=== PATIENT | female | born 1990 | race Caucasian/White ===

== ENCOUNTER 2022-08-02 20:22 | Emergency (ER) | payer OTHER, SELFPAY ==
[2022-08-02] VITALS (9 sets, daily range): BP systolic 134–144; BP diastolic 72–82; PULSE 79–86; RESP 16; TEMP 36.8; O2SAT 97–98; BMI 38.1
--- NOTE | 2022-08-02 21:09 | CRLHL7_ITS ---
For Patients: As a result of the Century Cures Act, medical imaging exams and procedure reports are released immediately into your electronic medical record. You may view this report before your referring provider. If you have questions, please contact your health care provider. INDICATION: Leg pain and swelling. TECHNIQUE: Ultrasound venous duplex lower right extremity. Compression venous exam was performed using foy-scale, color Doppler, and spectral Doppler analysis. COMPARISON: None. FINDINGS: Deep veins: Sonographic imaging demonstrates the right common femoral, deep femoral, superficial femoral, popliteal, posterior tibial and the contralateral right common femoral veins to be fully compressible with normal color Doppler blood flow. Superficial veins: Greater saphenous vein is fully compressible. No popliteal cyst. IMPRESSION: Normal right lower extremity venous ultrasound, no sign of deep venous thrombosis. Dictated by Edilberto Brown MD @ 08/02/2022 10:17:32 PM (Electronically Signed)
--- NOTE | 2022-08-02 21:10 | ED.GENADULT ---
HPI - General Adult General Chief complaint: Extremity Pain/Injury, Lower Stated complaint: Post Op Leg Pain Time Seen by Provider: 08/02/22 20:33 History of Present Illness HPI narrative: This 32-year-old female comes in reporting pain in her right calf that began in the last day or so. She had a surgery for an ectopic and had her left fallopian tube removed several days ago. She does not report any injury event to account for her right calf pain. She does not have any shortness of breath or chest pain. She arrives with normal vital signs. She is concerned that she may have a blood clot in her right leg. She does not report any history of this. Related Data Home Medications Medication Instructions Recorded Confirmed No Known Home Medications 08/02/22 08/02/22 Allergies Allergy/AdvReac Type Severity Reaction Status Date / Time prochlorperazine Allergy Mild Lock Jaw Verified 08/02/22 20:55 [From Compazine] Adhesives Allergy Mild Rash Uncoded 08/02/22 20:55 Review of Systems Status of ROS: Reports: 10 or more systems reviewed and unremarkable except as noted in History and below Narrative: Constitutional: No fevers, no weight gain or loss. Eyes: No discharge. No vision changes. HENT: No congestion, no sore throat, no ear pain. Cardiovascular: No chest pain, no palpitations. Respiratory: No shortness of breath, no wheezes, no cough. Gastrointestinal: No vomiting, no diarrhea. Abdominal pain status post surgery for ectopic . Genitourinary: No dysuria, no hematuria. Musculoskeletal: Normal range of motion. Skin: No rashes, no pruritis. Neurological: No dizziness, weakness, sensory change, speech change. Endo/Heme/Allergies: No bruising or bleeding. No polydipsia. Pysch: no suicidality, no anxiety, no insomnia. All other systems reviewed and are negative. PFSH PFS Social History Smoking Status: Never smoker Do you use any of these nicotine containing products: None Second hand tobacco smoke exposure: No How often do you have a drink containing alcohol: never AUDIT-C Alcohol total score: 0 Non-prescribed substance use: denies use Exam Narrative: Exam Narrative: Constitutional: Well-developed, well-nourished, no acute distress. HEENT: Normocephalic, atraumatic. Neck: Normal range of motion. Nontender. Supple. Heart: Regular. No murmurs. Normal rate. Intact distal pulses. Lungs: Clear to auscultation. No chest discomfort. No wheezes, rhonchi, or rales. Abdomen: Normal bowel sounds. Tenderness in the lower abdomen status post surgery. No rebound tenderness. Genitalia: Deferred. Back: No midline tenderness. Normal range of motion. Extremities: Normal range of motion. No injury. Diffuse pain in the right calf but no sign of swelling. Skin: Intact. No rash. Warm. No erythema or pallor. Neurologic: No altered sensation. No weakness. Alert and oriented. Psychiatric: No suicidality. No anxiety or depression. No insomnia. Nursing notes and vitals signs are reviewed. Const: Vital Signs, click to edit/add: Vital Signs - 24 hr 08/02/22 20:48 08/02/22 20:59 08/02/22 21:00 Temperature 98.3 F Pulse Rate 86 86 Pulse Rate [Right Pulse Oximeter] 79 Respiratory Rate 16 Blood Pressure Blood Pressure [Le ft Upper Arm] 141/82 H Pulse Oximetry 98 97 97 Oxygen Delivery Me thod Room Air 08/02/22 21:02 Temperature Pulse Rate 85 Pulse Rate [Right Pulse Oximeter] Respiratory Rate Blood Pressure 134/80 Blood Pressure [Le ft Upper Arm] Pulse Oximetry 97 Oxygen Delivery Me thod Course Vital Signs Vital signs: Initial Vital Signs Temperature 98.3 F 08/02/22 20:48 Temperature Source Temporal Artery Scan 08/02/22 20:48 Pulse Rate 79 08/02/22 20:48 Pulse Rhythm 08/02/22 20:48 Respiratory Rate 16 08/02/22 20:48 Blood Pressure 141/82 H 08/02/22 20:48 Blood Pressure Mean 101 08/02/22 20:48 Blood Pressure Position Supine 08/02/22 20:48 Pulse Oximetry 98 08/02/22 20:48 Oxygen Delivery Method 08/02/22 20:48 Vital Signs Temperature 98.3 F 08/02/22 20:48 Pulse Rate 79 08/02/22 20:48 Respiratory Rate 16 08/02/22 20:48 Blood Pressure 141/82 H 08/02/22 20:48 Pulse Oximetry 98 08/02/22 20:48 Oxygen Delivery Method 08/02/22 20:48 Temperature 98.3 F 08/02/22 20:48 Pulse Rate 85 08/02/22 21:02 Respiratory Rate 16 08/02/22 20:48 Blood Pressure 134/80 08/02/22 21:02 Pulse Oximetry 97 08/02/22 21:02 Oxygen Delivery Method 08/02/22 20:48 Medical Decision Making MDM Narrative Medical decision making narrative: This patient comes in with pain in her right calf and is concerned about possible blood clot as she just had a surgery to deal with an ectopic . Ultrasound imaging is ordered and returns with no evidence of deep venous thrombosis. This was reassuring to the patient who can be discharged home to continue current plans. Imaging Data US RLE: My impression: No sign of deep venous thrombosis. Discharge Plan Discharge Clinical Impression: Acute leg pain Patient Disposition: Home, Self-Care Condition: Stable Additional Instructions: Continue current plans. Follow up with MD or return if worsening. Prescriptions: No Action No Known Home Medications Stand Alone Forms: [employer] Info Instructions
== END 2022-08-02 22:04 | disposition home or self-care (01) ==
LOC: ED 21:54
PROVIDERS: Emergency Provider Emergency Medicine Emergency Medical Services
DX: M79.604 Pain in right leg (principal)
CPT/HCPCS: 93971; 99283; 99284

== ENCOUNTER 2022-09-01 18:34 | Outpatient (CLI) | payer OTHER, SELFPAY | END 2022-09-01 18:35 | disposition home or self-care (01) | PROVIDERS: Visit Provider Emergency Medicine Emergency Medical Services | DX: R55 Syncope and collapse (principal) | CPT/HCPCS: A0425; A0427 ==

== ENCOUNTER 2022-09-01 19:16 | Emergency (ER) | payer OTHER, SELFPAY ==
[2022-09-01 19:24] VITALS: BP 99/66; PULSE 90; RESP 18; TEMP 36.7; O2SAT 99; BMI 38.1
[2022-09-01 20:18] LABS: PCR FLU A Negative PCR FLU A (Negative); PCR FLU B Negative PCR FLU B (Negative); PCR RSV Negative PCR RSV (Negative)
--- NOTE | 2022-09-01 20:23 | ED_ITS ---
HPI - Nausea/Vomiting/Diarrhea General Chief complaint: Nausea/Vomiting Stated complaint: Vomiting, Diarrhea Time Seen by Provider: 09/01/22 19:53 History of Present Illness HPI Narrative: Pt is a 32 year old woman who comes in with the abrupt onset of nausea and vomiting today. She has had no fever or chills. She has had no blood in her vomit of stool. She has had a number of loose stools today. No abd pain. No dysuria. 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 Pt has no stiff neck. No rashes. She states when she gets sick like this she often requires IV hydration. Pt states that she is not at this time. 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 ENT: Tympanic membranes and oropharynx normal. THYROID: no thyroid nodules or thyromegaly. LYMPH: No supraclavicular or cervical lymphadenopathy. SKIN: Visible skin seen during exam normal or with benign process only. EXT: No dependent lower extremity pedal edema. HEART: Regular rate and rhythm with no murmurs, rubs, or gallops. LUNGS: Clear to auscultation bilaterally with no crackles or wheezes. ABD: Soft, non tender, non distended. PSYCH: Good eye contact, speech is not pressured. Const: Vital Signs, click to edit/add: Vital Signs - 24 hr 09/01/22 19:24 Temperature 98.0 F Pulse Rate [Right Pulse Oximeter] 90 Respiratory Rate 18 Blood Pressure [Ri ght Upper Arm] 99/66 Pulse Oximetry 99 Oxygen Delivery Me thod Room Air Course Course Hospital Course: Pt seen and examined. IV placed, NS and Zofran given. CBC, CMP, Amylase, test and Lactate collected. Reevaluation(s) Reevaluation #1: Labs reviewed and significant for elevated WBC at 16 and a negative test. Pt given 2nd liter of normal saline. Time: 21:57 Vital Signs Vital signs: Initial Vital Signs Temperature 98.0 F 09/01/22 19:24 Temperature Source Temporal Artery Scan 09/01/22 19:24 Pulse Rate 90 09/01/22 19:24 Respiratory Rate 18 09/01/22 19:24 Blood Pressure 99/66 09/01/22 19:24 Blood Pressure Mean 77 09/01/22 19:24 Blood Pressure Position Supine 09/01/22 19:24 Pulse Oximetry 99 09/01/22 19:24 Oxygen Delivery Method 09/01/22 19:24 Vital Signs Temperature 98.0 F 09/01/22 19:24 Pulse Rate 90 09/01/22 19:24 Respiratory Rate 18 09/01/22 19:24 Blood Pressure 99/66 09/01/22 19:24 Pulse Oximetry 99 09/01/22 19:24 Oxygen Delivery Method 09/01/22 19:24 Temperature 98.0 F 09/01/22 19:24 Pulse Rate 90 09/01/22 19:24 Respiratory Rate 18 09/01/22 19:24 Blood Pressure 99/66 09/01/22 19:24 Pulse Oximetry 99 09/01/22 19:24 Oxygen Delivery Method 09/01/22 19:24 MDM - Nausea/Vomiting/Diarrhea MDM Narrative Medical decision making narrative: Healthy 32 year old presents with nausea, vomiting and diarrhea. Labs reassuring. Pt given IV zofran and normal saline with improvement of symptoms. Pt works in [employer] so C. diff collected and sent. Pt treated symptomatically with Zofran for gastroenteritis. Differential Diagnosis Differential diagnosis: Likely traveler's diarrhea, food poisoning, gastroenteritis, clostridium difficile infection and dehydration Lab Data Labs: Lab Results 09/01/22 09/01/2209/01/22 Range/Units 19:33 20:21 20:34 WBC 16.20 H (4.50-11.00) K/uL RBC 4.85 (4.00-5.20) m/uL Hgb 14.6 (12.0-16.0) gm/dL Hct 43.4 (33.0-51.0) % MCV 90 (80-100) fL MCH 30 (26-34) pg MCHC 34 (32-36) gm/dL RDW Coeff of Emile 12.3 (11.5-15.5) % Plt Count 330 (140-440) K/uL Neut % (Auto) 89.6 H (42.0-72.0) % Lymph % (Auto) 4.9 L (20-44) % Yancey % (Auto) 4.9 (0.0-11.0) % Eos % (Auto) 0.3 (0.0-7.0) % Baso % (Auto) 0.1 (0.0-3.0) % Neut # (Auto) 14.50 H (1.7-7.0) K/uL Lymph # (Auto) 0.80 L (0.90-2.90) K/uL Yancey # (Auto) 0.80 (0.00-0.90) K/UL Eos # (Auto) 0.00 (0.00-0.50) K/uL Baso # (Auto) 0.00 (0.00-0.30) K/uL Sodium (135-149) mmol/L Potassium (3.6-5.1) mmol/L Chloride (96-114) mmol/L Carbon Dioxide (20-32) mmol/L BUN (5-24) mg/dL Creatinine (0.5-1.5) mg/dL Estimated Creat Clear Estimated GFR ml/min Glucose (60-115) mg/dL Lactate (0.5-1.9) mmol/L Calcium (8.4-10.6) mg/dL Total Bilirubin (0.1-1.5) mg/dL AST (12-35) U/L ALT (4-35) U/L Alkaline Phosphatase (40-150) U/L Total Protein (6.0-8.3) g/dL Albumin (3.3-5.0) g/dL Amylase (18-89) U/L HCG, Qual Negative (Negative) Stl C.difficile Tox PCR (Negative) St C. diff Tox Epid 027 (Negative) SARS-CoV-2 (PCR) Negative SARS-CoV-2 (Negative) Influenza Type A (PCR) Negative PCR FLU A (Negative) Influenza Type B (PCR) Negative PCR FLU B (Negative) RSV (PCR) Negative PCR RSV (Negative) 09/01/22 09/01/22 09/01/22 Range/Units 20:34 20:34 20:57 WBC (4.50-11.00) K/uL RBC (4.00-5.20) m/uL Hgb (12.0-16.0) gm/dL Hct (33.0-51.0) % MCV (80-100) fL MCH (26-34) pg MCHC (32-36) gm/dL RDW Coeff of Emile (11.5-15.5) % Plt Count (140-440) K/uL Neut % (Auto) (42.0-72.0) % Lymph % (Auto) (20-44) % Yancey % (Auto) (0.0-11.0) % Eos % (Auto) (0.0-7.0) % Baso % (Auto) (0.0-3.0) % Neut # (Auto) (1.7-7.0) K/uL Lymph # (Auto) (0.90-2.90) K/uL Yancey # (Auto) (0.00-0.90) K/UL Eos # (Auto) (0.00-0.50) K/uL Baso # (Auto) (0.00-0.30) K/uL Sodium 142 (135-149) mmol/L Potassium 4.3 (3.6-5.1) mmol/L Chloride 109 (96-114) mmol/L Carbon Dioxide 23 (20-32) mmol/L BUN 24 (5-24) mg/dL Creatinine 0.8 (0.5-1.5) mg/dL Estimated Creat Clear 82.74 Estimated GFR 100 ml/min Glucose 111 (60-115) mg/dL Lactate 1.9 (0.5-1.9) mmol/L Calcium 9.2 (8.4-10.6) mg/dL Total Bilirubin 1.0 (0.1-1.5) mg/dL AST 25 (12-35) U/L ALT 31 (4-35) U/L Alkaline Phosphatase 89 (40-150) U/L Total Protein 8.1 (6.0-8.3) g/dL Albumin 4.8 (3.3-5.0) g/dL Amylase 54 (18-89) U/L HCG, Qual (Negative) Stl C.difficile Tox PCR Negative (Negative) St C. diff Tox Epid 027 PRESUMPTIVE NEGATIVE (Negative) SARS-CoV-2 (PCR) (Negative) Influenza Type A (PCR) (Negative) Influenza Type B (PCR) (Negative) RSV (PCR) (Negative) Discharge Plan Discharge Clinical Impression: Gastroenteritis Condition: Stable Instructions: Gastroenteritis (ED) Activity Level: No Restrictions Discharge Diet: Regular Follow Up/Referrals: Marianne Garcia MD [Staff Physician] - Stand Alone Forms: [employer] Info Instructions
[2022-09-01 20:25] LABS: SARS PCR* Negative SARS-CoV-2 (Negative)
[2022-09-01] MEDS: ONDANSETRON 2 MG/ML inj 4 MG IVP (20:38)
[2022-09-01] MEDS: 0.9 % SODIUM CHLORIDE 1000 ml 1,000 ML IV ×2 (20:38→22:01)
[2022-09-01 21:08] LABS: Alanine Aminotransferase* 31 U/L (4-35); Albumin* 4.8 g/dL (3.3-5.0); Alkaline Phosphatase* 89 U/L (40-150); Amylase* 54 U/L (18-89); Aspartate Amino Transferase* 25 U/L (12-35); Basophils Percent Auto 0.1 % (0.0-3.0); Blood Urea Nitrogen* 24 mg/dL (5-24); Calcium* 9.2 mg/dL (8.4-10.6); Carbon Dioxide* 23 mmol/L (20-32); Chloride* 109 mmol/L (96-114); Creatinine* 0.8 mg/dL (0.5-1.5); Eosinophils Percent Auto 0.3 % (0.0-7.0); Est. Creatinine Clearance* 82.74; Estimated Glomerular Filt Rate 100 ml/min; Glucose* 111 mg/dL (60-115); Hematocrit 43.4 % (33.0-51.0); Hemoglobin* 14.6 gm/dL (12.0-16.0); Immature Granulocytes Pct Auto 0.2 %; Lymphocytes Percent Auto 4.9 % (20-44); Mean Corpuscular HGB Conc 34 gm/dL (32-36); Mean Corpuscular Hemoglobin 30 pg (26-34); Mean Corpuscular Volume 90 fL (80-100); Monocytes Percent Auto 4.9 % (0.0-11.0); Neutrophils Percent Auto 89.6 % (42.0-72.0); Platelet Count* 330 K/uL (140-440); Potassium* 4.3 mmol/L (3.6-5.1); RDW Coefficient of Variation % 12.3 % (11.5-15.5); Red Blood Count 4.85 m/uL (4.00-5.20); Sodium* 142 mmol/L (135-149); Total Protein* 8.1 g/dL (6.0-8.3)
[2022-09-01 21:09] LABS: Lactate* 1.9 mmol/L (0.5-1.9)
[2022-09-01 21:11] LABS: Slide Review Reflex No
[2022-09-01 21:22] LABS: HCG Qualitative Serum* Negative (Negative)
[2022-09-01 22:02] LABS: C.Difficile Negative (Negative); CDIFFEPI 027 PRESUMPTIVE NEGATIVE (Negative)
[2022-09-01 23:40] VITALS: BP 109/67; PULSE 71; RESP 16; TEMP 37
== END 2022-09-01 23:48 | disposition home or self-care (01) ==
PROVIDERS: Emergency Provider Internal Medicine
DX: K52.9 Noninfective gastroenteritis and colitis, unspecified (principal)
CPT/HCPCS: 36415; 80053; 82150; 83605; 84703; 85025; 87493; 87502; 87634; 87635; 96374; 99283; 99284; J2405; J7030

== ENCOUNTER 2022-09-12 07:57 | Emergency (ER) | payer OTHER, SELFPAY ==
[2022-09-12 08:01] VITALS: BP 129/97; PULSE 103; RESP 18; TEMP 36.8; O2SAT 96; BMI 37.2
[2022-09-12] MEDS: 0.9 % SODIUM CHLORIDE 1000 ml 1,000 ML IV ×2 (08:20→08:47)
[2022-09-12] MEDS: ONDANSETRON 2 MG/ML inj 4 MG IVP (08:31)
[2022-09-12 08:34] LABS: Eosinophils Percent Auto 1.2 % (0.0-7.0); Hematocrit 43.2 % (33.0-51.0); Hemoglobin* 14.4 gm/dL (12.0-16.0); Immature Granulocytes Pct Auto 0.3 %; Lymphocytes Percent Auto 26.2 % (20-44); Mean Corpuscular HGB Conc 33 gm/dL (32-36); Mean Corpuscular Hemoglobin 29 pg (26-34); Mean Corpuscular Volume 87 fL (80-100); Monocytes Percent Auto 6.8 % (0.0-11.0); Neutrophils Percent Auto 65.5 % (42.0-72.0); Platelet Count* 388 K/uL (140-440); RDW Coefficient of Variation % 12.3 % (11.5-15.5); Red Blood Count 4.96 m/uL (4.00-5.20); White Blood Count* 12.03 K/uL (4.50-11.00)
--- NOTE | 2022-09-12 08:39 | ED_ITS ---
HPI - Nausea/Vomiting/Diarrhea General Date Seen: 09/12/22 Chief complaint: Nausea/Vomiting Stated complaint: Stomach flu/dehydration Time Seen by Provider: 09/12/22 08:12 Source: patient Mode of arrival: ambulatory Limitations: no limitations History of Present Illness HPI Narrative: This 32-year-old female presents here for evaluation of nausea vomiting and diarrhea, she has had this now for approximately 2 weeks, received fluids here 2 weeks ago felt immensely better but then had return last 3-4 days of worsening nausea vomiting along with diarrhea she describes pain all over her abdomen associated with this, past history of C diff, has not been any recent antibiotics denies fevers and chills associated with this cough sore throat rash, 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 She was tested yesterday but is unsure with the results were. She is fully vaccinated. Two months ago she did have an ectopic , that was treated at [facility]. Denies any significant vaginal bleeding associated with this. Two weeks ago this C diff was negative. She has not been on any antibiotics for the last 2 months. Did try some Zofran at home, this morning to see if she could stop the vomiting. Brought in by her , for evaluation. Does have a history of abdominal issues with 5 previous abdominal surgeries. MD elicited complaint: nausea, vomiting, diarrhea and abdominal pain Pertinent past history: abdominal surgery Description of vomiting: watery Description of diarrhea: mucus and watery Associated nausea: Yes Associated abdominal pain: Yes Location of pain: diffuse Radiation: diffuse Pain consistency: constant Severity: moderate Quality: cramping, stabbing and aching Exacerbating factors: movement Relieving factors: rest Associated symptoms: denies other symptoms Treatment prior to arrival: Imodium Related Data Previous Rx's Medication Instructions Recorded ondansetron 4 mg disintegrating 4 mg PO BID-TID PRN nausea and 09/12/22 tablet vomiting #14 tabs Allergies Allergy/AdvReac Type Severity Reaction Status Date / Time prochlorperazine Allergy Mild Lock Jaw Verified 08/02/22 20:55 [From Compazine] Adhesives Allergy Mild Rash Uncoded 08/02/22 20:55 Review of Systems Status of ROS: Reports: 10 or more systems reviewed and unremarkable except as noted in History and below GI: Reports: nausea PFSH PFSH Social History Smoking Status: Never smoker Do you use any of these nicotine containing products: None Second hand tobacco smoke exposure: No How often do you have a drink containing alcohol: never AUDIT-C Alcohol total score: 0 Non-prescribed substance use: denies use Exam Narrative: Exam Narrative: Patient is peaking normally, no problem with slurring words, oriented x3. Seems a little bit dry, with parched and cracked lips. She is moaning whenever she moves. Head eyes ears nose and throat exam show equal pupils, no scleral icterus, extraocular muscles are normal, no facial droop, speech is normal, trachea normal and midline. Thyroid normal midline palpable not enlarged. Chest shows symmetrical rise bilaterally, normal auscultation with no wheezes, no increased work of breathing, no overt bruising or lesions seen, no tenderness is noted on auscultation. Heart sounds normal with no S3-S4 no murmurs clicks or gallops. Abdomen shows no obvious masses or hepatosplenomegaly, no organomegaly, bowel sounds are quiet l in all quadrants. No tenderness is noted also in all quadrants. There are streaky I noted in her abdomen, and well- healed laparoscopic surgical incisions. Upper and lower extremities show normal power, normal range of motion, pulses are normal, sensations normal, fine motor movements are normal, pelvis is stable to rocking. Cervical spine shows normal range of motion, and palpably not tender. Thoracic spine shows normal range of motion, and palpably not tender, lumbar spine shows no tenderness to palpation percussion and is otherwise normal range of motion. Skin shows no rashes, petechiae or eccymosis. Const: Vital Signs, click to edit/add: Vital Signs - 24 hr 09/12/22 08:01 09/12/22 09:00 09/12/22 09:38 Temperature 98.3 F Pulse Rate [Pulse Oximeter] 103 H 96 Pulse Rate [orthos tatic lying Pulse Oximeter] 71 Pulse Rate [orthos tatic sitting Puls e Oximeter] 96 Pulse Rate [orthos tatic standing Pul se Oximeter] 100 Respiratory Rate 18 18 Blood Pressure [Ri ght Upper Arm] 129/97 H Blood Pressure [or thostatic lying Le ft Arm] 122/75 Blood Pressure [or thostatic sitting Left Arm] 116/83 Blood Pressure [or thostatic standing Left Arm] 121/89 Pulse Oximetry 96 96 Oxygen Delivery Me thod Room Air Room Air Documenting provider has reviewed patient's vital signs: yes Course Reevaluation(s) Reevaluation #1: Discussed with her patient her laboratory test thus far reassuring, with a minimal elevation of her white count, her total CO2 was down, which is indicative of mild dehydration, she has received 2 L of fluid feels a little bit improved, and I will have her drink some oral Pedialyte, I am still waiting on the stool studies at this point, and we will get a abdominal x-ray just to rule out any significant obstruction, which I think is a low probability. Time: 10:21 Reevaluation #2: Went back and she says she feels immensely better with the fluids, we discussed that the nonspecific pattern of her x-ray, did not show any evidence of a significant obstruction, would be comfortable just watching this, and I would discussed how a antibiotics can worsen the situation especially with her history of C diff. recommend her use of Zofran regularly along with the Pepto-Bismol. Other dietary issues also. Will wait on the stool culture. She was comfortable this plan. Time: 11:34 Vital Signs Vital signs: Initial Vital Signs Temperature 98.3 F 09/12/22 08:01 Temperature Source Temporal Artery Scan 09/12/22 08:01 Pulse Rate 103 H 09/12/22 08:01 Respiratory Rate 18 09/12/22 08:01 Blood Pressure 129/97 H 09/12/22 08:01 Blood Pressure Mean 107 09/12/22 08:01 Blood Pressure Position Supine 09/12/22 08:01 Pulse Oximetry 96 09/12/22 08:01 Oxygen Delivery Method 09/12/22 08:01 Vital Signs Temperature 98.3 F 09/12/22 08:01 Pulse Rate 103 H 09/12/22 08:01 Respiratory Rate 18 09/12/22 08:01 Blood Pressure 129/97 H 09/12/22 08:01 Pulse Oximetry 96 09/12/22 08:01 Oxygen Delivery Method 09/12/22 08:01 Temperature 98.3 F 09/12/22 08:01 Pulse Rate 71 09/12/22 09:38 Respiratory Rate 18 09/12/22 09:00 Blood Pressure 122/75 01/03/23 09:38 Pulse Oximetry 96 09/12/22 09:00 Oxygen Delivery Method 09/12/22 09:00 MDM - Nausea/Vomiting/Diarrhea MDM Narrative Medical decision making narrative: Differential diagnosis includes but is not limited to viral gastroenteritis, drug food poisoning, pyloric stenosis, gastritis, pancreatitis, hepatitis, cholecystitis, appendicitis, bowel obstruction, hyperemesis, cyclic vomiting syndrome, bulimia nervosa, migraine headache, motion sickness and medication side effect. These include the life threatening complications of appendicitis, drug food poisoning and bowel obstruction. Medical Records Attestation: I reviewed the patient's medical records. Lab Data Attestation: I reviewed the patient's lab results. Labs: Lab Results 09/12/22 09/12/22 09/12/22 Range/Units 08:20 08:20 08:20 WBC 12.03 H (4.50-11.00) K/uL RBC 4.96 (4.00-5.20) m/uL Hgb 14.4 (12.0-16.0) gm/dL Hct 43.2 (33.0-51.0) % MCV 87 (80-100) fL MCH 29 (26-34) pg MCHC 33 (32-36) gm/dL RDW Coeff of Emile 12.3 (11.5-15.5) % Plt Count 388 (140-440) K/uL Neut % (Auto) 65.5 (42.0-72.0) % Lymph % (Auto) 26.2 (20-44) % Rooks % (Auto) 6.8 (0.0-11.0) % Eos % (Auto) 1.2 (0.0-7.0) % Baso % (Auto) 0.0 (0.0-3.0) % Neut # (Auto) 7.90 H (1.7-7.0) K/uL Lymph # (Auto) 3.20 H (0.90-2.90) K/uL Rooks # (Auto) 0.80 (0.00-0.90) K/UL Eos # (Auto) 0.10 (0.00-0.50) K/uL Baso # (Auto) 0.00 (0.00-0.30) K/uL Sodium 138 (135-149) mmol/L Potassium 4.5 (3.6-5.1) mmol/L Chloride 110 (96-114) mmol/L Carbon Dioxide 18 L (20-32) mmol/L BUN 19 (5-24) mg/dL Creatinine 0.6 (0.5-1.5) mg/dL Estimated Creat Clear 110.32 Estimated GFR 121 ml/min Glucose 111 (60-115) mg/dL Calcium 9.5 (8.4-10.6) mg/dL Total Bilirubin (0.1-1.5) mg/dL Direct Bilirubin (0.0-0.5) mg/dL AST (12-35) U/L ALT (4-35) U/L Alkaline Phosphatase (40-150) U/L C-Reactive Protein (0.5-1.0) mg/dL Total Protein (6.0-8.3) g/dL Albumin (3.3-5.0) g/dL Lipase (23-300) U/L Procalcitonin (<0.50) ng/mL HCG, Qual Negative (Negative) Urine Color (Yellow) Urine Appearance (Clear) Urine pH (5.0-8.5) Ur Specific [place] (1.000-1.030) Urine Protein (Negative) Urine Glucose (UA) (Negative) Urine Ketones (Negative) Urine Blood (Negative) Urine Nitrite (Negative) Urine Bilirubin (Negative) Urine Urobilinogen (0.2-1.0) Ur Leukocyte Esterase (Negative) Urine RBC (0-2) Urine WBC (0-5) Urine WBC Clumps (None) Ur Squamous Epith Cells (None-Few) Urine Bacteria (None) Stl C.difficile Tox PCR (Negative) St C. diff Tox Epid 027 (Negative) SARS-CoV-2 (PCR) (Negative) Influenza Type A (PCR) (Negative) Influenza Type B (PCR) (Negative) RSV (PCR) (Negative) 09/12/22 09/12/22 09/12/22 Range/Units 08:20 08:36 08:55 WBC (4.50-11.00) K/uL RBC (4.00-5.20) m/uL Hgb (12.0-16.0) gm/dL Hct (33.0-51.0) % MCV (80-100) fL MCH (26-34) pg MCHC (32-36) gm/dL RDW Coeff of Emile (11.5-15.5) % Plt Count (140-440) K/uL Neut % (Auto) (42.0-72.0) % Lymph % (Auto) (20-44) % Rooks % (Auto) (0.0-11.0) % Eos % (Auto) (0.0-7.0) % Baso % (Auto) (0.0-3.0) % Neut # (Auto) (1.7-7.0) K/uL Lymph # (Auto) (0.90-2.90) K/uL Rooks # (Auto) (0.00-0.90) K/UL Eos # (Auto) (0.00-0.50) K/uL Baso # (Auto) (0.00-0.30) K/uL Sodium (135-149) mmol/L Potassium (3.6-5.1) mmol/L Chloride (96-114) mmol/L Carbon Dioxide (20-32) mmol/L BUN (5-24) mg/dL Creatinine (0.5-1.5) mg/dL Estimated Creat Clear Estimated GFR ml/min Glucose (60-115) mg/dL Calcium (8.4-10.6) mg/dL Total Bilirubin 0.8 (0.1-1.5) mg/dL Direct Bilirubin 0.3 (0.0-0.5) mg/dL AST 32 (12-35) U/L ALT 35 (4-35) U/L Alkaline Phosphatase 90 (40-150) U/L C-Reactive Protein 0.5 (0.5-1.0) mg/dL Total Protein 8.3 (6.0-8.3) g/dL Albumin 4.8 (3.3-5.0) g/dL Lipase 61 (23-300) U/L Procalcitonin 0.06 (<0.50) ng/mL HCG, Qual (Negative) Urine Color Yellow (Yellow) Urine Appearance Clear (Clear) Urine pH 5.5 (5.0-8.5) Ur Specific [place] 1.025 (1.000-1.030) Urine Protein Negative (Negative) Urine Glucose (UA) Negative (Negative) Urine Ketones Negative (Negative) Urine Blood Trace-lysed A (Negative) Urine Nitrite Negative (Negative) Urine Bilirubin Negative (Negative) Urine Urobilinogen 0.2 (0.2-1.0) Ur Leukocyte Esterase Negative (Negative) Urine RBC 0-2 (0-2) Urine WBC 0-2 (0-5) Urine WBC Clumps None (None) Ur Squamous Epith Cells None (None-Few) Urine Bacteria None (None) Stl C.difficile Tox PCR Negative (Negative) St C. diff Tox Epid 027 PRESUMPTIVE NEGATIVE (Negative) SARS-CoV-2 (PCR) Negative SARS-CoV-2 (Negative) Influenza Type A (PCR) Negative PCR FLU A (Negative) Influenza Type B (PCR) Negative PCR FLU B (Negative) RSV (PCR) Negative PCR RSV (Negative) Imaging Data Abdominal x-ray: Attestation: I have reviewed the pertinent imaging results. My impression: Nonspecific gas pattern, will await the radiologic ovary, Radiologist's impression: [facility] Patient ID:?[id number] Site Patient ID:?[id number]. Site :?[id number] Study:?XRay Abdomen/Pelvis UPRIGHT & SUPINE ABD-09/12/2022 11:21:29 AM Ordering Physician:Korey Pearce Final Report: INDICATION: Abdominal pain, diarrhea, vomiting TECHNIQUE: Abdomen two views COMPARISON: None FINDINGS: Bowel: Bowel pattern is normal. Soft tissues: No sign of free air. No sign of soft tissue mass. No suspicious calcifications. Bones: Unremarkable for age. IMPRESSION: Unremarkable abdomen. Dictated by Alf Estes MD @ 09/12/2022 11:34:41 AM (Electronic Signature) Discharge Plan Discharge Clinical Impression: Dehydration, Vomiting, Diarrhea Patient Disposition: Home w/ Parent or Adult Condition: Improved Instructions: Dehydration (ED), Liquids and Hydration for Athletes (ED), Acute Diarrhea (ED), Acute Abdominal Pain (ED) Additional Instructions: Home, rest, use of Zofran t.i.d. as needed, nature to give you another prescription if you needed, I would also use Imodium, as needed, a better option however was Pepto-Bismol, t.i.d., as this is been shown to decrease the amount of bowel movements increased speed of improvement, and if there is a touch of colitis, this helps improve the situation also. Continue with rehydration solutions such as Pedialyte, follow-up with primary care, C diff was negative which is also reassuring but I would not put you on antibiotics rate now, his I would put she down the pathway of recurrence of that. For diet things like boiled starches bananas, are good things to start with avoidance of milk products Follow-up with primary care with in the next 7-10 days, or consider GI consult if ongoing issues. Prescriptions: New ondansetron 4 mg tablet,disintegrating 4 mg PO BID-TID PRN (Reason: nausea and vomiting) Qty: 14 0RF Follow Up/Referrals: Provider,Not a Local [Primary Care Provider] - Stand Alone Forms: [employer] Info Instructions
[2022-09-12 08:43] LABS: Slide Review Reflex No
[2022-09-12 08:46] LABS: Chloride* 110 mmol/L (96-114); Sodium* 138 mmol/L (135-149)
[2022-09-12 08:47] LABS: Potassium* 4.5 mmol/L (3.6-5.1)
[2022-09-12] MEDS: MORPHINE 4 MG/ML INJ IVP (08:47)
[2022-09-12 08:49] LABS: Creatinine* 0.6 mg/dL (0.5-1.5); Est. Creatinine Clearance* 110.32; Estimated Glomerular Filt Rate 121 ml/min
[2022-09-12 08:50] LABS: Blood Urea Nitrogen* 19 mg/dL (5-24); Calcium* 9.5 mg/dL (8.4-10.6); Carbon Dioxide* 18 mmol/L (20-32); Glucose* 111 mg/dL (60-115)
[2022-09-12 09:00] VITALS: PULSE 96; RESP 18; O2SAT 96
[2022-09-12 09:01] LABS: HCG Qualitative Serum* Negative (Negative)
[2022-09-12 09:11] LABS: Appearance Urine Clear (Clear); Bilirubin Urine Negative (Negative); Blood Urine Trace-lysed (Negative); Color Urine Yellow (Yellow); Glucose Urine Negative (Negative); Ketones Urine Negative (Negative); Leukocyte Esterase Urine Negative (Negative); Nitrite Urine Negative (Negative); Protein Urine Negative (Negative); Specific Gravity Urine 1.025 (1.000-1.030); Urobilinogen Urine 0.2 (0.2-1.0); pH Urine 5.5 (5.0-8.5)
[2022-09-12 09:19] LABS: Albumin* 4.8 g/dL (3.3-5.0)
[2022-09-12 09:22] LABS: Alanine Aminotransferase* 35 U/L (4-35); Alkaline Phosphatase* 90 U/L (40-150); Aspartate Amino Transferase* 32 U/L (12-35); Bilirubin Direct* 0.3 mg/dL (0.0-0.5); Bilirubin Total* 0.8 mg/dL (0.1-1.5); Lipase* 61 U/L (23-300); Total Protein* 8.3 g/dL (6.0-8.3)
[2022-09-12 09:25] LABS: C Reactive Protein* 0.5 mg/dL (0.5-1.0)
--- NOTE | 2022-09-12 09:30 | ED.NURSE ---
pt up to br, diarrhea continues. pt states n/v improved. pain improving. rates abd pain 4/10. pt states fluids helped a lot.
[2022-09-12 09:32] LABS: RBC Urine 0-2 (0-2)
[2022-09-12 09:33] LABS: WBC Urine 0-2 (0-5)
[2022-09-12 09:38] VITALS: BP 116/83; BP 121/89; BP 122/75; PULSE 100; PULSE 71; PULSE 96
[2022-09-12 09:39] LABS: Procalcitonin* 0.06 ng/mL (<0.50)
[2022-09-12 09:40] LABS: PCR FLU A Negative PCR FLU A (Negative); PCR FLU B Negative PCR FLU B (Negative); PCR RSV Negative PCR RSV (Negative)
[2022-09-12 09:54] LABS: C.Difficile Negative (Negative); CDIFFEPI 027 PRESUMPTIVE NEGATIVE (Negative)
--- NOTE | 2022-09-12 09:54 | CRLHL7_ITS ---
For Patients: As a result of the Century Cures Act, medical imaging exams and procedure reports are released immediately into your electronic medical record. You may view this report before your referring provider. If you have questions, please contact your health care provider. INDICATION: Abdominal pain, diarrhea, vomiting TECHNIQUE: Abdomen two views COMPARISON: None FINDINGS: Bowel: Bowel pattern is normal. Soft tissues: No sign of free air. No sign of soft tissue mass. No suspicious calcifications. Bones: Unremarkable for age. IMPRESSION: Unremarkable abdomen. Dictated by Alf Estes MD @ 09/12/2022 11:34:41 AM (Electronically Signed)
[2022-09-12 10:19] LABS: SARS PCR* Negative SARS-CoV-2 (Negative)
[2022-09-12] MEDS: ELECTROLYTES/DEXTROSE ORAL SOL 1,000 ML 1000 ML PO (10:20)
== END 2022-09-12 11:42 | disposition home or self-care (01) ==
PROVIDERS: Emergency Provider Family Medicine
DX: R11.2 Nausea with vomiting, unspecified (principal); R19.7 Diarrhea, unspecified; E86.0 Dehydration
CPT/HCPCS: 36415; 74019; 80048; 80076; 81001; 83690; 84145; 84703; 85025; 86140; 87045; 87046; 87077; 87427; 87493; 87502; 87634; 87635; 94761; 96374; 96375; 99284; A9270; J2270; J2405; J7030

== ENCOUNTER 2022-11-12 19:14 | Day surgery (SDC) | payer OTHER, SELFPAY ==
[2022-11-12 19:23] VITALS: BP 165/89; PULSE 90; RESP 18; TEMP 36.8; O2SAT 99; BMI 37.2
[2022-11-12 19:28] LABS: Appearance Urine Clear (Clear); Bilirubin Urine Negative (Negative); Blood Urine Trace-intact (Negative); Color Urine Yellow (Yellow); Glucose Urine Negative (Negative); Ketones Urine Negative (Negative); Leukocyte Esterase Urine Negative (Negative); Nitrite Urine Negative (Negative); Protein Urine Negative (Negative); Specific Gravity Urine >= 1.030 (1.000-1.030); Urobilinogen Urine 0.2 (0.2-1.0); pH Urine 5.5 (5.0-8.5)
--- NOTE | 2022-11-12 19:32 | US_ITS ---
Final Report Patient: GUILLERMO GUTIERREZ Facility:?[facility] Patient ID:?[id number] Site Patient ID:?[id number]. Site :?[id number] Study:?US Pelvis -11/12/2022 9:08:37 PM Ordering Physician:Dotty Gomez Final Report: INDICATION: Sudden onset pelvic pain 4 pm TECHNIQUE: Ultrasound pelvis transvaginal. Endovaginal imaging was performed to better visualize the endometrium and ovaries. Real-time foy scale sonographic images with spectral and color Doppler imaging of the ovaries were obtained. COMPARISON: None FINDINGS: Uterus: 9.7 x 5 x 4.4 cm. Normal echotexture of the myometrium noted with no masses are seen. Endometrium: 13 mm. No sign of endometrial mass or fluid present. Right ovary: The right ovary cannot be visualized and likely obscured by bowel gas. Left ovary: 4 x 3.2 x 2.6 cm with ellipsoidal volume estimate of 17.4 mL there is a 1.8 cm hypoechoic structure which may represent a small complex cyst. Arterial blood flow is seen in the left ovary. Cul-de-sac: No significant ascites noted. IMPRESSION: 1. Mild enlargement of the left ovaries noted. While the presence of blood flow within the left ovary is reassuring, it does not completely exclude the possibility of ovarian torsion if the patient has left-sided pelvic pain, as the ovary may have dual blood supply. Clinical correlation and follow-up is recommended. Dictated by Espinoza Wallis MD @ 11/12/2022 9:27:21 PM Dictated by: Espinoza Wallis MD @ 11/12/2022 21:27:38 (Electronic Signature)
[2022-11-12 19:34] LABS: HCG Qualitative* Negative (Negative)
--- NOTE | 2022-11-12 19:35 | ED.GENADULT ---
HPI - General Adult General Date Seen: 11/12/22 <Patricia Epps MD - Last Filed: 11/12/22 21:40> Chief complaint: Abdominal Pain <Patricia Epps MD - Last Filed: 11/12/22 21:40> Stated complaint: Severe Abdominal Pain - [place] <Patricia Epps MD - Last Filed: 11/12/22 21:40> Time Seen by Provider: 11/12/22 19:27 <Patricia Epps MD - Last Filed: 11/12/22 21:40> Source: patient <Patricia Epps MD - Last Filed: 11/12/22 21:40> Mode of arrival: ambulatory <Patricia Epps MD - Last Filed: 11/12/22 21:40> Limitations: no limitations <Patricia Epps MD - Last Filed: 11/12/22 21:40> History of Present Illness HPI narrative: Patient is a 32-year-old here for evaluation of pelvic pain. She states she had sudden onset of pelvic pain which she rates as severe at around 4:00 p.m. today. It has been present ever since and getting worse. Maybe a little bit of radiation into bilateral flanks. She says that it feels similar to when she had an ectopic , although she did do a test earlier and it was negative. She gets regular cycles, her last period started on October 21. She had an ectopic in July of 2022 and her left tube was removed as a result. She denies any new sexual contacts her concerns about exposure to STDs, no vaginal discharge and no vaginal bleeding. She is actively trying to get , they been going through infertility treatments. She has had laparoscopy for endometriosis and also an appendectomy. She says she has never had pain with her endometriosis before, only heavy bleeding. Pain is fairly diffuse across the pelvis, not really lateralizing. She has not had nausea vomiting, she had a normal bowel movement earlier, no constipation or diarrhea. Denies urinary symptoms. <Patricia Epps MD - Last Filed: 11/12/22 21:40> Related Data Home medications: Home Medications Medication Instructions Recorded Confirmed No Known Home Medications 11/12/22 11/12/22 <Patricia Epps MD - Last Filed: 11/12/22 21:40> Allergies/adverse reactions: Allergies Allergy/AdvReac Type Severity Reaction Status Date / Time prochlorperazine AdvReac Mild Nausea/Vomi Verified 11/12/22 19:25 [From Compazine] tinramon <Patricia Epps MD - Last Filed: 11/12/22 21:40> Review of Systems Status of ROS: Reports: 10 or more systems reviewed and unremarkable except as noted in History and below <Patricia Epps MD - Last Filed: 11/12/22 21:40> [facility] Medical History: Medical History Anxiety Bipolar II disorder Clostridium difficile infection Endometriosis 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 In general, an alert, nontoxic woman. Looks comfortable. Head: Normocephalic, atraumatic. Eyes: Pupils are equal reactive. Extraocular movements are full. Conjunctivae are normal. ENT: Mucous membranes are moist. Throat is normal. Neck: Supple without lymphadenopathy. Heart: Regular rate and rhythm. No murmur or rub. Lungs: Clear bilaterally. No increased work of breathing, crackles or wheezes. No CVA tenderness. Abdomen: Soft and nondistended. Some mild pelvic tenderness without rebound guarding or rigidity. Upper abdomen is nontender. Extremities: Well perfused. No edema. No calf tenderness. Pulses intact. Neurologic: Patient is alert and oriented to person and place. Speech is fluent. Face is symmetric. Moves all extremities equally. Affect: Normal. Skin: Warm and dry. Well perfused. <Patricia Epps MD - Last Filed: 11/12/22 21:40> Const: Vital Signs, click to edit/add: Vital Signs - 24 hr 11/12/22 19:23 Temperature 98.2 F Pulse Rate [Right Pulse Oximeter] 90 Respiratory Rate 18 Blood Pressure [Ri ght Upper Arm] 165/89 H Pulse Oximetry 99 Oxygen Delivery Me thod Room Air <Patricia Epps MD - Last Filed: 11/12/22 21:40> Vital Signs, click to edit/add: Vital Signs - 24 hr 11/12/22 19:23 Temperature 98.2 F Pulse Rate [Right Pulse Oximeter] 90 Respiratory Rate 18 Blood Pressure [Ri ght Upper Arm] 165/89 H Pulse Oximetry 99 Oxygen Delivery Me thod Room Air <Patricia Brian MD - Last Filed: 11/12/22 23:49> Documenting provider has reviewed patient's vital signs: yes <Patricia Epps MD - Last Filed: 11/12/22 21:40> Course Course Hospital Course: Will go ahead and establish an IV and give some Toradol to start. I think a pelvic ultrasound would be a reasonable next step, will double check a test here to make sure that that is in fact negative, but a pelvic ultrasound will allow us to rule out torsion, TOA, ruptured ovarian cyst or other pelvic pathology. Labs pending. Other considerations include UTI, pyelonephritis, kidney stone, diverticulitis, colitis, among others. Her labs are very reassuring, her white blood cell count is normal at 10, unremarkable diff. Hemoglobin is 12.8, platelets are normal. Metabolic panel is entirely normal. LFTs within normal limits. CRP is 0.9. test was negative and UA was entirely normal. She did have a pelvic ultrasound. She had a lot of discomfort in the right adnexa with ultrasound and ultimately the right ovary was not able to be visualized. Otherwise, the ultrasound was read as follows:IMPRESSION: 1. Mild enlargement of the left ovaries noted. While the presence of blood flow within the left ovary is reassuring, it does not completely exclude the possibility of ovarian torsion if the patient has left-sided pelvic pain, as the ovary may have dual blood supply. Clinical correlation and follow-up is recommended. In terms of the findings of the left ovary, she feels that the pain is more isolated to the right pelvis rather than the left, so I think that the left ovary is likely okay. Unfortunately, the right adnexa is not visualized. I did do a bimanual exam, she does not have significant left adnexal tenderness, she does not have cervical motion tenderness but does have tenderness in the right adnexa. I talked with Dr. Brewer, who is on-call for OB Gyne. She did not have significant concerns that we are missing something important by not seeing the right adnexa as she felt that if the right ovary were torsed that it should be enlarged and or have a large cyst, both of which would make it more prominent and visible on ultrasound. The fact that it is small and obscured by bowel gas suggest that it is normal. At this time, patient is feeling improved, she says that pain is much better than it was when she came in. She has had Toradol but that is all for pain. Declines any for anything else for now. I am going to order CT scan to make sure that we are not missing something else. If that is negative, I think it is reasonable to let her go home. In talking with her, she does get Clomid for her infertility treatments but missed this past month, so she has not had anything since September. If her CT is normal, would recommend close follow-up this week for re-evaluation, return to the ER for any persistent severe pain or new symptoms such as fever, vomiting, etcetera. <Patricia Epps MD - Last Filed: 11/12/22 21:40> Reevaluation(s) Reevaluation #1: Patient signed out to me by Dr. Epps. Patient noted to have had initial relief with Toradol but when I do talk to her she now has pain returning. She is informed that there is an and internal hernia noted on her CT. Her pain has been coming back over the last 5 minutes and thus will treat with morphine 4 mg, Zofran 4 mg. <Patricia Brian MD - Last Filed: 11/12/22 23:49> Consultations Consultation #1: I discussed this case and CT findings with Dr. Viveros. At this time planned on exploratory laparotomy and the OR crew is currently being called in. <Patricia Brian MD - Last Filed: 11/12/22 23:49> Vital Signs Vital signs: Initial Vital Signs Temperature 98.2 F 11/12/22 19:23 Temperature Source Temporal Artery Scan 11/12/22 19:23 Pulse Rate 90 11/12/22 19:23 Respiratory Rate 18 11/12/22 19:23 Blood Pressure 165/89 H 11/12/22 19:23 Blood Pressure Mean 114 11/12/22 19:23 Blood Pressure Position Sitting 11/12/22 19:23 Pulse Oximetry 99 11/12/22 19:23 Oxygen Delivery Method 11/12/22 19:23 Vital Signs Temperature 98.2 F 11/12/22 19:23 Pulse Rate 90 11/12/22 19:23 Respiratory Rate 18 11/12/22 19:23 Blood Pressure 165/89 H 11/12/22 19:23 Pulse Oximetry 99 11/12/22 19:23 Oxygen Delivery Method 11/12/22 19:23 Temperature 98.2 F 11/12/22 19:23 Pulse Rate 90 11/12/22 19:23 Respiratory Rate 18 11/12/22 19:23 Blood Pressure 165/89 H 11/12/22 19:23 Pulse Oximetry 99 11/12/22 19:23 Oxygen Delivery Method 11/12/22 19:23 <Patricia Epps MD - Last Filed: 11/12/22 21:40> Initial Vital Signs Temperature 98.2 F 11/12/22 19:23 Temperature Source Temporal Artery Scan 11/12/22 19:23 Pulse Rate 90 11/12/22 19:23 Respiratory Rate 18 11/12/22 19:23 Blood Pressure 165/89 H 11/12/22 19:23 Blood Pressure Mean 114 11/12/22 19:23 Blood Pressure Position Sitting 11/12/22 19:23 Pulse Oximetry 99 11/12/22 19:23 Oxygen Delivery Method 11/12/22 19:23 Vital Signs Temperature 98.2 F 11/12/22 19:23 Pulse Rate 90 11/12/22 19:23 Respiratory Rate 18 11/12/22 19:23 Blood Pressure 165/89 H 11/12/22 19:23 Pulse Oximetry 99 11/12/22 19:23 Oxygen Delivery Method 03/05/23 19:23 Temperature 98.2 F 11/12/22 19:23 Pulse Rate 90 11/12/22 19:23 Respiratory Rate 18 11/12/22 19:23 Blood Pressure 165/89 H 11/12/22 19:23 Pulse Oximetry 99 11/12/22 19:23 Oxygen Delivery Method 11/12/22 19:23 <Patricia Brian MD - Last Filed: 11/12/22 23:49> Medical Decision Making MDM Narrative Medical decision making narrative: 1. Abdominal pain-initially thought to be ovarian in nature but ultrasound moderately reassuring although right ovary could not be seen. Exam per Dr. Epps notes more right lower quadrant discomfort. Patient has had multiple surgeries in the past. Patient initially given Toradol and now morphine plus Zofran. IV fluids are in and we will start normal saline at 0125 mils per hour. 2. Internal hernia-ultrasound reassuring. However CT does show internal hernia. Dr. Viveros, business risk consultant has been notified and will be taking patient to the OR tonight. 3. Disposition-admit to same-day surgery. In discussion with patient, patient has all her dentition intact, 8 earlier in the evening so at least 4 hours have gone by. No history of problems with anesthesia except for mild nausea treated with scopolamine patch. No history of DVT. Patient is not currently on blood thinners. Patient requesting scopolamine patch as this helps her with nausea from anesthesia. Patches ordered. <Patricia Brian MD - Last Filed: 11/12/22 23:49> Medical Records Medical records reviewed: Yes I reviewed the patient's medical records <Patricia Brian MD - Last Filed: 11/12/22 23:49> Lab Data Lab results reviewed: Yes I reviewed the patient's lab results <Patricia Brian MD - Last Filed: 11/12/22 23:49> Labs: Lab Results 11/12/22 11/12/22 11/12/22 Range/Units 19:22 19:45 19:45 WBC 10.11 (4.50-11.00) K/uL RBC 4.43 (4.00-5.20) m/uL Hgb 12.8 (12.0-16.0) gm/dL Hct 38.7 (33.0-51.0) % MCV 87 (80-100) fL MCH 29 (26-34) pg MCHC 33 (32-36) gm/dL RDW Coeff of Emile 12.7 (11.5-15.5) % Plt Count 328 (140-440) K/uL Neut % (Auto) 57.5 (42.0-72.0) % Lymph % (Auto) 34.0 (20-44) % [place] % (Auto) 6.9 (0.0-11.0) % Eos % (Auto) 0.8 (0.0-7.0) % Baso % (Auto) 0.1 (0.0-3.0) % Neut # (Auto) 5.81 (1.7-7.0) K/uL Lymph # (Auto) 3.44 H (0.90-2.90) K/uL [place] # (Auto) 0.70 (0.00-0.90) K/UL Eos # (Auto) 0.08 (0.00-0.50) K/uL Baso # (Auto) 0.01 (0.00-0.30) K/uL Sodium 138 (135-149) mmol/L Potassium 3.9 (3.6-5.1) mmol/L Chloride 109 (96-114) mmol/L Carbon Dioxide 25 (20-32) mmol/L BUN 18 (5-24) mg/dL Creatinine 0.6 (0.5-1.5) mg/dL Estimated Creat Clear 110.32 Estimated GFR 121 ml/min Glucose 88 (60-115) mg/dL Calcium 9.2 (8.4-10.6) mg/dL Total Bilirubin 0.7 (0.1-1.5) mg/dL Direct Bilirubin 0.2 (0.0-0.5) mg/dL AST 25 (12-35) U/L ALT 26 (4-35) U/L Alkaline Phosphatase 76 (40-150) U/L C-Reactive Protein 0.9 (0.5-1.0) mg/dL Total Protein 7.5 (6.0-8.3) g/dL Albumin 4.2 (3.3-5.0) g/dL HCG, Qual Negative (Negative) Urine Color Yellow (Yellow) Urine Appearance Clear (Clear) Urine pH 5.5 (5.0-8.5) Ur Specific [place] >= 1.030 (1.000-1.030) Urine Protein Negative (Negative) Urine Glucose (UA) Negative (Negative) Urine Ketones Negative (Negative) Urine Blood Trace-intact A (Negative) Urine Nitrite Negative (Negative) Urine Bilirubin Negative (Negative) Urine Urobilinogen 0.2 (0.2-1.0) Ur Leukocyte Esterase Negative (Negative) Urine RBC 0-2 (0-2) Urine WBC 0-2 (0-5) Ur Squamous Epith Cells Moderate A (None-Few) Urine Bacteria None (None) SARS-CoV-2 (PCR) (Negative) 11/12/22 11/12/22 Range/Units 22:42 23:06 WBC (4.50-11.00) K/uL RBC (4.00-5.20) m/uL Hgb (12.0-16.0) gm/dL Hct (33.0-51.0) % MCV (80-100) fL MCH (26-34) pg MCHC (32-36) gm/dL RDW Coeff of Emile (11.5-15.5) % Plt Count (140-440) K/uL Neut % (Auto) (42.0-72.0) % Lymph % (Auto) (20-44) % [place] % (Auto) (0.0-11.0) % Eos % (Auto) (0.0-7.0) % Baso % (Auto) (0.0-3.0) % Neut # (Auto) (1.7-7.0) K/uL Lymph # (Auto) (0.90-2.90) K/uL [place] # (Auto) (0.00-0.90) K/UL Eos # (Auto) (0.00-0.50) K/uL Baso # (Auto) (0.00-0.30) K/uL Sodium (135-149) mmol/L Potassium (3.6-5.1) mmol/L Chloride (96-114) mmol/L Carbon Dioxide (20-32) mmol/L BUN (5-24) mg/dL Creatinine (0.5-1.5) mg/dL Estimated Creat Clear Estimated GFR ml/min Glucose (60-115) mg/dL Calcium (8.4-10.6) mg/dL Total Bilirubin (0.1-1.5) mg/dL Direct Bilirubin (0.0-0.5) mg/dL AST (12-35) U/L ALT (4-35) U/L Alkaline Phosphatase (40-150) U/L C-Reactive Protein (0.5-1.0) mg/dL Total Protein (6.0-8.3) g/dL Albumin (3.3-5.0) g/dL HCG, Qual (Negative) Urine Color (Yellow) Urine Appearance (Clear) Urine pH (5.0-8.5) Ur Specific [place] (1.000-1.030) Urine Protein (Negative) Urine Glucose (UA) (Negative) Urine Ketones (Negative) Urine Blood (Negative) Urine Nitrite (Negative) Urine Bilirubin (Negative) Urine Urobilinogen (0.2-1.0) Ur Leukocyte Esterase (Negative) Urine RBC (0-2) Urine WBC (0-5) Ur Squamous Epith Cells (None-Few) Urine Bacteria (None) SARS-CoV-2 (PCR) Negative SARS-CoV-2 Cancelled (Negative) <Patricia Epps MD - Last Filed: 11/12/22 21:40> Lab Results 11/12/22 11/12/22 11/12/22 Range/Units 19:22 19:45 19:45 WBC 10.11 (4.50-11.00) K/uL RBC 4.43 (4.00-5.20) m/uL Hgb 12.8 (12.0-16.0) gm/dL Hct 38.7 (33.0-51.0) % MCV 87 (80-100) fL MCH 29 (26-34) pg MCHC 33 (32-36) gm/dL RDW Coeff of Emile 12.7 (11.5-15.5) % Plt Count 328 (140-440) K/uL Neut % (Auto) 57.5 (42.0-72.0) % Lymph % (Auto) 34.0 (20-44) % [place] % (Auto) 6.9 (0.0-11.0) % Eos % (Auto) 0.8 (0.0-7.0) % Baso % (Auto) 0.1 (0.0-3.0) % Neut # (Auto) 5.81 (1.7-7.0) K/uL Lymph # (Auto) 3.44 H (0.90-2.90) K/uL [place] # (Auto) 0.70 (0.00-0.90) K/UL Eos # (Auto) 0.08 (0.00-0.50) K/uL Baso # (Auto) 0.01 (0.00-0.30) K/uL Sodium 138 (135-149) mmol/L Potassium 3.9 (3.6-5.1) mmol/L Chloride 109 (96-114) mmol/L Carbon Dioxide 25 (20-32) mmol/L BUN 18 (5-24) mg/dL Creatinine 0.6 (0.5-1.5) mg/dL Estimated Creat Clear 110.32 Estimated GFR 121 ml/min Glucose 88 (60-115) mg/dL Calcium 9.2 (8.4-10.6) mg/dL Total Bilirubin 0.7 (0.1-1.5) mg/dL Direct Bilirubin 0.2 (0.0-0.5) mg/dL AST 25 (12-35) U/L ALT 26 (4-35) U/L Alkaline Phosphatase 76 (40-150) U/L C-Reactive Protein 0.9 (0.5-1.0) mg/dL Total Protein 7.5 (6.0-8.3) g/dL Albumin 4.2 (3.3-5.0) g/dL HCG, Qual Negative (Negative) Urine Color Yellow (Yellow) Urine Appearance Clear (Clear) Urine pH 5.5 (5.0-8.5) Ur Specific [place] >= 1.030 (1.000-1.030) Urine Protein Negative (Negative) Urine Glucose (UA) Negative (Negative) Urine Ketones Negative (Negative) Urine Blood Trace-intact A (Negative) Urine Nitrite Negative (Negative) Urine Bilirubin Negative (Negative) Urine Urobilinogen 0.2 (0.2-1.0) Ur Leukocyte Esterase Negative (Negative) Urine RBC 0-2 (0-2) Urine WBC 0-2 (0-5) Ur Squamous Epith Cells Moderate A (None-Few) Urine Bacteria None (None) SARS-CoV-2 (PCR) (Negative) 03/05/23 03/05/23 Range/Units 22:42 23:06 WBC (4.50-11.00) K/uL RBC (4.00-5.20) m/uL Hgb (12.0-16.0) gm/dL Hct (33.0-51.0) % MCV (80-100) fL MCH (26-34) pg MCHC (32-36) gm/dL RDW Coeff of Emile (11.5-15.5) % Plt Count (140-440) K/uL Neut % (Auto) (42.0-72.0) % Lymph % (Auto) (20-44) % [place] % (Auto) (0.0-11.0) % Eos % (Auto) (0.0-7.0) % Baso % (Auto) (0.0-3.0) % Neut # (Auto) (1.7-7.0) K/uL Lymph # (Auto) (0.90-2.90) K/uL [place] # (Auto) (0.00-0.90) K/UL Eos # (Auto) (0.00-0.50) K/uL Baso # (Auto) (0.00-0.30) K/uL Sodium (135-149) mmol/L Potassium (3.6-5.1) mmol/L Chloride (96-114) mmol/L Carbon Dioxide (20-32) mmol/L BUN (5-24) mg/dL Creatinine (0.5-1.5) mg/dL Estimated Creat Clear Estimated GFR ml/min Glucose (60-115) mg/dL Calcium (8.4-10.6) mg/dL Total Bilirubin (0.1-1.5) mg/dL Direct Bilirubin (0.0-0.5) mg/dL AST (12-35) U/L ALT (4-35) U/L Alkaline Phosphatase (40-150) U/L C-Reactive Protein (0.5-1.0) mg/dL Total Protein (6.0-8.3) g/dL Albumin (3.3-5.0) g/dL HCG, Qual (Negative) Urine Color (Yellow) Urine Appearance (Clear) Urine pH (5.0-8.5) Ur Specific [place] (1.000-1.030) Urine Protein (Negative) Urine Glucose (UA) (Negative) Urine Ketones (Negative) Urine Blood (Negative) Urine Nitrite (Negative) Urine Bilirubin (Negative) Urine Urobilinogen (0.2-1.0) Ur Leukocyte Esterase (Negative) Urine RBC (0-2) Urine WBC (0-5) Ur Squamous Epith Cells (None-Few) Urine Bacteria (None) SARS-CoV-2 (PCR) Negative SARS-CoV-2 Cancelled (Negative) <Patricia Brian MD - Last Filed: 11/12/22 23:49> Imaging Data Pelvic ultrasound: My impression: Per Radiology tach, unable to visualize right ovary. Left ovary with cystic lesion. <Patricia Brian MD - Last Filed: 11/12/22 23:49> CT scan - abdomen: Attestation: I have reviewed the pertinent imaging results. <Patricia Brian MD - Last Filed: 11/12/22 23:49> Radiologist's impression: Lower chest: Unremarkable. Liver: Unremarkable. Spleen: Unremarkable. Pancreas: Unremarkable. Gallbladder: Unremarkable. Kidney: Unremarkable. No kidney or ureteral stones or obstruction seen. Adrenal: Unremarkable. Bowel: On coronal image 61, the cecum and terminal ileum appears to cross under the right broad ligament with a narrow pedicle and swirled mesenteric vessels seen on axial image 103. The appendix is not visualized and may be surgically absent. Vascular: Unremarkable. Lymph: Unremarkable. Peritoneum: Unremarkable. No pneumoperitoneum is seen. A small amount of pelvic ascites is noted. Pelvis: There is a cystic lesion in the left ovary measuring 1.5 x 2.6 cm. Soft tissue: Unremarkable. Bone: Bilateral chronic pars defects of L5 noted with mild anterolisthesis of L5-S1 noted. IMPRESSIONS: 1. On coronal image 61, the cecum and terminal ileum appears to cross under the right broad ligament with a narrow pedicle and swirled mesenteric vessels seen on axial image 103. Findings are suspicious for an internal hernia through the broad ligament. 2. There is a cystic lesion in the left ovary measuring 1.5 x 2.6 cm. This was better assessed by recent ultrasound and may represent a small hemorrhagic cyst. <Patricia Brian MD - Last Filed: 11/12/22 23:49> Discharge Plan Discharge Clinical Impression: Hernia, internal <Patricia Epps MD - Last Filed: 11/12/22 21:40> Patient Disposition: Admitted As Inpatient <Patricia Epps MD - Last Filed: 11/12/22 21:40> Condition: Improved <Patricia Epps MD - Last Filed: 11/12/22 21:40>
[2022-11-12 19:40] LABS: RBC Urine 0-2 (0-2); Squamous Epithelial Cell Urine Moderate (None-Few); WBC Urine 0-2 (0-5)
[2022-11-12] MEDS: 0.9 % SODIUM CHLORIDE 1000 ml 1,000 ML IV (19:47)
[2022-11-12] MEDS: KETOROLAC 15 MG/ML inj IVP (19:50)
[2022-11-12 19:53] LABS: Basophils Absolute Auto 0.01 K/uL (0.00-0.30); Basophils Percent Auto 0.1 % (0.0-3.0); Eosinophils Absolute Auto 0.08 K/uL (0.00-0.50); Eosinophils Percent Auto 0.8 % (0.0-7.0); Hematocrit 38.7 % (33.0-51.0); Hemoglobin* 12.8 gm/dL (12.0-16.0); Immature Granulocytes Abs Auto 0.07 K/uL (0.00-0.30); Immature Granulocytes Pct Auto 0.7 %; Lymphocytes Absolute Auto 3.44 K/uL (0.90-2.90); Mean Corpuscular HGB Conc 33 gm/dL (32-36); Mean Corpuscular Hemoglobin 29 pg (26-34); Mean Corpuscular Volume 87 fL (80-100); Monocytes Percent Auto 6.9 % (0.0-11.0); Neutrophils Absolute Auto 5.81 K/uL (1.7-7.0); Neutrophils Percent Auto 57.5 % (42.0-72.0); Platelet Count* 328 K/uL (140-440); RDW Coefficient of Variation % 12.7 % (11.5-15.5); Red Blood Count 4.43 m/uL (4.00-5.20); White Blood Count* 10.11 K/uL (4.50-11.00)
[2022-11-12 19:55] LABS: Slide Review Reflex No
[2022-11-12 20:06] LABS: Albumin* 4.2 g/dL (3.3-5.0); Chloride* 109 mmol/L (96-114)
[2022-11-12 20:07] LABS: Potassium* 3.9 mmol/L (3.6-5.1); Sodium* 138 mmol/L (135-149)
[2022-11-12 20:09] LABS: Alanine Aminotransferase* 26 U/L (4-35); Alkaline Phosphatase* 76 U/L (40-150); Aspartate Amino Transferase* 25 U/L (12-35); Bilirubin Direct* 0.2 mg/dL (0.0-0.5); Bilirubin Total* 0.7 mg/dL (0.1-1.5); Blood Urea Nitrogen* 18 mg/dL (5-24); Carbon Dioxide* 25 mmol/L (20-32); Creatinine* 0.6 mg/dL (0.5-1.5); Est. Creatinine Clearance* 110.32; Estimated Glomerular Filt Rate 121 ml/min; Glucose* 88 mg/dL (60-115); Total Protein* 7.5 g/dL (6.0-8.3)
[2022-11-12 20:10] LABS: Calcium* 9.2 mg/dL (8.4-10.6)
[2022-11-12 20:12] LABS: C Reactive Protein* 0.9 mg/dL (0.5-1.0)
--- NOTE | 2022-11-12 21:30 | CRLHL7_ITS ---
For Patients: As a result of the Century Cures Act, medical imaging exams and procedure reports are released immediately into your electronic medical record. You may view this report before your referring provider. If you have questions, please contact your health care provider. INDICATION: Pelvic pain TECHNIQUE: CT Abdomen and pelvis with i.v. contrast. Coronal and sagittal reformats were obtained. CONTRAST: 100 mL Isovue 370 COMPARISON: 01/03/2022, ultrasound 11/12/2022 FINDINGS: Lower chest: Unremarkable. Liver: Unremarkable. Spleen: Unremarkable. Pancreas: Unremarkable. Gallbladder: Unremarkable. Kidney: Unremarkable. No kidney or ureteral stones or obstruction seen. Adrenal: Unremarkable. Bowel: On coronal image 61, the cecum and terminal ileum appears to cross under the right broad ligament with a narrow pedicle and swirled mesenteric vessels seen on axial image 103. The appendix is not visualized and may be surgically absent. Vascular: Unremarkable. Lymph: Unremarkable. Peritoneum: Unremarkable. No pneumoperitoneum is seen. A small amount of pelvic ascites is noted. Pelvis: There is a cystic lesion in the left ovary measuring 1.5 x 2.6 cm. Soft tissue: Unremarkable. Bone: Bilateral chronic pars defects of L5 noted with mild anterolisthesis of L5-S1 noted. IMPRESSIONS: 1. On coronal image 61, the cecum and terminal ileum appears to cross under the right broad ligament with a narrow pedicle and swirled mesenteric vessels seen on axial image 103. Findings are suspicious for an internal hernia through the broad ligament. 2. There is a cystic lesion in the left ovary measuring 1.5 x 2.6 cm. This was better assessed by recent ultrasound and may represent a small hemorrhagic cyst. Dictated by Espinoza Wallis MD @ 11/12/2022 10:15:15 PM Please note that all CT scans at this facility use dose modulation, iterative reconstruction, and/or weight-based dosing when appropriate to reduce radiation dose to as low as reasonably achievable. Dictated by: Espinoza Wallis MD @ 11/12/2022 22:18:18 (Electronically Signed)
[2022-11-12] MEDS: ONDANSETRON 2 MG/ML inj 4 MG IVP (23:42)
[2022-11-12] MEDS: MORPHINE 4 MG/ML INJ IVP (23:42)
[2022-11-12] MEDS: 0.9 % SODIUM CHLORIDE 1000 ml 1,000 ML 125 ML IV (23:42)
[2022-11-12 23:45] LABS: SARS PCR* Negative SARS-CoV-2 (Negative)
[2022-11-12] MEDS: SCOPOLAMINE 1 MG/3 DAY PATCH 1 PATCH TRANSDERMA (23:56)
[2022-11-13] VITALS (27 sets, daily range): BP systolic 98–132; BP diastolic 49–87; PULSE 52–97; RESP 12–20; TEMP 36.3–37.7; O2SAT 91–99
--- NOTE | 2022-11-13 00:09 | P.GSHP_ITS ---
History of Present Illness History of Present Illness Date Seen: 11/13/22 Chief complaint: Severe Abdominal Pain - [place] Narrative: Juana Cooley is a 32 year old female presented to emergency room with sudden onset of abdominal pain. 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 At the end of her shift she all of a sudden experienced sudden sharp pain her in her pelvis and right side of her abdomen. She described it as ?doubled over? with pain. She became ?sweaty?. She thought that she needed to pass gas but that did not improve her symptoms. The pain was worse with movement. She then presented to emergency room. She denies any nausea vomiting. She is passing gas and her bowel movement was today. I reviewed the patient's chart personally. Her CBC and BMP are normal. An abdominal CT was obtained that shows a possible internal hernia through the right-sided broad ligament. Radiology describes the cecum and terminal ileum incarcerated in through the right broad ligament. Patient had 4 exploratory laparoscopies for endometriosis in the past. She also had a left salpingectomy for ectopic tubal in July of 2022. This was done at the outside hospital. Her other surgical history includes laparoscopic appendectomy and 2 C sections. Review of Systems Narrative: General: no fevers HENT: no problems swallowing CV: no shortness of breath Resp: no cough GI: See above Skin: no new rashes Musculoskeletal: no back pain Neuro: no muscle weakness Psyche: depression and anxiety 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 Second hand tobacco smoke exposure: No Meds Home Medications and Allergies Home Medications Medication Instructions Recorded Confirmed Type No Known Home Medications 11/12/22 11/12/22 History Allergies Allergy/AdvReac Type Severity Reaction Status Date / Time prochlorperazine AdvReac Mild Nausea/Vomi Verified 11/12/22 19:25 [From Compazine] ting Exam Narrative: Exam Narrative: General appearance: Alert, cooperative, and in no distress Pulmonary: Chest symmetric, lungs clear bilaterally Cardiovascular Heart: Regular rate and rhythm, S1, S2, no murmurs/rubs/gallops Gastrointestinal Abdominal: soft, not distended, tender to palpation in the right lower quadrant with no rebound tenderness. There are healing laparoscopic incisions on the left side of the abdomen. Skin: Normal skin color, texture, and turgor. No rashes or lesions. Psychiatric: Alert, cooperative, normal affect. Const: Vital Signs, click to edit/add: Vital Signs - 24 hr 11/12/22 19:23 Temperature 98.2 F Pulse Rate [Right Pulse Oximeter] 90 Respiratory Rate 18 Blood Pressure [Ri ght Upper Arm] 165/89 H Pulse Oximetry 99 Oxygen Delivery Me thod Room Air Assessment and Plan Assessment and plan (1) Hernia, internal: Status: Acute Plan 32-year-old female with multiple previous exploratory laparoscopies presents with sudden onset of right lower quadrant abdominal pain that is concerning for internal hernia. I discussed with the patient her clinical findings. Patient's laboratory findings are normal. An abdominal CT shows a possible internal hernia with cecum and terminal ileum incarcerated in through the right broad ligament. I recommended to proceed with exploratory laparoscopy and possible exploratory laparotomy. The procedure was discussed in detail. The risks associated the procedure including infection, bleeding, injury to intra-abdominal organs, and hernia recurrence were all discussed with the patient, and she agreed to proceed.
[2022-11-13] MEDS: CEFAZOLIN 2 GM INJ IVP (00:20)
[2022-11-13] MEDS: LACTATED RINGERS 1000 ML 1,000 ML 100 ML IV ×2 (01:35→03:50)
[2022-11-13] MEDS: MEPERIDINE 25 MG/ML INJ 12.5 MG IVP (01:57)
--- NOTE | 2022-11-13 02:02 | W.ANESCHARGE ---
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
[2022-11-13] MEDS: fentaNYL 100 MCG/2 ML inj 50 MCG IVP ×2 (02:20→02:35)
[2022-11-13] MEDS: HYDROmorphone 0.5 mg/0.5 ml inj IVP (02:53)
--- NOTE | 2022-11-13 03:20 | SUR.PHASEI ---
patient met discharge criteria per anesthesia
[2022-11-13] MEDS: MORPHINE 2 MG/ML inj IVP ×2 (03:45→05:09)
[2022-11-13] MEDS: ONDANSETRON 2 MG/ML inj IVP (05:23)
[2022-11-13] MEDS: HYDROCODONE-ACETAMIN 5-325 MG 1 TAB PO (06:47)
--- NOTE | 2022-11-13 07:17 | PC.NURSE ---
Pt is alert and oriented x3. Pt reports SOB with exertion, and 7/10 pain in muscles surrounding ribs, pain managed with PRN medications. Pt has had intermittent dry cough, managed with PRN cough suppressant. Pt 02 sats were 90-92 in the eaving of 11/12/22 on 2L of oxygen but overnight the O2 sats dropped into low 80s (82-84%), pt's oxygen was turned up to 3L and pt returned to 90-91%. Pt posterior lung sounds have fine crackles and are diminished. Pt reports feeling anxious and moans I want my mom, pt was given reassurance and tea per her request. Pt is up IND in room but puts senior controls analyst light for assistance with IV pole. Pt is tolerating a regular diet.
--- NOTE | 2022-11-13 07:23 | PM.GSPRC ---
Operative Note Date of procedure: 11/12/22 Pre-op diagnosis: 1. Possible internal hernia through the right broad ligament. 2. Multiple exploratory laparoscopies for endometriosis. Post-op diagnosis: 1. Internal hernia through the right broad ligament. Type of Procedure: 1. Exploratory laparoscopy with hernia reduction and and repair of broad ligament defect. Indications: 32-year-old female presented to emergency room with sudden onset of pelvic and right lower quadrant pain. Patient's pain was worse after eating. She denies any nausea or vomiting. In the emergency room she was found to have normal WBC and normal basic metabolic panel. An abdominal CT was obtained that showed cecum and terminal ileum incarcerated through an opening in the broad ligament concerning for an internal hernia. On clinical exam patient had tenderness to palpation in the right lower quadrant with no tenderness anywhere else. Given patient's clinical history and her CT findings, exploratory laparoscopy was recommended. The procedure was discussed in detail. The risks associated the procedure including infection, bleeding, hernia recurrence, and injury to intra-abdominal organs were all discussed with the patient, and she agreed to proceed. Procedure Description: After discussing the risks and benefits of the procedure, the patient signed informed consent.? The operative site was marked and the patient was brought to the operating room and placed on the operating table in supine position.? Care was taken to pad the patient's pressure points.?? The patient was then intubated by anesthesia.?? The operative site was then prepped and draped in the usual sterile fashion.? A time-out was then performed. Local anesthetic was injected in the left upper quadrant and a 5 mm skin incision was made with a scalpel. The abdomen was entered using Visiport technique by visualizing the layers of the abdominal wall. The abdomen was insufflated with carbon dioxide. No adhesions were noted. I then placed 12 mm port in the left mid abdomen and a 5 mm port and the left lower quadrant under direct visualization. The left upper quadrant entrance site was then examined with the camera and no intra-abdominal organ injury was noted. The patient was then placed in the Trendelenburg position and omentum and small bowel was retracted cephalad. I was immediately able to identify the right ovary and the uterus. The right ovarian ligament and fallopian tube were retracted towards the abdominal wall and cecum was noted to be protruding through the defect in the broad ligament. The cecum was reduced and was viable. A moderately-sized defect was noted in the broad ligament. This was most likely due to patient's multiple laparoscopies for endometriosis. 2-0 V lock suture was then used to close the defect. This was done by reapproximating peritoneum of the ovarian ligament to the remnants of the broad ligament on the lateral side of the uterus. The right ureter was visualized and care was taken not to injure it. Once the defect was closed, the V lock suture was cut and the needle was removed. The pelvis was then irrigated with normal saline and no bleeding was noted. The fascia of the 12 mm port was then closed with 0-0 Vicryl suture using Ariel-Josee needle. All ports were removed and abdomen was deflated. Skin incision was then closed with 4-0 Monocryl stitch. Sterile dressings were placed over the incisions. ? Sterile dressings were then applied. ? The patient was then woken and transported to the recovery area in stable condition. ? The patient tolerated the procedure well. Findings: Moderately-sized hernia defect through the right broad ligament. This was not congenital but most likely secondary since patient had multiple surgeries for exploratory laparoscopy and excision of endometriosis. Anesthesia: GETA Surgeon: Edwardo Garcia MD Estimated blood loss (mL): 5 Condition: stable Disposition: PACU
--- NOTE | 2022-11-13 07:42 | PC.NURSE ---
Pt alert and oriented x3. Pt denies SOB, chest pain, and vomiting. Pt reports pain 7/10 pain when first arriving on the unit at 0315, pain managed with PRN medications. Pt has 3 lap sites, dressing CDI. Pt report nausea, managed with PRN zofran. Pt rested overnight and remained in bed. Pt is tolerating regular diet. VSS. Pt has not urinated yet.
[2022-11-13] MEDS: IBUPROFEN 600 MG TABLET PO (09:21)
--- NOTE | 2022-11-13 10:57 | PM.DS1 ---
DS: Providers Provider Date Seen: 11/13/22 Primary care physician: Not a Local Provider Attending Physician on discharge: Edwardo Jackson MD DS: Diagnosis Discharge Diagnosis (1) Hernia, internal: Status: Acute DS: Summary Hospital Course Hospital Course: Patient was admitted to the hospital after she underwent exploratory laparoscopy, reduction of internal hernia, and closure of the hernia defect. Patient is doing well postoperatively. She does complain of abdominal pain that is worse with movement. She tolerated clears. Time Spent with Patient Time attestation: Total time spent providing and/or coordinating discharge services: Exam Const: Vital Signs, click to edit/add: Vital Signs - 24 hr 11/12/22 19:23 11/13/22 01:53 11/13/22 02:00 Temperature 98.2 F 97.3 F L 97.3 F L Pulse Rate 96 86 Pulse Rate [Left P ulse Oximeter] Pulse Rate [Right Pulse Oximeter] 90 Respiratory Rate 18 15 16 Blood Pressure 124/86 132/87 Blood Pressure [Ri ght Arm] Blood Pressure [Ri ght Upper Arm] 165/89 H Pulse Oximetry 99 97 96 Oxygen Delivery Me thod Room Air Oxygen Flow Rate 11/13/22 02:15 11/13/22 02:35 11/13/22 02:55 Temperature 97.3 F L 97.3 F L 97.3 F L Pulse Rate 78 79 65 Pulse Rate [Left P ulse Oximeter] Pulse Rate [Right Pulse Oximeter] Respiratory Rate 16 14 15 Blood Pressure 115/77 107/77 116/74 Blood Pressure [Ri ght Arm] Blood Pressure [Ri ght Upper Arm] Pulse Oximetry 93 96 94 Oxygen Delivery Me thod Nasal Cannula Nasal Cannula Room Air Oxygen Flow Rate 4 2 0 11/13/22 01:55 11/13/22 02:05 11/13/22 02:10 Temperature 97.3 F L 97.3 F L 97.3 F L Pulse Rate 96 87 77 Pulse Rate [Left P ulse Oximeter] Pulse Rate [Right Pulse Oximeter] Respiratory Rate 15 15 17 Blood Pressure 119/81 124/82 125/82 Blood Pressure [Ri ght Arm] Blood Pressure [Ri ght Upper Arm] Pulse Oximetry 97 96 96 Oxygen Delivery Me thod Oxygen Flow Rate 11/13/22 02:20 11/13/22 02:25 11/13/22 02:30 Temperature 97.3 F L 97.3 F L 97.3 F L Pulse Rate 70 67 73 Pulse Rate [Left P ulse Oximeter] Pulse Rate [Right Pulse Oximeter] Respiratory Rate 16 16 13 Blood Pressure 120/78 98/64 106/74 Blood Pressure [Ri ght Arm] Blood Pressure [Ri ght Upper Arm] Pulse Oximetry 91 94 94 Oxygen Delivery Me thod Nasal Cannula Nasal Cannula Nasal Cannula Oxygen Flow Rate 4 4 2 11/13/22 02:40 11/13/22 03:00 11/13/22 03:05 Temperature 97.3 F L 97.3 F L 97.3 F L Pulse Rate 78 64 75 Pulse Rate [Left P ulse Oximeter] Pulse Rate [Right Pulse Oximeter] Respiratory Rate 14 15 16 Blood Pressure 114/75 116/74 110/74 Blood Pressure [Ri ght Arm] Blood Pressure [Ri ght Upper Arm] Pulse Oximetry 93 94 94 Oxygen Delivery Me thod Room Air Room Air Room Air Oxygen Flow Rate 0 0 0 11/13/22 03:31 11/13/22 03:18 11/13/22 03:30 Temperature 99.9 F H 99.8 F H Pulse Rate 66 Pulse Rate [Left P ulse Oximeter] 79 65 Pulse Rate [Right Pulse Oximeter] Respiratory Rate 20 18 20 Blood Pressure Blood Pressure [Ri ght Arm] 117/80 113/77 110/70 Blood Pressure [Ri ght Upper Arm] Pulse Oximetry 97 96 Oxygen Delivery Me thod Room Air Room Air Room Air Oxygen Flow Rate 0 11/13/22 03:45 11/13/22 04:00 11/13/22 04:30 Temperature 97.6 F 98.5 F Pulse Rate Pulse Rate [Left P ulse Oximeter] 73 75 84 Pulse Rate [Right Pulse Oximeter] Respiratory Rate 18 18 16 Blood Pressure Blood Pressure [Ri ght Arm] 113/70 107/64 116/78 Blood Pressure [Ri ght Upper Arm] Pulse Oximetry 97 98 97 Oxygen Delivery Me thod Room Air Room Air Room Air Oxygen Flow Rate 0 0 0 11/13/22 05:00 11/13/22 06:00 11/13/22 07:00 Temperature 98.0 F 98.0 F Pulse Rate Pulse Rate [Left P ulse Oximeter] 52 L 95 76 Pulse Rate [Right Pulse Oximeter] Respiratory Rate 16 16 16 Blood Pressure Blood Pressure [Ri ght Arm] 120/70 105/62 124/76 Blood Pressure [Ri ght Upper Arm] Pulse Oximetry 97 96 99 Oxygen Delivery Me thod Room Air Room Air Room Air Oxygen Flow Rate 0 0 11/13/22 08:00 11/13/22 09:00 11/13/22 07:00 Temperature 97.7 F 98.1 F Pulse Rate Pulse Rate [Left P ulse Oximeter] 72 97 72 Pulse Rate [Right Pulse Oximeter] Respiratory Rate 16 14 Blood Pressure Blood Pressure [Ri ght Arm] 117/49 L 121/78 Blood Pressure [Ri ght Upper Arm] Pulse Oximetry 99 98 Oxygen Delivery Me thod Room Air Room Air Oxygen Flow Rate 0 DS: Data Data Completed and Pending Labs on day of discharge: Labs from last 24 hours 11/12/22 11/12/22 11/12/22 23:06 22:42 19:45 WBC RBC Hgb Hct MCV MCH MCHC RDW Coeff of Emile Plt Count Neut % (Auto) Lymph % (Auto) [place] % (Auto) Eos % (Auto) Baso % (Auto) Neut # (Auto) Lymph # (Auto) [place] # (Auto) Eos # (Auto) Baso # (Auto) Sodium 138 Potassium 3.9 Chloride 109 Carbon Dioxide 25 BUN 18 Creatinine 0.6 Estimated Creat Clear 110.32 Estimated GFR 121 Glucose 88 Calcium 9.2 Total Bilirubin 0.7 Direct Bilirubin 0.2 AST 25 ALT 26 Alkaline Phosphatase 76 C-Reactive Protein 0.9 Total Protein 7.5 Albumin 4.2 HCG, Qual Urine Color Urine Appearance Urine pH Ur Specific [place] Urine Protein Urine Glucose (UA) Urine Ketones Urine Blood Urine Nitrite Urine Bilirubin Urine Urobilinogen Ur Leukocyte Esterase Urine RBC Urine WBC Ur Squamous Epith Cells Urine Bacteria SARS-CoV-2 (PCR) Cancelled Negative SARS-CoV-2 11/12/22 11/12/22 19:45 19:22 WBC 10.11 RBC 4.43 Hgb 12.8 Hct 38.7 MCV 87 MCH 29 MCHC 33 RDW Coeff of Emile 12.7 Plt Count 328 Neut % (Auto) 57.5 Lymph % (Auto) 34.0 [place] % (Auto) 6.9 Eos % (Auto) 0.8 Baso % (Auto) 0.1 Neut # (Auto) 5.81 Lymph # (Auto) 3.44 H [place] # (Auto) 0.70 Eos # (Auto) 0.08 Baso # (Auto) 0.01 Sodium Potassium Chloride Carbon Dioxide BUN Creatinine Estimated Creat Clear Estimated GFR Glucose Calcium Total Bilirubin Direct Bilirubin AST ALT Alkaline Phosphatase C-Reactive Protein Total Protein Albumin HCG, Qual Negative Urine Color Yellow Urine Appearance Clear Urine pH 5.5 Ur Specific [place] >= 1.030 Urine Protein Negative Urine Glucose (UA) Negative Urine Ketones Negative Urine Blood Trace-intact A Urine Nitrite Negative Urine Bilirubin Negative Urine Urobilinogen 0.2 Ur Leukocyte Esterase Negative Urine RBC 0-2 Urine WBC 0-2 Ur Squamous Epith Cells Moderate A Urine Bacteria None SARS-CoV-2 (PCR) Discharge Plan Discharge Disposition: Home, Self-Care Discharging Surgeon: Edwardo Jackson Follow-Up Appointment: 2 weeks [facility] Prescriptions: New hydrocodone-acetaminophen 5-325 mg tablet 1 tab PO Q6H PRN (Reason: pain) Qty: 25 0RF No Action ondansetron 4 mg tablet,disintegrating 4 mg PO BID-TID PRN (Reason: nausea and vomiting) Qty: 14 0RF Activity Level: No strenuous activity Activity Detail: No strenuous activity or lifting more than 15-20 lbs for 4-6 weeks. Discharge Diet: Regular Patient Instructions: Hydrocodone/Acetaminophen (By mouth), Surgical Site Infections (DC), Pelvic Pain (ED) Additional Instructions: Ibuprofen 400 mg plus Tylenol 1000 mg 3 times daily with food. Forms: Work/School Release, [facility] Info Instructions Follow-up: Edwardo Jackosn MD [Staff Physician] - 11/29/22 9:15 am ([facility] DR. JACKSON.) Provider,Not a Local [Primary Care Provider] - Discharge Orders: Discharge Order (Routine); Ordered 11/13/22 Ordered By: Edwardo Jackson
--- NOTE | 2022-11-13 11:56 | PC.NURSE ---
Discharge: Patient pleasant and cooperative. Patient vitally stable, lungs clear, BS WNL, IV removed, catheter intact. Patient rates pain 4/10, Ibuprophen given once, and ice pack to abdomen. Abdominal lap sites x3 C/D/I. Patient independent in room. Patient tolerating some food, with some nausea. Nausea patch behind right ear removed. Patient urinating. Patient signed belongings sheet and discharge form. Patient left the floor by wheelchair at 1154, with belongings.
== END 2022-11-13 11:54 | disposition home or self-care (01) ==
LOC: ED 23:26 → SS 23:38 → MEDSURG 11-13 03:25
PROVIDERS: Emergency Provider Emergency Medicine; Visit Provider Surgery
PROC: (CPT 49000; principal; 2022-11-12 23:45)
DX: K45.0 Other specified abdominal hernia with obstruction, without gangrene (principal); R10.30 Lower abdominal pain, unspecified
CPT/HCPCS: 49592; 00840; 36415; 74177; 76830; 80048; 80076; 81001; 81003; 81015; 84703; 85025; 86140; 87635; 93976; 99140; 99285; A9270; J0330; J0690; J1170; J1885; J2175; J2250; J2270; J2405; J2704; J3010; J3490; J7030; J7120; Q9967

== ENCOUNTER 2023-05-10 22:10 | Emergency (ER) | payer OTHER, SELFPAY ==
[2023-05-10 22:17] VITALS: BP 144/109; PULSE 112; RESP 18; TEMP 36.7; O2SAT 96; BMI 34.5
[2023-05-10 23:14] VITALS: O2SAT 96
[2023-05-10] MEDS: 0.9 % SODIUM CHLORIDE 1000 ml 1,000 ML IV (23:15)
--- NOTE | 2023-05-10 23:15 | ED_ITS ---
HPI - General Adult General Time Seen by Provider: 23:15 Date Seen: 05/10/23 Chief complaint: Weakness Stated complaint: dehydration,vomitting,diarrhea Time Seen by Provider: 05/10/23 23:15 Source: patient and RN notes reviewed Mode of arrival: ambulatory Limitations: no limitations History of Present Illness HPI narrative: This 33-year-old female is coming in with abdominal pain nausea vomiting and diarrhea. She has active COVID, was diagnosed 7 days ago. 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 She has had for COVID vaccines. She basically has had more nasal congestion and some cough with the COVID. Early on she had some nausea and vomiting which went away. She is on Ozempic, did take the injection yesterday which was an increased dose. She has tried some Zofran at home throughout the day but has thrown it up. She has no fevers. She is wondering if the GI symptoms that started today are coming from the injection of the Ozempic with the increased dose that she took last night. She states she recently had CT imaging done for something unrelated to this and did include her abdomen and pelvis and there is no abnormality at that time. Related Data Previous Rx's Medication Instructions Recorded hydrocodone 5 mg-acetaminophen 325 1 tab PO Q6H PRN pain #25 tabs 11/13/22 mg tablet Allergies Allergy/AdvReac Type Severity Reaction Status Date / Time prochlorperazine Allergy Mild Lock Jaw Verified 05/10/23 22:19 [From Compazine] Adhesives Allergy Mild Rash Uncoded 11/29/22 09:14 Review of Systems Status of ROS: Reports: 6 or more systems reviewed and unremarkable except as noted in History and below [facility] Medical History Pharyngitis ?J02.9 - Acute pharyngitis, unspecified (ICD-10) Viral meningitis ?A87.9 - Viral meningitis, unspecified (ICD-10) Ovarian cyst ?N83.209 - Unspecified ovarian cyst, unspecified side (ICD-10) Endometriosis ?N80.9 - Endometriosis, unspecified (ICD-10) Clostridium difficile infection ?A49.8 - Other bacterial infections of unspecified site (ICD-10) Anxiety ?F41.9 - Anxiety disorder, unspecified (ICD-10) Major depressive disorder ?F32.9 - Major depressive disorder, single episode, unspecified (ICD-10) GERD (gastroesophageal reflux disease) ?K21.9 - Gastro-esophageal reflux disease without esophagitis (ICD-10) Bipolar II disorder ?F31.81 - Bipolar II disorder (ICD-10) Macrosomia ?P08.0 - Exceptionally large baby (ICD-10) Preeclampsia in period ?O14.95 - Unspecified pre-eclampsia, complicating the puerperium (ICD-10) Viral meningitis ?A87.9 - Viral meningitis, unspecified (ICD-10) Ovarian cyst ?N83.209 - Unspecified ovarian cyst, unspecified side (ICD-10) Endometriosis ?N80.9 - Endometriosis, unspecified (ICD-10) Clostridium difficile infection ?A49.8 - Other bacterial infections of unspecified site (ICD-10) Major depressive disorder ?F32.9 - Major depressive disorder, single episode, unspecified (ICD-10) Macrosomia ?P08.0 - Exceptionally large baby (ICD-10) 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 ?G40.409 - Other generalized epilepsy and epileptic syndromes, not intractable, without status epilepticus (ICD-10) Preeclampsia in period ?O14.95 - Unspecified pre-eclampsia, complicating the puerperium (ICD-10) Viral meningitis ?A87.9 - Viral meningitis, unspecified (ICD-10) Ovarian cyst ?N83.209 - Unspecified ovarian cyst, unspecified side (ICD-10) Endometriosis ?N80.9 - Endometriosis, unspecified (ICD-10) Clostridium difficile infection ?A49.8 - Other bacterial infections of unspecified site (ICD-10) Major depressive disorder ?F32.9 - Major depressive disorder, single episode, unspecified (ICD-10) Macrosomia ?P08.0 - Exceptionally large baby (ICD-10) Preeclampsia in period ?O14.95 - Unspecified pre-eclampsia, complicating the puerperium (ICD-10) Surgical History S/P laparoscopic procedure ?Z98.890 - Other specified postprocedural states (ICD-10) [place] teeth extracted ?K08.409 - Partial loss of teeth, unspecified cause, unspecified class (ICD- 10) S/P laparoscopic procedure ?Z98.890 - Other specified postprocedural states (ICD-10) History of appendectomy ?Z90.49 - Acquired absence of other specified parts of digestive tract (ICD- 10) History of ankle surgery ?Z98.890 - Other specified postprocedural states (ICD-10) [place] teeth extracted ?K08.409 - Partial loss of teeth, unspecified cause, unspecified class (ICD- 10) S/P laparoscopic procedure ?Z98.890 - Other specified postprocedural states (ICD-10) History of appendectomy ?Z90.49 - Acquired absence of other specified parts of digestive tract (ICD- 10) History of ankle surgery ?Z98.890 - Other specified postprocedural states (ICD-10) [place] teeth extracted ?K08.409 - Partial loss of teeth, unspecified cause, unspecified class (ICD- 10) S/P laparoscopic procedure ?Z98.890 - Other specified postprocedural states (ICD-10) History of appendectomy ?Z90.49 - Acquired absence of other specified parts of digestive tract (ICD- 10) History of ankle surgery ?Z98.890 - Other specified postprocedural states (ICD-10) Social History Narrative: 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 Smoking Status: Never smoker Do you use any of these nicotine containing products: None Second hand tobacco smoke exposure: No How often do you have a drink containing alcohol: never AUDIT-C Alcohol total score: 0 Non-prescribed substance use: denies use Exam Const: Vital Signs, click to edit/add: Vital Signs - 24 hr 05/10/23 22:17 05/10/23 23:14 Temperature 98.0 F Pulse Rate [Right Pulse Oximeter] 112 H Respiratory Rate 18 Blood Pressure [Ri ght Upper Arm] 144/109 H Pulse Oximetry 96 96 Oxygen Delivery Me thod Room Air 33-year-old female is lying in bed, look s like she does not feel well but is certainly pleasant. She was resting when I came in, easily aroused. Sclera. Clear, symmetrical facial function. She has audible nasal congestion. Lungs are clear, good air entry, no wheezing or crackles. CV regular rate and rhythm no murmur. Abdomen is soft, nondistended, no rebound or guarding, bowel sounds are present. Ambulatory into the ED of her own accord, moving all extremities. Skin visualize the rash. Documenting provider has reviewed patient's vital signs: yes Course Course Hospital Course: Nursing staff had already placed an IV and had started a L of normal saline. W ill give her a subsequent 2 L of fluids, 4 mg IV Zofran. We will try 15 mg IV Toradol for the abdominal discomfort. Have reviewed with her that I am certainly seen many patients with the side effects from Ozempic. I suspect the Ozempic is the primary culprit here, could be contributed to by underlying COVID. We discussed imaging, she does not feel it is necessary at this time and I tend to agree with her. Think with very plausible explanation with the Ozempic. Will await lab results. Reevaluation(s) Time of Reevaluation #1: 00:02 Reevaluation #1: Reviewed patient's labs with her. They really are reassuring, C-reactive protein is just at 1.2. She and I both believe her symptoms to be confounded by the Ozempic. We will complete her IV fluids, send her home with tramadol if it is available and more Zofran as she is out of it. Will check to see what is available in [employer]. (10 tabs of Zofran and 15 tabs of tramadol, which is lowest amount available of tramadol). Vital Signs Vital signs: Initial Vital Signs Temperature 98.0 F 05/10/23 22:17 Temperature Source Temporal Artery Scan 05/10/23 22:17 Pulse Rate 112 H 05/10/23 22:17 Pulse Rhythm Regular 05/10/23 22:17 Pulse Strength 3+ Normal 05/10/23 22:17 Respiratory Rate 18 05/10/23 22:17 Blood Pressure 144/109 H 05/10/23 22:17 Blood Pressure Mean 120 H 05/10/23 22:17 Blood Pressure Position Sitting 05/10/23 22:17 Pulse Oximetry 96 05/10/23 22:17 Oxygen Delivery Method Room Air 05/10/23 22:17 Vital Signs Temperature 98.0 F 05/10/23 22:17 Pulse Rate 112 H 05/10/23 22:17 Respiratory Rate 18 05/10/23 22:17 Blood Pressure 144/109 H 05/10/23 22:17 Pulse Oximetry 96 05/10/23 22:17 Oxygen Delivery Method Room Air 05/10/23 22:17 Temperature 98.0 F 05/10/23 22:17 Pulse Rate 112 H 05/10/23 22:17 Respiratory Rate 18 05/10/23 22:17 Blood Pressure 144/109 H 05/10/23 22:17 Pulse Oximetry 96 05/10/23 23:14 Oxygen Delivery Method Room Air 05/10/23 22:17 Medical Decision Making Lab Data Lab results reviewed: Yes I reviewed the patient's lab results Labs: Lab Results 05/10/23 Range/Units 22:57 WBC 10.03 (4.50-11.00) K/uL RBC 4.50 (4.00-5.20) m/uL Hgb 13.0 (12.0-16.0) gm/dL Hct 38.5 (33.0-51.0) % MCV 86 (80-100) fL MCH 29 (26-34) pg MCHC 34 (32-36) gm/dL RDW Coeff of Emile 11.8 (11.5-15.5) % Plt Count 311 (140-440) K/uL Neut % (Auto) 70.0 (42.0-72.0) % Lymph % (Auto) 21.8 (20-44) % Deuel % (Auto) 6.0 (0.0-11.0) % Eos % (Auto) 1.2 (0.0-7.0) % Baso % (Auto) 0.0 (0.0-3.0) % Neut # (Auto) 7.02 H (1.7-7.0) K/uL Lymph # (Auto) 2.19 (0.90-2.90) K/uL Deuel # (Auto) 0.60 (0.00-0.90) K/UL Eos # (Auto) 0.12 (0.00-0.50) K/uL Baso # (Auto) 0.00 (0.00-0.30) K/uL Abs Immat Gran (auto) 0.10 (0.00-0.30) K/uL Imm/Tot Granulo (auto) 1.0 % Sodium 139 (135-149) mmol/L Potassium 3.9 (3.6-5.1) mmol/L Chloride 106 (96-114) mmol/L Carbon Dioxide 22 (20-32) mmol/L Anion Gap 11 (7-15) mEq/L BUN 18 (5-24) mg/dL Creatinine 0.6 (0.5-1.5) mg/dL Estimated Creat Clear 109.29 Estimated GFR 121 ml/min Glucose 87 (60-115) mg/dL Lactate 0.9 (0.5-1.9) mmol/L Calcium 9.2 (8.4-10.6) mg/dL Total Bilirubin 1.1 (0.1-1.5) mg/dL AST 28 (12-35) U/L ALT 17 (4-35) U/L Alkaline Phosphatase 53 (40-150) U/L C-Reactive Protein 1.2 H (0.5-1.0) mg/dL Total Protein 7.8 (6.0-8.3) g/dL Albumin 4.3 (3.3-5.0) g/dL Critical Care Time Critical Care Time Critical Care Time: No Discharge Plan Discharge Clinical Impression: Nausea vomiting and diarrhea, COVID-19, Medication side effects Patient Disposition: Home, Self-Care Condition: Stable Instructions: Acute Nausea and Vomiting (ED), Acute Diarrhea (ED) Additional Instructions: Would recommend considering backing down the dosage of the Ozempic. I do think that the Ozempic is responsible for the acute gastrointestinal symptoms you are suffering from. It is always possible that having underlying COVID could be escalating these issues. Use the Zofran as prescribed to help with nausea and vomiting. Have written for some tramadol tablets to help with discomfort, can use this medicine alongside Tylenol and ibuprofen if need be. Follow bottle dosing instructions for Tylenol and ibuprofen. If you are not improving in the next few days, are worsening at any point and cannot take in liquids at all or your medications, do need to be re-evaluated. Activity Level: Activity as Tolerated Prescriptions: No Action hydrocodone-acetaminophen 5-325 mg tablet 1 tab PO Q6H PRN (Reason: pain) Qty: 25 0RF Follow Up/Referrals: Provider,Not a Local [Primary Care Provider] - Stand Alone Forms: [employer] Info Instructions
[2023-05-10 23:19] LABS: Lactate* 0.9 mmol/L (0.5-1.9)
[2023-05-10 23:23] LABS: Eosinophils Absolute Auto 0.12 K/uL (0.00-0.50); Eosinophils Percent Auto 1.2 % (0.0-7.0); Hematocrit 38.5 % (33.0-51.0); Lymphocytes Absolute Auto 2.19 K/uL (0.90-2.90); Lymphocytes Percent Auto 21.8 % (20-44); Mean Corpuscular HGB Conc 34 gm/dL (32-36); Mean Corpuscular Hemoglobin 29 pg (26-34); Mean Corpuscular Volume 86 fL (80-100); Neutrophils Absolute Auto 7.02 K/uL (1.7-7.0); Platelet Count* 311 K/uL (140-440); RDW Coefficient of Variation % 11.8 % (11.5-15.5); Slide Review Reflex No; White Blood Count* 10.03 K/uL (4.50-11.00)
[2023-05-10 23:36] LABS: Albumin* 4.3 g/dL (3.3-5.0); Chloride* 106 mmol/L (96-114)
[2023-05-10 23:37] LABS: Potassium* 3.9 mmol/L (3.6-5.1); Sodium* 139 mmol/L (135-149)
[2023-05-10 23:39] LABS: Creatinine* 0.6 mg/dL (0.5-1.5); Est. Creatinine Clearance* 109.29; Estimated Glomerular Filt Rate 121 ml/min
[2023-05-10 23:40] LABS: Alanine Aminotransferase* 17 U/L (4-35); Alkaline Phosphatase* 53 U/L (40-150); Aspartate Amino Transferase* 28 U/L (12-35); Bilirubin Total* 1.1 mg/dL (0.1-1.5); Blood Urea Nitrogen* 18 mg/dL (5-24); Calcium* 9.2 mg/dL (8.4-10.6); Carbon Dioxide* 22 mmol/L (20-32); Glucose* 87 mg/dL (60-115); Total Protein* 7.8 g/dL (6.0-8.3)
[2023-05-10 23:42] LABS: C Reactive Protein* 1.2 mg/dL (0.5-1.0)
[2023-05-10 23:44] LABS: Anion Gap 11 mEq/L (7-15)
[2023-05-10] MEDS: LACTATED RINGERS 1000 ML 1,000 ML IV (23:51)
[2023-05-10] MEDS: ONDANSETRON 2 MG/ML inj 4 MG IVP (23:52)
== END 2023-05-11 00:37 | disposition home or self-care (01) ==
PROVIDERS: Emergency Provider Family Medicine
DX: R11.2 Nausea with vomiting, unspecified (principal); U07.1 COVID-19
CPT/HCPCS: 36415; 80053; 83605; 85025; 86140; 94761; 96374; 99283; 99284; J2405; J7030; J7120

== ENCOUNTER 2023-05-21 13:08 | Emergency (ER) | payer OTHER, SELFPAY ==
[2023-05-21 13:37] VITALS: BP 135/93; PULSE 98; RESP 18; TEMP 36.7; O2SAT 98; BMI 34.4
--- NOTE | 2023-05-21 14:32 | ED.GENADULT ---
HPI - General Adult General Date Seen: 05/21/23 Chief complaint: Insect Bite Stated complaint: Pt says Cellulitis-red streak up L arm Time Seen by Provider: 05/21/23 14:31 Source: patient Mode of arrival: ambulatory Limitations: no limitations History of Present Illness HPI narrative: Patient is a 33-year-old female presented emergency department for right hand cellulitis. She states she was stung by a bee 2 days ago. She knows decided swelling and redness to the area yesterday. She was stung in the webspace between her thumb and index finger. She went to urgent care today and she started noticing the streaking was going upper arm so she is given a dose of 2 mg IV Rocephin and sent to the [facility] ED to see a hand specialist. She states the wait was too long there is she came to the emergency department here at [facility]. Does have pain to the posterior aspect of her hand into the base of her right thumb. She has had that x-ray was done at [facility] the showed no concerning abnormalities. She also had lab work done there that she also states that show anything concerning. 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 Home Medications Medication Instructions Recorded Confirmed hydroxyzine HCl 25 mg tablet 25 mg PO BID 05/21/23 05/21/23 semaglutide 1 mg/dose (4 mg/3 mL) 1.7 mg subcut .weekly 05/21/23 05/21/23 subcutaneous pen injector (Ozempic) Previous Rx's Medication Instructions Recorded cephalexin 500 mg capsule 500 mg PO QID #28 caps 05/21/23 sulfamethoxazole 800 1 tab PO Q12H #14 tabs 05/21/23 mg-trimethoprim 160 mg tablet (Bactrim DS) Allergies Allergy/AdvReac Type Severity Reaction Status Date / Time prochlorperazine Allergy Mild Lock Jaw Verified 05/21/23 13:47 [From Compazine] Adhesives Allergy Mild Rash Uncoded 11/29/22 09:14 Review of Systems Status of ROS: Reports: 6 or more systems reviewed and unremarkable except as noted in History and below [facility] Medical History Viral meningitis ?A87.9 - Viral meningitis, unspecified (ICD-10) Ovarian cyst ?N83.209 - Unspecified ovarian cyst, unspecified side (ICD-10) Endometriosis ?N80.9 - Endometriosis, unspecified (ICD-10) Clostridium difficile infection ?A49.8 - Other bacterial infections of unspecified site (ICD-10) Anxiety ?F41.9 - Anxiety disorder, unspecified (ICD-10) Major depressive disorder ?F32.9 - Major depressive disorder, single episode, unspecified (ICD-10) GERD (gastroesophageal reflux disease) ?K21.9 - Gastro-esophageal reflux disease without esophagitis (ICD-10) Bipolar II disorder ?F31.81 - Bipolar II disorder (ICD-10) Macrosomia ?P08.0 - Exceptionally large baby (ICD-10) 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 ?G40.409 - Other generalized epilepsy and epileptic syndromes, not intractable, without status epilepticus (ICD-10) Preeclampsia in period ?O14.95 - Unspecified pre-eclampsia, complicating the puerperium (ICD-10) Pharyngitis ?J02.9 - Acute pharyngitis, unspecified (ICD-10) Viral meningitis ?A87.9 - Viral meningitis, unspecified (ICD-10) Ovarian cyst ?N83.209 - Unspecified ovarian cyst, unspecified side (ICD-10) Endometriosis ?N80.9 - Endometriosis, unspecified (ICD-10) Clostridium difficile infection ?A49.8 - Other bacterial infections of unspecified site (ICD-10) Anxiety ?F41.9 - Anxiety disorder, unspecified (ICD-10) Major depressive disorder ?F32.9 - Major depressive disorder, single episode, unspecified (ICD-10) GERD (gastroesophageal reflux disease) ?K21.9 - Gastro-esophageal reflux disease without esophagitis (ICD-10) Bipolar II disorder ?F31.81 - Bipolar II disorder (ICD-10) Macrosomia ?P08.0 - Exceptionally large baby (ICD-10) Preeclampsia in period ?O14.95 - Unspecified pre-eclampsia, complicating the puerperium (ICD-10) Viral meningitis ?A87.9 - Viral meningitis, unspecified (ICD-10) Ovarian cyst ?N83.209 - Unspecified ovarian cyst, unspecified side (ICD-10) Endometriosis ?N80.9 - Endometriosis, unspecified (ICD-10) Clostridium difficile infection ?A49.8 - Other bacterial infections of unspecified site (ICD-10) Major depressive disorder ?F32.9 - Major depressive disorder, single episode, unspecified (ICD-10) Macrosomia ?P08.0 - Exceptionally large baby (ICD-10) 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 ?G40.409 - Other generalized epilepsy and epileptic syndromes, not intractable, without status epilepticus (ICD-10) Preeclampsia in period ?O14.95 - Unspecified pre-eclampsia, complicating the puerperium (ICD-10) Viral meningitis ?A87.9 - Viral meningitis, unspecified (ICD-10) Ovarian cyst ?N83.209 - Unspecified ovarian cyst, unspecified side (ICD-10) Endometriosis ?N80.9 - Endometriosis, unspecified (ICD-10) Clostridium difficile infection ?A49.8 - Other bacterial infections of unspecified site (ICD-10) Major depressive disorder ?F32.9 - Major depressive disorder, single episode, unspecified (ICD-10) Macrosomia ?P08.0 - Exceptionally large baby (ICD-10) Preeclampsia in period ?O14.95 - Unspecified pre-eclampsia, complicating the puerperium (ICD-10) Surgical History [place] teeth extracted ?K08.409 - Partial loss of teeth, unspecified cause, unspecified class (ICD-10) S/P laparoscopic procedure ?Z98.890 - Other specified postprocedural states (ICD-10) History of appendectomy ?Z90.49 - Acquired absence of other specified parts of digestive tract (ICD-10) History of ankle surgery ?Z98.890 - Other specified postprocedural states (ICD-10) S/P laparoscopic procedure ?Z98.890 - Other specified postprocedural states (ICD-10) [place] teeth extracted ?K08.409 - Partial loss of teeth, unspecified cause, unspecified class (ICD-10) S/P laparoscopic procedure ?Z98.890 - Other specified postprocedural states (ICD-10) History of appendectomy ?Z90.49 - Acquired absence of other specified parts of digestive tract (ICD-10) History of ankle surgery ?Z98.890 - Other specified postprocedural states (ICD-10) [place] teeth extracted ?K08.409 - Partial loss of teeth, unspecified cause, unspecified class (ICD-10) S/P laparoscopic procedure ?Z98.890 - Other specified postprocedural states (ICD-10) History of appendectomy ?Z90.49 - Acquired absence of other specified parts of digestive tract (ICD-10) History of ankle surgery ?Z98.890 - Other specified postprocedural states (ICD-10) [place] teeth extracted ?K08.409 - Partial loss of teeth, unspecified cause, unspecified class (ICD-10) S/P laparoscopic procedure ?Z98.890 - Other specified postprocedural states (ICD-10) History of appendectomy ?Z90.49 - Acquired absence of other specified parts of digestive tract (ICD-10) History of ankle surgery ?Z98.890 - Other specified postprocedural states (ICD-10) Social History Narrative: 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 Smoking Status: Never smoker Do you use any of these nicotine containing products: None Second hand tobacco smoke exposure: No How often do you have a drink containing alcohol: never AUDIT-C Alcohol total score: 0 Non-prescribed substance use: denies use Exam Narrative: Exam Narrative: Const: Well-nourished, Well-developed, in mild distress Eyes: PERRL, no conjunctival injection, and symmetrical lids ENMT: Atraumatic external nose and ears. Moist mucous membranes. Neck: Symmetric, trachea midline, No thyromegaly. CVS: RRR, No murmurs or gallops. Peripheral pulses 2+ and equal in all extremities RESP: Unlabored respiratory effort. Clear to auscultation bilaterally. GI: Nontender/Nondistended, No rebound or guarding. MSK:Extremities w/o deformity, decreased range of motion noted to the thumb secondary to pain Skin: Warm, Dry. Erythema noted to the right hand. Neuro: Normal Muscle tone, No focal neurological deficits. Psych: Awake, Alert, & Oriented x3. Appropriate mood and affect. Const: Vital Signs, click to edit/add: Vital Signs - 24 hr 05/21/23 13:37 Temperature 98.1 F Pulse Rate [Pulse Oximeter] 98 Respiratory Rate 18 Blood Pressure [Le ft Upper Arm] 135/93 H Pulse Oximetry 98 Oxygen Delivery Me thod Room Air Course Vital Signs Vital signs: Initial Vital Signs Temperature 98.1 F 05/21/23 13:37 Temperature Source Temporal Artery Scan 05/21/23 13:37 Pulse Rate 98 05/21/23 13:37 Respiratory Rate 18 05/21/23 13:37 Blood Pressure 135/93 H 05/21/23 13:37 Blood Pressure Mean 107 H 05/21/23 13:37 Blood Pressure Position Sitting 05/21/23 13:37 Pulse Oximetry 98 05/21/23 13:37 Oxygen Delivery Method Room Air 05/21/23 13:37 Vital Signs Temperature 98.1 F 05/21/23 13:37 Pulse Rate 98 05/21/23 13:37 Respiratory Rate 18 05/21/23 13:37 Blood Pressure 135/93 H 05/21/23 13:37 Pulse Oximetry 98 05/21/23 13:37 Oxygen Delivery Method Room Air 05/21/23 13:37 Temperature 98.1 F 05/21/23 13:37 Pulse Rate 98 05/21/23 13:37 Respiratory Rate 18 05/21/23 13:37 Blood Pressure 135/93 H 05/21/23 13:37 Pulse Oximetry 98 05/21/23 13:37 Oxygen Delivery Method Room Air 05/21/23 13:37 Medical Decision Making MDM Narrative Medical decision making narrative: Patient is a 33-year-old female presenting to the emergency department for cellulitis to the right hand. This occurred 2 days after she was stung by a bee. She also swelling and erythema has been worse with she went to urgent care. She started having lymphangitic streaking she states and left she received 2 mg of IV Rocephin she was sent to another emergency department. Weight was along so she came here. She states this redness has improved significantly since she received the IV Rocephin. She still has pain at the base of the right thumb. On exam there is swelling in the lower portion of the thumb but no swelling to the distal aspect. When she flexes the thumb she has pain in the dorsal aspect and not along the flexor aspect. Mild pain to palpation in the base of the thumb but not into the distal thumb. At this point I do not think she has flexor tenosynovitis. Considering she states she had great improvement with the IV Rocephin at this time of leaving and sent home with Bactrim and Keflex. I gave her very strict return precautions explained to her exactly which she should look for and if she has any concerns I told her to just return to the emergency department. She is understandable to this plan. I also gave some oxycodone for pain. Discharge Plan Discharge Clinical Impression: Cellulitis of hand Patient Disposition: Home, Self-Care Condition: Stable Instructions: Cellulitis (ED) Additional Instructions: Follow-up with your primary care provider. If symptoms are worsening please return to the emergency department immediately. Concerning signs is complete swelling of the finger in a sausage like appearance, severe pain to palpation of the flexor aspect of the finger throughout the finger, pain to the flexor aspect when finger is flexed. Take the antibiotics until the course is finished even his symptoms have resolved. Have a very low threshold to return to the emergency department. Take ibuprofen for pain. If that is not working you can use the Percocet. Prescriptions: New sulfamethoxazole-trimethoprim [Bactrim DS] 800-160 mg tablet 1 tab PO Q12H Qty: 14 0RF cephalexin 500 mg capsule 500 mg PO QID Qty: 28 0RF No Action hydroxyzine HCl 25 mg tablet 25 mg PO BID Ozempic 1 mg/dose (4 mg/3 mL) pen injector 1.7 mg subcut .weekly Follow Up/Referrals: Provider,Not a Local [Primary Care Provider] - Stand Alone Forms: [place] Info Instructions
== END 2023-05-21 14:49 | disposition home or self-care (01) ==
LOC: ED 14:44
PROVIDERS: Emergency Provider Student in an Organized Health Care Education/Training Program
DX: L03.113 Cellulitis of right upper limb (principal)
CPT/HCPCS: 99283

== ENCOUNTER 2023-08-13 08:22 | Emergency (ER) | payer OTHER, SELFPAY ==
[2023-08-13 08:45] VITALS: BP 160/112; PULSE 100; RESP 18; TEMP 36.3; O2SAT 99; BMI 32.6
--- NOTE | 2023-08-13 08:53 | ED_ITS ---
HPI - General Adult General Time Seen by Provider: 08:53 Date Seen: 08/13/23 Chief complaint: Flank Pain Stated complaint: possible kidney infection or stone Time Seen by Provider: 08/13/23 08:53 Source: patient and RN notes reviewed Mode of arrival: ambulatory Limitations: no limitations History of Present Illness HPI narrative: This 33-year-old female is coming in with concern of right flank pain in the setting of a recent diagnosis of a UTI. She had onset of urinary frequency, hematuria, pressure pain with urination and did do a virtual visit. She was placed on Macrobid for 5 days, is on day 3 of Macrobid. She has felt feverish but has not gotten a temperature on her thermometer, has had chills. No nausea or vomiting. The hematuria and urinary frequency have abated but she has developed some right flank pain now. She herself has never had a personal history of kidney stones but there is a strong family history of kidney stones. She wonders if she needs imaging. She had her last menstrual period 2 weeks ago, did have unprotected intercourse about 4 days ago. She understands that a test might not be positive at this point but understands she may need to proceed with imaging, she would want to proceed with imaging with a CT if it is needed. Patient did have an ectopic last year and 1 of her tubes has been removed. Related Data Home Medications Medication Instructions Recorded Confirmed hydroxyzine HCl 25 mg tablet 25 mg PO BID 05/21/23 08/13/23 semaglutide 1 mg/dose (4 mg/3 mL) 1.7 mg subcut .weekly 05/21/23 08/13/23 subcutaneous pen injector (Ozempic) nitrofurantoin 1 cap PO Q12H 08/13/23 08/13/23 monohydrate/macrocrystals 100 mg capsule Previous Rx's Medication Instructions Recorded cephalexin 500 mg capsule 500 mg PO QID #28 caps 05/21/23 sulfamethoxazole 800 1 tab PO Q12H #14 tabs 05/21/23 mg-trimethoprim 160 mg tablet (Bactrim DS) ketorolac 10 mg tablet 10 mg PO Q6H PRN pain 5 days #20 08/13/23 tabs oxycodone 5 mg tablet 5 mg PO QHS PRN pain #6 tabs 08/13/23 Allergies Allergy/AdvReac Type Severity Reaction Status Date / Time prochlorperazine Allergy Mild Lock Jaw Verified 08/13/23 10:51 [From Compazine] Adhesives Allergy Mild Rash Uncoded 08/13/23 10:51 Review of Systems Status of ROS: Reports: 6 or more systems reviewed and unremarkable except as noted in History and below [facility] Medical History Viral meningitis ?A87.9 - Viral meningitis, unspecified (ICD-10) Ovarian cyst ?N83.209 - Unspecified ovarian cyst, unspecified side (ICD-10) Endometriosis ?N80.9 - Endometriosis, unspecified (ICD-10) Clostridium difficile infection ?A49.8 - Other bacterial infections of unspecified site (ICD-10) Anxiety ?F41.9 - Anxiety disorder, unspecified (ICD-10) Major depressive disorder ?F32.9 - Major depressive disorder, single episode, unspecified (ICD-10) GERD (gastroesophageal reflux disease) ?K21.9 - Gastro-esophageal reflux disease without esophagitis (ICD-10) Bipolar II disorder ?F31.81 - Bipolar II disorder (ICD-10) Macrosomia ?P08.0 - Exceptionally large baby (ICD-10) 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 ?G40.409 - Other generalized epilepsy and epileptic syndromes, not intractable, without status epilepticus (ICD-10) Preeclampsia in period ?O14.95 - Unspecified pre-eclampsia, complicating the puerperium (ICD-10) Pharyngitis ?J02.9 - Acute pharyngitis, unspecified (ICD-10) Viral meningitis ?A87.9 - Viral meningitis, unspecified (ICD-10) Ovarian cyst ?N83.209 - Unspecified ovarian cyst, unspecified side (ICD-10) Endometriosis ?N80.9 - Endometriosis, unspecified (ICD-10) Clostridium difficile infection ?A49.8 - Other bacterial infections of unspecified site (ICD-10) Anxiety ?F41.9 - Anxiety disorder, unspecified (ICD-10) Major depressive disorder ?F32.9 - Major depressive disorder, single episode, unspecified (ICD-10) GERD (gastroesophageal reflux disease) ?K21.9 - Gastro-esophageal reflux disease without esophagitis (ICD-10) Bipolar II disorder ?F31.81 - Bipolar II disorder (ICD-10) Macrosomia ?P08.0 - Exceptionally large baby (ICD-10) Preeclampsia in period ?O14.95 - Unspecified pre-eclampsia, complicating the puerperium (ICD-10) Viral meningitis ?A87.9 - Viral meningitis, unspecified (ICD-10) Ovarian cyst ?N83.209 - Unspecified ovarian cyst, unspecified side (ICD-10) Endometriosis ?N80.9 - Endometriosis, unspecified (ICD-10) Clostridium difficile infection ?A49.8 - Other bacterial infections of unspecified site (ICD-10) Major depressive disorder ?F32.9 - Major depressive disorder, single episode, unspecified (ICD-10) Macrosomia ?P08.0 - Exceptionally large baby (ICD-10) 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 ?G40.409 - Other generalized epilepsy and epileptic syndromes, not intractable, without status epilepticus (ICD-10) Preeclampsia in period ?O14.95 - Unspecified pre-eclampsia, complicating the puerperium (ICD-10) Viral meningitis ?A87.9 - Viral meningitis, unspecified (ICD-10) Ovarian cyst ?N83.209 - Unspecified ovarian cyst, unspecified side (ICD-10) Endometriosis ?N80.9 - Endometriosis, unspecified (ICD-10) Clostridium difficile infection ?A49.8 - Other bacterial infections of unspecified site (ICD-10) Major depressive disorder ?F32.9 - Major depressive disorder, single episode, unspecified (ICD-10) Macrosomia ?P08.0 - Exceptionally large baby (ICD-10) Preeclampsia in period ?O14.95 - Unspecified pre-eclampsia, complicating the puerperium (ICD-10) Surgical History Rulo teeth extracted ?K08.409 - Partial loss of teeth, unspecified cause, unspecified class (ICD- 10) S/P laparoscopic procedure ?Z98.890 - Other specified postprocedural states (ICD-10) History of appendectomy ?Z90.49 - Acquired absence of other specified parts of digestive tract (ICD-10) History of ankle surgery ?Z98.890 - Other specified postprocedural states (ICD-10) S/P laparoscopic procedure ?Z98.890 - Other specified postprocedural states (ICD-10) Rulo teeth extracted ?K08.409 - Partial loss of teeth, unspecified cause, unspecified class (ICD- 10) S/P laparoscopic procedure ?Z98.890 - Other specified postprocedural states (ICD-10) History of appendectomy ?Z90.49 - Acquired absence of other specified parts of digestive tract (ICD- 10) History of ankle surgery ?Z98.890 - Other specified postprocedural states (ICD-10) Rulo teeth extracted ?K08.409 - Partial loss of teeth, unspecified cause, unspecified class (ICD- 10) S/P laparoscopic procedure ?Z98.890 - Other specified postprocedural states (ICD-10) History of appendectomy ?Z90.49 - Acquired absence of other specified parts of digestive tract (ICD- 10) History of ankle surgery ?Z98.890 - Other specified postprocedural states (ICD-10) Rulo teeth extracted ?K08.409 - Partial loss of teeth, unspecified cause, unspecified class (ICD- 10) S/P laparoscopic procedure ?Z98.890 - Other specified postprocedural states (ICD-10) History of appendectomy ?Z90.49 - Acquired absence of other specified parts of digestive tract (ICD- 10) History of ankle surgery ?Z98.890 - Other specified postprocedural states (ICD-10) Social History Narrative: 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 Smoking Status: Never smoker Do you use any of these nicotine containing products: None Second hand tobacco smoke exposure: No How often do you have a drink containing alcohol: never AUDIT-C Alcohol total score: 0 Non-prescribed substance use: denies use service: No Exam Const: Vital Signs, click to edit/add: Vital Signs - 24 hr 08/13/23 08:45 08/13/23 09:00 08/13/23 09:10 Temperature 97.3 F L Pulse Rate [Right Pulse Oximeter] 100 91 Respiratory Rate 18 18 Blood Pressure [Ri ght Upper Arm] 160/112 H 131/97 H Pulse Oximetry 99 99 98 Oxygen Delivery Me thod Room Air Room Air 08/13/23 09:30 08/13/23 10:00 Temperature Pulse Rate [Right Pulse Oximeter] 95 103 H Respiratory Rate 18 18 Blood Pressure [Ri ght Upper Arm] 131/98 H 126/95 H Pulse Oximetry 95 96 Oxygen Delivery Me thod Room Air Room Air This 33-year-old female is alert, interactive, no apparent distress. She looks well, is able to speak in complete sentences. Sclera clear, conjugate gaze, wearing glasses. Neck supple, no visual jugular venous distension. Lungs are clear, good air entry, no wheezing or crackles. She does have right CVA tenderness. CV regular rate and rhythm, no murmur, normal S1 and S2, no S3 or S4. Abdomen is soft, nondistended, no organomegaly, nontender. Patient was ambulatory into the ED of her own accord. Documenting provider has reviewed patient's vital signs: yes Course Course ED Course: Certainly is sending urinary infection with development of pyelonephritis is a consideration. We absolutely really should rule out kidney stone pathology for her. If there is infected kidney stone, this becomes a surgical emergency and she does understand that. She has already provided urinalysis, will do urine test off that but it could be quite early for her. She does understand that in accepts risk of CT imaging, we did discuss this. Will get appropriate lab work as well. Reevaluation(s) Time of Reevaluation #1: 11:14 Reevaluation #1: Have reviewed with patient that her CT is not showing any renal system/urinary abnormality. She does however have a 5.9 cm cyst on the right ovary. We reviewed that I recommend proceeding with a pelvic ultrasound to ensure no evidence of torsion. She states her pain is intermittent right now, is best if she rests. She does feel increased pain with movement. We will proceed with a pelvic ultrasound to further look at this right ovarian cyst. I will give her some Toradol. Time of Reevaluation #2: 13:47 Reevaluation #2: Have reviewed patient's ultrasound report with her, she does have a copy of it as I asked staff to provided to her. There is no evidence of torsion but she still is having some intermittent pain. I did review torsion an intermittent torsion with her. She is obviously quite concerned as she is missing her left fallopian tube, they are wanting another . I tried to reassure her, tried to talk to her about staying positive, resting until she is feeling better. I will write her a note to be off the rest of the week. We discussed pain management, she has just been trying Tylenol at home. I will send her a prescription for some Toradol and some oxycodone for bedtime if needed. She does have an contract associate manager to follow up with. Vital Signs Vital signs: Initial Vital Signs Temperature 97.3 F L 08/13/23 08:45 Temperature Source Temporal Artery Scan 08/13/23 08:45 Pulse Rate 100 08/13/23 08:45 Pulse Rhythm Regular 08/13/23 08:45 Respiratory Rate 18 08/13/23 08:45 Blood Pressure 160/112 H 08/13/23 08:45 Blood Pressure Mean 128 H 08/13/23 08:45 Blood Pressure Position Sitting 08/13/23 08:45 Pulse Oximetry 99 08/13/23 08:45 Oxygen Delivery Method Room Air 08/13/23 08:45 Vital Signs Temperature 97.3 F L 08/13/23 08:45 Pulse Rate 100 08/13/23 08:45 Respiratory Rate 18 08/13/23 08:45 Blood Pressure 160/112 H 08/13/23 08:45 Pulse Oximetry 99 08/13/23 08:45 Oxygen Delivery Method Room Air 08/13/23 08:45 Temperature 97.3 F L 08/13/23 08:45 Pulse Rate 103 H 08/13/23 10:00 Respiratory Rate 18 08/13/23 10:00 Blood Pressure 126/95 H 08/13/23 10:00 Pulse Oximetry 96 08/13/23 10:00 Oxygen Delivery Method Room Air 08/13/23 10:00 Medications Administered Medications: Discontinued Medications Generic Name Dose Route Start Last Admin Trade Name Freq PRN Reason Stop Dose Admin Ketorolac Tromethamine 15 mg 08/13/23 11:24 08/13/23 11:47 Ketorolac 15 Mg/Ml Inj IVP 08/13/23 11:25 15 mg ONCE ONE Administration Medical Decision Making Lab Data Lab results reviewed: Yes I reviewed the patient's lab results Labs: Lab Results 08/13/23 08/13/23 Range/Units 09:08 Unknown WBC 7.58 (4.50-11.00) K/uL RBC 4.90 (4.00-5.20) m/uL Hgb 14.3 (12.0-16.0) gm/dL Hct 42.2 (33.0-51.0) % MCV 86 (80-100) fL MCH 29 (26-34) pg MCHC 34 (32-36) gm/dL RDW Coeff of Emile 12.3 (11.5-15.5) % Plt Count 335 (140-440) K/uL Neut % (Auto) 64.5 (42.0-72.0) % Lymph % (Auto) 26.9 (20-44) % Cherry % (Auto) 6.5 (0.0-11.0) % Eos % (Auto) 1.7 (0.0-7.0) % Baso % (Auto) 0.3 (0.0-3.0) % Neut # (Auto) 4.89 (1.7-7.0) K/uL Lymph # (Auto) 2.04 (0.90-2.90) K/uL Cherry # (Auto) 0.50 (0.00-0.90) K/UL Eos # (Auto) 0.13 (0.00-0.50) K/uL Baso # (Auto) 0.02 (0.00-0.30) K/uL Abs Immat Gran (auto) 0.01 (0.00-0.30) K/uL Imm/Tot Granulo (auto) 0.1 % Sodium 137 (135-149) mmol/L Potassium 4.4 (3.6-5.1) mmol/L Chloride 105 (96-114) mmol/L Carbon Dioxide 23 (20-32) mmol/L Anion Gap 9 (7-15) mEq/L BUN 14 (5-24) mg/dL Creatinine 0.5 (0.5-1.5) mg/dL Estimated Creat Clear 131.15 Estimated GFR 126 ml/min Glucose 96 (60-115) mg/dL Lactate 1.1 (0.5-1.9) mmol/L Calcium 9.3 (8.4-10.6) mg/dL C-Reactive Protein 0.7 (0.5-1.0) mg/dL Urine Color Dark yellow (Yellow) Urine Appearance Clear (Clear) Urine pH 5.5 (5.0-8.5) Ur Specific [place] 1.020 (1.000-1.030) Urine Protein Negative (Negative) Urine Glucose (UA) Negative (Negative) Urine Ketones Negative (Negative) Urine Blood Trace-lysed A (Negative) Urine Nitrite Negative (Negative) Urine Bilirubin Negative (Negative) Urine Urobilinogen 0.2 (0.2-1.0) Ur Leukocyte Esterase Trace A (Negative) Urine RBC 0-2 (0-2) Urine WBC 0-2 (0-5) Ur Squamous Epith Cells Moderate A (None-Few) Urine Bacteria Many A (None) WBC Casts Few A (None) Urine HCG, Qual Negative (Negative) Imaging Data CT scan - abdomen: Attestation: I have reviewed the pertinent imaging results. Radiologist's impression: Patient: GUILLERMO GUTIERREZ Facility:?[facility] Patient ID:?[id number] Site Patient ID:?[id number]. Site :?1990 Study:?CT Abdomen/Pelvis 90CC ISOVUE 370-08/13/2023 10:43:57 AM Ordering Physician:Josh Brooke Final Report: INDICATION: Right flank pain and recent urinary tract infection TECHNIQUE: CT abdomen and pelvis acquired with 90 cc Isovue 370 IV contrast. COMPARISON: CT chest abdomen pelvis report on 11/12/[address] abdomen/pelvis on 01/03/2022 FINDINGS: Lower chest: Unremarkable. Liver: Unremarkable. Normal in size and attenuation. No suspicious masses. Gallbladder and bile ducts: Unremarkable. No stones or inflammation. No biliary dilatation. Pancreas: Unremarkable. No mass or inflammation. Spleen: Unremarkable. Normal in size. No masses. Adrenal glands: Unremarkable. No nodules. Kidneys: Unremarkable. The kidneys perfuse in a normal fashion. No suspicious masses, stones, or hydronephrosis. GI tract: Unremarkable. Normal in caliber. No sign of mass or inflammation. Normal appendix. Vasculature: Abdominal aorta is normal in caliber. Mesenteric arteries are patent. Lymph nodes: No lymphadenopathy. Peritoneum/Abdominal Wall: Fat containing umbilical hernia. No sign of mass or infiltration. No free air or significant free fluid. Trace free fluid in the pelvis likely physiologic. Pelvis: The uterus is within normal limits in appearance. Simple appearing right ovarian/adnexal cyst measuring 5.9 centimeters in greatest dimension. No suspicious left adnexal lesions. Bones: Unremarkable for age. IMPRESSION: 1. No stones within the collecting system. No hydroureteronephrosis. The kidneys perfuse any normal fashion. 2. Simple appearing right ovarian/adnexal cyst measuring 5.9 centimeters in greatest dimension. 3. No CT evidence of an acute process involving the abdomen or pelvis. Please note that all CT scans at this facility use dose modulation, iterative reconstruction, and/or weight-based dosing when appropriate to reduce radiation dose to as low as reasonably achievable. Dictated by Dino Hilliard MD @ 08/13/2023 10:53:15 AM (Electronic Signature) US pelvis: Attestation: I have reviewed the pertinent imaging results. Radiologist's impression: Patient: GUILLERMO GUTIERREZ Facility:?[facility] Patient ID:?[id number] Site Patient ID:?[id number]. Site :?1990 Study:?US Pelvis -08/13/2023 11:59:42 AM Ordering Physician:?Stacy Brooke Final Report: INDICATION: Right ovarian cyst. TECHNIQUE: Ultrasound pelvis transvaginal. Real-time sonographic images with spectral and color Doppler imaging of the ovaries were obtained. COMPARISON: CT abdomen/pelvis earlier same day, dated 08/13/2023. FINDINGS: Uterus: 8.8 x 4.7 x 5.3 cm. Endometrium: Within normal limits. The endometrial thickness measures 0.9 cm. Mass: No uterine fibroids identified. Free fluid: No significant pelvic free fluid. Right ovary: 5.9 x 4.6 x 4.7 cm. Mixed solid/cystic lesion in the right ovary measuring up to 5.5 cm, with reticular pattern of internal echogenicities, most likely reflective of a hemorrhagic cyst. Normal arterial and venous blood flow. Left ovary: 3.0 x 1.5 x 2.3 cm. No ovarian or adnexal masses. Spectral blood flow was difficult to obtain due to positioning. IMPRESSION: 1. Mixed solid/cystic lesion in the right ovary measuring up to 5.5 cm, with reticular pattern of internal echogenicities, most likely reflective of a hemorrhagic cyst. Due to large size, recommend follow-up pelvic ultrasound in 6- 12 weeks. 2. No evidence of right ovarian torsion at this time. Dictated by Aaron Vital MD @ 08/13/2023 1:00:11 PM (Electronic Signature) Critical Care Time Critical Care Time Critical Care Time: No Discharge Plan Discharge Clinical Impression: Complex cyst of right ovary Patient Disposition: Home, Self-Care Condition: Stable Instructions: Ovarian Cyst (ED) Additional Instructions: Use Tylenol 1000 mg 3 times a day baseline for pain. Have written a prescription for Toradol and oxycodone. Can use the oxycodone for severe pain or at bedtime. Do not operate machinery or drive while using the oxycodone. Oxycodone can be constipating, may need to use MiraLax and or senna to prevent narcotic associated constipation if using this. You need to follow-up with route contractor for further follow-up of this ovarian cyst. If you develop severe increase in pain, have vomiting or fevers associated with your abdominal symptoms, do need to be re-evaluated. Activity Level: Activity as Tolerated Prescriptions: New ketorolac 10 mg tablet 10 mg PO Q6H PRN (Reason: pain) 5 Days Qty: 20 0RF oxycodone 5 mg tablet 5 mg PO QHS PRN (Reason: pain) Qty: 6 0RF No Action hydroxyzine HCl 25 mg tablet 25 mg PO BID Ozempic 1 mg/dose (4 mg/3 mL) pen injector 1.7 mg subcut .weekly sulfamethoxazole-trimethoprim [Bactrim DS] 800-160 mg tablet 1 tab PO Q12H Qty: 14 0RF cephalexin 500 mg capsule 500 mg PO QID Qty: 28 0RF nitrofurantoin monohyd/m-cryst 100 mg capsule 1 cap PO Q12H Follow Up/Referrals: Provider,Not a Local [Primary Care Provider] - Stand Alone Forms: [employer] Info Instructions
[2023-08-13 09:00] VITALS: O2SAT 99
--- NOTE | 2023-08-13 09:00 | CRLHL7_ITS ---
For Patients: As a result of the Century Cures Act, medical imaging exams and procedure reports are released immediately into your electronic medical record. You may view this report before your referring provider. If you have questions, please contact your health care provider. INDICATION: Right flank pain and recent urinary tract infection TECHNIQUE: CT abdomen and pelvis acquired with 90 cc Isovue 370 IV contrast. COMPARISON: CT chest abdomen pelvis report on 11/12/[address] abdomen/pelvis on 01/03/2022 FINDINGS: Lower chest: Unremarkable. Liver: Unremarkable. Normal in size and attenuation. No suspicious masses. Gallbladder and bile ducts: Unremarkable. No stones or inflammation. No biliary dilatation. Pancreas: Unremarkable. No mass or inflammation. Spleen: Unremarkable. Normal in size. No masses. Adrenal glands: Unremarkable. No nodules. Kidneys: Unremarkable. The kidneys perfuse in a normal fashion. No suspicious masses, stones, or hydronephrosis. GI tract: Unremarkable. Normal in caliber. No sign of mass or inflammation. Normal appendix. Vasculature: Abdominal aorta is normal in caliber. Mesenteric arteries are patent. Lymph nodes: No lymphadenopathy. Peritoneum/Abdominal Wall: Fat containing umbilical hernia. No sign of mass or infiltration. No free air or significant free fluid. Trace free fluid in the pelvis likely physiologic. Pelvis: The uterus is within normal limits in appearance. Simple appearing right ovarian/adnexal cyst measuring 5.9 centimeters in greatest dimension. No suspicious left adnexal lesions. Bones: Unremarkable for age. IMPRESSION: 1. No stones within the collecting system. No hydroureteronephrosis. The kidneys perfuse any normal fashion. 2. Simple appearing right ovarian/adnexal cyst measuring 5.9 centimeters in greatest dimension. 3. No CT evidence of an acute process involving the abdomen or pelvis. Please note that all CT scans at this facility use dose modulation, iterative reconstruction, and/or weight-based dosing when appropriate to reduce radiation dose to as low as reasonably achievable. Dictated by Dino Hilliard MD @ 08/13/2023 10:53:15 AM (Electronically Signed)
[2023-08-13 09:01] LABS: Appearance Urine Clear (Clear); Bilirubin Urine Negative (Negative); Blood Urine Trace-lysed (Negative); Color Urine Dark yellow (Yellow); Glucose Urine Negative (Negative); Ketones Urine Negative (Negative); Leukocyte Esterase Urine Trace (Negative); Nitrite Urine Negative (Negative); Protein Urine Negative (Negative); Urobilinogen Urine 0.2 (0.2-1.0); pH Urine 5.5 (5.0-8.5)
[2023-08-13 09:04] LABS: Ur HCG Qualitative* Negative (Negative)
[2023-08-13 09:10] VITALS: BP 131/97; PULSE 91; RESP 18; O2SAT 98
[2023-08-13 09:19] LABS: Lactate* 1.1 mmol/L (0.5-1.9)
[2023-08-13 09:23] LABS: Basophils Absolute Auto 0.02 K/uL (0.00-0.30); Basophils Percent Auto 0.3 % (0.0-3.0); Eosinophils Absolute Auto 0.13 K/uL (0.00-0.50); Eosinophils Percent Auto 1.7 % (0.0-7.0); Hematocrit 42.2 % (33.0-51.0); Hemoglobin* 14.3 gm/dL (12.0-16.0); Immature Granulocytes Abs Auto 0.01 K/uL (0.00-0.30); Immature Granulocytes Pct Auto 0.1 %; Lymphocytes Absolute Auto 2.04 K/uL (0.90-2.90); Lymphocytes Percent Auto 26.9 % (20-44); Mean Corpuscular HGB Conc 34 gm/dL (32-36); Mean Corpuscular Hemoglobin 29 pg (26-34); Mean Corpuscular Volume 86 fL (80-100); Monocytes Percent Auto 6.5 % (0.0-11.0); Neutrophils Absolute Auto 4.89 K/uL (1.7-7.0); Neutrophils Percent Auto 64.5 % (42.0-72.0); Platelet Count* 335 K/uL (140-440); RDW Coefficient of Variation % 12.3 % (11.5-15.5); White Blood Count* 7.58 K/uL (4.50-11.00)
[2023-08-13 09:24] LABS: Slide Review Reflex No
[2023-08-13 09:24] LABS: RBC Urine 0-2 (0-2)
[2023-08-13 09:25] LABS: Bacteria Urine Many; Squamous Epithelial Cell Urine Moderate (None-Few); WBC Urine 0-2 (0-5)
[2023-08-13 09:26] LABS: White Blood Cell Casts Urine Few
[2023-08-13 09:30] VITALS: BP 131/98; PULSE 95; RESP 18; O2SAT 95
[2023-08-13 10:00] VITALS: BP 126/95; PULSE 103; RESP 18; O2SAT 96
[2023-08-13 10:00] LABS: Chloride* 105 mmol/L (96-114); Potassium* 4.4 mmol/L (3.6-5.1); Sodium* 137 mmol/L (135-149)
[2023-08-13 10:03] LABS: Anion Gap 9 mEq/L (7-15); Blood Urea Nitrogen* 14 mg/dL (5-24); Calcium* 9.3 mg/dL (8.4-10.6); Carbon Dioxide* 23 mmol/L (20-32); Creatinine* 0.5 mg/dL (0.5-1.5); Est. Creatinine Clearance* 131.15; Estimated Glomerular Filt Rate 126 ml/min; Glucose* 96 mg/dL (60-115)
[2023-08-13 10:22] LABS: C Reactive Protein* 0.7 mg/dL (0.5-1.0)
--- NOTE | 2023-08-13 11:15 | CRLHL7_ITS ---
For Patients: As a result of the Century Cures Act, medical imaging exams and procedure reports are released immediately into your electronic medical record. You may view this report before your referring provider. If you have questions, please contact your health care provider. INDICATION: Right ovarian cyst. TECHNIQUE: Ultrasound pelvis transvaginal. Real-time sonographic images with spectral and color Doppler imaging of the ovaries were obtained. COMPARISON: CT abdomen/pelvis earlier same day, dated 08/13/2023. FINDINGS: Uterus: 8.8 x 4.7 x 5.3 cm. Endometrium: Within normal limits. The endometrial thickness measures 0.9 cm. Mass: No uterine fibroids identified. Free fluid: No significant pelvic free fluid. Right ovary: 5.9 x 4.6 x 4.7 cm. Mixed solid/cystic lesion in the right ovary measuring up to 5.5 cm, with reticular pattern of internal echogenicities, most likely reflective of a hemorrhagic cyst. Normal arterial and venous blood flow. Left ovary: 3.0 x 1.5 x 2.3 cm. No ovarian or adnexal masses. Spectral blood flow was difficult to obtain due to positioning. IMPRESSION: 1. Mixed solid/cystic lesion in the right ovary measuring up to 5.5 cm, with reticular pattern of internal echogenicities, most likely reflective of a hemorrhagic cyst. Due to large size, recommend follow-up pelvic ultrasound in 6-12 weeks. 2. No evidence of right ovarian torsion at this time. Dictated by Aaron Vital MD @ 08/13/2023 1:00:11 PM (Electronically Signed)
[2023-08-13] MEDS: KETOROLAC 15 MG/ML inj IVP (11:47)
--- NOTE | 2023-08-13 11:51 | ED.NURSE ---
patient is returned from US and given Toradol 15mg IVP now for pain 7/10 scale located in the back. given warm blanket and dimmed the lights in room so patient able to rest.
--- NOTE | 2023-08-17 07:39 | ED.NURSE ---
Juana called to inquire on results of culture. Per Dr Amos Carlosbikate. Was encouraged to seek f/u if any bothersome symptoms.
== END 2023-08-13 14:00 | disposition home or self-care (01) ==
PROVIDERS: Emergency Provider Family Medicine
DX: N83.291 Other ovarian cyst, right side (principal)
CPT/HCPCS: 36415; 74177; 76830; 80048; 81001; 81025; 83605; 85025; 86140; 87086; 93976; 94761; 96374; 99284; 99285; J1885; Q9967

== ENCOUNTER 2023-08-27 03:27 | Emergency (ER) | payer OTHER, SELFPAY ==
[2023-08-27 03:34] VITALS: BP 173/116; PULSE 83; RESP 16; TEMP 36.4; O2SAT 99; BMI 32.6
--- NOTE | 2023-08-27 03:56 | CRLHL7_ITS ---
For Patients: As a result of the Century Cures Act, medical imaging exams and procedure reports are released immediately into your electronic medical record. You may view this report before your referring provider. If you have questions, please contact your health care provider. INDICATION: SBO TECHNIQUE: CT abdomen and pelvis with 90 cc Isovue 370 IV contrast. COMPARISON: CT abdomen pelvis and ultrasound August 13, 2023. FINDINGS: The liver is normal in size, shape and attenuation. Gallbladder and biliary tree are normal. The spleen, adrenal glands and pancreas are within normal limits. The kidneys are unremarkable. No hydronephrosis. Unremarkable appearing bladder. No evidence of bowel obstruction or inflammation. Moderate stool burden throughout the colon. Status post appendectomy. No significant free fluid and no free air. Abdominal aorta normal in caliber. Tiny fat containing umbilical hernia. The uterus is visualized. Previously described right ovarian/adnexal probable hemorrhagic cyst has decreased in size now measuring 1.6 cm, previously 5.9 cm. The lower chest is unremarkable. Chronic L5 pars defects with grade 1 anterolisthesis L5 on S1. IMPRESSION: 1. No evidence of acute intra-abdominal/pelvic process on the CT. Specifically, no evidence of small-bowel obstruction. 2. Previously described right ovarian/adnexal probable hemorrhagic cyst has decreased in size now measuring 1.6 cm, previously 5.9 cm. 3. Chronic L5 pars defects with grade 1 anterolisthesis L5 on S1. Please note that all CT scans at this facility use dose modulation, iterative reconstruction, and/or weight-based dosing when appropriate to reduce radiation dose to as low as reasonably achievable. Dictated by Walter Loza MD @ 08/27/2023 6:16:50 AM (Electronically Signed)
--- NOTE | 2023-08-27 03:57 | ED_ITS ---
HPI - General Adult General Chief complaint: Abdominal Pain Stated complaint: Abdominal Pain Time Seen by Provider: 08/27/23 03:42 Source: patient Mode of arrival: ambulatory Limitations: no limitations History of Present Illness HPI narrative: 33-year-old female presents to the ED with diffuse abdominal pain that woke her from sleep about 3-1/2 hours ago. She tried taking a 1000 mg of Tylenol and 600 of ibuprofen with no significant improvement in her symptoms. She has been having some intermittent mild abdominal discomfort for the last few weeks. She was diagnosed with a complex hemorrhagic ovarian cyst on the . These notes and CT are reviewed. She reports that she was given some narcotic pain medication to help with the pain has cause some constipation. She has been using senna and MiraLax to try to combat this and tried to home enemas in the last 24 hours with no relief. She does not think this is simple constipation. She is finishing her menses, denies any unusual vaginal discharge or new sexual partners. She recently completed treatment for urinary tract infection as well, no fever. There is no hematuria. She has vomited a couple of times which she attributes to the pain. The pain is 5/10 constant but then comes in waves of 9/10. When the pain is severe she vomits but does not feel nauseated in between those waves of pain. No flank or back pain. No fever, no trauma or injury. Last bowel movement was 6 days ago. She has had multiple abdominal surgeries including for laparoscopies for endometriosis, 2 C sections, an appendectomy and a surgery to remove an ectopic . No anticoagulants, no history of bleeding or blood clotting disorders. Past medical history notable for endometriosis. She reports only medication is was emphatic which she uses for weight management for the past 9 months. Allergies to Compazine and adhesives. Nonsmoker. ROS notable for the GI symptoms as described above only, otherwise denies times 12 systems. Related Data Home Medications Medication Instructions Recorded Confirmed hydroxyzine HCl 25 mg tablet 25 mg PO BID 05/21/23 08/27/23 semaglutide 1 mg/dose (4 mg/3 mL) 1.7 mg subcut .weekly 05/21/23 08/27/23 subcutaneous pen injector (Ozempic) Allergies Allergy/AdvReac Type Severity Reaction Status Date / Time prochlorperazine Allergy Mild Lock Jaw Verified 08/13/23 10:51 [From Compazine] Adhesives Allergy Mild Rash Uncoded 08/13/23 10:51 [facility] Medical History Viral meningitis ?A87.9 - Viral meningitis, unspecified (ICD-10) Ovarian cyst ?N83.209 - Unspecified ovarian cyst, unspecified side (ICD-10) Endometriosis ?N80.9 - Endometriosis, unspecified (ICD-10) Clostridium difficile infection ?A49.8 - Other bacterial infections of unspecified site (ICD-10) Anxiety ?F41.9 - Anxiety disorder, unspecified (ICD-10) Major depressive disorder ?F32.9 - Major depressive disorder, single episode, unspecified (ICD-10) GERD (gastroesophageal reflux disease) ?K21.9 - Gastro-esophageal reflux disease without esophagitis (ICD-10) Bipolar II disorder ?F31.81 - Bipolar II disorder (ICD-10) Macrosomia ?P08.0 - Exceptionally large baby (ICD-10) 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 ?G40.409 - Other generalized epilepsy and epileptic syndromes, not intractable, without status epilepticus (ICD-10) Preeclampsia in period ?O14.95 - Unspecified pre-eclampsia, complicating the puerperium (ICD-10) Pharyngitis ?J02.9 - Acute pharyngitis, unspecified (ICD-10) Viral meningitis ?A87.9 - Viral meningitis, unspecified (ICD-10) Ovarian cyst ?N83.209 - Unspecified ovarian cyst, unspecified side (ICD-10) Endometriosis ?N80.9 - Endometriosis, unspecified (ICD-10) Clostridium difficile infection ?A49.8 - Other bacterial infections of unspecified site (ICD-10) Anxiety ?F41.9 - Anxiety disorder, unspecified (ICD-10) Major depressive disorder ?F32.9 - Major depressive disorder, single episode, unspecified (ICD-10) GERD (gastroesophageal reflux disease) ?K21.9 - Gastro-esophageal reflux disease without esophagitis (ICD-10) Bipolar II disorder ?F31.81 - Bipolar II disorder (ICD-10) Macrosomia ?P08.0 - Exceptionally large baby (ICD-10) Preeclampsia in period ?O14.95 - Unspecified pre-eclampsia, complicating the puerperium (ICD-10) Viral meningitis ?A87.9 - Viral meningitis, unspecified (ICD-10) Ovarian cyst ?N83.209 - Unspecified ovarian cyst, unspecified side (ICD-10) Endometriosis ?N80.9 - Endometriosis, unspecified (ICD-10) Clostridium difficile infection ?A49.8 - Other bacterial infections of unspecified site (ICD-10) Major depressive disorder ?F32.9 - Major depressive disorder, single episode, unspecified (ICD-10) Macrosomia ?P08.0 - Exceptionally large baby (ICD-10) 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 ?G40.409 - Other generalized epilepsy and epileptic syndromes, not intractable, without status epilepticus (ICD-10) Preeclampsia in period ?O14.95 - Unspecified pre-eclampsia, complicating the puerperium (ICD-10) Viral meningitis ?A87.9 - Viral meningitis, unspecified (ICD-10) Ovarian cyst ?N83.209 - Unspecified ovarian cyst, unspecified side (ICD-10) Endometriosis ?N80.9 - Endometriosis, unspecified (ICD-10) Clostridium difficile infection ?A49.8 - Other bacterial infections of unspecified site (ICD-10) Major depressive disorder ?F32.9 - Major depressive disorder, single episode, unspecified (ICD-10) Macrosomia ?P08.0 - Exceptionally large baby (ICD-10) Preeclampsia in period ?O14.95 - Unspecified pre-eclampsia, complicating the puerperium (ICD-10) Surgical History [place] teeth extracted ?K08.409 - Partial loss of teeth, unspecified cause, unspecified class (ICD- 10) S/P laparoscopic procedure ?Z98.890 - Other specified postprocedural states (ICD-10) History of appendectomy ?Z90.49 - Acquired absence of other specified parts of digestive tract (ICD- 10) History of ankle surgery ?Z98.890 - Other specified postprocedural states (ICD-10) S/P laparoscopic procedure ?Z98.890 - Other specified postprocedural states (ICD-10) [place] teeth extracted ?K08.409 - Partial loss of teeth, unspecified cause, unspecified class (ICD- 10) S/P laparoscopic procedure ?Z98.890 - Other specified postprocedural states (ICD-10) History of appendectomy ?Z90.49 - Acquired absence of other specified parts of digestive tract (ICD- 10) History of ankle surgery ?Z98.890 - Other specified postprocedural states (ICD-10) [place] teeth extracted ?K08.409 - Partial loss of teeth, unspecified cause, unspecified class (ICD- 10) S/P laparoscopic procedure ?Z98.890 - Other specified postprocedural states (ICD-10) History of appendectomy ?Z90.49 - Acquired absence of other specified parts of digestive tract (ICD- 10) History of ankle surgery ?Z98.890 - Other specified postprocedural states (ICD-10) [place] teeth extracted ?K08.409 - Partial loss of teeth, unspecified cause, unspecified class (ICD- 10) S/P laparoscopic procedure ?Z98.890 - Other specified postprocedural states (ICD-10) History of appendectomy ?Z90.49 - Acquired absence of other specified parts of digestive tract (ICD- 10) History of ankle surgery ?Z98.890 - Other specified postprocedural states (ICD-10) Social History Narrative: 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 Smoking Status: Never smoker Do you use any of these nicotine containing products: None Second hand tobacco smoke exposure: No How often do you have a drink containing alcohol: never AUDIT-C Alcohol total score: 0 Non-prescribed substance use: denies use service: No Exam Const: Vital Signs, click to edit/add: Vital Signs - 24 hr 08/27/23 03:34 08/27/23 05:42 Temperature 97.6 F Pulse Rate [Pulse Oximeter] 83 72 Respiratory Rate 16 16 Blood Pressure [Ri ght Upper Arm] 173/116 H 158/119 H Pulse Oximetry 99 99 Oxygen Delivery Me thod Room Air Room Air Documenting provider has reviewed patient's vital signs: yes Common norm als: alert Other: Appears to be in mild distress from pain. Answers questions appropriately, good historian. HENMT: Common normals: normocephalic Head and scalp: normocephalic Face and sinus: normal facial exam Mouth: oral and palatal mucosa normal Eye: General eye: normal appearance of both eyes Resp: Common normals: normal respiratory effort, no use of accessory muscles and clear to auscultation bilaterally Effort & inspection: able to speak in complete sentences Auscultation: clear to auscultation bilaterally Cardio: Common normals: regular rate, regular rhythm, S1 normal heart sound, S2 normal heart sound and no murmurs Rate: regular rate Rhythm: regular rhythm Heart sounds: S1 normal and S2 normal GI: Other: Bowel sounds are hypoactive in the lower region and hyperactive in the right upper quadrant. Abdomen is mildly distended. Diffusely tender to palpation but nonfocal. Tympanitic to percussion. No rebound tenderness or guarding. No obvious mass. Liver is not enlarged. Neuro: Sensorium/orientation: alert Speech: speech normal Motor exam: no movement abnormalities noted Psych: Common normals: speech normal Attitude: engaged Speech: normal speech Insight: insight good Judgement: judgment good Skin: Common normals: no rashes or lesions noted General skin exam: no rashes or lesions noted Course Course ED Course: Diffuse abdominal pain possibly secondary to obstruction, constipation, pancreatitis, perforation from recent and may use, gynecological issue or bleeding from the recent ovarian cyst. Pain is less likely suspicious for ovarian torsion. I recommend not working towards that diagnosis quickly. I recommend a L of IV fluid, Toradol, Zofran and CT scan of the abdomen and pelvis. She is just finishing her menstrual cycle and therefore denies . test is ordered anyway. Await findings. Reevaluation(s) Time of Reevaluation #1: 06:26 Reevaluation #1: The CT scan findings, essentially normal reviewed with patient. I do appreciate some constipation. No evidence of bowel obstruction, mass. Ovarian cyst has improved markedly as well. Counseled patient that her G LP 1 inhibitor could be a factor here as well. I have recommended a more aggressive bowel regimen. MiraLax 17 g every 8 hours until her bowels move well, can be up to 10 doses. For most patients, it takes 3-4 doses in short succession like this. Avoid stimulant laxatives as they are likely to cause more pain. Drink lots of water. Alarm symptoms reviewed that would warrant ED presentation. She verbalizes understanding and agreement. Okay to use Tylenol and/or ibuprofen to help dull the achy pain. Vital Signs Vital signs: Initial Vital Signs Temperature 97.6 F 08/27/23 03:34 Temperature Source Temporal Artery Scan 08/27/23 03:34 Pulse Rate 83 08/27/23 03:34 Respiratory Rate 16 08/27/23 03:34 Blood Pressure 173/116 H 08/27/23 03:34 Blood Pressure Mean 135 H 08/27/23 03:34 Blood Pressure Position Sitting 08/27/23 03:34 Pulse Oximetry 99 08/27/23 03:34 Oxygen Delivery Method Room Air 08/27/23 03:34 Vital Signs Temperature 97.6 F 08/27/23 03:34 Pulse Rate 83 08/27/23 03:34 Respiratory Rate 16 08/27/23 03:34 Blood Pressure 173/116 H 08/27/23 03:34 Pulse Oximetry 99 08/27/23 03:34 Oxygen Delivery Method Room Air 08/27/23 03:34 Temperature 97.6 F 08/27/23 03:34 Pulse Rate 72 08/27/23 05:42 Respiratory Rate 16 08/27/23 05:42 Blood Pressure 158/119 H 08/27/23 05:42 Pulse Oximetry 99 08/27/23 05:42 Oxygen Delivery Method Room Air 08/27/23 05:42 Medications Administered Medications: Discontinued Medications Generic Name Dose Route Start Last Admin Trade Name Freq PRN Reason Stop Dose Admin Sodium Chloride 1,000 mls @ 1,000 mls/hr 08/27/23 03:55 08/27/23 05:51 0.9 % Sodium Chloride 1000 Ml IV 08/27/23 04:54 Infused .Q1H FAIZA Infusion Ketorolac Tromethamine 15 mg 08/27/23 03:54 08/27/23 04:25 Ketorolac 15 Mg/Ml Inj IVP 08/27/23 03:55 15 mg ONCE ONE Administration Ondansetron HCl 4 mg 08/27/23 03:54 08/27/23 04:25 Ondansetron 2 Mg/Ml Inj IVP 08/27/23 03:55 4 mg ONCE ONE Administration Medical Decision Making Lab Data Lab results reviewed: Yes I reviewed the patient's lab results Lab results narrative: Labs all reassuring. Labs: Lab Results 08/27/23 08/27/23 08/27/23 Range/Units 03:54 04:15 05:49 WBC 9.02 (4.50-11.00) K/uL RBC 4.60 (4.00-5.20) m/uL Hgb 13.4 (12.0-16.0) gm/dL Hct 39.0 (33.0-51.0) % MCV 85 (80-100) fL MCH 29 (26-34) pg MCHC 34 (32-36) gm/dL RDW Coeff of Emile 12.0 (11.5-15.5) % Plt Count 357 (140-440) K/uL Neut % (Auto) 65.6 (42.0-72.0) % Lymph % (Auto) 25.2 (20-44) % [place] % (Auto) 7.4 (0.0-11.0) % Eos % (Auto) 1.3 (0.0-7.0) % Baso % (Auto) 0.3 (0.0-3.0) % Neut # (Auto) 5.91 (1.7-7.0) K/uL Lymph # (Auto) 2.27 (0.90-2.90) K/uL [place] # (Auto) 0.70 (0.00-0.90) K/UL Eos # (Auto) 0.12 (0.00-0.50) K/uL Baso # (Auto) 0.03 (0.00-0.30) K/uL Abs Immat Gran (auto) 0.02 (0.00-0.30) K/uL Imm/Tot Granulo (auto) 0.2 % Sodium 138 (135-149) mmol/L Potassium 3.5 L (3.6-5.1) mmol/L Chloride 105 (96-114) mmol/L Carbon Dioxide 23 (20-32) mmol/L Anion Gap 10 (7-15) mEq/L BUN 20 (5-24) mg/dL Creatinine 0.6 (0.5-1.5) mg/dL Estimated Creat Clear 109.29 Estimated GFR 121 ml/min Glucose 93 (60-115) mg/dL Lactate 1.5 (0.5-1.9) mmol/L Calcium 9.5 (8.4-10.6) mg/dL Total Bilirubin 0.6 (0.1-1.5) mg/dL AST 24 (12-35) U/L ALT 17 (4-35) U/L Alkaline Phosphatase 72 (40-150) U/L C-Reactive Protein 0.7 (0.5-1.0) mg/dL Total Protein 7.6 (6.0-8.3) g/dL Albumin 4.5 (3.3-5.0) g/dL Lipase 92 (23-300) U/L Urine Color Yellow (Yellow) Urine Appearance Clear (Clear) Urine pH 7.5 (5.0-8.5) Ur Specific [place] 1.015 (1.000-1.030) Urine Protein Negative (Negative) Urine Glucose (UA) Negative (Negative) Urine Ketones Negative (Negative) Urine Blood 1+ A (Negative) Urine Nitrite Negative (Negative) Urine Bilirubin Negative (Negative) Urine Urobilinogen 0.2 (0.2-1.0) Ur Leukocyte Esterase Negative (Negative) Urine RBC 0-2 (0-2) Urine WBC 0-2 (0-5) Ur Squamous Epith Cells Few (None-Few) Amorphous Sediment Few A (None) Urine Bacteria None (None) Urine HCG, Qual Negative (Negative) Imaging Data CT scan - pelvis: Attestation: I have reviewed the pertinent imaging results. My impression: Mild constipation, otherwise no signs of obstruction, mass or acute intra- abdominal process Radiologist's impression: IMPRESSION: 1. No evidence of acute intra-abdominal/pelvic process on the CT. Specifically, no evidence of small-bowel obstruction. 2. Previously described right ovarian/adnexal probable hemorrhagic cyst has decreased in size now measuring 1.6 cm, previously 5.9 cm. 3. Chronic L5 pars defects with grade 1 anterolisthesis L5 on S1. Discharge Plan Discharge Clinical Impression: Constipation Patient Disposition: Home w/ Parent or Adult Condition: Stable Instructions: Constipation (DC) Additional Instructions: As we discussed, there are no signs of bowel obstruction, tumors or other dangerous pathology. All of your labs look great. The ovarian cyst is also she drinking, as expected. These are all grade findings. I do think that your pain is from a combination of use of Ozempic and constipation. Discontinue any stimulant laxatives like senna. I would recommend that you use MiraLax every 8 hours until your bowels move well. This can take 3 or 4 days total to keep working. Drink lots of fluids. If no effect after 4 days, try an enema again. If no further improvement, call your primary care provider for further direction. Remember that any high fevers, signs of illness or weakness would warrant further ED evaluation. Activity Level: Activity as Tolerated Discharge Diet: Regular Prescriptions: No Action hydroxyzine HCl 25 mg tablet 25 mg PO BID Ozempic 1 mg/dose (4 mg/3 mL) pen injector 1.7 mg subcut .weekly Follow Up/Referrals: Provider,Not a Local [Primary Care Provider] - Stand Alone Forms: [employer] Info Instructions
[2023-08-27] MEDS: KETOROLAC 15 MG/ML inj IVP (04:25)
[2023-08-27] MEDS: 0.9 % SODIUM CHLORIDE 1000 ml 1,000 ML IV (04:25)
[2023-08-27] MEDS: ONDANSETRON 2 MG/ML inj 4 MG IVP (04:25)
[2023-08-27 04:30] LABS: Lactate* 1.5 mmol/L (0.5-1.9)
[2023-08-27 04:31] LABS: Basophils Percent Auto 0.3 % (0.0-3.0); Eosinophils Percent Auto 1.3 % (0.0-7.0); Hemoglobin* 13.4 gm/dL (12.0-16.0); Lymphocytes Percent Auto 25.2 % (20-44); Mean Corpuscular HGB Conc 34 gm/dL (32-36); Mean Corpuscular Hemoglobin 29 pg (26-34); Mean Corpuscular Volume 85 fL (80-100); Monocytes Percent Auto 7.4 % (0.0-11.0); Neutrophils Percent Auto 65.6 % (42.0-72.0); Platelet Count* 357 K/uL (140-440); White Blood Count* 9.02 K/uL (4.50-11.00)
[2023-08-27 04:32] LABS: Basophils Absolute Auto 0.03 K/uL (0.00-0.30); Eosinophils Absolute Auto 0.12 K/uL (0.00-0.50); Immature Granulocytes Abs Auto 0.02 K/uL (0.00-0.30); Immature Granulocytes Pct Auto 0.2 %; Lymphocytes Absolute Auto 2.27 K/uL (0.90-2.90); Neutrophils Absolute Auto 5.91 K/uL (1.7-7.0)
[2023-08-27 04:54] LABS: Albumin* 4.5 g/dL (3.3-5.0); Chloride* 105 mmol/L (96-114)
[2023-08-27 04:55] LABS: Potassium* 3.5 mmol/L (3.6-5.1); Sodium* 138 mmol/L (135-149)
[2023-08-27 04:57] LABS: Alanine Aminotransferase* 17 U/L (4-35); Alkaline Phosphatase* 72 U/L (40-150); Anion Gap 10 mEq/L (7-15); Aspartate Amino Transferase* 24 U/L (12-35); Bilirubin Total* 0.6 mg/dL (0.1-1.5); Blood Urea Nitrogen* 20 mg/dL (5-24); Carbon Dioxide* 23 mmol/L (20-32); Creatinine* 0.6 mg/dL (0.5-1.5); Est. Creatinine Clearance* 109.29; Estimated Glomerular Filt Rate 121 ml/min; Glucose* 93 mg/dL (60-115); Lipase* 92 U/L (23-300); Total Protein* 7.6 g/dL (6.0-8.3)
[2023-08-27 04:58] LABS: Calcium* 9.5 mg/dL (8.4-10.6)
[2023-08-27 05:00] LABS: C Reactive Protein* 0.7 mg/dL (0.5-1.0)
[2023-08-27 05:18] LABS: Slide Review Reflex No
[2023-08-27 05:42] VITALS: BP 158/119; PULSE 72; RESP 16; O2SAT 99
[2023-08-27 06:04] LABS: Ur HCG Qualitative* Negative (Negative)
[2023-08-27 06:11] LABS: Appearance Urine Clear (Clear); Bilirubin Urine Negative (Negative); Blood Urine 1+ (Negative); Color Urine Yellow (Yellow); Glucose Urine Negative (Negative); Ketones Urine Negative (Negative); Leukocyte Esterase Urine Negative (Negative); Nitrite Urine Negative (Negative); Protein Urine Negative (Negative); Specific Gravity Urine 1.015 (1.000-1.030); Urobilinogen Urine 0.2 (0.2-1.0); pH Urine 7.5 (5.0-8.5)
[2023-08-27 06:15] LABS: Amorphous Sediment Urine Few; RBC Urine 0-2 (0-2); Squamous Epithelial Cell Urine Few (None-Few); WBC Urine 0-2 (0-5)
--- NOTE | 2023-08-27 06:36 | PC.NURSE ---
patient declined mirilax, states she has some at home and will start it there.
--- NOTE | 2023-08-27 06:38 | PC.NURSE ---
patient DC ambulatory, pain controlled, no questions about DC instructions.
== END 2023-08-27 06:37 | disposition home or self-care (01) ==
PROVIDERS: Emergency Provider Family Medicine
DX: K59.00 Constipation, unspecified (principal)
CPT/HCPCS: 36415; 74177; 80053; 81003; 81015; 81025; 83605; 83690; 85025; 86140; 95992; 96361; 96374; 96375; 99284; 99285; J1885; J2405; J7030; Q9967

== ENCOUNTER 2023-10-23 12:00 | Emergency (ER) | payer OTHER, SELFPAY ==
[2023-10-23] VITALS (24 sets, daily range): BP systolic 111–159; BP diastolic 82–104; PULSE 67–91; RESP 16; TEMP 36.6; O2SAT 95–100; BMI 31.9
--- NOTE | 2023-10-23 12:41 | ED.GENADULT ---
HPI - General Adult General Chief complaint: Abdominal Pain Stated complaint: Upper abdominal pain Time Seen by Provider: 10/23/23 12:30 History of Present Illness HPI narrative: Patient had upper abdominal pain that started last evening. Worsened today and now migrating to right and generalized. Is lactose intolerant but doesn't remember eating any dairy. Denies N/V. LBM was 2 hours?looser. Was on ozempic X1 year and stopped 4 weeks ago. hx of ectopic - took home test last night and negative 33-year-old woman presenting to the emergency department with concern of severe colicky stabbing epigastric now radiating to the left hypogastrium a little. No nausea. Began yesterday evening. There is a family history of gallbladder disease in her mother. She herself has not demonstrated any food intolerance as beyond lactose. Does not have a diagnosis of IBS. She has not actually been nauseated. Has had looser stools lately. Four weeks ago stopped Ozempic after abdominal pain seem to be related to this. This pain that she had with Ozempic is kind of like what she is experiencing now but not nearly as severe as current. Did do a home test last night which was negative. Underlying history of ectopic . Does not report any dysuria. She did try treating it with heat packs. Any movement seems to hurt. Underlying history of endometriosis with numerous laparoscopic evaluations. Denies history of heartburn. Related Data Home Medications Medication Instructions Recorded Confirmed hydroxyzine HCl 25 mg tablet 25 mg PO DAILY 05/21/23 10/23/23 semaglutide 1 mg/dose (4 mg/3 mL) 1.7 mg subcut .weekly 05/21/23 10/23/23 subcutaneous pen injector (Ozempic) Previous Rx's Medication Instructions Recorded hyoscyamine sulfate 0.125 mg tablet 0.25 mg (2 x 0.125 mg) PO TID PRN 10/23/23 adominal cramping #24 tabs lorazepam 1 mg tablet 0.5 - 1 mg (0.5 - 1 x 1 mg) PO BID 10/23/23 PRN #6 tabs Allergies Allergy/AdvReac Type Severity Reaction Status Date / Time prochlorperazine Allergy Mild Lock Jaw Verified 10/23/23 12:28 [From Compazine] Adhesives Allergy Mild Rash Uncoded 10/21/23 08:31 Review of Systems Status of ROS: Reports: 6 or more systems reviewed and unremarkable except as noted in History and below [facility] Medical History Viral meningitis ?A87.9 - Viral meningitis, unspecified (ICD-10) Ovarian cyst ?N83.209 - Unspecified ovarian cyst, unspecified side (ICD-10) Endometriosis ?N80.9 - Endometriosis, unspecified (ICD-10) Clostridium difficile infection ?A49.8 - Other bacterial infections of unspecified site (ICD-10) Anxiety ?F41.9 - Anxiety disorder, unspecified (ICD-10) Major depressive disorder ?F32.9 - Major depressive disorder, single episode, unspecified (ICD-10) GERD (gastroesophageal reflux disease) ?K21.9 - Gastro-esophageal reflux disease without esophagitis (ICD-10) Bipolar II disorder ?F31.81 - Bipolar II disorder (ICD-10) Macrosomia ?P08.0 - Exceptionally large baby (ICD-10) 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 ?G40.409 - Other generalized epilepsy and epileptic syndromes, not intractable, without status epilepticus (ICD-10) Preeclampsia in period ?O14.95 - Unspecified pre-eclampsia, complicating the puerperium (ICD-10) Pharyngitis ?J02.9 - Acute pharyngitis, unspecified (ICD-10) Viral meningitis ?A87.9 - Viral meningitis, unspecified (ICD-10) Ovarian cyst ?N83.209 - Unspecified ovarian cyst, unspecified side (ICD-10) Endometriosis ?N80.9 - Endometriosis, unspecified (ICD-10) Clostridium difficile infection ?A49.8 - Other bacterial infections of unspecified site (ICD-10) Anxiety ?F41.9 - Anxiety disorder, unspecified (ICD-10) Major depressive disorder ?F32.9 - Major depressive disorder, single episode, unspecified (ICD-10) GERD (gastroesophageal reflux disease) ?K21.9 - Gastro-esophageal reflux disease without esophagitis (ICD-10) Bipolar II disorder ?F31.81 - Bipolar II disorder (ICD-10) Macrosomia ?P08.0 - Exceptionally large baby (ICD-10) Preeclampsia in period ?O14.95 - Unspecified pre-eclampsia, complicating the puerperium (ICD-10) Viral meningitis ?A87.9 - Viral meningitis, unspecified (ICD-10) Ovarian cyst ?N83.209 - Unspecified ovarian cyst, unspecified side (ICD-10) Endometriosis ?N80.9 - Endometriosis, unspecified (ICD-10) Clostridium difficile infection ?A49.8 - Other bacterial infections of unspecified site (ICD-10) Major depressive disorder ?F32.9 - Major depressive disorder, single episode, unspecified (ICD-10) Macrosomia ?P08.0 - Exceptionally large baby (ICD-10) 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 ?G40.409 - Other generalized epilepsy and epileptic syndromes, not intractable, without status epilepticus (ICD-10) Preeclampsia in period ?O14.95 - Unspecified pre-eclampsia, complicating the puerperium (ICD-10) Viral meningitis ?A87.9 - Viral meningitis, unspecified (ICD-10) Ovarian cyst ?N83.209 - Unspecified ovarian cyst, unspecified side (ICD-10) Endometriosis ?N80.9 - Endometriosis, unspecified (ICD-10) Clostridium difficile infection ?A49.8 - Other bacterial infections of unspecified site (ICD-10) Major depressive disorder ?F32.9 - Major depressive disorder, single episode, unspecified (ICD-10) Macrosomia ?P08.0 - Exceptionally large baby (ICD-10) Preeclampsia in period ?O14.95 - Unspecified pre-eclampsia, complicating the puerperium (ICD-10) Surgical History [place] teeth extracted ?K08.409 - Partial loss of teeth, unspecified cause, unspecified class (ICD-10) S/P laparoscopic procedure ?Z98.890 - Other specified postprocedural states (ICD-10) History of appendectomy ?Z90.49 - Acquired absence of other specified parts of digestive tract (ICD-10) History of ankle surgery ?Z98.890 - Other specified postprocedural states (ICD-10) S/P laparoscopic procedure ?Z98.890 - Other specified postprocedural states (ICD-10) [place] teeth extracted ?K08.409 - Partial loss of teeth, unspecified cause, unspecified class (ICD-10) S/P laparoscopic procedure ?Z98.890 - Other specified postprocedural states (ICD-10) History of appendectomy ?Z90.49 - Acquired absence of other specified parts of digestive tract (ICD-10) History of ankle surgery ?Z98.890 - Other specified postprocedural states (ICD-10) [place] teeth extracted ?K08.409 - Partial loss of teeth, unspecified cause, unspecified class (ICD-10) S/P laparoscopic procedure ?Z98.890 - Other specified postprocedural states (ICD-10) History of appendectomy ?Z90.49 - Acquired absence of other specified parts of digestive tract (ICD-10) History of ankle surgery ?Z98.890 - Other specified postprocedural states (ICD-10) [place] teeth extracted ?K08.409 - Partial loss of teeth, unspecified cause, unspecified class (ICD-10) S/P laparoscopic procedure ?Z98.890 - Other specified postprocedural states (ICD-10) History of appendectomy ?Z90.49 - Acquired absence of other specified parts of digestive tract (ICD-10) History of ankle surgery ?Z98.890 - Other specified postprocedural states (ICD-10) Social History Narrative: 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 Smoking Status: Never smoker Do you use any of these nicotine containing products: None Second hand tobacco smoke exposure: No How often do you have a drink containing alcohol: never AUDIT-C Alcohol total score: 0 Non-prescribed substance use: denies use service: No Exam Narrative: Exam Narrative: Pleasant. Calm. Over course of interview though then pain suddenly ramps up. She becomes flushed tearful bending forward in attempt to alleviate evidently severe pain in the epigastric area. Otherwise breathing easily and lungs are clear. Heart in regular rate and rhythm. Abdomen is overweight soft; without peritoneal signs. She is however exquisitely tender in the epigastrium and then in the left hypogastrium; not so evident on the right. Is guarding a little in these areas tenderness. Extremities are well perfused. She is without edema. Const: Vital Signs, click to edit/add: Vital Signs - 24 hr 10/23/23 12:29 10/23/23 13:17 10/23/23 13:19 Temperature 97.9 F Pulse Rate 75 91 Pulse Rate [Pulse Oximeter] 82 Respiratory Rate 16 Blood Pressure 133/102 H Blood Pressure [Le ft Upper Arm] 159/104 H Pulse Oximetry 100 98 98 [facility] 10/23/23 13:30 10/23/23 13:32 10/23/23 13:33 Temperature Pulse Rate 72 72 76 Pulse Rate [Pulse Oximeter] Respiratory Rate Blood Pressure 136/99 H Blood Pressure [Le ft Upper Arm] Pulse Oximetry 96 97 96 [facility] 10/23/23 13:51 10/23/23 14:00 10/23/23 14:02 Temperature Pulse Rate 75 78 Pulse Rate [Pulse Oximeter] Respiratory Rate Blood Pressure 127/102 H Blood Pressure [Le ft Upper Arm] Pulse Oximetry 98 100 100 [facility] 10/23/23 14:30 10/23/23 15:00 10/23/23 15:02 Temperature Pulse Rate 68 77 67 Pulse Rate [Pulse Oximeter] Respiratory Rate Blood Pressure 120/91 H Blood Pressure [Le ft Upper Arm] Pulse Oximetry 99 98 97 [facility] 10/23/23 15:32 10/23/23 15:33 10/23/23 16:00 Temperature Pulse Rate 75 82 75 Pulse Rate [Pulse Oximeter] Respiratory Rate Blood Pressure 156/97 H Blood Pressure [Le ft Upper Arm] Pulse Oximetry 97 96 97 [facility] 10[facility]23/23 16:02 10/23/23 16:30 10/23/23 16:32 Temperature Pulse Rate 73 75 91 Pulse Rate [Pulse Oximeter] Respiratory Rate Blood Pressure 129/82 120/89 Blood Pressure [Le ft Upper Arm] Pulse Oximetry 96 97 97 [facility] 10/23/23 16:32 10/23/23 17:00 10/23/23 17:02 Temperature Pulse Rate 91 67 75 Pulse Rate [Pulse Oximeter] Respiratory Rate Blood Pressure 120/89 124/93 H Blood Pressure [Le ft Upper Arm] Pulse Oximetry 97 95 97 [facility] 10/23/23 17:30 10/23/23 17:31 10/23/23 18:00 Temperature Pulse Rate 70 71 73 Pulse Rate [Pulse Oximeter] Respiratory Rate Blood Pressure 118/82 Blood Pressure [Le ft Upper Arm] Pulse Oximetry 97 97 97 Oxygen Delivery Me thod 10/23/23 18:02 Temperature Pulse Rate 67 Pulse Rate [Pulse Oximeter] Respiratory Rate Blood Pressure 111/87 Blood Pressure [Le ft Upper Arm] Pulse Oximetry 96 Oxygen Delivery Me thod Documenting provider has reviewed patient's vital signs: yes Course Vital Signs Vital signs: Initial Vital Signs Temperature 97.9 F 10/23/23 12:29 Temperature Source Temporal Artery Scan 10/23/23 12:29 Pulse Rate 82 10/23/23 12:29 Pulse Rhythm Regular 10/23/23 12:29 Pulse Strength 3+ Normal 10/23/23 12:29 Respiratory Rate 16 10/23/23 12:29 Blood Pressure 159/104 H 10/23/23 12:29 Blood Pressure Mean 122 H 10/23/23 12:29 Blood Pressure Position Supine 10/23/23 12:29 Pulse Oximetry 100 10/23/23 12:29 Oxygen Delivery Method Room Air 10/23/23 12:29 Vital Signs Temperature 97.9 F 10/23/23 12:29 Pulse Rate 82 10/23/23 12:29 Respiratory Rate 16 10/23/23 12:29 Blood Pressure 159/104 H 10/23/23 12:29 Pulse Oximetry 100 10/23/23 12:29 Oxygen Delivery Method Room Air 10/23/23 12:29 Temperature 97.9 F 10/23/23 12:29 Pulse Rate 67 10/23/23 18:02 Respiratory Rate 16 10/23/23 12:29 Blood Pressure 111/87 10/23/23 18:02 Pulse Oximetry 96 10/23/23 18:02 Oxygen Delivery Method Room Air 10/23/23 12:29 Medications Administered Medications: Discontinued Medications Generic Name Dose Route Start Last Admin Trade Name Paramjitq PRN Reason Stop Dose Admin Fentanyl 50 mcg 10/23/23 12:59 10/23/23 13:14 Fentanyl 100 Mcg/2 Ml Inj IVP 10/23/23 13:00 50 mcg ONCE ONE Administration Hydromorphone HCl 1 mg 10/23/23 13:56 10/23/23 14:05 Hydromorphone 0.5 Mg/0.5 Ml Inj IVP 10/23/23 13:57 1 mg ONCE ONE Administration Hyoscyamine 0.25 mg 10/23/23 15:07 10/23/23 15:19 Hyoscyamine Sulfate 0.125 Mg Tab SUBLINGUAL 10/23/23 15:08 0.25 mg ONCE ONE Administration Sodium Chloride 1,000 mls @ 1,000 mls/hr 10/23/23 12:59 10/23/23 14:08 0.9 % Sodium Chloride 1000 Ml IV 10/23/23 13:58 Infused .Q1H ONE Infusion Ketorolac Tromethamine 30 mg 10/23/23 15:07 10/23/23 15:21 Ketorolac 30 Mg/Ml Inj IVP 10/23/23 15:08 30 mg ONCE ONE Administration Lorazepam 0.5 mg 10/23/23 15:07 10/23/23 15:20 Lorazepam 2 Mg/Ml Inj IVP 10/23/23 15:08 0.5 mg ONCE ONE Administration Medical Decision Making MDM Narrative Medical decision making narrative: This could be heartburn and esophageal spasm of some sort. IBS? No exposure though to lactose that she knows of. Suppose this could be biliary colic. Seems inconsistent with pancreatitis. Given history of endometriosis and laparoscopic procedures suppose there could be some intestinal colic/pseudo-obstruction. Internal hernia? Checking labs to better direct anticipated imaging. Will give pain medication and IV fluids. Fentanyl temporarily helpful. Return of pain dosing with Dilaudid. On reassessment this is also helpful. Appears to have itchy nose. Labs are wholly normal. At this point would have concern about physical issue like obstruction or and internal hernia or similar. Will be sending for CT imaging. I still think more likely though is intestinal colic of some sort related to possible IBS. Requesting more pain medication. Seems to have improved with combination of ketorolac, lorazepam and hyoscyamine --Juana thinks in particular the hyoscyamine may have been helpful. CT imaging of the abdomen pelvis reviewed by me looks to be unremarkable other than small umbilical hernia which she had already identified is likely present. Pending Radiology over-read though prelim notes that absence of acute abnormality. Overall improved as noted above. See patient discharge plan Medical Records Medical records reviewed: Yes I reviewed the patient's medical records Lab Data Lab results reviewed: Yes I reviewed the patient's lab results Labs: Lab Results 10/23/23 10/23/23 Range/Units 13:07 13:13 WBC 6.93 (4.50-11.00) K/uL RBC 4.75 (4.00-5.20) m/uL Hgb 13.9 (12.0-16.0) gm/dL Hct 40.7 (33.0-51.0) % MCV 86 (80-100) fL MCH 29 (26-34) pg MCHC 34 (32-36) gm/dL RDW Coeff of Emile 12.0 (11.5-15.5) % Plt Count 366 (140-440) K/uL Neut % (Auto) 53.5 (42.0-72.0) % Lymph % (Auto) 37.8 (20-44) % Chaffee % (Auto) 6.6 (0.0-11.0) % Eos % (Auto) 1.6 (0.0-7.0) % Baso % (Auto) 0.4 (0.0-3.0) % Neut # (Auto) 3.70 (1.7-7.0) K/uL Lymph # (Auto) 2.62 (0.90-2.90) K/uL [place]fee # (Auto) 0.50 (0.00-0.90) K/UL Eos # (Auto) 0.11 (0.00-0.50) K/uL Baso # (Auto) 0.03 (0.00-0.30) K/uL Abs Immat Gran (auto) 0.01 (0.00-0.30) K/uL Imm/Tot Granulo (auto) 0.1 % Sodium 139 (135-149) mmol/L Potassium 3.8 (3.6-5.1) mmol/L Chloride 104 (96-114) mmol/L Carbon Dioxide 26 (20-32) mmol/L Anion Gap 9 (7-15) mEq/L BUN 13 (5-24) mg/dL Creatinine 0.5 (0.5-1.5) mg/dL Estimated Creat Clear 131.15 Estimated GFR 126 ml/min Glucose 94 (60-115) mg/dL Calcium 9.3 (8.4-10.6) mg/dL Total Bilirubin 0.5 (0.1-1.5) mg/dL Direct Bilirubin 0.1 (0.0-0.5) mg/dL AST 25 (12-35) U/L ALT 20 (4-35) U/L Alkaline Phosphatase 109 (40-150) U/L C-Reactive Protein 0.5 (0.5-1.0) mg/dL Total Protein 8.0 (6.0-8.3) g/dL Albumin 4.7 (3.3-5.0) g/dL Lipase 63 (23-300) U/L Urine Color Light yellow (Yellow) Urine Appearance Clear (Clear) Urine pH 7.0 (5.0-8.5) Ur Specific Baxter 1.020 (1.000-1.030) Urine Protein Negative (Negative) Urine Glucose (UA) Negative (Negative) Urine Ketones Negative (Negative) Urine Blood Trace-intact A (Negative) Urine Nitrite Negative (Negative) Urine Bilirubin Negative (Negative) Urine Urobilinogen 0.2 (0.2-1.0) Ur Leukocyte Esterase Negative (Negative) Urine RBC 0-2 (0-2) Urine WBC 0-2 (0-5) Ur Squamous Epith Cells None (None-Few) Urine Bacteria None (None) Urine HCG, Qual Negative (Negative) Discharge Plan Discharge Clinical Impression: Colicky epigastric pain Patient Disposition: Home w/ Parent or Adult Condition: Improved Additional Instructions: Focus on hydration. Gentle diet over the next 36 hours. Return for intractable pain, repeated vomiting, associated fever. Sending in prescription of hyoscyamine and lorazepam for you if needed. Formal more extensive over-read of your abdominal imaging is still pending. Prescriptions: New lorazepam 1 mg tablet 0.5 - 1 mg PO BID PRNQty: 6 0RF hyoscyamine sulfate 0.125 mg tablet 0.25 mg PO TID PRN (Reason: adominal cramping) Qty: 24 0RF No Action hydroxyzine HCl 25 mg tablet 25 mg PO DAILY Ozempic 1 mg/dose (4 mg/3 mL) pen injector 1.7 mg subcut .weekly Hold Instructions: pt stopped 1 month ago Follow Up/Referrals: Provider,Not a Local [Primary Care Provider] - Stand Alone Forms: [facility] [facility] Info Instructions
--- OUTSIDE RECORDS SUMMARY | 2023-10-23 13:03 | XMS_ITS | Encounter Summary ---
Author Name Unknown Organization [place] Address [address] [facility] [address] Care Team Providers Care Paint Brush Maker Name Role Phone Veronica Gonzalez MD Unavailable [phone] [facility], [facility] Provide r Encounter Details Date Type Department Care Team (Latest Contact Info) Description 05/21/2023 Travel Social History Tobacco Use Types Packs/Day Years Used Date Smoking Tobacco: Never Smokeless Tobacco: Never Alcohol Use Standard Drinks/Week Comments No 0 (1 standard drink = 0.6 oz pur e alcohol) Overall Financial Resource Strain (CARDIA) Answe r Date Recorded How hard is it for you to pa y for the very basics like food, housing, medical care, and heating? Not hard at all 04/18/2021 Exercise Vital Sign Answer Date Recorde d On average, how many days pe r week do you engage in moderate to strenuous exercise (like a brisk walk)? Patient declined On average, how many minutes do you engage in exercise at this level? Patient declined 04/18/2021 Hunger Vital Sign Answer Date Recorded Within the past 12 months, y ou worried that your food would run out before you got the money to buy more. Never true 04/18/20 21 Within the past 12 months, t he food you bought just didn't last and you didn't have money to get more. Never true 04/18/2021 PRAPARE - Transportation Answer Date Re corded In the past 12 months, has l ack of transportation kept you from medical appointments or from getting medications? No 05/2021 In the past 12 months, has l ack of transportation kept you from meetings, work, or from getting things needed for daily living? No 04/18/2021 Sex and Gender Information Value Date Recorded Sex Assigned at Not on file Gender Identity Not on file Sexual Orientation Not on file COVID-19 Exposure Response Date Recorded In the last 10 days, have yo u been in contact with someone who was confirmed or suspected to have Coronavirus/COVID-19? No / Unsure 05/21/2023 11:40 AM CDT documented as of this encounter Plan of Treatment Not on file documented as of this encounter Visit Diagnoses Not on filedocumented in this encounter Care Teams Paint Brush Maker Relationship Specialty Start Date End Date [facility], [facility] [address] [place] [address] PCP - General 02/07/23 Veronica Gonzalez MD [address] [place] [id number] chemical librarian 04/18/21 documented as of this encounter
--- OUTSIDE RECORDS SUMMARY | 2023-10-23 13:03 | XMS_ITS | Clinical Summary ---
Author Name Unknown Organization [place] Address [facility] [facility] [place] [address] Care Team Providers Care City Marshal Name Role Phone Veronica Gonzalez MD Unavailable [phone] Clinic, [facility] Care Provide r Allergies Active Allergy Reactions Criticality Noted Date Comments Adhesive Tape Rash Low 02/15/2016 And Dermabond Compazine Other (See Comments) Medium 10/26/2012 Lock jaw Medications Medication Sig Dispensed Refills Start Date End Date Status levothyroxine (SYNTHROID/LEVOTHROID) 75 MCG tablet Take 75 mcg by mouth daily 0 Active Vit-Fe Fumarate-FA ( 19) 29-1 MG CHEW Take 2 chew tab by mouth daily 0 Active hydrOXYzine (VISTARIL) 25 MG capsule Take 25 mg by mouth At Bedtime 2 04/21/2019 Active omeprazole (PRILOSEC) [address] capsule Take 20 mg by mouth daily 0 Active senna-docusate (SENOKOT-S/PERICOLACE) 8.6-50 MG tabletIndications:Left tubal , unspecified whether intrauterine present Take 1-2 tablets by mouth 2 times daily 30 tablet 0 07/31/2022 Active Active Problems Problem Noted Date Diagnosed Date Decreased movement 08/02/2019 Indication for care in labor or delivery 019 Fetus with viral damage via mother with problem, single or unspecified fetus 05/01/2019 Hyperemesis gravidarum with dehydration 02/08/20 19 Pain in symphysis pubis during 016 Social History Tobacco Use Types Packs/Day Years [...] things needed for daily living? No 04/18/2021 Adolescent Education Answer Date Record ed Getting School Help Needed Not on file 06/24 Sex and Gender Information Value Date Recorded Sex Assigned at Not on file Gender Identity Not on file Sexual Orientation Not on file Last Filed Vital Signs Vital Sign Reading Time Taken Comments Blood Pressure 158/117 05/21/2023 11:51 AM CDT Pulse 86 05/21/2023 11:51 AM CDT Temperature 36.8 ??C (98.3 ??F) 05/21/2023 11:51 AM C DT Respiratory Rate 20 05/21/2023 11:51 AM CDT Oxygen Saturation 98% 05/21/2023 11:51 AM CDT Inhaled Oxygen Concentration - - Weight 88 kg (194 lb) 05/21/2023 11:51 AM CDT Height 160 cm (5' 3) 07/31/2022 9:17 AM LOADING DOCK HELPER Body Mass Index 34.37 07/31/2022 9:17 AM LOADING DOCK HELPER Plan of Treatment Health Maintenance Due Date Last Done Comments ADVANCE CARE PLANNING 1989 ANNUAL REVIEW OF HM ORDERS 1989 TSH W/FREE T4 REFLEX 1989 YEARLY PREVENTIVE VISIT 1989 HEPATITIS C SCREENING 2007 PAP 2010 HPV IMMUNIZATION (2 - 3-dose series) 05/09/2011 04/11/2011 COVID-19 Vaccine ( - season) 2023 12/06/2021, 12/07/2020, 11/09/2020 INFLUENZA VACCINE (#1) 2023 , 06/08/2021, 06/08/2021, Additional history exists PHQ-2 (once per calendar year) 2023 DTAP/TDAP/TD IMMUNIZATION (5 - Td or Tdap) 06/18/2029 06/18/2019, 12/11/2016, 10/11/2013, Additional history exists HEPATITIS B IMMUNIZATION Completed 001, 05/31/1998, 04/13/1998 HIV SCREENING Completed 12/30/2018 IPV IMMUNIZATION Aged Out No longer e ligible based on patient's age to complete this topic MENINGITIS IMMUNIZATION Aged Out No l onger eligible based on patient's age to complete this topic Pneumococcal Vaccine: Pediatrics (0 to 5 Years) and At-Risk Patients (6 to 64 Years) Aged Out No longer eligible based on patient's age to complete this topic RSV MONOCLONAL ANTIBODY Aged Out No l onger eligible based on patient's age to complete this topic Advance Directives For more information, please contact: [phone] Latest Code Status on File Code Status Date Activated Date Inactivated Comments Full Code 02/16/2016 7:05 PM 02/17/2016 3:54 PM Care Teams City Marshal Relationship Specialty Start Date End Date [facility], [facility] [address] [place] [address] PCP - General 02/07/23 Veronica Gonzalez MD [address] [place] [address] risk intern 04/18/21
--- OUTSIDE RECORDS SUMMARY | 2023-10-23 13:03 | XMS_ITS | Referral Summary ---
Author Name Unknown Organization [place] Address [facility] [place] [address] Care Team Providers Care Copy Worker Name Role Phone Veronica Gonzalez MD Unavailable [phone] Clinic, [facility] Primary Care Provide r [...] 160 cm (5' 3) 07/31/2022 9:17 AM PROMOTIONAL DEMONSTRATOR Body Mass Index 34.37 07/31/2022 9:17 AM PROMOTIONAL DEMONSTRATOR Plan of Treatment Not on file Advance Directives For more information, please contact: [phone] Latest Code Status on File Code Status Date Activated Date Inactivated Comments Full Code 02/16/2016 7:05 PM 02/17/2016 3:54 PM Care Teams Copy Worker Relationship Specialty Start Date End Date Clinic, [facility] [address] [place] [address] PCP - General 02/07/23 Veronica Gonzalez MD [address] [place] [address] pocket builder 04/18/21
--- OUTSIDE RECORDS SUMMARY | 2023-10-23 13:04 | XMS_ITS | Encounter Summary ---
Author Name Unknown Organization [facility] Address [address] [address] Care Team Providers Care Internet Marketing Executive Name Role Phone Stella Paulino MD Primary Care Provider [phone] Encounter Details Date Type Department Care Team Description 06/04/2023 9:00 AM CDT Lab Visit [facility] [place], [place] [id number] Screening for diabetes mellitus; Screening, lipid; Obesity (BMI 30-39.9) (HRC); Hypothyroidism, unspecified type (HRC) Social History Tobacco Use Types Packs/Day Years Used Date Smoking Tobacco: Never Smokeless Tobacco: Never Alcohol Use Standard Drinks/Week Comments Not Currently 0 (1 standard drink = 0.6 oz pur e alcohol) PHQ-2 Answer Date Recorded PHQ-2 Score 0 03/06/2023 Sex and Gender Information Value Date Recorded Sex Assigned at Not on file Gender Identity Not on file Sexual Orientation Not on file documented as of this encounter Plan of Treatment Not on file documented as of this encounter Procedures Procedure Name Priority Date/Time Associated Diagnosis Comments LIPID PANEL & DIRECT LDL (IF NEEDED) Routine 06/04/2023 8:43 AM CDT Screening, lipid CREATININE / GFR Routine 06/04/2023 8:43 AM CDT Obesity (BMI 30-39.9) (HRC) TSH, SENSITIVE Routine 06/04/2023 8:43 AM CDT Hypothyroidism, unspecified type (HRC) COMPLETE BLOOD COUNT-NO DIFF Routine 06/04/2023 8:43 AM CDT Obesity (BMI 30-39.9) (HRC) HGB A1C Routine 06/04/2023 8:43 AM CDT Screening for diabetes mellitus ALT (SGPT) Routine 06/04/2023 8:43 AM CDT Obesity (BMI 30-39.9) (HRC) GLUCOSE Routine 06/04/2023 8:43 AM CDT Screening for diabetes mellitus documented in this encounter Results * Complete Blood Count-No Diff (06/04/2023 8:43 AM CDT) WBC 8.8 3.5 - 10.5 x10(9)/L 06/04/2023 9:00 AM CDT [facility] ([facility]) RBC 4.49 3.90 - 5.03 x10(12)/L 06/04/2023 9:00 AM CDT [facility] ([facility]) Hemoglobin 13.2 12.0 - 15.5 g/dL 06/04/2023 9:00 AM CDT [facility] ([facility]) HCT 38.8 34.9 - 44.5 % 06/04/2023 9:00 AM CDT [facility] ([facility]) MCV 86.4 80.0 - 100.0 fL 06/04/2023 9:00 AM CDT [facility] ([facility]) MCH 29.4 27.6 - 33.3 pg 06/04/2023 9:00 AM CDT [facility] ([facility]) MCHC 34.0 31.5 - 35.2 g/dL 06/04/2023 9:00 AM CDT [facility] ([facility]) RDW 12.1 11.9 - 15.5 % 06/04/2023 9:00 AM CDT [facility] ([facility]) Platelets 317 150 - 450 x10(9)/L 06/04/2023 9:00 AM CDT [facility] ([facility]) Blood Venipuncture / Unknown 06/04/2023 8:43 AM CDT 06/04/2023 8:45 AM CDT Stella Paulino MD LAB_1 [facility] ([facility]) [address] [place] [address], [facility] [phone] * TSH (06/04/2023 8:43 AM CDT) TSH, Sensitive 2.33 0.30 - 4.50 uIU/mL 06/04/2023 4:20 PM CDT [facility] Blood Venipuncture / Unknown 06/04/2023 8:43 AM CDT 06/04/2023 8:45 AM CDT Stella Paulino MD LAB_1 Performing Organization Address City/[facility]/ZIP Co de Phone Number [facility] [address] [place], [place] [address] * ALT (SGPT) (06/04/2023 8:43 AM CDT) ALT (SGPT) 16 <=55 U/L 06/04/2023 11:28 AM CDT [facility] Blood Venipuncture / Unknown 06/04/2023 8:43 AM CDT 06/04/2023 8:45 AM CDT Stella Paulino MD LAB_1 Performing Organization Address City/[facility]/ZIP Co de Phone Number [facility] [address] [place] [address], [facility] [phone] * Glucose (06/04/2023 8:43 AM CDT) Glucose 86 70 - 100 mg/dL 06/04/2023 11:28 AM CDT [facility] Comment:The given reference range is for the fasting state. Non-fasting reference range for glucose is 70 - 180 mg/dL. Hours Fasting 12.0 8 - 12 Hours 06/04/2023 11:28 AM CDT [facility] ([facility]) Blood Venipuncture / Unknown 06/04/2023 8:43 AM CDT 06/04/2023 8:45 AM CDT Stella Paulino MD LAB_1 Performing Organization Address [facility]/ZIP Co de Phone Number [facility] [address] [place] [address], [place] [phone] [facility] () [address] [place] [address], [facility] [phone] * Creatinine / GFR (06/04/2023 8:43 AM CDT) Creatinine 0.60 0.55 - 1.02 mg/dL 06/04/2023 11:28 AM [facility] GFR, Estimated >60 >60 mL/min/1.7 3m2 06/04/2023 11:28 AM [facility] Blood Venipuncture / Unknown 06/04/2023 8:43 AM CDT 06/04/2023 8:45 AM CDT Stella Paulino MD LAB_1 Performing Organization Address City/[facility]/ZIP Co de Phone Number [facility] [address] [place] [address], [facility] [phone] * (ABNORMAL) Lipid Panel and Direct LDL(If Needed) (06/04/2023 8:43 AM CDT) Cholesterol 213(H) 0 - 199 mg/dL 06/04/2023 11:28 AM T [facility] Triglyceride 351(H) <=149 mg/dL 06/04/2023 11:28 AM [facility] HDL Cholesterol 42 >=40 mg/dL 11:28 AM [facility] LDL, Calculated 101 <130 mg/dL 11:28 AM [facility] Non HDL Chol, Calculated 171(H) <=159 mg/dL 06/04/2023 11:28 AM [facility] Cholesterol/HDL Ratio 5.1 06/04/2023 11:28 AM CDT [facility] Hours Fasting 12.0 8 - 12 Hours 06/04/2023 11:28 AM CDT [facility] ([facility]) Blood Venipuncture / Unknown 06/04/2023 8:43 AM CDT 06/04/2023 8:45 AM CDT Stella Paulino MD LAB_1 Performing Organization Address City/[facility]/ZIP Co de Phone Number [facility] [address] [place] [address], [facility] [phone] [facility] ([facility]) [address] [facility] [place] [address], [facility] [phone] * HGB A1C (06/04/2023 8:43 AM CDT) [facility] Signature Hemoglobin A1C 5.2 <=5.6 % 06/04/2023 9:16 PM CDT [facility] Estimated Average Glucose (Calc) 103 < 117 mg/dL 06/04/2023 9:16 PM CDT [facility] Comment:Estimated average gl ucose (eAG) converts A1c into glucose units (mg/dL) and estimates average glucose over the past approximately 3 months. The eAG reference interval (<117 mg/dL) corresponds to an A1c of <5.7%. Blood Venipuncture / Unknown 06/04/2023 8:43 AM CDT 06/04/2023 8:45 AM CDT Stella Paulino MD LAB_1 [facility] [address] [address], [facility] [phone] documented in this encounter Visit Diagnoses Diagnosis Screening for diabetes mellitus Screening, lipid Screening for lipoid disorders Obesity (BMI 30-39.9) (HRC) Obesity, unspecified Hypothyroidism, unspecified type (HRC) documented in this encounter Care Teams Internet Marketing Executive Relationship Specialty Start Date End Date Stella Paulino MD [address] [place] [address] [place] [address] PCP - General Family Practice 01/10/19 documented as of this encounter
--- OUTSIDE RECORDS SUMMARY | 2023-10-23 13:04 | XMS_ITS | Encounter Summary ---
Author Name Unknown Organization [facility] Address [address], [place] [address] Care Team Providers Care Eye Care Professional Name Role Phone Stella Paulino MD Primary Care Provider [phone] Reason for Visit * Reason Comments Test Results Encounter Details Date Type Department Care Team Description 07/04/2023 Telephone [facility] [address] [place] [address] [place] [place] [id number] Stella Paulino MD [address] [place] [address] [address] [place] [id number] Test Results Social History Tobacco Use Types Packs/Day Years [...] on file documented as of this encounter Nursing Notes * Anjel Caballero LPN - 07/04/2023 11:25 AM CDT Left pt a message letting them know labs are not yet processed, thus PCP has not had a chance to look at them. We will give pt a call once they are ready, or pt can view them on [employer]. These labs due take extra time to come back * Alva Figueroa - 07/04/2023 10:38 AM CDT Test Results What test are you calling about? PAP & HPV Primary Rehabilitation Technician: Stella Paulino MD Who ordered the test? Stella Paulino MD When and where was the test done? [id number] [facility] Additional comments (related to the above concern): If a prescription is needed, patient would like it filled at the pharmacy listed in Medication Management. Is it okay to leave a detailed message on your voicemail? Yes Is there anything else I can help you with today? documented in this encounter Plan of Treatment Not on file documented as of this encounter Visit Diagnoses Not on filedocumented in this encounter Care Teams Eye Care Professional Relationship Specialty Start Date End Date Stella Paulino MD [address] [place] [address] PCP - General Family Practice 01/10/19 documented as of this encounter
--- OUTSIDE RECORDS SUMMARY | 2023-10-23 13:04 | XMS_ITS | Clinical Summary ---
Author Name Unknown Organization [facility] Address [address] [place] [address] Care Team Providers Care Web Merchandiser Name Role Phone Unavailable Primary Care Provider Unavailabl e Source Comments PLEASE NOTE, if this patient is a minor, it may be UNLAWFUL to discuss sensitive information that is contained in these records (such as FAMILY PLANNING, MENTAL HEALTH or SUBSTANCE ABUSE) with the minor patient's parent or other person without the patient's specific authorization.[facility] Immunizations Name Administration Dates Next Due Moderna COVID-19 Vaccine, re d cap blue label, 12+ Primary Series 12/07/2020,11/09/2020 Social History Tobacco Use Types Packs/Day Years Used Date Smoking Tobacco: Never Assessed Social Connections Answer Date Recorded Social Connections and Isolation 0 11/09/2020 Financial Resource Strain Answer Date R ecorded Financial Resource Strain 0 2020 Stress Answer Date Recorded Stress 0 11/09/2020 Physical Activity Answer Date Recorded Physical Activity 0 11/09/2020 Food Insecurity Answer Date Recorded Food 0 11/09/2020 Transportation Needs Answer Date Record ed Transportation 0 11/09/2020 Housing Stability Answer Date Recorded Housing 0 11/09/2020 Safety and Environment Answer Date Juan rded Safety 0 11/09/2020 Utilities Answer Date Recorded Utilities 0 11/09/2020 Employment Answer Date Recorded Employment 0 11/09/2020 Sex and Gender Information Value Date Recorded Sex Assigned at Not on file Gender Identity Not on file Sexual Orientation Not on file Plan of Treatment Health Maintenance Due Date Last Done Comments HPV Screening 1989 Hepatitis C Screening 1989 Imm-Hepatitis B (1 of 3 - 3-dose series) 1989 Pap + HPV 1989 Tobacco Screening 1989 HIV Screening 01/02/2004 Relationship Safety Screening/Counseling 01/02/2004 Hypertension Screening (#1) 2007 Imm-DTaP/Tdap/Td (1 - Tdap) 01/02/2008 Cervical Cancer Screening 2010 Pap Smear 2010 [id number] ( season) 2023 021, 11/09/2020 Imm-Influenza (#1) 2023 Alcohol and Drug Screen 09/10/2023 Depression Annual Screen 09/10/2023 Cervical Ablation/Cold-Knife Conization Discontinued Cervical Cryotherapy Discontinued Colposcopy Discontinued Endometrial Biopsy Discontinued Excision/Leep Discontinued HPV Genotyping Discontinued Vaginal Pap Discontinued Vulvoscopy Discontinued Insurance Payer Benefit Plan / Group Subscriber ID Effective Dates Phone Address Type [employer]ALTH [employer] [id number] 2020-Eligio deleon [address] [place] [address] Indemnity
--- OUTSIDE RECORDS SUMMARY | 2023-10-23 13:04 | XMS_ITS | Encounter Summary ---
Author Name Unknown Organization [facility] Address [address], [place] [address] Care Team Providers Care Phone Specialist Name Role Phone Stella Paulino MD Primary Care Provider [phone] Reason for Visit * Reason Comments Follow-up Echo results Encounter Details Date Type Department Care Team Description 06/11/2023 [facility]phone [facility] [address] [place], [place] [phone] Meeta Milner MD [address] [place] [address] Follow-up (Echo results) Social History Tobacco Use Types Packs/Day Years [...] as of this encounter Nursing Notes * Mandie Myers RN - 06/11/2023 10:31 AM CDT Called and reviewed the echo findings from 06/06/23: CONCLUSIONS Left ventricular ejection fraction is visually estimated at 65%. No significant valvular abnormalities were identified. The following segments of the aorta are normal in size: sinuses of Valsalva, sinotubular ridge, ascending aorta (3.4cm). No previous study available for comparison. No concerns or vascular follow up needed. She was happy to hear this. documented in this encounter Plan of Treatment Not on file documented as of this encounter Visit Diagnoses Not on filedocumented in this encounter Care Teams Phone Specialist Relationship Specialty Start Date End Date Stella Paulino MD [address] [place] [address] PCP - General Family Practice 01/10/19 documented as of this encounter
--- OUTSIDE RECORDS SUMMARY | 2023-10-23 13:04 | XMS_ITS | Encounter Summary ---
Author Name Unknown Organization [facility] Address [address], [place] [address] Care Team Providers Care Electrocardiographic Technician Name Role Phone Stella Paulino MD Primary Care Provider [phone] Reason for Referral * Procedure/Equipment (Routine) - Incomplete Specialty Diagnoses / Procedures Referred By Naty mathur Referred To Contact Diagnoses Thyroid lump (HRC) Procedures US Thyroid Stella Paulino MD [address] [place] [address] Referral ID Status Reason Start Date Expiration Date V isits Requested Visits Authorized [id number] Incomplete 06/15/2023 09/13/2024 1 1 * Consult/Transfer Care (Routine) - Closed Specialty Diagnoses / Procedures Referred By Naty mathur Referred To Contact Diagnoses OMAR (obstructive sleep apnea) Stella Paulino MD [address] [place] [address] Referral ID Status Reason Start Date Expiration Date Visits Re quested Visits Authorized [id number] Closed 06/15/2023 09/13/2024 1 1 Scheduling Instructions Your clinician has recommended an appointment with [facility]. This is not a sleep study order and must first be reviewed by a sleep specialist to determine the next steps. The review process looks at multiple factors including your insurance requirements, personal health history, and [place] [employer] guidelines. This order will be reviewed within 1 business day and sent to scheduling for one of the following appointments: - Consultation/Office Visit with a Sleep Medicine Specialist - Consultation/Office Visit with an Insomnia Specialist - Portable/Home Sleep Test If you do not hear from our scheduling staff within the next 7 days, please contact us at [phone] and select option 1. Question Answer Appointment Urgency Non-Urgent Sleep Service Requested Sleep Test - recheck after weight loss Other Pertinent History None Previously Diagnosed OMAR Yes Signs/Symptoms of OMAR Habitual or Disruptive Snoring Comments Comments: Age/Sex: 33 y.o. / female Height: 06/15/23 : 5' 3 (1.6 m) Weight: 06/15/23 : 191 lb 8 oz (86.9 kg) BMI: Estimated body mass index is 33.92 kg/m?? as calculated from the following: Height as of this encounter: 5' 3 (1.6 m). Weight as of this encounter: 191 lb 8 oz (86.9 kg). * Consult/Transfer Care (Routine) - New Request Specialty Diagnoses / Procedures Referred By Naty mathur Referred To Contact Diagnoses Umbilical hernia without obstruction and without gangrene Stella Paulino MD [address] [place] [address] Referral ID Status Reason Start Date Expiration Date V isits Requested Visits Authorized [id number] New Request 06/15/2023 09/13/2024 1 1 Scheduling Instructions Your clinician has recommended an appointment with [facility]. You can quickly make your appointment online at [employer]/schedule. You can also call [phone] for help scheduling your appointment. We suggest you call your health insurance company about your coverage and benefits for this appointment. Question Answer Appointment Urgency? Non-Urgent Reason for visit? asymptomatic umbilical hernia in setting of erhler danlos with plan to get in future Reason for Visit * Reason Comments ROUTINE HEALTH MAINTENANCE Encounter Details Date Type Department Care Team Description 06/15/2023 10:30 AM CDT Office Visit [facility] [place] [phone] Stella Paulino MD [address] [place] [phone] Routine physical examination (Primary Dx); Screening for diabetes mellitus; Need for hepatitis C screening test; Screening for HIV (human immunodeficiency virus); Screening for malignant neoplasm of cervix; Special screening examination for human papillomavirus (HPV); Hypertriglyceridemia (HRC); Hypothyroidism, unspecified type (HRC); Ehler's-Danlos syndrome; Mild episode of recurrent major depressive disorder (HRC); CRISTAL (generalized anxiety disorder) (HRC); OMAR (obstructive sleep apnea); Obesity (BMI 30-39.9) (HRC); Umbilical hernia without obstruction and without gangrene; Thyroid lump (HRC) Social History Tobacco Use Types Packs/Day Years Used Date Smoking Tobacco: Never Smokeless Tobacco: Never Tobacco Cessation:Counseling Given: Not Answered Alcohol Use Standard Drinks/Week Comments Not Currently 0 (1 standard drink = 0.6 oz pur e alcohol) PHQ-2 Answer Date Recorded PHQ-2 Score 0 03/06/2023 Sex and Gender Information Value Date Recorded Sex Assigned at Not on file Gender Identity Not on file Sexual Orientation Not on file documented as of this encounter Last Filed Vital Signs Vital Sign Reading Time Taken Comments Blood Pressure 107/82 06/15/2023 10:23 AM CDT Pulse 98 06/15/2023 10:23 AM CDT Temperature - - Respiratory Rate - - Oxygen Saturation - - Inhaled Oxygen Concentration - - Weight 86.9 kg (191 lb 8 oz) 06/15/2023 10:23 AM CDT Height 160 cm (5' 3) 06/15/2023 10:23 AM CDT Body Mass Index 33.92 06/15/2023 10:23 AM CDT documented in this encounter Patient Instructions * Patient Instructions* Stella Paulino MD - 06/15/2023 10:30 AM CDT Images from the original note were not included. Healthy lifestyle: Nutrition (make small changes: example- increase vegetables by 1 every day for 2 weeks) Eat 5-10 DIFFERENT vegetables and fruits daily. 1 serving is typically 1 cup or 1 piece (like an apple or banana). Fresh or Frozen are good! Eat whole grains like oats, brown rice, whole wheat, quinoa, barley, etc. Avoid processed grains (white rice, white bread) Eat healthy proteins like fish, chicken, beans, legumes. Reduce/avoid red meats like beef, pork, processed meats (sausage, lunch meat, márquez) Eat healthy fats like nuts, extra virgin olive oil or avocado oil, avocado and salmon fish. Canola oil is good too Avoid processed foods that are premade, frozen, boxed or canned Consider a mediterranean style nutrition Activity (make small changes: example- start a new routine and exercise for 5 min 5 days per week) Exercise a minimum of 150 minutes of moderate exercise per week (30 minutes 5 days per week). To maintain weight loss, increase to 300 minutes (60 min 5 days per week). Walking at 3 miles per hour isconsider a form of moderate exercise. If you participate in intense exercise, you can exercise 15-30 minutes 5 days per week (HIT training, running are examples) Try to be as active as you can throughout each day. Get up and walk around every 1-2 hours for 3-5 minutes. This often improves focus and energy when working especially if you have a sitting job. LESS sitting, MORE moving Include 2 days of muscle strengthening and stretching (body weight, weights, bands, machines, yoga,pilates, etc). Consider a push and pull exercise with the upper body (i.e. push ups, pull ups) as well as the lower lower body (i.e. squats, bridges) and planks Stress management and socialization (make small changes: example-get together with a friend every week) Chronic stress can cause MAJOR problems in your body. Try relaxation techniques like breathing, following a deep relaxation routine, meditation (try an loretta such as headspace or calm--there are many more) Exercise regularly. This has been proven to reduce the effects of stress Talk to and spend time with loved ones and friends Seek medical attention if this is not helping Sleep Most ADULTS need 7-9 hours of sleep per day. Children and teens need MORE sleep than adults Sleep routines with the same sleep time and wake time are important for maintaining healthy sleep habits Seek medical attention if you are struggling with sleep Protect your skin Wear long clothing, cover head and ears when in the sun Wear SPF sunblock or sunscreen (50+ SPF) on exposed surfaces Bone health Take vitamin D 7569-1645 units daily. Children should take 400-600 units daily Make sure you are getting adequate calcium in your diet. [facility] has a great handout on Getting the Calcium You Need if you need more information Exercise regularly including strength training Alcohol DO NOT drink alcohol if you are younger than 21. Alcohol negatively impact brain development MODERATE DRINKING for adults 21 and older is MOSTLY OK Limit alcohol to MODERATE DRINKING. Moderate drinking is less than or equal to about 7 drinks per week and no more than 3 drinks in 1 day 1 alcohol equivalent is 5 ounces of 12% wine, 1.5 ounces of 40% liquor or 12 ounces of 5% beer. Avoid tobacco (smoking, chewing, vaping, juuling) Always wear your seat belt Visit the dentist 1-2 times per year Well Visit, Ages 18 to 65: Care Instructions Well visits can help you stay healthy. Your doctor has checked your overall health and may have suggested ways to take good care of yourself. Your doctor also may have recommended tests. You can helpprevent illness with healthy eating, good sleep, vaccinations, regular exercise, and other steps. Get the tests that you and your doctor decide on. Depending on your age and risks, examples might include screening for diabetes; hepatitis C; HIV; and cervical, breast, lung, and colon cancer. Screening helps find diseases before any symptoms appear. Eat healthy foods. Choose fruits, vegetables, whole grains, lean protein, and low-fat dairy foods. Limit saturated fat and reduce salt. Limit alcohol. Men should have no more than 2 drinks a day. Women should have no more than 1. For some people, no alcohol is the best choice. Exercise. Get at least 30 minutes of exercise on most days of the week. Walking can be a good choice. Reach and stay at your healthy weight. This will lower your risk for many health problems. Take care of your mental health. Try to stay connected with friends, family, and community, and find ways to manage stress. If you're feeling depressed or hopeless, talk to someone. A counselor can help. If you don't have acounselor, talk to your doctor. Talk to your doctor if you think you may have a problem with alcohol or drug use. This includes prescription medicines and illegal drugs. Avoid tobacco and nicotine: Don't smoke, vape, or chew. If you need help quitting, talk to your doctor. Practice safer sex. Getting tested, using condoms or dental dams, and limiting sex partners can help prevent STIs. Use control if it's important to you to prevent . Talk with your doctor about your choices and what might be best for you. Prevent problems where you can. Protect your skin from too much sun, wash your hands, brush your teeth twice a day, and wear a seat belt in the car. Where can you learn more? 1. Go to https://www.FlightCaster/healthlibrary. 2. Enter P072 in the search box. Current as of: July 23, 2022 Content Version: 13.8 ?? [email or web address]. Care instructions adapted under license by your healthcare professional. If you have questions about a medical condition or this instruction, always ask your healthcare professional. [email or web address] disclaims any warranty or liability for your use of this information. documented in this encounter Progress Notes * Stella Paulino MD - 06/15/2023 10:30 AM CDT Preventive Exam Chief Complaint Patient presents with ROUTINE HEALTH MAINTENANCE HISTORY OF PRESENT ILLNESS: Juana Cooley is a 33 y.o. female who presents for a routine preventive physical exam. The patient voices the following concerns: 1. Routine physical examination 2. Screening for diabetes mellitus 3. Need for hepatitis C screening test 4. Screening for HIV (human immunodeficiency virus) 5. Screening for malignant neoplasm of cervix 6. Special screening examination for human papillomavirus (HPV) 7. Hypertriglyceridemia (HRC) 8. Hypothyroidism, unspecified type (HRC) 9. Ehler's-Danlos syndrome 10. Mild episode of recurrent major depressive disorder (HRC) 11. CRISTAL (generalized anxiety disorder) (HRC) 12. OMAR (obstructive sleep apnea) 13. Obesity (BMI 30-39.9) (HRC) 14. Umbilical hernia without obstruction and without gangrene 15. Thyroid lump (HRC) Mental health: doing well off medication. Mild anxiety but no depression symptoms. PHQ9 is 2. Ehler's danlos syndrome: was dx'd with ED but all vascular studies neg. Had broad ligament hernia and MSK system affective. Hernia umbilical: no symptoms. Found on CT 03/2023. OMAR: not using cpap. Has it at home. She feels anxious having mask/nose mask on face. She mostly mouth breaths so she is trying to relearn how to breath. Still snoring. Not feeling as tired. Obesity: working with specialist outside [facility]. On Ozempic for weight loss. She feels really good about weight loss. Doing light weight training. Walking. Current contraception: abstinence, condoms ROS: complete review of systems other than what is mentioned above is negative Past Medical/Surgical History/Family History: Today, Juana Cooley's problem list, PMH, PSH, FH, SH, medications, and allergies are reviewed with the patient and updated in EPIC. 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 (Menstrual status: ). Menstrual cycles: monthly, heavy, lasting 6-7 days total (heavy 3 days), not painful. Immunizations/Vaccines/HMA According to Health Maintenance in your medical record, you are due for: Health Maintenance Due Topic Date Due Hep C Screening (Preventive Services) Never done HIV Screening (Preventive Services) Never done HPV Vaccine (2 - 3-dose series) 05/09/2011 Cervical Cancer Screening 01/29/2022 COVID-19 Vaccine (4 - Moderna series) 01/31/2022 Influenza (1) 05/11/2023 The information above has been given to the patient. Immunization History Administered Date(s) Administered 4vHPV (Gardasil) 04/11/2011 Flu Vac (3+ yrs) 08/14/2008, 06/03/2009 Flu Vac Preserv Free (3+yrs) 06/24/2013 Fluzone Qiv Multidose Vial 0.25 (6-35 Mos) 06/08/2021 HepA Adult (19+ yrs) 12/10/2014 HepA, Unspecified Formulation 04/29/2012 HepB, Unspecified Formulation 04/13/1998, 05/31/1998, 12/19/2000 Influenza ([place] Only) (Flulaval Quad 0.5, 3+ yrs) 05/19/2019 Influenza IIV4 (Quadrivalent) 0.5mL ([id number]) 06/29/2014, 07/02/2015, 06/10/2016, 07/17/2017, 09/25/2018, 05/19/2019, 06/07/2020, 07/04/2022 MMR 04/02/1990, 12/19/2000 Moderna Monovalent 12+ 11/09/2020, 12/07/2020, 12/06/2021 Td 12/26/2003, 10/11/2013 Td, Preservative Free 12/01/1993, 12/26/2003 Tdap 06/24/2013, 12/11/2016, 06/18/2019 Typhoid (Typhim Vi, IM) 04/29/2012, 12/10/2014 Physical exam: Filed Vitals: 06/15/23 1023 BP: 107/82 Pulse: 98 Weight: 191 lb 8 oz (86.9 kg) Height: 5' 3 (1.6 m) General Appearance: Alert, cooperative, no distress, appears stated age Head: Normocephalic, without obvious abnormality, atraumatic Eyes: PERRL, conjunctiva/corneas clear, EOM's intact both eyes Ears: Normal TM's and external ear canals, both ears Nose: Nares normal, mucosa normal Throat: Lips, mucosa, and tongue normal Neck: Supple, symmetrical, no adenopathy; thyroid: 1-1.5 cm left upper thyroid lump o/w normal Back: Symmetric Lungs: Clear to auscultation bilaterally, respirations unlabored Heart: Regular rate and rhythm, S1 and S2 normal, no murmur, rub or gallop Breast Exam: No tenderness, masses, or nipple abnormality Abdomen: Soft, non-tender, bowel sounds active all four quadrants, no masses, no organomegaly Genitalia: Normal female without lesion, discharge or tenderness. Labia major, labia minora, urethral meatus, vaginal opening normal. Mucosa pink and moist. No abnormal discharge. Bimanual exam reveals normal uterus, ovaries without tenderness or adnexal masses. Extremities: Extremities normal,no edema Pulses: 2+ and symmetric all extremities Skin: Skin color, texture, turgor normal, no rashes Lymph nodes: Cervical, supraclavicular nodes normal Neurologic: CNII-XII intact, grossly normal strength. Component Latest Ref Rng 06/04/2023 WBC 3.5 - 10.5 x10(9)/L 8.8 RBC 3.90 - 5.03 x10(12)/L 4.49 Hemoglobin 12.0 - 15.5 g/dL 13.2 HCT 34.9 - 44.5 % 38.8 MCV 80.0 - 100.0 fL 86.4 MCH 27.6 - 33.3 pg 29.4 MCHC 31.5 - 35.2 g/dL 34.0 RDW 11.9 - 15.5 % 12.1 Platelets 150 - 450 x10(9)/L 317 Cholesterol 0 - 199 mg/dL 213 (H) Triglyceride <=149 mg/dL 351 (H) HDL >=40 mg/dL 42 LDL, Calc. <130 mg/dL 101 Non HDL Chol, Calc <=159 mg/dL 171 (H) Chol/HDL Ratio 5.1 Hours Fasting 8 - 12 Hours 12.0 Hours Fasting 8 - 12 Hours 12.0 HGB A1C <=5.6 % 5.2 Estimated Average Glucose (Calc) < 117 mg/dL 103 Creatinine 0.55 - 1.02 mg/dL 0.60 GFR, Estimated >60 mL/min/1.73m2 >60 Glucose 70 - 100 mg/dL 86 ALT (SGPT) <=55 U/L 16 TSH, Sensitive 0.30 - 4.50 uIU/mL 2.33 Legend: (H) High Assessment/Plan: Juana was seen today for routine health maintenance. Diagnoses and all orders for this visit: Routine physical examination Screening for diabetes mellitus - HGB A1C; Future - Glucose; Future Need for hepatitis C screening test - Hepatitis C Antibody, with Reflex; Future Screening for HIV (human immunodeficiency virus) - HIV 1/2 Ag/Ab 4th Generation; Future Screening for malignant neoplasm of cervix - Scr Pap Smer; Obtain Prep&Convy-Lab - PAP Test Special screening examination for human papillomavirus (HPV) - HPV with 16 18 Genotyping Hypertriglyceridemia (HRC)-T2 work on healthful diet and activity to promote lowering of triglycerides, increased HDL and general health and well-being - Lipid Panel and Direct LDL(If Needed); Future Hypothyroidism, unspecified type (HRC)-has been off levothyroxine for 4 years. Continue to monitor TSH at least yearly - TSH; Future Ehler's-Danlos syndrome -evaluated by vascular surgery and no evidence of ED affecting vascular system. Definitely is affecting connective tissue and musculoskeletal system. Currently working with physical therapy. Mild episode of recurrent major depressive disorder (HRC) and CRISTAL (generalized anxiety disorder) (HR) Stable and doing well. Not taking medication at this time. OMAR (obstructive sleep apnea)-has lost quite a bit of weight. Recommend repeating home sleep test to see if she still has sleep apnea and needs CPAP. - Sleep Services Obesity (BMI 30-39.9) ([facility]) Working with OBGYN doctor with GLP 1 agonist to lose weight. Has had very successful slow weight loss over the past year. Working towards healthful diet and activity as well. Umbilical hernia without obstruction and without gangrene--it is asymptomatic and was found on CT of the chest abdomen pelvis. It was an incidental finding. Discussed that she certainly is at risk ofprogressing, especially because she has Clay Danlos syndrome. Recommend she discuss with her OBGYN. My inclination would be not to repaired before having her next child. However I do recommend discussing this further with the surgeon and her OBGYN doctor. - Surgery Consult-Adults Thyroid lump (HRC)-recommend checking ultrasound - US Thyroid; Future Follow up: Quick Schedule Follow Up Visits Return With: Me (Clinician) Return On or After: 06/15/24 Reason: Preventive Return With: Lab Return On or After: 06/13/24 Reason: Fasting * Kristin Hart RN - 06/15/2023 10:30 AM CDT Dear Juana, I am writing to let you know that your PAP and HPV result is negative. This means that your test result was normal. No cancer or pre-cancerous cells were seen. Based on current cervical cancer screening recommendations, your next PAP and HPV should be in 5 years. Continue to schedule your annual preventive exams for your overall health. If you have questions about cervical cancer screening or your test results, call [phone]. Sincerely, Nayeli Cortes Cervical Cancer Screening & Management Team documented in this encounter Plan of Treatment Scheduled Orders Name Type Priority Associated Diagnoses Orde r Schedule Hepatitis C Antibody, with Reflex Microbiology Routine Need for hepatitis C screening test Expected: 06/15/2023, Expires: 12/14/2024 HIV 1/2 Ag/Ab 4th Generation Microbiology Routine Screening for HIV (human immunodeficiency virus) Expected: 06/15/2023, Expires: 12/14/2024 Lipid Panel and Direct LDL(If Needed) Lab Routine Hypertriglyceridemia (HRC) Expected: 05/16/2024 (Approximate), Expires: 08/13/2024 HGB A1C Lab Routine Screening for diabetes mellitus Expected: 05/16/2024 (Approximate), Expires: 08/13/2024 Glucose Lab Routine Screening for diabetes mellitus Expected: 05/16/2024 (Approximate), Expires: 08/13/2024 TSH Lab Routine Hypothyroidism, unspecified type (HRC) Expected: 05/16/2024 (Approximate), Expires: 08/13/2024 US Thyroid Imaging New Routine Thyroid lump (HRC) Expected: 06/15/2023 (Approximate), Expires: 06/14/2024 Scheduled Referrals Name Type Priority Associated Diagnoses Orde r Schedule Surgery Consult-Adults Referral Routine Umbilical hernia without obstruction and without gangrene Ordered: 06/15/2023 Sleep Services Referral Routine OMAR (obstructive sleep apnea) Ordered: 06/15/2023 documented as of this encounter Procedures Procedure Name Priority Date/Time Associated Diagnosis Comments PAP TEST Routine 06/15/2023 11:32 AM CDT Screening for malignant neoplasm of cervix HPV WITH 16 18 GENOTYPING, CERVICAL/ENDOCERVI JESUS Routine 06/15/2023 11:32 AM CDT Special screening examination for human papillomavirus (HPV) documented in this encounter Results * HPV with 16 18 Genotyping (06/15/2023 11:32 AM CDT) HPV High Risk Type 16 PCR Not Detected Not detected 07/05/2023 3:20 PM CDT [facility] HPV High Risk Type 18 PCR Not Detected Not Detected 07/05/2023 3:20 PM CDT [facility] HPV High Risk Other Than 16/18 Not Detected Not detected 07/05/2023 3:20 PM CDT [facility] Cervical Broom ENTIRE ENDOCERVIX / Unknown 06/15/2023 11:32 AM CDT 06/15/2023 12:58 PM CDT [facility] - 07/05/2023 3:20 PM CDT The [place] HPV test is a qualitative in vitro test for the detection of Human Papillomavirus in SurePath patient specimens. The test utilizes amplification of target DNA by Polymerase Chain Reaction (PCR) and nucleic acid hybridization for the detection of 14 high-risk (HR) HPV types. The assay tests for high risk types (16, 18, 31, 33, 35, 39, 45, 51, 52, 56, 58, 59, 66, and 68). Stella Paulino MD LAB_1 Performing Organization Address City/State/[facility] [place] [address], [facility] [phone] * PAP Test (06/15/2023 11:32 AM CDT) Case Report Pap ? Case: [id number] ? Authorizing Provider: ??Stella Paulino MD ? Collected: ? 06/15/2023 1132 ? Ordering Location: ? [facility] ?Received: ?06/15/2023 1258 ? First Screen: ?[place] [facility] (ASCP) ? Specimen: ?Pap Test, Routine, Cervix/Endocervix ? 07/05/2023 3:20 PM CDT [facility] Pap Specimen Adequacy Satisfactory for evaluation, endocervical/rodriguez sformation zone component present. 07/05/2023 3:20 PM CDT [facility] Pap Interpretation (NILM) Negative for intraepithelial lesion or malignancy. 07/05/2023 3:20 PM CDT [facility] Pap Disclaimer The Pap test is a screening test to aid in the detection of cervical and vaginal cancers and their precursor lesions. It is not a diagnostic procedure and should not be used as the sole means of detecting malignancy. Both false-positive and false-negative results may occur. 07/05/2023 3:20 PM CDT [facility] Gross Description The specimen is received in SurePath fixative and properly labeled. 1 Pap-stained SurePath slide is prepared. 07/05/2023 3:20 PM CDT [facility] Embedded Images 3:20 PM CDT [facility] Other Specimen Type ENTIRE ENDOCERVIX / Unknown 06/15/2023 11:32 AM CDT 06/15/2023 12:58 PM CDT Comment:LMP: No LMP recorded . (Menstrual status: ). Stella Paulino MD LAB PATHOLOGY [facility] [address] [place], [place] [id number] documented in this encounter Visit Diagnoses Diagnosis Routine physical examination- Primary Routine general medical examination at a health care facility Screening for diabetes mellitus Need for hepatitis C screening test Special screening examination for other specified viral diseases Screening for HIV (human immunodeficiency virus) Special screening examination for other specified viral diseases Screening for malignant neoplasm of cervix Screening for malignant neoplasm of the cervix Special screening examination for human papillomavirus (HPV) Hypertriglyceridemia (HRC) Pure hyperglyceridemia Hypothyroidism, unspecified type (HRC) Ehler's-Danlos syndrome Clay-Danlos syndrome Mild episode of recurrent major depressive disorder (HRC) CRISTAL (generalized anxiety disorder) (HRC) Generalized anxiety disorder OMAR (obstructive sleep apnea) Obstructive sleep apnea (adult) (pediatric) Obesity (BMI 30-39.9) (HRC) Obesity, unspecified Umbilical hernia without obstruction and without gangrene Thyroid lump (HRC) Unspecified disorder of thyroid documented in this encounter Care Teams Electrocardiographic Technician Relationship Specialty Start Date End Date Stella Paulino MD [address] [place] [address] PCP - General Family Practice 01/10/19 documented as of this encounter
--- OUTSIDE RECORDS SUMMARY | 2023-10-23 13:04 | XMS_ITS | Encounter Summary ---
Author Name Unknown Organization [facility] Address [address] [address] Care Team Providers Care Soaking Room Operator Name Role Phone Stella Paulino MD Primary Care Provider [phone] Reason for Visit * Reason Comments Multiple Joint Pain * Therapies (Routine) - New Request Specialty Diagnoses / Procedures Referred By Naty t Referred To Contact Diagnoses EDS (Clay-Danlos syndrome) Bette Gilbert MD [address] [address] Referral ID Status Reason Start Date Expiration Date V isits Requested Visits Authorized [id number] New Request 04/03/2023 04/02/[phone] Encounter Details Date Type Department Care Team Description 05/02/2023 4:15 PM CDT Therapy [facility], Physical Therapy [address] [place] [id number] Mandy Ferrer, PT [address] [place] [id number] Hypermobility, syndrome (Primary Dx); Bilateral hip pain; Chronic bilateral low back pain without sciatica; Cervical pain (neck) Social History Tobacco Use Types Packs/Day Years [...] on file documented as of this encounter Progress Notes * Nabil Mandy Melendrez, PT - 05/02/2023 4:15 PM CDT Physical Therapy Evaluation/Plan of Care Visit Number: 1 [facility] Initial Certification Period: 05/02/2023 to 08/01/23 Referring Provider: Bette Gilbert Referring Diagnosis: Hypermobiltiy/Hip Pain Orders: Evaluate & treat Precautions/Contraindications: Multisystem involvement in health Date of Onset: 6 years - onset of s/s post Standardized Functional Score at initial evaluation: PT - Musculoskeletal - Hip Hip Outcomes Score - ADL (0-100%, 100% being best): 81 Psychosocial Screening: High Self Efficacy per Interview Depression Screenin/6 on PHQ-2 SUBJECTIVE: History: [place] Cooley is a 33 y.o. female who presents to [facility] Physical Therapy with chief complaint of B lateral hip pain. 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 She reports onset of more persistent hip pain following of first child which worsened following second and reports the onset of > s/s over past 6M leading to care. Most recently confirmation to hypermobility syndrome per patient report has been R broad ligament hernia - repaired and new info re: umbilical hernia. 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 Meeta Milner in Vascular Surgery who appeared to rule out and EDS vascular subset. She notes that her shoulders and hips constantly sublux, but she has never had a darin dislocation of any joint. However, her son is also hypermobile and he has had multiple dislocations of the shoulder and elbow just from rolling over in bed when he was an . [place] also has had chronic back pain and has a history of bilateral spondylosis with spondylolisthesis at L5. She did undergo CT angio head, neck, and chest in April for further evaluation of any underlying vascular abnormalities - all concerns by vascular surgeons were ruled out per patient report. 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 She lives with her and children. FAMILY HISTORY: Multiple family members are hypermobile. No known Clay-Danlos diagnosis in the family. Bothersome s/s report: B Lateral Hip pain - increased over past 6 months - onset 6 years ago L sided cervicogenic WEISS's - lead to L eye Heavy cycles - hx of pain with intercourse and previous painful cycles - each improved since excision with Anamaria Axial LBP - Hx of spondylo - work to be persistent with abdominal work- have it every day but is livable - sitting on hard surface or on floor difficult Activity/Participation restrictions: Standing Downstairs Sleep - taking hydroxizine for sleep/anxiety Pt Beliefs re: Condition and Recovery: 165 to 220+ weight swings over past 6+ years and considers this a possible factor Supplementary Considerations: Exercise: Walking/Stretching Nutrition: Focus on Protein - Oxempic x 3M General stress levels: Moderate - Daughter with medical needs Sleep: Did not discuss at initial Patient's Therapy Goals: Gain and maintain strength - Help with hip pain Recently Experienced (Red Flags): None Recently Experienced (Yellow Flags): None History obtained and reviewed with patient. Patient is appropriate candidate and has prognosis to improve with skilled PT to address impairments and improve function. Verbal consent obtained by therapist to proceed with physical therapy evaluation. Past Medical History: See EMR for details regarding past medical history, medication and drug allergies. . Review of Systems: Red flags reviewed in history and interview Past Medical History: Diagnosis Date Bipolar II disorder (HRC) 03/12/2017 STRUGGLED with anx and dep since age 16. SSRI's were not helpful. She was seen at [facility] and had testing with psychiastrist. Never did any inpatient treatment. Did well on lamotrigine and weaned off before attempting . She did well off lamotrigine. Concussion with loss of consciousness 09/12/2010 Ectopic 07/2022 s/p surgery--see path report in [facility] ([facility]) Endometriosis Febrile seizures (HRC) GERD (gastroesophageal reflux disease) 03/31/2010 Major depressive disorder, recurrent episode (HRC) 03/24/2010 Meningitis Preeclampsia in period 03/28/2017 S/P section 03/20/2017 Past Surgical History: Procedure Laterality Date ankle surgery Bilateral lateral ligament reconstruction APPENDECTOMY SECTION, LOW TRANSVERSE 03/20/2017 SECTION, LOW TRANSVERSE 09/01/2019 ECTOPIC SURGERY Left 07/2022 see path report in [facility] ([facility]) FERTILITY SURGERY 09/2022 hystersalpingogram showed flow to right fallopian tube but NOT left (after left ectopic s/p surgery) PELVIC LAPAROSCOPY 09/2018 4 times: ablation of endometriosis foci TONSILLECTOMY Bilateral 12/15/2020 Dr Carlin Oviedo TURBINATE RESECTION Bilateral 12/15/2020 Dr Carlin Oviedo Falls in the Past Year: No. Past Medical History: Diagnosis Date Bipolar II disorder (HRC) 03/12/2017 STRUGGLED with anx and dep since age 16. SSRI's were not helpful. She was seen at [facility] and had testing with psychiastrist. Never did any inpatient treatment. Did well on lamotrigine and weaned off before attempting . She did well off lamotrigine. Concussion with loss of consciousness 09/12/2010 Ectopic 07/2022 s/p surgery--see path report in [facility] () Endometriosis Febrile seizures (HRC) GERD (gastroesophageal reflux disease) 03/31/2010 Major depressive disorder, recurrent episode (HRC) 03/24/2010 Meningitis Preeclampsia in period 03/28/2017 S/P section 03/20/2017 Past Surgical History: Procedure Laterality Date ankle surgery Bilateral lateral ligament reconstruction APPENDECTOMY SECTION, LOW TRANSVERSE 03/20/2017 SECTION, LOW TRANSVERSE 09/01/2019 ECTOPIC SURGERY Left 07/2022 see path report in [facility] ([facility]) FERTILITY SURGERY 09/2022 hystersalpingogram showed flow to right fallopian tube but NOT left (after left ectopic s/p surgery) PELVIC LAPAROSCOPY 09/2018 4 times: ablation of endometriosis foci TONSILLECTOMY Bilateral 12/15/2020 Dr Carlin Oviedo TURBINATE RESECTION Bilateral 12/15/2020 Dr Carlin Oviedo OBJECTIVE: General: Mood, orientation, behavior were appropriate. Patient was alert and oriented. Observation/Posture/Alignment: normal and +9/9 Beighton Index Hip ROM screen: Excessive passive IR/ER B Thoracic ROM: Hypomobile Neurological Screen: Heel walking: WNL Toe walking: WNL Deep Tendon Reflexes: normal Strength: Good strength in midrange of hip ER and Abd - pain and weakness at endrange with MMT attempts Palpation: Increase tenderness to B GT/Glut attachements TREATMENT TODAY: Physical Therapy Evaluation (CPT 01582): An evaluation was performed. The patient was determined tohave high complexity based on history, examination, clinical presentation of the patient and the PT's clinical decision making. The patient was educated on the condition, planned therapy interventionand expectations from treatment. Goals were a collaborative effort of the therapist and patient. Therapeutic Exercise (CPT 51740) x 15 Min: Utilized for the purpose of improving strength, ROM, endurance, and/or flexibility. Time included education re: principles of load and capacity, the role ofinflammation in pain/exercise, the role of endogenous chemicals in aerobic exercises along with specifics regarding the how and why to below exercises. Access Code: [email or web address] URL: [email or web address] Date: 05/02/2023 Prepared by: Mandy Ferrer Program Notes Juana - Nice to meet you today. Here are a few of the mobility exercises for you to explore to assist with offering more mobility to your spine allowing for more ease in your days.Look forward to partnering with you - Mandy Exercises - Supine Lower Trunk Rotation - 1 x daily - 7 x weekly - 5-10 reps - Figure 4 Roll Over - T spine Mobility - 1 x daily - 7 x weekly - 2-3 reps - 3- 4 slow low deep breathes hold Neuromuscular Reeducation (62401) x 15 Min: The clinician and or patient perform activities to one or more body areas that facilitate reeducation of movement, balance, coordination, posture, proprioception and may include education directed towards cognitive shifts in pain understanding for healthier understanding of pain to promote improved recovery through decreasing sensitivity to the nervous system. Self Cares/Home Management Training (CPT 00605) 10 Min: Patient was educated on relevant anatomy, pathomechanics, activity modifications and future POC. Patient participated in establishing goals and POC. Patient confirmed that they understand the instructions to HEP/activity modifications, including the risk of reinjury. Discussed - Allowed time for patient to share story - validation, acknowledgement and shared decision making on rehab plan present -Symptom management strategies -Prognosis of condition/healing time frames/progression of exercise protocol --Resources shared: Distangled Hypermobility syndrome book and Glucose Godess book Plan for next treatment session: F/u on resources shared, intro spine mobility, further load progress to hips/pelvis Education/Handouts: Diagnosis education Self management of symptoms Response to treatment: Good understanding of HEP and reframed physical therapy with psychologicallyinformed approach to care Timed Code Treatment Minutes: 40 Total Treatment Minutes: 75 Medicare Unit Tracking: ASSESSMENT: Therapist Impression: Pt is a pleasant 33 y.o. female who presents with B hip pain and cervicogenicHA's along with persistent LBP. Upon subjective and objective findings, the patient demonstrates s/s consistent with hypermobility. Pt's > presenting complaint is consistent with B glut tendonopathy likely increased with post extrapelvic factors + hypermobility of B hips. The patient presents with decreased activity and participation tolerance to sleeping on sides, standing in static positioning and cares for kids along with the following structural impairments/deficits including spinal stiffness > at T spine. Additional health conditions and or factors impacting prognosis include: complex medical history and will be addressed with psychological informed care plan as well as appropriate referral prn. Skilled physical therapy is medically necessary to address the above listed deficits to return the patient to prior level of function. Barriers to Learning: none Rehab Prognosis: Good for goals stated unless otherwise noted in assessment PLAN: Planned Intervention/Education: Re-Evaluation, Education, Therapeutic Exercise, Manual Therapy, Neuromuscular Re-education, Self Care/Home Management, Gait Training, and Therapeutic Activities PT Frequency/Duration: 2x/months for a total of 8 visits Discharge Plan: Goal achievement with home exercise program or if progress plateaus. Informed Consent: Risks, benefits and alternatives to treatment have been explained. Patient and/orfamily in agreement with care plan. EXPECTED FUNCTIONAL OUTCOMES/GOALS: HEP/Independent Management: Demonstrate independence with HEP and self- management following each treatment session ADL's: Resume previous sleep pattern without awakening due to symptoms in 12 weeks. Perform home management tasks with ease in 8 weeks. Stand for at least 45 minutes without increased symptoms in 8 weeks. Work: Perform work related standing demands with > ease and comfort as self reported in 8 weeks Pt able to consistently utilize and report success with 3-4 techniques for nervous system calming on daily basis to address overall level of nervous system sensitivity to assist in reduction in pain response allowing for improved function in 8 weeks. Evaluation and Plan of Care completed by: Mandy Ferrer, PT 10:33 AM 05/03/2023 The bar machine operator multiple spindle is completed by the therapist and the referring clinician's electronic signature certifies medical necessity for the plan above. documented in this encounter Plan of Treatment Scheduled Referrals Name Type Priority Associated Diagnoses Orde r Schedule Physical Therapy Referral Routine EDS (Clay-Danlos syndrome) Ordered: 04/03/2023 documented as of this encounter Visit Diagnoses Diagnosis Hypermobility, syndrome- Primary Bilateral hip pain Pain in joint, pelvic region and thigh Chronic bilateral low back pain without sciatica Cervical pain (neck) Cervicalgia documented in this encounter Care Teams Soaking Room Operator Relationship Specialty Start Date End Date Stella Paulino MD [address] [place] [address] PCP - General Family Practice 01/10/19 documented as of this encounter
--- OUTSIDE RECORDS SUMMARY | 2023-10-23 13:04 | XMS_ITS | Encounter Summary ---
Author Name Unknown Organization [place] Address [facility] [place] [address] Care Team Providers Care Pit Recorder Name Role Phone Veronica Gonzalez MD Unavailable Clinic, [facility] Primary Care Provide r Reason for Visit * Reason Comments Wound Check Encounter Details Date Type Department Care Team (Late st Contact Info) Description 05/21/2023 12:37 PM CDT - 05/21/2023 12:38 PM T Emergency [facility] Emergency Dept [address] [place] [address] Discharge Disposition: Left Without Being Seen Social History Tobacco Use Types Packs/Day Years [...] AM CDT documented as of this encounter Last Filed [...] (194 lb) 05/21/2023 11:51 AM CDT Height - - Body Mass Index 34.37 07/31/2022 9:17 AM MATERIAL MANAGER documented in this encounter Medications at Time of Discharge Medication Sig Dispensed Refills Start Date End Date hydrOXYzine (VISTARIL) 25 MG capsule Take 25 mg by mouth At Bedtime 2 04/21/2019 levothyroxine (SYNTHROID/LEVOTHROID) 75 MCG tablet Take 75 mcg by mouth daily 0 omeprazole (PRILOSEC) [address] capsule Take 20 mg by mouth daily 0 Vit-Fe Fumarate-FA ( 19) 29-1 MG CHEW Take 2 chew tab by mouth daily 0 senna-docusate (SENOKOT-S/PERICOLACE) 8.6-50 MG tabletIndications:Left tubal , unspecified whether intrauterine present Take 1-2 tablets by mouth 2 times daily 30 tablet 0 07/31/2022 documented as of this encounter Plan of Treatment Not on file documented as of this encounter Visit Diagnoses Not on filedocumented in this encounter Care Teams Pit Recorder Relationship Specialty Start Date End Date Clinic, [facility] [address] [place] [address] PCP - General 02/07/23 Veronica Gonzalez MD [address] [place] [address] air intelligence officer 04/18/21 documented as of this encounter
--- OUTSIDE RECORDS SUMMARY | 2023-10-23 13:04 | XMS_ITS | Encounter Summary ---
Author Name Unknown Organization [facility] Address [address], [place] [address] Care Team Providers Care Corner Cutter Machine Operator Name Role Phone Stella Paulino MD Primary Care Provider [phone] Reason for Visit * Reason Comments Multiple Joint Pain Encounter Details Date Type Department Care Team Description 05/24/2023 1:15 PM CDT Therapy [facility], Physical Therapy [address] [place] [address] Mandy Ferrer, PT [address] [place], [place] [address] Hypermobility, syndrome (Primary Dx); Bilateral hip pain; [...] as of this encounter Progress Notes * Mandy Ferrer, PT - 05/24/2023 1:15 PM CDT [facility] Physical Therapy Daily Note Visit Number: 2 [facility] Initial Certification Period: 05/02/2023 to [...] a 33 y.o. female who presents to [facility] Physical Therapy with chief complaint of B lateral hip pain. Significant surgical history and health journey along with rn training has led patient to self diagnosis a [...] over in bed when he was an infant. 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 She lives with her and [...] cycles - each improved since excision with Heegard Axial LBP - Hx of spondylo - [...] maintain strength - Help with hip pain SUBJECTIVE: Functional Status/Patient Report: Cellulitis from Bee sting. Leading to ER visits. Since last PT visits less lateral hip pain at night leading to improved sleep. Walking more and incorporating T spine mobility which patient contributes as factor for less hip sensitivity at night. Continues with WEISS frequency. No WEISS upon arrival but reports present most of day yesterday. OBJECTIVE: General: Mood, orientation, behavior were appropriate. [...] tenderness to B GT/Glut attachements TREATMENT TODAY: Therapeutic Exercise (CPT 30600) x 15 Min: Utilized for the purpose of improving strength, ROM, endurance, and/or flexibility. Time included education re: principles of load and capacity, the role ofinflammation in pain/exercise, the role of endogenous chemicals in aerobic exercises along with specifics regarding the how and why to below exercises. Access Code: [email or web address] Exercises - using first thing in AM and walking in the PM's - helpful habit - Supine Lower Trunk Rotation - 1 x daily - 7 x weekly - 5-10 reps - Figure 4 Roll Over - T spine Mobility - 1 x daily - 7 x weekly - 2-3 reps - 3- 4 slow low deep breathes hold Half Deadlift with Kettlebell - 1 x daily - 7 x weekly - 5-10 reps - Mini Squat to Shoulder Press with Barbell - 1 x daily - 7 x weekly - 5-10 reps - Standing Bent-Over Shoulder Row with Barbell - 1 x daily - 7 x weekly - 5-10 reps Manual Therapy (88358) x 10 Min: Utilized for the purpose of improving mobility and blood flow along with pain reduction principles. Pre and Post assessment time included along with time for the explanations and role of manual therapy = facilitation to recovery vs fix. Supine - HVLA to Mid T R SL for L C/T Mobs - Grade 1-3 Self Cares/Home Management Training (CPT 02600) 10 Min: Patient was educated on relevant anatomy, pathomechanics, activity modifications and future POC. Patient participated in establishing goals and POC. Patient confirmed that they understand the instructions to HEP/activity modifications, including the risk of reinjury. Discussed - Movement plan ideas throughout day - movement snacks - rower/walks/mini curcuit with wts -Symptom management strategies -Prognosis of condition/healing time frames/progression of exercise protocol --Resources shared: Distangled Hypermobility syndrome book and Glucose Godess book Timed Code Treatment Minutes: 35 Total Treatment Minutes: 35 Medicare Unit Tracking: ASSESSMENT: Pt with good habit formation with additions from last session including evening walks and AM T spine mobility. Reports noted improvement in hip sensitivity at night. HAs continue - L sideposterior neck to ocular/occipital area. Pt motivated for guidance on general musculoskeletal wellness to allow for more ease in days. Systemic hypermobility contributing factor present and skill of PT to guide in appropriate exercise program present. Therapist Impression: Pt is a pleasant 33 [...] the patient to prior level of function. PLAN: F/u on movement snack ideas - strength progression - further hip/PF stability concepts and T spine mobility - monitor WEISS's EXPECTED FUNCTIONAL OUTCOMES/GOALS: HEP/Independent Management: Demonstrate independence [...] allowing for improved function in 8 weeks. Therapist: Mandy Ferrer, PT 1:23 PM 05/24/2023 documented in this encounter Plan of Treatment Not on file documented as of this encounter Visit Diagnoses Diagnosis Hypermobility, syndrome- Primary Bilateral hip pain Pain in joint, pelvic region and thigh Chronic bilateral low back pain without sciatica Cervical pain (neck) Cervicalgia documented in this encounter Care Teams Corner Cutter Machine Operator Relationship Specialty Start Date End Date Stella Paulino MD [address] [place] [address] PCP - General Family Practice 01/10/19 documented as of this encounter
--- OUTSIDE RECORDS SUMMARY | 2023-10-23 13:04 | XMS_ITS | Encounter Summary ---
Author Name Unknown Organization [facility] Address [address] [address] Care Team Providers Care Meat Grinder Name Role Phone Stella Paulino MD Primary Care Provider [phone] Reason for Visit * Reason Comments Multiple Joint Pain Encounter Details Date Type Department Care Team Description 06/29/2023 7:[address] [facility] [address] [place] [address] Mandy Ferrer, PT [address] [facility] [place], [place] [address] Hypermobility, syndrome (Primary Dx); Bilateral hip pain; Chronic bilateral low back pain without sciatica Social History Tobacco Use Types Packs/Day Years [...] Progress Notes * Mandy Ferrer, PT - 06/29/2023 7:30 AM CDT [facility] Physical Therapy Daily Note Visit Number: 3 [facility] Initial Certification Period: 05/02/2023 to 08/01/23 Referring [...] a 33 y.o. female who presents to [facility] Physical Therapy with chief complaint of B lateral hip pain. 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 She lives with [...] sitting on hard surface or on floor difficult. Activity/Participation restrictions: Standing Downstairs Sleep - taking [...] with hip pain SUBJECTIVE: Functional Status/Patient Report: Had a period of time when hips and low back where less bothersomeincluding night but as of past few days to week has again more bothersome. WEISS's improved - contact use/and stress factors for WEISS's - pt reports being frustrated with not knowing what makes for periods of time when low back and hips are more bothersome. Primary MD felt comfortable with EDS-Hypermobility dx as vascular ruled out. CT scan found additional umbilical hernia. Following further discussion: pt reports loss of job over past 2 weeks with HIGH stress as well as illnesses throughout family including self. Pt reports her biggest wellness goal is weight loss as I believe my s/s maybe related to by weight At the same time patient reports losing 35# and not seeing change in pain s/s. OBJECTIVE: General: Cognitions - low self efficacy and energy on this date Observation/Posture/Alignment: normal and +/9 Beighton Index Hip ROM screen: Excessive passive IR/ER B Thoracic ROM: Hypomobile Neurological Screen: Heel walking: WNL Toe walking: WNL Deep Tendon Reflexes: normal Strength: Good strength in midrange of hip ER and Abd - pain and weakness at endrange with MMT attempts Palpation: Increase tenderness to B GT/Glut attachments Functional strength: Good hip hinge and quad strength with excellent knee control during tasks TREATMENT TODAY: Neuromuscular Reeducation (47872) x 35 Min: The clinician and or patient perform activities to one or more body areas that facilitate reeducation of movement, balance, coordination, posture, proprioception and may include education directed towards cognitive shifts in pain understanding for healthier understanding of pain to promote improved recovery through decreasing sensitivity to the nervous system. Time spent on enhancing neuro cues for technique and improved sensation of effectiveness - updated all HEP with further written cues to match successful verbal cues in clinic Access Code: [email or web address] Exercises - using first thing in AM [...] - 7 x weekly - 5-10 reps Nervous system as living alarm and Window of tolerance concept shared to assist with sensemaking ofincrease sensitivity WHY's of past 2 weeks Ion sensors explanation to further assist with sensemaking and strategies most helpful to address s/s Manual Therapy (17577) x 8 Min: Utilized for the purpose of improving mobility and blood flow alongwith pain reduction principles. Pre and Post assessment time included along with time for the explanations and role of manual therapy = facilitation to recovery vs fix. Supine - HVLA to Mid T R SL for L C/T Mobs - Grade 1-3 - DNP Self Cares/Home Management Training (CPT 38729) 15 Min: Patient was educated on relevant anatomy, pathomechanics, activity modifications and future POC. Patient participated in establishing goals and POC. Patient confirmed that they understand the instructions to HEP/activity modifications, including the risk of reinjury. Discussed - Review of recent provider appts - Movement plan ideas throughout day - movement snacks - rower/walks/mini curcuit with wts -Symptom management strategies -Prognosis of condition/healing time frames/progression of exercise protocol --Resources shared: Distangled Hypermobility syndrome book and Glucose Godess book Timed Code Treatment Minutes: 60 Total Treatment Minutes: 60 Medicare Unit Tracking: ASSESSMENT: Pt shared losing job unexpectedly along with illness as sensemaking process to her experience of increase pain sensitivity. Framework felt more relevant than previously provided re: BMI and strength as factors as she believes she is strong and she has lost #35 each without changing her pain experience. Pt also connectiong mental health, fatigue and gut/period s/s as function of NS dysregulation as well. Pt motivated for guidance on general musculoskeletal [...] patient to prior level of function. PLAN: Gym based session next. F/u on victor strategies. F/u on movement snack ideas - strength progression -further hip/PF stability concepts and T spine mobility [...] in 8 weeks. Therapist: Mandy Ferrer, PT 7:41 AM 06/29/2023 documented in this encounter Plan of Treatment Not on file documented as of this encounter Visit Diagnoses Diagnosis Hypermobility, syndrome- Primary Bilateral hip pain Pain in joint, pelvic region and thigh Chronic bilateral low back pain without sciatica documented in this encounter Care Teams Meat Grinder Relationship Specialty Start Date End Date Stella Paulino MD [address] [place] [address] PCP - General Family Practice 01/10/19 documented as of this encounter
--- OUTSIDE RECORDS SUMMARY | 2023-10-23 13:04 | XMS_ITS | Encounter Summary ---
Author Name Unknown Organization [facility] Address [address], [place] [address] Care Team Providers Care Basket Operator Name Role Phone Stella Paulino MD Primary Care Provider [phone] Reason for Visit * Reason Comments QUESTIONS, GENERAL Entered automaticall y based on patient selection in [employer]. Encounter Details Date Type Department Care Team Description 08/21/2023 8:10 AM HANDICAPPED TEACHER E-Visit [facility] Medicine [address] [place] [address] [place] [address] Stella Paulino MD [address] [place], [place] [address], [place] [id number] Chief Comp: QUESTIONS, GENERAL Social History Tobacco Use Types Packs/Day Years [...] as of this encounter Nursing Notes * Ellie Bhatt RN - 08/21/2023 9:23 AM CST Clinician: Patient is expecting a Statuslyt message from [employer] Patient/customer care specialist request: Input needed: ongoing symptoms Specific Request: Please review pt's [employer] message Problem list reviewed as related to this call. Pt last OV with PCP was on 06/15/23 ICAPPED TEACHER documented in this encounter Plan of Treatment Not on file documented as of this encounter Visit Diagnoses Not on filedocumented in this encounter Care Teams Basket Operator Relationship Specialty Start Date End Date Stella Paulino MD [address] [place] [address] PCP - General Family Practice 01/10/19 documented as of this encounter
--- OUTSIDE RECORDS SUMMARY | 2023-10-23 13:04 | XMS_ITS | Encounter Summary ---
Author Name Unknown Organization [facility] Address [address] [address] Care Team Providers Care Dish Person Name Role Phone Stella Paulino MD Primary Care Provider [phone] Reason for Referral * Procedure/Equipment (Routine) - Authorized Specialty Diagnoses / Procedures Referred By Contac t Referred To Contact Diagnoses OMAR (obstructive sleep apnea) Procedures Sleep Diagnostic Tests: HST Stella Paulino MD [address] [place] [id number] Referral ID Status Reason Start Date Expiration Date V isits Requested Visits Authorized [id number] Authorized 06/18/2023 09/16/2024 1 1 Encounter Details Date Type Department Care Team Description 06/18/2023 Notes/Orders [place] [facility] [address] [address] Stella Paulino MD [facility] [place] [id number] OMAR (obstructive sleep apnea) (Primary Dx) Social History Tobacco Use Types Packs/Day Years [...] as of this encounter Plan of Treatment Scheduled Orders Name Type Priority Associated Diagnoses Orde r Schedule Sleep Diagnostic Tests: HST Sleep Study Routine OMAR (obstructive sleep apnea) 1 Occurrences starting 06/18/2023 documented as of this encounter Visit Diagnoses Diagnosis OMAR (obstructive sleep apnea)- Primary Obstructive sleep apnea (adult) (pediatric) documented in this encounter Care Teams Dish Person Relationship Specialty Start Date End Date Stella Paulino MD [address] [place] [address] PCP - General Family Practice 01/10/19 documented as of this encounter
--- OUTSIDE RECORDS SUMMARY | 2023-10-23 13:04 | XMS_ITS | Encounter Summary ---
Author Name Unknown Organization [facility] Address [facility] [place] [address] Care Team Providers Care Bin Filler Name Role Phone [place] Torres Primary Care Provider Veronica Nguyen MD Unavailable Clinic, [facility] Primary Care Provide r Reason for Referral * Diagnostic Imaging XR (Routine) - Closed Specialty Diagnoses / Procedures Referred By Conthiram t Referred To Contact Diagnoses Fertility testing Procedures XR Hysterosalpingogram COMMUNITY SERVICE ORGANIZATION DIRECTOR Performs Cath Veronica Gonzalez MD [address] [address] Referral ID Status Reason Start Date Expiration Date Visits Re quested Visits Authorized [id number] Closed 09/18/2022 09/18/2023 1 1 CAL ASSISTANT PER DIEM Encounter Details Date Type Department Care Team (Late st Contact Info) Description 09/18/2022 Orders Only [facility] [address] [place] [phone] Veronica Gonzalez MD [address] [place], [place] [phone] Fertility testing (Primary Dx) Social History Tobacco Use Types [...] things needed for daily living? No 04/18/2021 Comments Yes Sex and Gender Information Value Date Recorded Sex Assigned at Not on file Gender Identity Not on file Sexual Orientation Not on file documented as of this encounter Plan of Treatment Not on file documented as of this encounter Results * XR Hysterosalpingogram COMMUNITY SERVICE ORGANIZATION DIRECTOR Performs Cath (09/22/2022 12:38 PM MEDICAL ASSISTANT PER DIEM) Anatomical Region Laterality Modality Abdomen/Pelvis Computed Radiogr aphy 09/22/2022 12:3 8 PM MEDICAL ASSISTANT PER DIEM Impressions 09/22/2022 3:56 PM MEDICAL ASSISTANT PER DIEM IMPRESSION: Patent right fallopian tube, patency of the left fallopian tube is not demonstrated. Narrative 09/22/2022 3:56 PM MEDICAL ASSISTANT PER DIEM EXAM: XR HYSTEROSALPINGOGRAM COMMUNITY SERVICE ORGANIZATION DIRECTOR PERFORMS CATH LOCATION: [facility] DATE/TIME: 09/22/2022 12:38 PM INDICATION: Fertility testing COMPARISON: None. PROCEDURE: Procedure and risks explained and consent received. A time out was performed where the proper patient, procedure, and site were confirmed. Using sterile technique, a hysterosalpingogram catheter was placed into the cervix by Dr. Gonzalez and 8 mL Omni 300 contrast material was injected into the uterus and fallopian tubes under direct fluoroscopic supervision. Routine images obtained. COMPLICATIONS: None. RADIOLOGIC SUPERVISION AND INTERPRETATION: UTERUS: Normal configuration with no filling defects or strictures. FALLOPIAN TUBES: Both fallopian tubes are visualized, there is only spill from the right fallopian tube. FLUOROSCOPIC TIME: .11 NUMBER OF IMAGES: 4 Procedure Note Christopher Lieberman MD - 09/22/2022 EXAM: XR HYSTEROSALPINGOGRAM COMMUNITY SERVICE ORGANIZATION DIRECTOR PERFORMS CATH LOCATION: [facility] DATE/TIME: 09/22/2022 12:38 PM INDICATION: Fertility testing COMPARISON: None. PROCEDURE: Procedure and risks explained and consent received. A time outwas performed where the proper patient, procedure, and site wereconfirmed. Using sterile technique, a hysterosalpingogram catheter wasplaced into the cervix by Dr. Gonzalez and 8 mL Omni 300 contrast material was injected into the uterus and fallopiantubes under direct fluoroscopic supervision. Routine images obtained. COMPLICATIONS: None. RADIOLOGIC SUPERVISION AND INTERPRETATION: UTERUS: Normal configuration with no filling defects or strictures. FALLOPIAN TUBES: Both fallopian tubes are visualized, there is only spillfrom the right fallopian tube. FLUOROSCOPIC TIME: .11 NUMBER OF IMAGES: 4 IMPRESSION: Patent right fallopian tube, patency of the left fallopiantube is not demonstrated. Veronica Gonzalez MD IMG DIAGNOSTIC IM AGING ORDERABLES documented in this encounter Visit Diagnoses Diagnosis Fertility testing- Primary Fertility testing documented in this encounter Care Teams Bin Filler Relationship Specialty Start Date End Date [place] Torres PCP - General Family Practice 08/20/18 02/06/23 [address] [place] [id number] PCP - General 02/07/23 Veronica Gonzalez MD [address] [place] [address] sand molder 04/18/21 documented as of this encounter
--- OUTSIDE RECORDS SUMMARY | 2023-10-23 13:04 | XMS_ITS | Clinical Summary ---
Author Name Unknown Organization [facility] Address [address] [place] [address] Care Team Providers Care Criminology Teacher Name Role Phone Stella Paulino MD Primary Care Provider [phone] Source Comments You are receiving this document as you are listed as the primary care provider,follow-up provider, or the patient has been referred to you for consultation.This is in compliance with the Medicare and[facility] Systemcaid EHR Incentive Program,which states Providers who transition their patient to another setting of careor provider of care or refers their patient to another provider of care shouldprovide summary care record for each transition of care or referral. [facility] Allergies Active Allergy Reactions Criticality Noted Date Comments Adhesive Rash 12/14/2015 Phenothiazines High 04/22/2015 Locked jaw--could not close mouth Prochlorperazine 03/22/2009 PN: LW Reaction: lock jaw Medications Medication Sig Dispensed Refills Start Date End Date Status hydrOXYzine HCl (ATARAX) 25 MG tablet Take 1 Tablet (25 mg) by mouth two times a day. 0 02/27/2023 Active ondansetron (ZOFRAN-ODT) 4 MG disintegrating tablet Take 0.5 Tablets (2 mg) by mouth three times a day. 0 05/11/2023 Active OZEMPIC, 2 MG/DOSE, 8 MG/3ML SOPN injection Inject 2 mg subcutaneously once every week. 0 06/13/2023 Active Active Problems Problem Noted Date Diagnosed Date Bladder diverticulum 06/15/2023 Overview: Vs urachal remnant seen on CT c/a/p 03/2023. 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 Per guidelines, she should have an echo every 2-5 years which may be discontinued if she has two normal results. She should also have a baseline CTA of the head and neck as well as chest/abd/pelvis. We will all order all of the above and follow up with her on the CTA as needed. Will message her PCP for f/u of the echo. Hypermobility syndrome 03/09/2023 Recurrent tonsillitis 11/18/2020 Overview: Added automatically from request for surgery [id number] OMAR (obstructive sleep apnea) 11/18/2020 Overview: Status-post tonsillectomy on 12/15/20 HST 02/06/21 RDI 6.1 DULCE 7.4 O2 emely: 88% Hypothyroidism 10/04/2020 Overview: Has not needed medication since 2018. hypertension 09/07/2019 Pre-eclampsia, delivered, with compli cation 09/07/2019 Overview: Transfer of care from [place] on 09/07/19 per pt request (insurance issue) with outside records showing sustained severe range pressures. She was started on mg at Outside hospital. HELLP labs normal. 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 SSRI's were not helpful. She was seen at [facility] and had testing with psychiastrist. Never did any inpatient treatment. Did well on lamotrigine and weaned off before attempting . She did well off lamotrigine. Encounters Date Type Department Care Team Description 08/21/2023 8:10 AM SAFETY NET MAKER E-Visit [facility] Medicine [address] [place] [address] Stella Paulino MD Chief Comp: QUESTIONS, GENERAL 08/10/2023 arcelia Rod [phone] from Last 3 Months Immunizations Name Administration Dates Next Due 4vHPV (Gardasil) 04/11/2011 Flu Vac (3+ yrs) 06/03/2009,08/14/2008 Flu Vac Preserv Free (3+yrs) 06/24/2013 Fluzone Qiv Multidose Vial 0 .25 (6-35 Mos) 06/08/2021 HepA Adult (19+ yrs) 12/10/2014 HepA, Unspecified Formulation 04/29/2012 HepB, Unspecified Formulation 12/19/2000, 998,04/13/1998 Influenza ([place] Only) (Flul aval Quad 0.5, 3+ yrs) 05/19/2019 Influenza IIV4 (Quadrivalent ) 0.5mL (70600) 07/04/2022,06/07/2020,05/19/2019,2018,07/17/2017,06/10/2016,07/02/2015,1 MMR 12/19/2000,04/02/1990 Moderna Monovalent 12+ 12/06/2021,12/07/2020,10/2020 Td 10/11/2013,12/26/2003 Td, Preservative Free 12/26/2003,12/01/1993 Tdap 06/18/2019,12/11/2016,06/24/2013 Typhoid (Typhim Vi, IM) 12/10/2014,04/29/2012 Family History Medical History Relation Name Comments Hyperlipidemia Father Obesity Father Obstructive Sleep Apnea Father REM sleep disorder Father Atrial Fib Mother Obesity Mother hypermobility Mother hypermobility Maternal Grandmother No Known Problems Sister Relation Name Status Comments Father Alive Mother Alive Maternal Grandmother Sister Alive Social History Tobacco Use Types Packs/Day Years [...] Pulse 98 06/15/2023 10:23 AM CDT Temperature 35.8 ??C (96.4 ??F) 03/14/2021 9:30 AM CD T Respiratory Rate 11 12/15/2020 1:45 PM CDT Oxygen Saturation 94% 12/15/2020 3:15 PM CDT Inhaled Oxygen Concentration - - Weight 86.9 kg (191 lb 8 oz) 06/15/2023 10:23 AM CDT Height 160 cm (5' 3) 06/15/2023 10:23 AM CDT Body Mass Index 33.92 06/15/2023 10:23 AM CDT Plan of Treatment Health Maintenance Due Date Last Done Comments Hep C Screening (Preventive Services) 1989 HIV Screening (Preventive Services) 2005 HPV Vaccine (2 - 3-dose series) 05/09/2011 04/11/2011 COVID-19 Vaccine ( season) 2023 12/06/2021, 12/07/2020, 11/09/2020 Adult Preventive Visit 06/15/2025 06/15/2023 Cervical Cancer Screening 06/15/20282022, 01/29/2019 (Completed), 06/10/2016 (Completed) DTaP/Tdap/Td (6 - Tdap) 06/18/2029 06/18/20 19, 12/11/2016, 10/11/2013, Additional history exists Zoster/Shingles (1 of 2) 2039 HepB Completed 12/19/2000, 05/12, 04/13/1998 HepA Completed 12/10/2014, 04/29/2012 Influenza Completed 06/05/2023, 06/11, 06/08/2021, Additional history exists Hib Aged Out No longer eligi ble based on patient's age to complete this topic IPV (Polio) Aged Out No longer eligi ble based on patient's age to complete this topic MCV4 Aged Out No longer eligi ble based on patient's age to complete this topic Pneumococcal Aged Out No longer eligi ble based on patient's age to complete this topic Advance Directives Latest Code Status on File Code Status Date Activated Date Inactivated Comments Full Code 12/15/2020 11:28 AM 12/15/2020 6:25 PM Care Teams Criminology Teacher Relationship Specialty Start Date End Date Stella Paulino MD [address] [place] [address] PCP - General Family Practice 01/10/19
--- OUTSIDE RECORDS SUMMARY | 2023-10-23 13:04 | XMS_ITS | Encounter Summary ---
Author Name Unknown Organization [facility] Address [address] [address] Care Team Providers Care Registered Nurse Maternal Child Name Role Phone Stella Paulino MD Primary Care Provider [phone] Encounter Details Date Type Department Care Team Description 08/10/2023 caio Rod [phone] Social History Tobacco Use Types Packs/Day Years [...] as of this encounter Progress Notes * FAMILY CAIO CASH PROVIDER - 08/12/2023 1:14 PM CST [facility] Addendum From Provider Visit Date August 10, 2023 Addendum Date August 12, 2023 Juana Cooley Date of : 88 Provider Vanessa Dee, Nurse Practitioner Note From Provider Krzysztof Arias, Thanks for checking back in today. I'm glad some of your symptoms are improving. However, looks like you now have unilateral right flank pain and malaise. Since we cannot rule out this isturning into a kidney infection the next best step is to follow up in a clinic for an in-person evaluation at this time. I hope you feel better soon, Suma SING WATCHMAN * FAMILY MEDICINE, CAIO PROVIDER - 08/10/2023 1:36 PM CST [facility] Treatment Plan Diagnosis Urinary Tract Infection Visit Date August 10, 2023 Juana Cooley Date of : 88 Provider Maricel Portillo, Nurse Practitioner Note From Provider Krzysztof Arias, I?? sorry to hear that you're having symptoms of a bladder infection.'ve sent a prescription for an antibiotic to your pharmacy. Take the medication with a full meal twice a day and remember to drink lots of fluids. We are here for you for any questions or concerns along the way, just submit a Follow Up Request. Get some great rest when you can and take good care,Maricel SHAH Treatment Plan Because you have a bacterial infection, I sent a prescription for an antibiotic to [facility] I also listed a few ways to soothe your discomfort and additional self-care tips to get you onthe road to feeling better. If your symptoms don't start to improve after 3 days, or if you have questions, please select Help to Request a Follow-up and we'll discuss next steps. Order(s) nitrofurantoin monohyd/m-cryst 100 mg capsule Take 1 capsule by mouth every twelve hours as directed for 5 days Note: Take with food to improve absorption. Refills: None Sent To: [facility] [address] [place], [place] [id number] Treatment Plan Self Care Tip Topics Drink Water Avoid Caffeine Warm Packs Yeast Infection What to Expect If you follow the recommendations I made on the Treatment tab, your symptoms should start to improve in about 3 days. If your symptoms don't start to improve after 3 days, or if you have questions, please select Help to Request a Follow- up and we'll help determine next steps. What to Watch Out For Follow-up in clinic if you experience: ??? Fever higher than 99.9 degrees ??? Shaking or chills ??? Vomiting ??? Severe pain in your back, abdomen or pelvis ??? Extreme fatigue My Conditions, Orders, Allergies as of August 10, 2023 Standard condition list None Current orders nitrofurantoin monohyd/m-cryst (nitrofurantoin monohyd/m-cryst) Ozempic (semaglutide) hydroxyzine HCl (hydroxyzine HCl) Allergies Betadine Skin Cleanser (povidone-iodine), top Compazine (prochlorperazine maleate), oral License Buddy Information [facility] by [employer] We are an online clinic open 02/04. If you have any questions or comments about this visit, please call or email [email or web address] documented in this encounter Plan of Treatment Not on file documented as of this encounter Visit Diagnoses Diagnosis Urinary tract infection, site not specified documented in this encounter Care Teams Registered Nurse Maternal Child Relationship Specialty Start Date End Date Stella Paulino MD [address] [place] [address] PCP - General Family Practice 01/10/19 documented as of this encounter
--- OUTSIDE RECORDS SUMMARY | 2023-10-23 13:04 | XMS_ITS | Encounter Summary ---
Author Name Unknown Organization [facility] Address [address], [place] [address] Care Team Providers Care Patternmaker Plastics Name Role Phone Stella Paulino MD Primary Care Provider [phone] Encounter Details Date Type Department Care Team Description 05/20/2023 caio Rod [phone] Social History Tobacco Use Types Packs/Day Years [...] as of this encounter Progress Notes * CAIO TIAN PROVIDER - 05/22/2023 9:02 PM CDT caio Addendum From Provider Visit Date May 20, 2023 Addendum Date May 22, 2023 Juana Cooley Date of : 88 Provider Jodie Griffith, Nurse Practitioner Note From Provider Krzysztof Arias, thanks for contacting [facility]! I am happy to hear your bee sting is improved. No, youdo not need to complete the entire five days of steroids. However, I do recommend you take at least3 days and only stop if you are 72 + hours post bee sting. Take good care, ALYSSA Feliciano. * CAIO TIAN PROVIDER - 05/20/2023 7:15 PM CDT caio Treatment Plan Diagnosis Insect Bites and Stings Visit Date May 20, 2023 Juana Cooley Date of : 88 Provider Jodie Griffith, Nurse Practitioner Note From Provider Sade Arias, Thank you for using [facility]. I am sorry to hear about the bee sting. It is not abnormal to have worsening symptoms over first 24-72 hours after experiencing a sting or bite including; redness, swelling/inflammation and spreading of irritation. It is important that you keep from scratching the area. I have sent in an oral steroid to help decrease swelling and itching. I also recommend Zyrtec 10 mg daily until this resolves, calamine lotion to decrease itching, cool compress to soothe the discomfort and help with the swelling. If you take Benadryl, this needs to be dosed every 6-8 hours. It also causes drowsiness. Avoid any topical ointments like neosporin or triple antibiotic ointment as these can potentially make things worse by irritating the skin. Please review the treatment plan I have put together for you and do not hesitate to follow up with any questions or concerns. Take good care! ALYSSA Feliciano. Treatment Plan Let?? try an oral steroid medication to help your symptoms. I sent a prescription to [facility]. I also listed a few of the best ways to soothe your discomfort and additional self-care tipsto promote healing. If your symptoms don't improve after 5 days, or if you have questions, please use the Request a Follow-up button and we'll adjust your treatment for free. Order(s) prednisone 20 mg tablet Take 2 tablet Oral once a day as directed for 5 days Note: Refills: None Sent To: [facility] [address] [id number] Treatment Plan Self Care Tip Topics Wash the Area Cold Packs Topical Itch Relief What to Expect If you follow the recommendations I made on the Treatment tab, your symptoms should begin to improve over the next 5 days. If your symptoms don't improve after 5 days, or if you have any questions, please use the Request a Follow-up button and we'll adjust your treatment for free. What to Watch Out For Give us a call if you experience: ??? Increasing warmth or redness around the bite or sting ??? Red, swollen or painful joints ??? Fevers ??? Abdominal pain ??? Headaches My Conditions, Orders, Allergies as of May 20, 2023 Standard condition list None Current orders prednisone (prednisone) Ozempic (semaglutide) hydroxyzine HCl (hydroxyzine HCl) Allergies Betadine Skin Cleanser (povidone-iodine), top Compazine (prochlorperazine maleate), oral [employer] Information [employer] by [employer] We are an online clinic open 02/04. If you have any questions or comments about this visit, please call or email [email or web address] documented in this encounter Plan of Treatment Not on file documented as of this encounter Visit Diagnoses Not on filedocumented in this encounter Care Teams Patternmaker Plastics Relationship Specialty Start Date End Date Stella Paulino MD [address] [place] [address] PCP - General Family Practice 01/10/19 documented as of this encounter
--- OUTSIDE RECORDS SUMMARY | 2023-10-23 13:04 | XMS_ITS | Encounter Summary ---
Author Name Unknown Organization [facility] Address [address], [place] [address] Care Team Providers Care Ion Exchange Operator Name Role Phone Stella Paulino MD Primary Care Provider [phone] Reason for Visit * Procedure/Equipment (Routine) - New Request Specialty Diagnoses / Procedures Referred By Conthiram t Referred To Contact Diagnoses Ehler's-Danlos syndrome Procedures Echocardiogram Meeta Milner MD [address] [place] [address] Referral ID Status Reason Start Date Expiration Date V isits Requested Visits Authorized [id number] New Request 03/29/2023 06/27/2024 1 1 Encounter Details Date Type Department Care Team Description 06/06/2023 8:00 AM CDT Procedure Visit [facility] [address] Noninvasive Cardiology [address] [place] [address] Social History Tobacco Use Types Packs/Day Years [...] as of this encounter Progress Notes * Sanjuanita Forman - 06/06/2023 8:00 AM CDT Test completed. documented in this encounter Plan of Treatment Not on file documented as of this encounter Procedures Procedure Name Priority Date/Time Associated Diagnosis Comments ECHOCARDIOGRAM Routine 06/06/2023 7:56 AM CDT Ehler's-Danlos syndrome documented in this encounter Results * Echocardiogram (06/06/2023 7:56 AM CDT) 06/06/2023 7:56 AM CDT Narrative PN ECHO - 06/06/2023 9:00 AM CDT ECHOCARDIOGRAM. Date: 06/06/2023 Start: 07:56 AM Facility: [facility] CONCLUSIONS Left ventricular ejection fraction is visually estimated at 65%. No significant valvular abnormalities were identified. The following segments of the aorta are normal in size: sinuses of Valsalva, sinotubular ridge, ascending aorta (3.4cm). No previous study available for comparison. FINDINGS MITRAL VALVE Normal mitral valve structure and function. Trace (physiologic) mitral regurgitation. AORTIC VALVE Normal aortic valve structure and function. The aortic valve is tricuspid. TRICUSPID VALVE Normal tricuspid valve structure, but trace tricuspid regurgitation. Pulmonary artery systolic pressure estimate is 13.7mmHg above RAP(Normal) . PULMONIC VALVE Normal pulmonic valve structure and function. LEFT ATRIUM Left atrial volume index is 17.7 mL/m^2. (Normal <34mL/m^2). LEFT VENTRICLE Normal left ventricular size and global and regional function. Normal left ventricular wall thickness. Left ventricular ejection fraction is visually estimated at 65%. Normal left ventricular diastolic function. RIGHT ATRIUM Normal right atrium. RIGHT VENTRICLE Normal right ventricle size and normal global function. PERICARDIAL EFFUSION There is no pericardial effusion. MISCELLANEOUS The following segments of the aorta are normal in size: sinuses of Valsalva, sinotubular ridge, ascending aorta (3.4cm). The inferior vena cava is normal. M-MODE/2D MEASUREMENTS & CALCULATIONS LV Diastolic Dimension: 3.05 cm LV PW Diastolic: 0.96 cm Septum Diastolic: 0.91 cm ?LA Dimension: 2.8 cm ?LA Area: 14.6 cm^2 LV Systolic Dimension: 2.14 cm ? Ascending Aorta: 3.4 cm LV Volume Diastolic: 28.4 ml ? LA volume index: 17.7 LV Volume Systolic: 9.8 ml ? ml/m^2 LV EDV/LV EDV Index: 28.4 ml/14 m^2 LV ESV/LV ESV Index: 9.8 ml/5 m^2EF ?IVC Inspiration: 0.51 cm Estimated: 60 % ?IVC Expiration: 1.3 cm LVOT: 2 cm DOPPLER MEASUREMENTS & CALCULATIONS MV Peak E-Wave: 0.6 m/s MV Peak A-Wave: 0.5 m/s MV E/A Ratio: 1.13 MV Peak Gradient: 1.43 mmHg MV Deceleration Time: 193 msec E' Velocity: 0.12 m/s ? TR Velocity:1.9 m/s ? TR Gradient:13.7 mmHg PROCEDURE Doppler Quality: Good quality pulse, continuous wave, and color Doppler was performed and interpreted. 2-D Quality: Good quality 2-dimensional echo was performed and interpreted. Indications: Clay-Danlos Syndrome. Contrast Medium: Not Applicable. Height: 63 inches Weight: 224 pounds BSA: 2.03 m^2 BMI: 39.68 kg/m^2 Rhythm: SinusBP: 117/90 mmHg Gender: ?Female SIGNATURE DEMOGRAPHICS Patient Name ??MATT Johnson ??Room Number ? OUTPT Patient ? [id number] ?Date of Study ? 06/06/2023 Number Accession ? [id number] ?Interpreting ?BRANT CARR MD Number ?Provider Date of 1990 ?Ordering Provider Meeta Milner, ? Primary ? Stella R ? Staffing Specialist ? , [facility] [[email or web address]] Provider ?MD Jefferson The procedure was explained in detail to the patient. Risks, complications and alternative treatments were reviewed. Informed consent was obtained. Procedure Note Brant Carr III, MD - 06/06/2023 ECHOCARDIOGRAM. Date: 06/06/2023 Start: 07:56 AM Facility: [facility] Left ventricular ejection fraction is visually estimated at 65%. No significant valvular abnormalities were identified. The following segments of the aorta are normal in size: sinuses of Valsalva, sinotubular ridge, ascending aorta (3.4cm). No previous study available for comparison. FINDINGS MITRAL VALVE Normal mitral valve structure and function. Trace (physiologic) mitral regurgitation. AORTIC VALVE Normal aortic valve structure and function. The aortic valve is tricuspid. TRICUSPID VALVE Normal tricuspid valve structure, but trace tricuspid regurgitation. Pulmonary artery systolic pressure estimate is 13.7mmHg above RAP(Normal) . PULMONIC VALVE Normal pulmonic valve structure and function. LEFT ATRIUM Left atrial volume index is 17.7 mL/m^2. (Normal <34mL/m^2). LEFT VENTRICLE Normal left ventricular size and global and regional function. Normal left ventricular wall thickness. Left ventricular ejection fraction is visually estimated at 65%. Normal left ventricular diastolic function. RIGHT ATRIUM Normal right atrium. RIGHT VENTRICLE Normal right ventricle size and normal global function. PERICARDIAL EFFUSION There is no pericardial effusion. MISCELLANEOUS The following segments of the aorta are normal in size: sinuses of Valsalva, sinotubular ridge, ascending aorta (3.4cm). The inferior vena cava is normal. M-MODE/2D MEASUREMENTS & CALCULATIONS LV Diastolic Dimension: 3.05 cm LV PW Diastolic: 0.96 cm Septum Diastolic: 0.91 cm LA Dimension: 2.8 cm LA Area: 14.6 cm^2 LV Systolic Dimension: 2.14 cm Ascending Aorta: 3.4 cm LV Volume Diastolic: 28.4 ml LA volume index: 17.7 LV Volume Systolic: 9.8 ml ml/m^2 LV EDV/LV EDV Index: 28.4 ml/14 m^2 LV ESV/LV ESV Index: 9.8 ml/5 m^2EF IVC Inspiration: 0.51 cm Estimated: 60 % IVC Expiration: 1.3 cm LVOT: 2 cm DOPPLER MEASUREMENTS & CALCULATIONS MV Peak E-Wave: 0.6 m/s MV Peak A-Wave: 0.5 m/s MV E/A Ratio: 1.13 MV Peak Gradient: 1.43 mmHg MV Deceleration Time: 193 msec E' Velocity: 0.12 m/s TR Velocity:1.9 m/s TR Gradient:13.7 mmHg PROCEDURE Doppler Quality: Good quality pulse, continuous wave, and color Doppler was performed and interpreted. 2-D Quality: Good quality 2-dimensional echo was performed and interpreted. Indications: Clay-Danlos Syndrome. Contrast Medium: Not Applicable. Height: 63 inches Weight: 224 pounds BSA: 2.03 m^2 BMI: 39.68 kg/m^2 Rhythm: SinusBP: 117/90 mmHg Gender: Female SIGNATURE DEMOGRAPHICS Patient Name MATT Johnson Room Number OUTPT Patient [id number] Date of Study 06/06/2023 Number Interpreting BRANT CARR MD Number Provider Date of 1990 Ordering Provider Meeta Milner MD Primary Stella Gupta Staffing Specialist , [facility] [[email or web address]] Provider MD Jefferson The procedure was explained in detail to the patient. Risks, complications and alternative treatments were reviewed. Informed consent was obtained. Meeta Milner MD ET ECHO ORDERABLES PN ECHO documented in this encounter Visit Diagnoses Diagnosis Ehler's-Danlos syndrome Clay-Danlos syndrome documented in this encounter Care Teams Ion Exchange Operator Relationship Specialty Start Date End Date Stella Paulino MD [address] [place] [address] PCP - General Family Practice 01/10/19 documented as of this encounter
--- OUTSIDE RECORDS SUMMARY | 2023-10-23 13:04 | XMS_ITS | Encounter Summary ---
Author Name Unknown Organization [facility] Address [address] [address] Care Team Providers Care Librarian Special Library Name Role Phone Stella Paulino MD Primary Care Provider [phone] Reason for Referral * Procedure/Equipment (Routine) - Incomplete Specialty Diagnoses / Procedures Referred By Contac t Referred To Contact Diagnoses Ehler's-Danlos syndrome Procedures CT Angio Chest Abd Pel W/WO IV Cont Dissection Meeta Milner MD [address] [place] [address] Referral ID Status Reason Start Date Expiration Date V isits Requested Visits Authorized [id number] Incomplete 03/29/2023 06/27/2024 1 1 Reason for Visit * Procedure/Equipment (Routine) - Incomplete Specialty Diagnoses / Procedures Referred By Contac t Referred To Contact Diagnoses Ehler's-Danlos syndrome Procedures CT Angio Chest Abd Pel W/WO IV Cont Dissection Meeta Milner MD [address] [place] [address] Referral ID Status Reason Start Date Expiration Date V isits Requested Visits Authorized [id number] Incomplete 03/29/2023 06/27/2024 1 1 Encounter Details Date Type Department Care Team Description 04/19/2023 7:26 AM CDT - 04/19/2023 11:59 PM CDT Hospital Encounter Faith CT Scan [address] [facility] [place] [address] Meeta Milner MD [address] [place] [address] Ehler's-Danlos syndrome Discharge Disposition: Home Social History Tobacco Use Types Packs/Day Years [...] on file documented as of this encounter Medications at Time of Discharge Medication Sig Dispensed Refills Start Date End Date hydrOXYzine HCl (ATARAX) 25 MG tablet Take 1 Tablet (25 mg) by mouth two times a day. 0 02/27/2023 OZEMPIC, 0.25 OR 0.5 MG/DOSE, 2 MG/3ML injection 0 02/07/2023 06/15/2023 documented as of this encounter Plan of Treatment Not on file documented as of this encounter Procedures Procedure Name Priority Date/Time Associated Diagnosis Comments CT ANGIO CHEST ABD PEL W/WO IV CONT DISSECTION Routine 04/19/2023 8:31 AM CDT Ehler's-Danlos syndrome documented in this encounter Results * CT Angio Chest Abd Pel W/WO IV Cont Dissection (04/19/2023 8:31 AM CDT) Anatomical Region Laterality Modality Abdomen, Pelvis, Chest, Lung, Vascular Computed Tomography 04/19/2023 8:13 AM CDT Impressions 04/19/2023 1:09 PM CDT COMPARISON: ??None. TECHNIQUE: ??Images were obtained through the chest, abdomen and pelvis before and following the administration of 100 mL IOPAMIDOL 76 % IV SOLN contrast using an aortic dissection protocol. ?? FINDINGS: ?? CHEST: No axillary adenopathy. Thoracic inlet is unremarkable. Small amount of residual thymic tissue is present, normal for age. No pleural or pericardial effusion. Heart appears normal-sized. Chest wall is unremarkable. No definite mediastinal or hilar adenopathy. The posterior mediastinum is unremarkable. Endobronchial tree is unremarkable. No lung nodule, mass, or opacity ABDOMEN/PELVIS: The liver, spleen, pancreas, adrenal glands, and kidneys appear normal. The gallbladder is contracted but otherwise unremarkable. A small splenule is present. The CT appearance of the stomach and intestine is unremarkable. No evidence of obstruction or inflammation. There is a simple appearing 2.5 cm right adnexal cyst. Uterus and adnexa are otherwise unremarkable. No intra or retroperitoneal adenopathy. Trace amount of free pelvic fluid, likely physiologic. Small anterior bladder diverticulum versus urachal remanent incidentally noted of doubtful clinical significance. Bladder otherwise unremarkable. Fat-containing umbilical hernia. No suspicious bone lesion. CTA: Motion artifact of the aortic root and ascending aorta. No definite evidence of dissection or aneurysm. Normal arch anatomy. The right brachiocephalic artery is somewhat obscured by beam hardening artifact from the right arm venous contrast injection. The great vessels are otherwise unremarkable. Descending thoracic aorta unremarkable. Pulmonary artery unremarkable. Abdominal aorta appears normal in caliber. No wall thickening or evidence of aneurysm or dissection. Celiac origin is patent. Splenic artery is unremarkable. No evidence of dissection or aneurysm. Hepatic artery is also unremarkable. Superior mesenteric artery appears unremarkable. Inferior mesenteric artery is unremarkable. There are single patent bilateral renal arteries which also appear normal. The bilateral common, internal, and external iliac arteries appear normal as well. The bilateral common femoral arteries also appear normal IMPRESSION: ?? 1. No acute finding. 2. No vascular abnormality identified Narrative Procedure Note Grey Saini MD - 04/19/2023 IMPRESSION COMPARISON: None. TECHNIQUE: Images were obtained through the chest, abdomen and pelvisbefore and following the administration of 100 mL IOPAMIDOL 76 % IV SOLNcontrast using an aortic dissection protocol. FINDINGS: CHEST: No axillary adenopathy. Thoracic inlet is unremarkable. Smallamount of residual thymic tissue is present, normal for age. No pleural orpericardial effusion. Heart appears normal-sized. Chest wall isunremarkable. No definite mediastinal or hilar adenopathy. The posteriormediastinum is unremarkable. Endobronchial tree is unremarkable. No lungnodule, mass, or opacity ABDOMEN/PELVIS: The liver, spleen, pancreas, adrenal glands, and kidneysappear normal. The gallbladder is contracted but otherwise unremarkable. Asmall splenule is present. The CT appearance of the stomach and intestineis unremarkable. No evidence of obstruction or inflammation. There is asimple appearing 2.5 cm right adnexal cyst. Uterus and adnexa areotherwise unremarkable. No intra or retroperitoneal adenopathy. Traceamount of free pelvic fluid, likely physiologic. Small anterior bladderdiverticulum versus urachal remanent incidentally noted of doubtfulclinical significance. Bladder otherwise unremarkable. Fat-containingumbilical hernia. No suspicious bone lesion. CTA: Motion artifact of the aortic root and ascending aorta. No definiteevidence of dissection or aneurysm. Normal arch anatomy. The rightbrachiocephalic artery is somewhat obscured by beam hardening artifactfrom the right arm venous contrast injection. The great vessels areotherwise unremarkable. Descending thoracic aorta unremarkable. Pulmonaryartery unremarkable. Abdominal aorta appears normal in caliber. No wallthickening or evidence of aneurysm or dissection. Celiac origin is patent.Splenic artery is unremarkable. No evidence of dissection or aneurysm.Hepatic artery is also unremarkable. Superior mesenteric artery appearsunremarkable. Inferior mesenteric artery is unremarkable. There are singlepatent bilateral renal arteries which also appear normal. The bilateralcommon, internal, and external iliac arteries appear normal as well. Thebilateral common femoral arteries also appear normal IMPRESSION: 1. No acute finding. 2. No vascular abnormality identified Meeta Milner MD RAD CT documented in this encounter Visit Diagnoses Diagnosis Ehler's-Danlos syndrome Clay-Danlos syndrome documented in this encounter Administered Medications Inactive Administered Medications - up to 3 most recent administrations Medication Order MAR Action Action Date Dose Rate Site iopamidol (ISOVUE-370) 76 % injection 100 mL 100 mL, Intravenous, ONCE, On Samira 04/19/23 at 0900, For 1 dose, Radiology Given 04/19/2023 8:31 AM CDT 100 mL sodium chloride 0.9% bolus 100 mL 100 mL, Intravenous, Administer over 1 Hours, ONCE, On Samira 04/19/23 at 0900, For 1 dose, Radiology Given 04/19/2023 8:31 AM CDT 100 mL sodium chloride 0.9% injection 10-60 mL 10-60 mL, Intravenous, ONCE, On Samira 04/19/23 at 0900, For 1 dose, Radiology Given 04/19/2023 8:31 AM CDT 10 mL documented in this encounter Care Teams Librarian Special Library Relationship Specialty Start Date End Date Stella Paulino MD [address] [place] [address] PCP - General Family Practice 01/10/19 documented as of this encounter
--- OUTSIDE RECORDS SUMMARY | 2023-10-23 13:05 | XMS_ITS | Encounter Summary ---
Author Name Unknown Organization [facility] Address [address] [place] [address] Care Team Providers Care Marketing Services Coordinator Name Role Phone Stelal Carl MD Primary Care Provider [phone] Reason for Referral * Consult/Transfer Care (Routine) - Closed Specialty Diagnoses / Procedures Referred By Naty t Referred To Contact Diagnoses Hypermobility syndrome Stella Carl MD [address] [place] [address] Complex Care Coordination [address] [place] [address] Referral ID Status Reason Start Date Expiration Date Visits Re quested Visits Authorized [id number] Closed 03/09/2023 09/05/2023 1 1 Scheduling Instructions This order is your clinician's recommendation for a service and is not an insurance referral which authorizes payment. The recommended service and/or location may not be covered by your insurance plan. Please call the number on your insurance card to find out your specific benefits and coverage for the recommended services and/or location. If you need help scheduling the recommended services, please ask your clinician's staff to assist you. Question Answer Appointment Urgency? Non-Urgent Reason for visit? 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 eval for clay danlos syndrome Comments [facility] Connective Tissue Disorder clinic: [phone] Reason for Visit * Reason Comments Follow-up Hypermobility syndro me Encounter Details Date Type Department Care Team Description 03/09/2023 Telephone [facility] [address] [place] [address] Dean Radha Melendrez, [facility] [address] [facility] [address] [place], [place] [address] Follow-up (Hypermobility syndrome) Social History Tobacco Use Types Packs/Day Years [...] as of this encounter Progress Notes * Stella Carl MD - 03/09/2023 1:26 PM CDTAddended by: STELLA CARL on: 03/09/2023 01:26 PM Modules accepted: Orders documented in this encounter Nursing Notes * Jil Osborn LPN - 03/09/2023 4:27 PM CDT Referral faxed to [facility] Referrals. Jil Osborn LPN 03/09/2023, 4:27 PM * Stella Carl MD - 03/09/2023 1:24 PM CDT Please let Manuel know that [facility] do not evaluate or manage Clay Danlos syndrome or genetic testing for Clay-Danlos. However they did recommend considering a consult with [place] connective tissue disorder clinic. I have made a referral to them and I recommend she call them: [facility] Tissue Disorder clinic: [phone] * Radha Moran CGC - 03/09/2023 7:[address] Carl, I received the genetics referral request for your patient, Juana, related to her personal historyof hypermobility and concerns for Clay-Danlos syndrome (EDS). Unfortunately, we do not have a provider in our care system who sees this indication. According to the 2017 international classification of the Clay- Danlos syndromes, a physical exam with the Beighton score remains the best- validated tool for diagnosis. There is not a genetic test for the common h ypermobility type of EDS, as it is likely caused by a complex combination of multiple genes and environmental factors. Genetic testing does not identify 100% of individuals with other subtypes, such as classic EDS, and is unlikely to be covered by insurance without the thorough exam. It can be challenging to find providers who will see indications related to hypermobility/Clay-Danlos syndrome (EDS). The only location I know of is the following: [facility] Connective Tissue Disorder clinic: [phone] For patients who are motivated for genetic testing and cannot see a connective budget specialist, telehealth genetic services and clinical testing is available at the link below. Please note that [facility] will NOT be involved at any point of this process. Instructions, pre- and post-test counseling, sample collection, billing, and additional information can be found online. Pursuing this service is entirely the responsibility of the patient. [email or web address] Help Line: [phone] I encourage you to share this information with your patient as applicable. Sincerely, Radha Lyons MS, [facility] Genetic [facility] documented in this encounter Plan of Treatment Scheduled Referrals Name Type Priority Associated Diagnoses Orde r Schedule Rheumatology Consult-Adults Referral Routine Hypermobility syndrome Ordered: 03/09/2023 documented as of this encounter Visit Diagnoses Diagnosis Hypermobility syndrome- Primary documented in this encounter Care Teams Marketing Services Coordinator Relationship Specialty Start Date End Date Stella Carl MD [address] [place] [address] PCP - General Family Practice 01/10/19 documented as of this encounter
--- OUTSIDE RECORDS SUMMARY | 2023-10-23 13:05 | XMS_ITS | Encounter Summary ---
Author Name Unknown Organization [facility] Address [address], [place] [address] Care Team Providers Care Dance Professor Name Role Phone Stella Paulino MD Primary Care Provider [phone] Encounter Details Date Type Department Care Team Description 03/30/2023 Notes/Orders [facility] [address] [facility] [place], [place] [id number] Mandie Myers, RN Ehler's-Danlos syndrome (Primary Dx) Social History Tobacco Use Types [...] as of this encounter Progress Notes * Mandie Myers RN - 03/30/2023 3:[address] Milner needs CTA head/neck/abdomen/chest/pelvis and we will call with results. Also needs an echocardiogram. Called and reviewed this plan with Juana- she was transferred to radiology. Reminder nothing to eat or drink except for water 3 hours prior- to be well hydrated. She will get her Cr drawn prior. documented in this encounter Plan of Treatment Not on file documented as of this encounter Visit Diagnoses Diagnosis Ehler's-Danlos syndrome- Primary Clay-Danlos syndrome documented in this encounter Care Teams Dance Professor Relationship Specialty Start Date End Date Stella Paulino MD [address] [place] [address] PCP - General Family Practice 01/10/19 documented as of this encounter
--- OUTSIDE RECORDS SUMMARY | 2023-10-23 13:05 | XMS_ITS | Encounter Summary ---
Author Name Unknown Organization [facility] Address [address], [place] [address] Care Team Providers Care Patient Manager Name Role Phone Stella Paulino MD Primary Care Provider [phone] Reason for Visit * Reason Comments QUESTIONS, REFERRAL Encounter Details Date Type Department Care Team Description 03/26/2023 Telephone [facility] [address] [place] [address] [place] [id number] Stella Paulino MD [address] [place] [address] Dr [place] [id number] QUESTIONS, REFERRAL Social History Tobacco Use Types Packs/Day Years [...] as of this encounter Nursing Notes * Zakia Garrison LPN - 03/28/2023 9:08 AM CDT Pt ntfd, expresses understanding, agrees with plan. * Stella Paulino MD - 03/27/2023 3:34 PM CDT She has appointments with vascular surgery and orthopedics at . I recommend keeping those appointments. Thank you. * Jil Osborn LPN - 03/27/2023 10:10 AM CDT I had spoke to you about [facility] denying her request to be seen for possible Clay Danlos. Please advise next steps, thank you! Jil Osborn LPN 03/27/2023, 10:12 AM * Shwetha Gibson - 03/27/2023 9:51 AM CDT Please see patient comment for genetic testing and pend a referral other than [facility]. Thank you. * Liz York - 03/26/2023 3:53 PM CDT Consult/Referral What specialty/service are you requesting a referral for? genetics What is the reason for your requested referral? Patient has referral When were you seen last for this concern? By whom? Which provider or clinic do you need a referral or order for? no Is the provider or clinic outside of [facility]? No Additional comments (related to the above concern): Caller states [facility] sent her a letter states they will not see her. Caller what's to know what's next steps. Patient states she can't get in to see anyone for genetics. Is it okay to leave detailed message on your voicemail? Yes documented in this encounter Plan of Treatment Not on file documented as of this encounter Visit Diagnoses Not on filedocumented in this encounter Care Teams Patient Manager Relationship Specialty Start Date End Date Stella Paulino MD [address] [place] [address] PCP - General Family Practice 01/10/19 documented as of this encounter
--- OUTSIDE RECORDS SUMMARY | 2023-10-23 13:05 | XMS_ITS | Encounter Summary ---
Author Name Unknown Organization [facility] Address [address], [place] [address] Care Team Providers Care Rounding Machine Tender Name Role Phone Stella Paulino MD Primary Care Provider [phone] Reason for Referral * Procedure/Equipment (Routine) - Incomplete Specialty Diagnoses / Procedures Referred By Contac t Referred To Contact Diagnoses Ehler's-Danlos syndrome Procedures CT Angio Neck Head W IV Cont CT Angio Neck W/WO IV Cont Meeta Milner MD [address] [place] [address] Referral ID Status Reason Start Date Expiration Date V isits Requested Visits Authorized [id number] Incomplete 03/29/2023 06/27/2024 1 1 Reason for Visit * Procedure/Equipment (Routine) - Incomplete Specialty Diagnoses / Procedures Referred By Naty mathur Referred To Contact Diagnoses Ehler's-Danlos syndrome Procedures CT Angio Neck Head W IV Cont CT Angio Neck W/WO IV Cont Meeta Milner MD [address] [place] [address] Referral ID Status Reason Start Date Expiration Date V isits Requested Visits Authorized [id number] Incomplete 03/29/2023 06/27/2024 1 1 Encounter Details Date Type Department Care Team Description 04/17/2023 7:08 AM CDT - 04/17/2023 11:59 PM CDT Hospital Encounter [facility] Scan [address] [facility] [place] [address] Meeta Milner MD [address] [place] [address] Ehler's-Danlos syndrome Discharge Disposition: Home Social History [...] Priority Date/Time Associated Diagnosis Comments CT ANGIO NECK HEAD W IV CONT Routine 04/17/2023 7:35 AM CDT Ehler's-Danlos syndrome documented in this encounter Results * CT Angio Neck Head W IV Cont (04/17/2023 7:35 AM CDT) Anatomical Region Laterality Modality Head, Vascular Computed Tomogra phy 04/17/2023 7:10 AM CDT Impressions 04/17/2023 4:01 PM CDT INDICATION: Rule out vascular complications from ehler danlos syndrome TECHNIQUE: CT angiogram of the [place] ??and CT angiogram of the neck with IV contrast with 2D and 3D reformatting, 100 mL IOPAMIDOL 76 % IV SOLN. ?? COMPARISON: ??None. FINDINGS: Mild motion on the postcontrast images. Distal internal carotid arteries: Patent and nonstenotic. ? Anterior cerebral arteries: Patent and nonstenotic. Patent anterior communicating artery. ? Middle cerebral arteries: ??Patent and nonstenotic. ? Posterior cerebral arteries: ??Patent and nonstenotic. Functional origin with small P1 segment on the right. ? Vertebrobasilar system: ??Patent and nonstenotic. ? Arch: Normal arch anatomy. Visualized aortic arch and brachiocephalic vessels are patent and nonstenotic. Right Neck: The common carotid artery, internal carotid artery, external carotid artery, and vertebral artery appear patent and nonstenotic. Left Neck: The common carotid artery, internal carotid artery, external carotid artery, and vertebral artery appear patent and nonstenotic. Lung apices are clear. Polypoid-like thickening in the right maxillary sinus. No suspicious mass or adenopathy in the neck. IMPRESSION: 1. No evidence of intracranial aneurysm or stenosis. 2. No aneurysm or stenosis of the major neck arteries. Narrative Procedure Note Miguel Angel Peacock, DO - 04/17/2023 IMPRESSION INDICATION: Rule out vascular complications from ehler danlos syndrome TECHNIQUE: CT angiogram of the [place] and CT angiogram of theneck with IV contrast with 2D and 3D reformatting, 100 mL IOPAMIDOL 76 %IV SOLN. COMPARISON: None. FINDINGS: Mild motion on the postcontrast images. Distal internal carotid arteries: Patent and nonstenotic. Anterior cerebral arteries: Patent and nonstenotic. Patent anteriorcommunicating artery. Middle cerebral arteries: Patent and nonstenotic. Posterior cerebral arteries: Patent and nonstenotic. Functional fetalorigin with small P1 segment on the right. Vertebrobasilar system: Patent and nonstenotic. Arch: Normal arch anatomy. Visualized aortic arch and brachiocephalicvessels are patent and nonstenotic. Right Neck: The common carotid artery, internal carotid artery, externalcarotid artery, and vertebral artery appear patent and nonstenotic. Left Neck: The common carotid artery, internal carotid artery, externalcarotid artery, and vertebral artery appear patent and nonstenotic. Lung apices are clear. Polypoid-like thickening in the right maxillarysinus. No suspicious mass or adenopathy in the neck. IMPRESSION: 1. No evidence of intracranial aneurysm or stenosis. 2. No aneurysm or stenosis of the major neck arteries. Meeta Milner MD RAD CT documented in this encounter Visit Diagnoses Diagnosis Ehler's-Danlos syndrome Clay-Danlos syndrome documented in this encounter Administered Medications Inactive Administered Medications - up to 3 most recent administrations Medication Order MAR Action Action Date Dose Rate Site iopamidol (ISOVUE-370) 76 % injection 100 mL 100 mL, Intravenous, ONCE, On Sun04/17/23 at 0800, For 1 dose, Radiology Given 04/17/2023 7:36 AM CDT 100 mL sodium chloride 0.9% bolus 100 mL 100 mL, Intravenous, Administer over 1 Hours, ONCE, On Sun04/17/23 at 0800, For 1 dose, Radiology Given 04/17/2023 7:37 AM CDT 100 mL sodium chloride 0.9% injection 10 mL 10 mL, Intravenous, ONCE, On Sun04/17/23 at 0800, For 1 dose, Radiology Given 04/17/2023 7:37 AM CDT 10 mL documented in this encounter Care Teams Rounding Machine Tender Relationship Specialty Start Date End Date Stella Paulino MD [address] [place] [address] PCP - General Family Practice 01/10/19 documented as of this encounter
--- OUTSIDE RECORDS SUMMARY | 2023-10-23 13:05 | XMS_ITS | Encounter Summary ---
Author Name Unknown Organization [facility] Address [address] [place] [address] Care Team Providers Care Washateria Attendant Name Role Phone Stella Paulino MD Primary Care Provider [phone] Reason for Referral * Procedure/Equipment (Routine) - Denied Specialty Diagnoses / Procedures Referred By Contac t Referred To Contact Diagnoses Hypermobility syndrome Stella Paulino MD [address] [place] [address] Complex Care Coordination [address] [place] [address] Referral ID Status Reason Start Date Expiration Date Visits Re quested Visits Authorized [id number] Denied 03/19/2023 09/15/2023 1 0 Scheduling Instructions This order is your clinician's [...] clinician's staff to assist you. Question Answer Tests needed: to be determined Diagnosis or Indication for testing: hypermobility syndrome concering for Clay Danlos syndrome (had broad ligament hernia, hypermobility). please evaluate for possible Clay Danlos syndrome Comments [facility] Connective Tissue Disorder clinic: [phone]. Reason for Visit * Reason Comments QUESTIONS, REFERRAL Encounter Details Date Type Department Care Team Description 03/19/2023 Telephone [facility] [address] [place] [address] Stella Paulino MD [address] [place] [address] QUESTIONS, REFERRAL Social History Tobacco Use Types [...] as of this encounter Nursing Notes * Jil Osborn LPN - 03/20/2023 1:42 PM CDT Referral mailed to patient for her records. Jil Osborn LPN 03/20/2023, 1:42 PM * Stella Paulino MD - 03/19/2023 4:24 PM CDT Referral to [facility] completed, signed and placed on nurse desk. * Jil Osborn LPN - 03/19/2023 3:44 PM CDT Patient is needing an insurance referral for [facility] Please place referral. Patient will get fax number that we can fax the referral to. Jil Osborn LPN 03/19/2023, 3:45 PM * Stella Paulino MD - 03/19/2023 3:22 PM CDT Genetics does not see people for possible Clay Danlos syndrome at [facility]. However when I reached out to the genetic counselors, they [facility] clinic: [phone]. I hope that helps. There are genetic tests for Clay Danlos but it does not diagnose every type ofEhlers Danlos syndrome. Thus it might be even more helpful to work with the connective tissue disorder clinic. * Lissett Guadalupe RN - 03/19/2023 2:46 PM CDT Clinician Action: Input needed regarding referral Clinician Next Step: Route to CSS (Clinical Group Social Worker) pool to follow up Specific Request(s): 1. Dr. Paulino placed a referral for Genetic Consult Services 03/06/23, patient got a call from [facility] for scheduling but she would like to know where Dr. Paulino recommends to go? Either [facility] or [facility] she would like providers opinion before scheduling. * Yajaira Ward - 03/19/2023 2:24 PM CDT Other Questions/Concerns/FYI Is this a symptom? No What condition are you calling about? Referral questions What is your question or concern? Dr. Jefferson Douglas placed a referral for Genetic Consult Services [facility], [facility] she would like to know where Dr. Paul[facility] to go? [facility] she would like providers opinion before scheduling. Have you recently been seen for this? Yes: 03/06/23 Is it okay to leave a detailed message on your voicemail? Yes Is there anything else I can help you with today? No documented in this encounter Plan of Treatment Scheduled Referrals Name Type Priority Associated Diagnoses Orde r Schedule Genetic Consult Services - Adult Referral Routine Hypermobility syndrome Ordered: 03/19/2023 documented as of this encounter Visit Diagnoses Diagnosis Hypermobility syndrome- Primary documented in this encounter Care Teams Washateria Attendant Relationship Specialty Start Date End Date Stella Paulino MD [address] [place] [address] PCP - General Family Practice 01/10/19 documented as of this encounter
--- OUTSIDE RECORDS SUMMARY | 2023-10-23 13:05 | XMS_ITS | Encounter Summary ---
Author Name Unknown Organization [facility] Address [address], [place] [address] Care Team Providers Care Circular Tank Cooper Name Role Phone Stella Paulino MD Primary Care Provider [phone] Reason for Visit * Reason Comments PAP,ROUTINE Encounter Details Date Type Department Care Team Description 03/06/2023 Telephone [facility] [address] [place] [address] E[place] M[place]ain [id number] Stella Paulino MD [address] [place] [address] Dr [place] [id number] PAP,ROUTINE Social History Tobacco Use Types Packs/Day Years [...] as of this encounter Nursing Notes * Peggy Tan N - 03/06/2023 2:57 PM CDT Other Questions/Concerns/FYI Is this a symptom? No What condition are you calling about? PAP What is your question or concern? Pt says that she verified with her OBG physician & her PAP is overdue as of 2021. Pt would liketo have this added to up coming physical appointment in June. Have you recently been seen for this? No Is it okay to leave a detailed message on your voicemail? Yes Is there anything else I can help you with today? No documented in this encounter Plan of Treatment Not on file documented as of this encounter Visit Diagnoses Not on filedocumented in this encounter Care Teams Circular Tank Cooper Relationship Specialty Start Date End Date Stella Paulino MD [address] [place] [address] PCP - General Family Practice 01/10/19 documented as of this encounter
--- OUTSIDE RECORDS SUMMARY | 2023-10-23 13:05 | XMS_ITS | Encounter Summary ---
Author Name Unknown Organization [facility] Address [address] [place] [address] Care Team Providers Care Workforce Planning Analyst Name Role Phone Stella Paulino MD Primary Care Provider [phone] Reason for Referral * Procedure/Equipment (Routine) - Incomplete Specialty Diagnoses / Procedures Referred By Contac t Referred To Contact Diagnoses Ehler's-Danlos syndrome Procedures CT Angio Neck Head W IV Cont CT Angio Neck W/WO IV Cont Meeta Milner MD [address] [place] [address] Referral ID Status Reason Start Date Expiration Date V isits Requested Visits Authorized [id number] Incomplete 03/29/2023 06/27/2024 1 1 * Procedure/Equipment (Routine) - Incomplete Specialty Diagnoses / Procedures Referred By Contac t Referred To Contact Diagnoses Ehler's-Danlos syndrome Procedures CT Angio Chest Abd Pel W/WO IV Cont Dissection Meeta Milner MD [address] [place] [address] Referral ID Status Reason Start Date Expiration Date V isits Requested Visits Authorized [id number] Incomplete 03/29/2023 06/27/2024 1 1 * Procedure/Equipment (Routine) - New Request Specialty Diagnoses / Procedures Referred By Contac t Referred To Contact Diagnoses Ehler's-Danlos syndrome Procedures Echocardiogram Meeta Milner MD [address] [place] [address] Referral ID Status Reason Start Date Expiration Date V isits Requested Visits Authorized [id number] New Request 03/29/2023 06/27/2024 1 1 * Procedure/Equipment (Routine) - Incomplete Specialty Diagnoses / Procedures Referred By Contac t Referred To Contact Diagnoses Ehler's-Danlos syndrome Procedures CT Angio Head W/WO IV Cont Meeta Milner MD [address] [place] [address] Referral ID Status Reason Start Date Expiration Date V isits Requested Visits Authorized [id number] Incomplete 03/29/2023 06/27/2024 1 1 Encounter Details Date Type Department Care Team Description 03/29/2023 11:45 AM CDT [facility] [address] [place] [address]. [place], [place] [id number] Meeta Milner MD [address] [place] [phone] Ehler's-Danlos syndrome (Primary Dx) Social History Tobacco [...] as of this encounter Progress Notes * Meeta Milner MD - 03/29/2023 11:45 AM CDT This visit was conducted via video. Location of clinician clinic. Location of patient home. Billing based on: Complexity I spoke with Juana over the phone regarding her presumed diagnosis of Ehler's- Danlos Syndrome. She has history of hypermobility of the joints, and mor recently a broad ligament hernia. Her son alsohas a history of hypermobility. She was turned down for a connective tissue workup by [facility] because she does not have any further complications from connective tissue disease and has not had any genetic testing. She has had one echo done in 2017 that was unremarkable. I discussed with her that whilewe are not able to get genetic testing to confirm her diagnosis, her clinical picture is consistentenough to proceed with screening for complications of EDS. Per guidelines, she should have an echo e very 2-5 years which may be discontinued if she has two normal results. She should also have a baseline CTA of the head and neck as well as chest/abd/pelvis. We will all order all of the above and follow up with her on the CTA as needed. Will message her PCP for f/u of the echo. All questions were answered, and she is in agreement with the above. documented in this encounter Plan of Treatment Scheduled Orders Name Type Priority Associated Diagnoses Orde r Schedule CT Angio Head W/WO IV Cont Imaging New Routine Ehler's-Danlos syndrome Expected: 03/29/2023 (Approximate), Expires: 03/28/2024 documented as of this encounter Results * Echocardiogram (06/06/2023 7:56 AM CDT) 06/06/2023 7:56 AM CDT Narrative PN ECHO - 06/06/2023 9:00 AM CDT ECHOCARDIOGRAM. Date: 06/06/2023 Start: 07:56 AM Facility: [facility] CONCLUSIONS Left ventricular ejection fraction is visually [...] mmHg Gender: ?Female SIGNATURE DEMOGRAPHICS Patient Name ??YASIR Johnson ??Room Number ? OUTPT Patient ? [id number] ?Date of Study ? 06/06/2023 Number Accession ? [id number] ?Interpreting ?BRANT CARR MD Number ?Provider Date of 1990 ?Ordering Provider Meeta Milner, ? MD Primary ? Stella R ? Family Law Mediator ? , RDCS Provider ?MD Jefferson The procedure was explained in detail to the patient. Risks, complications and alternative treatments were reviewed. Informed consent was obtained. Procedure Note Brant Carr III, MD - 06/06/2023 ECHOCARDIOGRAM. Date: 06/06/2023 Start: 07:56 AM Facility: [facility] CONCLUSIONS Left ventricular ejection fraction is visually [...] mmHg Gender: Female SIGNATURE DEMOGRAPHICS Patient Name YASIR Johnson Room Number OUTPT Patient [id number] Date of Study 06/06/2023 Number Interpreting BRANT CARR MD Number Provider Date of 1990 Ordering Provider Meeta Milner MD Primary Stella Gupta Family Law Mediator , [facility] Provider MD Jefferson The procedure was explained in detail to the patient. Risks, complications and alternative treatments were reviewed. Informed consent was obtained. Meeta Milner MD ET ECHO ORDERABLES PN ECHO * CT Angio Chest Abd Pel W/WO [...] abnormality identified Meeta Milner MD RAD CT * CT Angio Neck Head W IV Cont (04/17/2023 7:35 AM CDT) Anatomical Region Laterality Modality Head, Vascular Computed Tomogra phy 04/17/2023 7:10 AM CDT Impressions 04/17/2023 4:01 PM CDT INDICATION: Rule out vascular complications from ehler danlos syndrome TECHNIQUE: CT angiogram of the [place] ??and CT angiogram of the [...] danlos syndrome TECHNIQUE: CT angiogram of the [place] and CT angiogram of theneck [...] in this encounter Visit Diagnoses Diagnosis Ehler's-Danlos syndrome- Primary Clay-Danlos syndrome Ehler's-Danlos syndrome Clay-Danlos syndrome Ehler's-Danlos syndrome Clay-Danlos syndrome Ehler's-Danlos syndrome Clay-Danlos syndrome documented in this encounter Care Teams Workforce Planning Analyst Relationship Specialty Start Date End Date Stella Paulino MD [address] [place] [address] PCP - General Family Practice 01/10/19 documented as of this encounter
--- OUTSIDE RECORDS SUMMARY | 2023-10-23 13:05 | XMS_ITS | Encounter Summary ---
Author Name Unknown Organization [facility] Address [address], [place] [address] Care Team Providers Care Insulation Professional Name Role Phone Stella Paulino MD Primary Care Provider [phone] Reason for Visit * Reason Comments REFERRAL REQUEST Encounter Details Date Type Department Care Team Description 11/16/2022 Telephone [facility] [address] [place], [place] [address] [id number] Stella Paulino MD [address] [place] [address] [address] [place] [id number] REFERRAL REQUEST Social History Tobacco Use Types Packs/Day Years Used Date Smoking Tobacco: Never Smokeless Tobacco: Never Alcohol Use Standard Drinks/Week Comments Not Currently 0 (1 standard drink = 0.6 oz pur e alcohol) PHQ-2 Answer Date Recorded PHQ-2 Score 1 12/06/2020 Sex and Gender Information Value Date Recorded Sex Assigned at Not on file Gender Identity Not on file Sexual Orientation Not on file documented as of this encounter Nursing Notes * Aurora Ramirez - 11/16/2022 11:33 AM CST Hp referral entered for Post op surgery visit, 11/29/22, AUTH# [id number] NG ROOM ATTENDANT CAFETERIA * Tosin Cheng - 11/16/2022 9:25 AM CST Consult/Referral What specialty/service are you requesting a referral for? Pt recently went to the ER in [place], [place] and she ended up needing hernia surgery. The surgeon would like a follow up with the pt but that dr is out of network. Pt called her insurance and they said she could see this out of network dr for the follow up if herpcp would put in a referral for the pt. Appt is already scheduled for 11/29/22. What is the reason for your requested referral? Follow up appt with surgeon, hernia surgery When were you seen last for this concern? By whom? Which provider or clinic do you need a referral or order for? [facility] and [place], [place] Dr. Edwardo Garcia Is the provider or clinic outside of [facility] or [facility]? Yes Does the patient have a Managed Care/Narrow Network plan? (check to see if patient has the [employer] identifier)? Yes Additional comments (related to the above concern): Is it okay to leave detailed message on your voicemail? Yes NG ROOM ATTENDANT CAFETERIA documented in this encounter Plan of Treatment Not on file documented as of this encounter Visit Diagnoses Not on filedocumented in this encounter Care Teams Insulation Professional Relationship Specialty Start Date End Date Stella Paulino MD [address] [place] [address] PCP - General Family Practice 01/10/19 documented as of this encounter
--- OUTSIDE RECORDS SUMMARY | 2023-10-23 13:05 | XMS_ITS | Encounter Summary ---
Author Name Unknown Organization [facility] Address [address], [place] [address] Care Team Providers Care Syrup Mixer Helper Name Role Phone Stella Paulino MD Primary Care Provider [phone] Reason for Visit * Reason Comments Appointment Dr. Hernandez? Encounter Details Date Type Department Care Team Description 03/06/2023 Telephone [facility] [place] [address] [place] [address]241 Serena Heredia MD [address] [place] [address] Appointment (Dr. Hernandez?) Social History Tobacco Use Types Packs/Day Years [...] as of this encounter Nursing Notes * Shanti Webb RN - 03/06/2023 4:57 PM CDT Appointment scheduled * Suri Pringle - 03/06/2023 2:34 PM CDT Images from the original note were not included. Has the patient recently had surgery or an injury? N/A How may we help you today? Sending encounter to see if Dr. Hernandez would be a good fit for patient for Clay Danlos evaluation. Patient's biggest area of concern currently is her ankles. She did haveligament surgery in 2010 & 2012. Says she does not need to see a foot/ankle provider. She is needing a starting point for Clay Danlos. Due to history of previous ankle surgery [facility] will not pull up Dr. Hernandez. Sending encounter to see if it is okay to manually schedule. Patient has a referral for Orthopedics from her PCP. CC agent was wondering if Dr. Hernandez would be a good fit due to Provider Preferences noting referrals for Clay Danlos. Describe your symptoms/concerns: n/a - please see above When did the issue start: Ongoing, needing to be evaluated for Clay Danlos. Have you been seen for this recently?: Today, 03/06/2023 with Stella Paulino [facility](Telemedicine appointment) [Power Generation Plant Operator/Appt Center: If yes, please include date and provider.] Is it okay to leave detailed message on your voicemail? Yes, for questions please call [phone]. [Power Generation Plant Operator/Appt Center: If this call is after 3 p.m., communicate to patient: If we are not able to get back to you by the end of the day and your symptoms worsen please contact the Careline] documented in this encounter Plan of Treatment Not on file documented as of this encounter Visit Diagnoses Not on filedocumented in this encounter Care Teams Syrup Mixer Helper Relationship Specialty Start Date End Date Stella Paulino MD [address] [place], [place] [address] PCP - General Family Practice 01/10/19 documented as of this encounter
--- OUTSIDE RECORDS SUMMARY | 2023-10-23 13:05 | XMS_ITS | Encounter Summary ---
Author Name Unknown Organization [facility] Address [address], [place] [address] Care Team Providers Care Fitter Armament Name Role Phone Stella Paulino MD Primary Care Provider [phone] Reason for Referral * Consult/Transfer Care (Routine) - New Request Specialty Diagnoses / Procedures Referred By Conthiram t Referred To Contact Diagnoses Hypermobility syndrome Stella Paulino MD [address] [place] [address] Referral ID Status Reason Start Date Expiration Date V isits Requested Visits Authorized [id number] New Request 03/06/2023 06/04/2024 1 1 Scheduling Instructions Your clinician has recommended an appointment with [facility]. You can quickly make your appointment online at [email or web address]. You can also call [phone] for help scheduling your appointment. We suggest you call your health insurance company about your coverage and benefits for this appointment. Question Answer Appointment Urgency? Non-Urgent Reason for visit? suspicion for Clay danlos due to hypermobility and unusal hernia (in the broad ligament). Please assess for Clay Danlos * Consult/Transfer Care (Routine) - New Request Specialty Diagnoses / Procedures Referred By Contac t Referred To Contact Diagnoses Hypermobility syndrome Stella Paulino MD [address] [place] [address] Referral ID Status Reason Start Date Expiration Date V isits Requested Visits Authorized [id number] New Request 03/06/2023 06/04/2024 1 1 Scheduling Instructions Your clinician has recommended an appointment with [facility]. You can quickly make your appointment online at [facility]/schedule. You can also call [phone] for help scheduling your appointment. We suggest you call your health insurance company about your coverage and benefits for this appointment. Question Answer Appointment Urgency? Non-Urgent Reason for visit? suspicion for Clay danlos due to hypermobility and unusal hernia (in the broad ligament). Please assess for vascular involvement. * Procedure/Equipment (Routine) - New Request Specialty Diagnoses / Procedures Referred By Naty mathur Referred To Contact Diagnoses Hypermobility syndrome Stella Paulino MD [address] [place] [address] [address] Referral ID Status Reason Start Date Expiration Date V isits Requested Visits Authorized [id number] New Request 03/06/2023 06/04/2024 1 1 Scheduling Instructions Your clinician has recommended a service related to genetics. This request is being reviewed by the [facility] Genetic Counselor. If action is needed, your care team will contact you. The recommended service and/or location may not be covered by your insurance plan. Please call the number on your insurance card to find out your specific benefits and coverage for the recommended services and/or location. Question Answer Tests needed: has hypermobility syndrome, unusual hernias (in broad ligament). what would be the genetic testing for clay danlos Encounter Details Date Type Department Care Team Description 03/06/2023 1:30 PM CDT [facility] [place] [address] Stella Paulino MD [address] [id number] Hypermobility syndrome (Primary Dx); Hypothyroidism, unspecified type (HRC); Screening for diabetes mellitus; Screening, lipid; Obesity (BMI 30-39.9) (HRC) Social History Tobacco Use Types Packs/Day [...] of this encounter Progress Notes * Stella Paulino MD - 03/06/2023 1:30 PM CDT Subjective No chief complaint on file. Juana Cooley is a 33 y.o. female who presents (and consents) for a video visit today with the following concerns: 1. Hypermobility syndrome 2. Hypothyroidism, unspecified type (HRC) 3. Screening for diabetes mellitus 4. Screening, lipid 5. Obesity (BMI 30-39.9) (HRC) 07/2022 she had a ruptured ectopic . The left tube was removed. No endometriosis at that time. November 2022 she was doubled over in pain. She went to ER and had a hernia in the broad ligament and the cecum fell into it causing pain. She had surgery for this. The surgeon asked if she had Clay Danlos (ED) because broad ligament hernias are SO rare. Her MATCHBOOK MAKER then brought it up at her surgical f/u visit after the hernia repair. She has h/o hypermobility issues. The MATCHBOOK MAKER wanted to work up the ED including vascular work up. She has some keloid scars. No paper thin type scars. Has some striae. Had echo 2017 at [facility]: Final Conclusion Normal left ventricular systolic function. The ejection fraction is visually estimated at 55%. No regional wall motion abnormalities. Normal left ventricular size. The right ventricle is normal in size and function. No significant valvular heart disease noted. There were no prior studies available for comparison. Estimated EF: 55% Specifically: Mitral Valve Structurally normal mitral valve without significant stenosis or prolapse. There is no significant mitral Interestingly, her son has dislocated his shoulder rolling over in the crib and dislocated his elbow by rolling over in bed (arm stuck under him). Both occurred as . It has been better since and now he is 6. They would like to consider another child. However, she is struggling with fertility and has only 1tube. Not currently trying. I have personally reviewed the patient's allergies, medications, past medical history and problem list in detail and updated the patient record as necessary. Objective BP Readings from Last 3 Encounters: 07/14/21 (!) 117/90 12/15/20 122/84 12/03/20 130/82 General Appearance: alert, well appearing and in no apparent distress Psychiatric: affect/mood normal, cooperative, normal judgement/insight and memory intact Clare criteria: has at least 5 points (might have hyperextention of elbows and knees as well buthard to tell on video exam). Assessment and Plan 1. Hypermobility syndrome - Genetic Consult Services - Adult - Vascular Surgery Consult-Adult - Orthopaedic Consult Adult/Peds Referrals made to gather more information. 2. Hypothyroidism, unspecified type (HRC) - TSH; Future 3. Screening for diabetes mellitus - HGB A1C; Future - Glucose; Future 4. Screening, lipid - Lipid Panel and Direct LDL(If Needed); Future 5. Obesity (BMI 30-39.9) (HRC) - Creatinine / GFR; Future - ALT (SGPT); Future - Complete Blood Count-No Diff; Future -following different provider. Follow up: Quick Schedule Follow Up Visits Return With: Me (Clinician) Return On or After: 06/06/23 Reason: Preventive Return With: Lab Return On or After: 06/04/23 Reason: Fasting This visit was conducted via video. Location of clinician: clinic Location of patient: home documented in this encounter Plan of Treatment Scheduled Referrals Name Type Priority Associated Diagnoses Orde r Schedule Genetic Consult Services - Adult Referral Routine Hypermobility syndrome Ordered: 03/06/2023 Vascular Surgery Consult-Adult Referral Routine Hypermobility syndrome Ordered: 03/06/2023 Orthopaedic Consult Adult/Peds Referral Routine Hypermobility syndrome Ordered: 03/06/2023 documented as of this encounter Results * Complete Blood Count-No [...] Stella Paulino MD LAB_1 [facility]) [address] [place] [address], [facility] [phone] * TSH (06/04/2023 8:43 AM CDT) Pathologist [facility] TSH, Sensitive 2.33 0.30 - 4.50 uIU/mL 06/04/2023 4:20 PM CDT [facility] Blood Venipuncture / Unknown 06/04/2023 8:43 AM CDT 06/04/2023 8:45 AM CDT Stella Paulino MD LAB_1 Performing Organization Address City/[facility]/ZIP Co de Phone Number [facility] [address] [place], [place] [address] * ALT (SGPT) (06/04/2023 8:43 AM CDT) ALT (SGPT) 16 <=55 U/L 06/04/2023 11:28 AM CDT [facility] Blood Venipuncture / Unknown 06/04/2023 8:43 AM CDT 06/04/2023 8:45 AM CDT Stella Paulino MD LAB_1 Performing Organization Address [facility] Co de Phone Number [facility] [address] [place] [address], [facility] [phone] * Glucose (06/04/2023 8:43 AM CDT) Glucose 86 70 - 100 mg/dL 06/04/2023 11:28 AM T [facility] Comment:The given reference range is for the fasting state. Non-fasting reference range for glucose is 70 - 180 mg/dL. Hours Fasting 12.0 8 - 12 Hours 06/04/2023 11:28 AM CDT [facility]) Blood Venipuncture / Unknown 06/04/2023 8:43 AM CDT 06/04/2023 8:45 AM CDT Stella Paulino MD LAB_1 Performing Organization Address [facility] Co de Phone Number [facility] [address] [place] [address], [facility] [phone] [facility] ([facility]) [address] [place] [address], [facility] [phone] * Creatinine / GFR (06/04/2023 8:43 AM CDT) Creatinine 0.60 0.55 - 1.02 mg/dL 06/04/2023 11:28 AM [facility] GFR, Estimated >60 >60 mL/min/1.7 3m2 06/04/2023 11:28 AM [facility] Blood Venipuncture / Unknown 06/04/2023 8:43 AM CDT 06/04/2023 8:45 AM CDT Stella Paulino MD LAB_1 Performing Organization Address [facility]/ZIP Co de Phone Number [facility] [address] [place] [address], [facility] [phone] * (ABNORMAL) Lipid Panel and Direct LDL(If Needed) (06/04/2023 8:43 AM CDT) Cholesterol 213(H) 0 - 199 mg/dL 06/04/2023 11:28 AM [facility] Triglyceride 351(H) <=149 mg/dL 06/04/2023 11:28 AM [facility] HDL Cholesterol 42 >=40 mg/dL 3 11:28 AM [facility] LDL, Calculated 101 <130 mg/dL 3 11:28 AM [facility] Non HDL Chol, Calculated 171(H) <=159 mg/dL 06/04/2023 11:28 AM [facility] Cholesterol/HDL Ratio 5.1 06/04/2023 11:28 AM [facility] Hours Fasting 12.0 8 - 12 Hours 06/04/2023 11:28 AM [facility]) Blood Venipuncture / Unknown 06/04/2023 8:43 AM CDT 06/04/2023 8:45 AM CDT Stella Paulino MD LAB_1 [facility] [address] [place] [address], [place] [phone] [facility] ([facility]) [address] [place] [address], [place] [phone] * HGB A1C (06/04/2023 8:43 AM CDT) Hemoglobin A1C 5.2 <=5.6 % 06/04/2023 9:16 PM CDT [facility] Estimated Average Glucose (Calc) 103 < 117 mg/dL 06/04/2023 9:16 PM CDT [facility] Comment:Estimated average gl ucose (eAG) converts A1c into glucose units (mg/dL) and estimates average glucose over the past approximately 3 months. The eAG reference interval (<117 mg/dL) corresponds to an A1c of <5.7%. Blood Venipuncture / Unknown 06/04/2023 8:43 AM CDT 06/04/2023 8:45 AM CDT Stella Paulino MD LAB_1 Performing Organization Address City/State/[facility] Co de Phone Number [facility] [address] [address], [facility] [phone] documented in this encounter Visit Diagnoses Diagnosis Hypermobility syndrome- Primary Hypothyroidism, unspecified type (HRC) Screening for diabetes mellitus Screening, lipid Screening for lipoid disorders Obesity (BMI 30-39.9) (HR) Obesity, unspecified documented in this encounter Care Teams Fitter Armament Relationship Specialty Start Date End Date Stlela Paulino MD [address] [place] [address] PCP - General Family Practice 01/10/19 documented as of this encounter
--- OUTSIDE RECORDS SUMMARY | 2023-10-23 13:05 | XMS_ITS | Encounter Summary ---
Author Name Unknown Organization [facility] Address [address], [place] [address] Care Team Providers Care Seeing Eye Dog Trainer Name Role Phone Stella Carl MD Primary Care Provider [phone] Reason for Referral * Therapies (Routine) - New Request Specialty Diagnoses / Procedures Referred By Naty mathur Referred To Contact Diagnoses EDS (Clay-Danlos syndrome) Alina Irby MD [address] [facility] [place] [address] Referral ID Status Reason Start Date Expiration Date V isits Requested Visits Authorized [id number] New Request 04/03/2023 04/02/2024 999 [id number] Scheduling Instructions Your clinician has recommended an appointment with [facility]. You can quickly make your appointment online at [employer]/schedule. You can also call [phone] for help scheduling your appointment. We suggest you call your health insurance company about your coverage and benefits for this appointment. Question Answer Appointment Urgency? Non-Urgent Requested Services Evaluate and treat May use saline for irrigation or cleansing Yes dexamethasone use Yes May check glucose per protocol (see policy link below) or if patient has symptoms? Yes Comments EDS Mandy araujo Reason for Visit * Reason Comments CONSULT * Consult/Transfer Care (Routine) - New Request Specialty Diagnoses / Procedures Referred By Conthiram mathur Referred To Contact Diagnoses Hypermobility syndrome Stella Carl MD [address] [place] [address] Referral ID Status Reason Start Date Expiration Date V isits Requested Visits Authorized [id number] New Request 03/06/2023 06/04/2024 1 1 Encounter Details Date Type Department Care Team Description 04/03/2023 3:20 PM CDT Office Visit [facility] [place] [address] [facility] [place] [address] Alina Irby MD [address] [facility] [place] [id number] EDS (Clay-Danlos syndrome) (Primary Dx) Social History Tobacco Use Types [...] Sign Reading Time Taken Comments Blood Pressure - - Pulse - - Temperature - - Respiratory Rate - - Oxygen Saturation - - Inhaled Oxygen Concentration - - Weight - - Height 160 cm (5' 3) 04/03/2023 3:15 PM CDT Body Mass Index - - documented in this encounter Patient Instructions * Patient Instructions* Kim Soares, ATC - 04/03/2023 3:20 PM CDT Thank you for Choosing [facility] for your health care visit today. Dr. Alina Irby MD Sports Medicine & Pediatric Sports Medicine Plan: Physical therapy -Mandy Araujo Medication Requests: Prescriptions are not filled on weekends or on weekdays after 3:00 PM. For all medication refills: Request a refill using MyChart or contact your pharmacy. What is Know Your Cost? Know Your Cost is a service for patients and patient/members to call and receive personalized cost information and estimates across our care group. The phone number is (COST) Sunday - Sunday 8 AM to 5 PM Advanced Imaging Scheduling: To schedule an MRI, Ultrasound, or Image guided injection at [facility] please call [phone]. To schedule an MRI or CT at a [facility] location please call [phone]. [facility] Workers' Compensation [address] [place] [address] (Phone) Email: [email or web address] Release of Information: Radiology/Imaging [address] [place] [address] (Phone) Health Information Management [address] [place] [address] (Phone) [employer] documented in this encounter Progress Notes * Alina Irby MD - 04/03/2023 12:00 AM CDT NAME: GUILLERMO COOLEY CSN: [id number] CLINIC NOTE DATE OF SERVICE: 04/03/2023 : 1990 CHIEF COMPLAINT: Hypermobility. 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 She was referred by her primary physician, Dr. Stella Carl and also recently had an evaluation with Dr. Meeta Mancuso in Vascular Surgery. 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 She says that as a young child she was involved in dance and always hypermobile and always seemed to be injured. She hashad history of bilateral ankle instability and is status post bilateral ankle reconstruction by thetime she was 22. She notes that her shoulders and hips constantly sublux, but she has never had a darin dislocation of any joint. However, her son is also hypermobile and he has had multiple dislocations of the shoulder and elbow just from rolling over in bed when he was an infant. She also notes that her mom and maternal aunt and her sister are also likely hypermobile with probable Clay-Danlossyndrome. Guillermo also has had chronic back pain and has a history of bilateral spondylosis with spondylolisthesis at L5. She would have sciatica when and they are considering having a 3rd child. With her oldest, she had some vasovagal symptoms, but that resolved. She does not think that she has POTS at this point. She notes that she has had a lot of dental crowding and has had to have teeth pulled. She is currently under the care of a dentist in January and talked about having to expand her palate, but she does not think she would go through with that. She might have to redo her braces. She has had striae since she was a teenager going through growth spurt and also more with . She has 1 keloid scar inher right shoulder. She has piezogenic papules on her feet. She also had a very rare broad ligamenthernia which prompted further workup of an Clay-Danlos. She is scheduled to have CT angio head, neck, and chest in April for further evaluation of any underlying vascular abnormalities. Otherwise, she has been really healthy and has no other concerns. She is currently taking Ozempic for weight loss and has endometriosis. REVIEW OF SYSTEMS: Positive for glasses, contacts, heartburn, joint pain, chronic back pain, anxiety. Complete review of systems otherwise negative. PAST MEDICAL HISTORY/CURRENT MEDICAL CONDITIONS: Reviewed in [employer]. PREVIOUS SURGERIES: Reviewed in [employer]. MEDICATIONS: Reviewed in [facility]. ALLERGIES: REVIEWED IN [facility]. 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 She lives with her and children. She denies drug, tobacco, and alcohol use. Exercises weekly. Always wears a seat belt. FAMILY HISTORY: Multiple family members are hypermobile. No known Clay-Danlos diagnosis in the family. PHYSICAL EXAMINATION: GENERAL: Alert, in no apparent distress. HEENT: She has subtle epicanthal folds, a mildly high archbut narrow palate. SHOULDERS: Full and symmetric range of motion with multidirectional hypermobility. HIPS: Full and symmetric range of motion with mild hypermobility. KNEES: She hyperextends at bothknees. Ligaments stable. Ankles are stable. No joint effusions. She has 05/19 Beighton criteria met. SKIN: Soft and velvety with some increased laxity along the back of her hand, but not of the forearmwhere she has good skin turgor. There are multiple striae on her abdomen and she has piezogenic papules on her heels. ASSESSMENT: Clay-Danlos syndrome. PLAN: 1.Discussed diagnosis and treatment strategy. She does have enough criteria to meet the diagnosis of Clay-Danlos hypermobility type. However, we will await vascular testing and if there are any abnormalities here, then this may need to be re-categorized. 2.From an orthopedic standpoint, I recommended physical therapy to work on keeping the muscles around her joints as strong as we can to prevent hyperextension and dislocation. Encouraged activity as tolerated. I recommended that she see Mandy Araujo in physical therapist here at [facility] for her expertise in hypermobility and chronic pain syndromes. 3.Follow up here p.r.abigail. ALINA IRBY MD HLB/AQS /[id number] cc:MEETA MANCUSO MD [address] [place] [address] STELLA CARL MD [address] [place] [address] documented in this encounter Plan of Treatment Scheduled Referrals Name Type Priority Associated Diagnoses Orde r Schedule Physical Therapy Referral Routine EDS (Clay-Danlos syndrome) Ordered: 04/03/2023 documented as of this encounter Visit Diagnoses Diagnosis EDS (Clay-Danlos syndrome)- Primary Clay-Danlos syndrome documented in this encounter Care Teams Seeing Eye Dog Trainer Relationship Specialty Start Date End Date Stella Carl MD [address] [place], [place] [address] PCP - General Family Practice 01/10/19 documented as of this encounter
[2023-10-23] MEDS: 0.9 % SODIUM CHLORIDE 1000 ml 1,000 ML IV (13:14)
[2023-10-23] MEDS: fentaNYL 100 MCG/2 ML inj 50 MCG IVP (13:14)
[2023-10-23 13:20] LABS: Basophils Absolute Auto 0.03 K/uL (0.00-0.30); Basophils Percent Auto 0.4 % (0.0-3.0); Eosinophils Absolute Auto 0.11 K/uL (0.00-0.50); Eosinophils Percent Auto 1.6 % (0.0-7.0); Hematocrit 40.7 % (33.0-51.0); Hemoglobin* 13.9 gm/dL (12.0-16.0); Immature Granulocytes Abs Auto 0.01 K/uL (0.00-0.30); Immature Granulocytes Pct Auto 0.1 %; Lymphocytes Absolute Auto 2.62 K/uL (0.90-2.90); Lymphocytes Percent Auto 37.8 % (20-44); Mean Corpuscular HGB Conc 34 gm/dL (32-36); Mean Corpuscular Hemoglobin 29 pg (26-34); Mean Corpuscular Volume 86 fL (80-100); Monocytes Percent Auto 6.6 % (0.0-11.0); Neutrophils Percent Auto 53.5 % (42.0-72.0); Platelet Count* 366 K/uL (140-440); Red Blood Count 4.75 m/uL (4.00-5.20); White Blood Count* 6.93 K/uL (4.50-11.00)
[2023-10-23 13:22] LABS: Appearance Urine Clear (Clear); Bilirubin Urine Negative (Negative); Blood Urine Trace-intact (Negative); Color Urine Light yellow (Yellow); Glucose Urine Negative (Negative); Ketones Urine Negative (Negative); Leukocyte Esterase Urine Negative (Negative); Nitrite Urine Negative (Negative); Protein Urine Negative (Negative); Urobilinogen Urine 0.2 (0.2-1.0)
[2023-10-23 13:24] LABS: Slide Review Reflex No
[2023-10-23 13:29] LABS: Ur HCG Qualitative* Negative (Negative)
[2023-10-23 13:41] LABS: Albumin* 4.7 g/dL (3.3-5.0); Chloride* 104 mmol/L (96-114); Sodium* 139 mmol/L (135-149)
[2023-10-23 13:42] LABS: Potassium* 3.8 mmol/L (3.6-5.1)
[2023-10-23 13:44] LABS: Creatinine* 0.5 mg/dL (0.5-1.5); Est. Creatinine Clearance* 131.15; Estimated Glomerular Filt Rate 126 ml/min
[2023-10-23 13:45] LABS: Alanine Aminotransferase* 20 U/L (4-35); Alkaline Phosphatase* 109 U/L (40-150); Anion Gap 9 mEq/L (7-15); Aspartate Amino Transferase* 25 U/L (12-35); Bilirubin Direct* 0.1 mg/dL (0.0-0.5); Bilirubin Total* 0.5 mg/dL (0.1-1.5); Blood Urea Nitrogen* 13 mg/dL (5-24); Calcium* 9.3 mg/dL (8.4-10.6); Carbon Dioxide* 26 mmol/L (20-32); Glucose* 94 mg/dL (60-115); Lipase* 63 U/L (23-300)
[2023-10-23 13:48] LABS: C Reactive Protein* 0.5 mg/dL (0.5-1.0)
--- NOTE | 2023-10-23 13:55 | CT_ITS ---
Final Report Patient: GUILLERMO GUTIERREZ Facility:?[facility] Patient ID:?[id number] Site Patient ID:?[id number]. Site :?1990 Study:?CT Abdomen/Pelvis W/ 89CC [id number]/13/2024 2:26:57 PM Ordering Physician:Delia Mehta Final Report: INDICATION: Abdominal pain. TECHNIQUE: Multiplanar CT examination of the abdomen and pelvis was performed after the administration of 89 mL Isovue 370 intravenous contrast. COMPARISON: None. FINDINGS: Lower chest: No focal consolidation. Normal heart size. No pleural effusions or pneumothorax. Dependent atelectasis. Liver: Unremarkable. Gallbladder: Unremarkable. Biliary: Unremarkable. Pancreas: Within normal limits. Spleen: Unremarkable. Adrenal glands: Unremarkable. Genitourinary: Normal in size and symmetrically enhancing. No obstructive uropathy. No hydronephrosis or obstructive urinary calculi. No suspicious renal masses. The ureters appear unremarkable. The bladder is within normal limits. Gastrointestinal: No bowel wall thickening or bowel obstruction. Appendectomy. No significant colonic diverticulosis. Mild colonic stool burden. Pelvis: Simple appearing left ovarian cyst, within normal limits. Otherwise, unremarkable. Vasculature: No aortic aneurysm. The portal vein remains patent. No significant atherosclerotic calcifications. Lymph nodes: No pathologic lymphadenopathy by size criteria. Peritoneum: No free fluid or pneumoperitoneum. No drainable fluid collections. Surgical clips in the mid abdomen, correlate with prior surgical history. Abdominal wall/soft tissues: Midline abdominal incisional scar, small fat containing umbilical hernia. Otherwise, unremarkable. Bones: No acute osseous abnormalities. Chronic L5 pars defects bilaterally, with unchanged grade 1 anterolisthesis of L5 on S1 IMPRESSION: 1. No acute abdominopelvic pathology. The etiology of the patient`s abdominal pain is not elucidated on this examination. Stable examination. 2. Small fat containing umbilical hernia in close approximation with the midline ventral abdominal incisional scar. Please note that all CT scans at this facility use dose modulation, iterative reconstruction, and/or weight-based dosing when appropriate to reduce radiation dose to as low as reasonably achievable. Dictated by Chetan Robles MD @ 10/23/2023 11:29:17 PM (Electronic Signature)
[2023-10-23 14:00] LABS: RBC Urine 0-2 (0-2); WBC Urine 0-2 (0-5)
[2023-10-23] MEDS: HYDROmorphone 0.5 mg/0.5 ml inj 1 MG IVP (14:05)
[2023-10-23] MEDS: HYOSCYAMINE SULFATE 0.125 MG TAB 0.25 MG SUBLINGUAL (15:19)
[2023-10-23] MEDS: LORazepam 2 MG/ML inj 0.5 MG IVP (15:20)
[2023-10-23] MEDS: KETOROLAC 30 MG/ML inj IVP (15:21)
== END 2023-10-23 18:08 | disposition home or self-care (01) ==
PROVIDERS: Emergency Provider Family Medicine
DX: R10.13 Epigastric pain (principal)
CPT/HCPCS: 36415; 74177; 80048; 80076; 81001; 81025; 83690; 85025; 86140; 94761; 96374; 96375; 99284; A9270; J1170; J1885; J2060; J3010; J7030; Q9967

== ENCOUNTER 2024-08-13 15:48 | Emergency (ER) | payer OTHER, SELFPAY ==
[2024-08-13] VITALS (13 sets, daily range): BP systolic 130–159; BP diastolic 89–106; PULSE 57–85; RESP 16–20; TEMP 36.9; O2SAT 95–99; BMI 32.8
[2024-08-13 16:09] LABS: Appearance Urine Clear (Clear); Bilirubin Urine Negative (Negative); Blood Urine 1+ (Negative); Color Urine Yellow (Yellow); Glucose Urine Negative (Negative); Ketones Urine Negative (Negative); Leukocyte Esterase Urine Negative (Negative); Nitrite Urine Negative (Negative); Protein Urine Negative (Negative); Specific Gravity Urine >= 1.030 (1.000-1.030); Urobilinogen Urine 0.2 (0.2-1.0); pH Urine 5.5 (5.0-8.5)
--- NOTE | 2024-08-13 16:10 | CRLHL7_ITS ---
For Patients: As a result of the Century Cures Act, medical imaging exams and procedure reports are released immediately into your electronic medical record. You may view this report before your referring provider. If you have questions, please contact your health care provider. INDICATION: Lower abdominal pain, multiple previous surgery. TECHNIQUE: CT abdomen and pelvis acquired with 100 cc Isovue 370 IV contrast. COMPARISON: October 23, 2023. FINDINGS: Lower chest: Unremarkable. Liver: Unremarkable. Normal in size and attenuation. No suspicious masses. Gallbladder and bile ducts: Unremarkable. No stones or inflammation. No biliary dilatation. Pancreas: Unremarkable. No mass or inflammation. Spleen: Unremarkable. Normal in size. No masses. Adrenal glands: Unremarkable. No nodules. Kidneys: Unremarkable. No suspicious masses, stones, or hydronephrosis. GI tract: Unremarkable. Normal in caliber. No sign of mass or inflammation. Appendix not seen, possibly surgically absent. Vasculature: Abdominal aorta is normal in caliber. Mesenteric arteries are patent. Lymph nodes: No lymphadenopathy. Peritoneum/Abdominal Wall: Small multifocal fat containing umbilical and supraumbilical hernia. No sign of mass or infiltration. No free air or significant free fluid. Pelvis: Unremarkable. Bones: Unremarkable for age. IMPRESSION: No acute intra-abdominal/pelvic abnormality. No significant interval change when compared to prior study. Please note that all CT scans at this facility use dose modulation, iterative reconstruction, and/or weight-based dosing when appropriate to reduce radiation dose to as low as reasonably achievable. Dictated by Edilberto Brown MD @ 08/13/2024 6:14:52 PM (Electronically Signed)
--- NOTE | 2024-08-13 16:17 | ED.ABDPAIN ---
HPI - Abdominal Pain General Date Seen: 08/13/24 Chief Complaint: Abdominal Pain Stated Complaint: Severe abdominal pain Time Seen by Provider: 08/13/24 15:59 Source: patient Mode of arrival: ambulatory Limitations: no limitations History of Present Illness HPI narrative: Patient is a 34-year-old female presenting to the emergency department for lower abdominal pain. Is all across her lower abdominal region. States she 1st noticed the pain around 09:00 this morning in pain was initially intermittent but has now been more constant. Seems to be worse over the suprapubic region. She also states she is having some difficulty with urination. Denies any associated back pain though. Denies dysuria. No pain in her upper abdomen. She states she has had quite a few surgeries in the past including multiple C-sections, multiple surgeries for endometriosis, appendectomy, internal hernia. She states she is concerned she could have an internal hernia right now. Does states she had a bowel movement this morning that was normal. Has not eaten much today because she is not much of an appetite. Has not had any nausea though she states. Has had previous ovarian cysts that have ruptured but states she had ultrasound done 1 week ago through her IVF clinic and she had a very small cyst at that time been no concerning findings. Denies chest pain, shortness of breath, lightheadedness, dizziness, weakness, numbness, fevers, chills. Pain does not radiate anywhere else. Related Data Home Medications ?Medication ?Instructions ?Recorded ?Confirmed hydroxyzine HCl 25 mg tablet 25 mg PO DAILY 05/21/23 08/13/24 desogestrel 0.15 mg-ethinyl 1 tab PO DAILY 08/13/24 08/13/24 estradiol 0.03 mg tablet (Isibloom) Previous Rx's ?Medication ?Instructions ?Recorded hyoscyamine sulfate 0.125 mg tablet 0.25 mg (2 x 0.125 mg) PO TID PRN 10/23/23 adominal cramping #24 tabs Allergies Allergy/AdvReac Type Severity Reaction Status Date / Time prochlorperazine (From Allergy Mild Lock Jaw Verified 08/13/24 15:58 Compazine) adhesive Allergy Verified 08/13/24 15:58 Review of Systems Status of ROS Reports: 10 or more systems reviewed and unremarkable except as noted in History and below [facility] Medical History Viral meningitis ?A87.9 - Viral meningitis, unspecified (ICD-10) Ovarian cyst ?N83.209 - Unspecified ovarian cyst, unspecified side (ICD-10) Endometriosis ?N80.9 - Endometriosis, unspecified (ICD-10) Clostridium difficile infection ?A49.8 - Other bacterial infections of unspecified site (ICD-10) Anxiety ?F41.9 - Anxiety disorder, unspecified (ICD-10) Major depressive disorder ?F32.9 - Major depressive disorder, single episode, unspecified (ICD-10) GERD (gastroesophageal reflux disease) ?K21.9 - Gastro-esophageal reflux disease without esophagitis (ICD-10) Bipolar II disorder ?F31.81 - Bipolar II disorder (ICD-10) Macrosomia ?P08.0 - Exceptionally large baby (ICD-10) 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 ?G40.409 - Other generalized epilepsy and epileptic syndromes, not intractable, without status epilepticus (ICD-10) Preeclampsia in period ?O14.95 - Unspecified pre-eclampsia, complicating the puerperium (ICD-10) Pharyngitis ?J02.9 - Acute pharyngitis, unspecified (ICD-10) Viral meningitis ?A87.9 - Viral meningitis, unspecified (ICD-10) Ovarian cyst ?N83.209 - Unspecified ovarian cyst, unspecified side (ICD-10) Endometriosis ?N80.9 - Endometriosis, unspecified (ICD-10) Clostridium difficile infection ?A49.8 - Other bacterial infections of unspecified site (ICD-10) Anxiety ?F41.9 - Anxiety disorder, unspecified (ICD-10) Major depressive disorder ?F32.9 - Major depressive disorder, single episode, unspecified (ICD-10) GERD (gastroesophageal reflux disease) ?K21.9 - Gastro-esophageal reflux disease without esophagitis (ICD-10) Bipolar II disorder ?F31.81 - Bipolar II disorder (ICD-10) Macrosomia ?P08.0 - Exceptionally large baby (ICD-10) Preeclampsia in period ?O14.95 - Unspecified pre-eclampsia, complicating the puerperium (ICD-10) Viral meningitis ?A87.9 - Viral meningitis, unspecified (ICD-10) Ovarian cyst ?N83.209 - Unspecified ovarian cyst, unspecified side (ICD-10) Endometriosis ?N80.9 - Endometriosis, unspecified (ICD-10) Clostridium difficile infection ?A49.8 - Other bacterial infections of unspecified site (ICD-10) Major depressive disorder ?F32.9 - Major depressive disorder, single episode, unspecified (ICD-10) Macrosomia ?P08.0 - Exceptionally large baby (ICD-10) 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 ?G40.409 - Other generalized epilepsy and epileptic syndromes, not intractable, without status epilepticus (ICD-10) Preeclampsia in period ?O14.95 - Unspecified pre-eclampsia, complicating the puerperium (ICD-10) Viral meningitis ?A87.9 - Viral meningitis, unspecified (ICD-10) Ovarian cyst ?N83.209 - Unspecified ovarian cyst, unspecified side (ICD-10) Endometriosis ?N80.9 - Endometriosis, unspecified (ICD-10) Clostridium difficile infection ?A49.8 - Other bacterial infections of unspecified site (ICD-10) Major depressive disorder ?F32.9 - Major depressive disorder, single episode, unspecified (ICD-10) Macrosomia ?P08.0 - Exceptionally large baby (ICD-10) Preeclampsia in period ?O14.95 - Unspecified pre-eclampsia, complicating the puerperium (ICD-10) Surgical History [place] teeth extracted ?K08.409 - Partial loss of teeth, unspecified cause, unspecified class (ICD-10) S/P laparoscopic procedure ?Z98.890 - Other specified postprocedural states (ICD-10) History of appendectomy ?Z90.49 - Acquired absence of other specified parts of digestive tract (ICD-10) History of ankle surgery ?Z98.890 - Other specified postprocedural states (ICD-10) S/P laparoscopic procedure ?Z98.890 - Other specified postprocedural states (ICD-10) [place] teeth extracted ?K08.409 - Partial loss of teeth, unspecified cause, unspecified class (ICD-10) S/P laparoscopic procedure ?Z98.890 - Other specified postprocedural states (ICD-10) History of appendectomy ?Z90.49 - Acquired absence of other specified parts of digestive tract (ICD-10) History of ankle surgery ?Z98.890 - Other specified postprocedural states (ICD-10) [place] teeth extracted ?K08.409 - Partial loss of teeth, unspecified cause, unspecified class (ICD-10) S/P laparoscopic procedure ?Z98.890 - Other specified postprocedural states (ICD-10) History of appendectomy ?Z90.49 - Acquired absence of other specified parts of digestive tract (ICD-10) History of ankle surgery ?Z98.890 - Other specified postprocedural states (ICD-10) [place] teeth extracted ?K08.409 - Partial loss of teeth, unspecified cause, unspecified class (ICD-10) S/P laparoscopic procedure ?Z98.890 - Other specified postprocedural states (ICD-10) History of appendectomy ?Z90.49 - Acquired absence of other specified parts of digestive tract (ICD-10) History of ankle surgery ?Z98.890 - Other specified postprocedural states (ICD-10) Social History Narrative: 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 Smoking Status: Never smoker Do you use any of these nicotine containing products: None Second hand tobacco smoke exposure: No How often do you have a drink containing alcohol: never How often do you have six or more drinks on one occasion: Never AUDIT-C Alcohol total score: 0 Non-prescribed substance use: denies use service: No Exam Narrative: Exam Narrative: Const: Well-nourished, Well-developed, in moderate distress Eyes: PERRL, no conjunctival injection, and symmetrical lids HENT: Atraumatic external nose and ears. Moist mucous membranes. Neck: Symmetric, trachea midline, No thyromegaly. CVS: RRR, No murmurs or gallops. Peripheral pulses 2+ and equal in all extremities RESP: Unlabored respiratory effort. Clear to auscultation bilaterally. GI: Diffuse lower abdominal tenderness worse in the suprapubic region, Nondistended, No rebound or guarding. MSK:Extremities w/o deformity, Normal Active ROM Skin: Warm, Dry. No rashes or lesions. Neuro: Normal Muscle tone, No focal neurological deficits. Psych: Awake, Alert, & Oriented x3. Appropriate mood and affect. Const: Vital Signs, click to edit/add: Vital Signs - 24 hr 08/13/24 15:50 08/13/24 17:54 08/13/24 17:55 Temperature 98.5 F Pulse Rate 72 69 Pulse Rate [Pulse Oximeter] 82 Respiratory Rate 20 Blood Pressure 155/101 H Blood Pressure [Ri ght Upper Arm] 140/100 H Pulse Oximetry 98 97 96 Oxygen Delivery Me thod Room Air 08/13/24 18:00 08/13/24 18:04 08/13/24 18:15 Temperature Pulse Rate 67 64 57 L Pulse Rate [Pulse Oximeter] Respiratory Rate Blood Pressure 159/106 H Blood Pressure [Ri ght Upper Arm] Pulse Oximetry 97 98 99 Oxygen Delivery Me thod 08/13/24 18:30 08/13/24 19:00 08/13/24 19:21 Temperature Pulse Rate 80 85 73 Pulse Rate [Pulse Oximeter] Respiratory Rate Blood Pressure 139/93 H Blood Pressure [Ri ght Upper Arm] Pulse Oximetry 95 98 98 Oxygen Delivery Me thod Room Air 08/13/24 19:32 08/13/24 20:02 08/13/24 20:33 Temperature Pulse Rate 70 64 61 Pulse Rate [Pulse Oximeter] Respiratory Rate 18 16 Blood Pressure 134/92 H 141/95 H 153/91 H Blood Pressure [Ri ght Upper Arm] Pulse Oximetry 97 97 97 Oxygen Delivery Me thod Room Air Room Air 08/13/24 21:02 Temperature Pulse Rate 59 L Pulse Rate [Pulse Oximeter] Respiratory Rate 16 Blood Pressure 130/89 Blood Pressure [Ri ght Upper Arm] Pulse Oximetry 96 Oxygen Delivery Me thod Room Air Course Vital Signs Vital signs: Initial Vital Signs Temperature 98.5 F 08/13/24 15:50 Temperature Source Temporal Artery Scan 08/13/24 15:50 Pulse Rate 82 08/13/24 15:50 Respiratory Rate 20 08/13/24 15:50 Blood Pressure 140/100 H 08/13/24 15:50 Blood Pressure Mean 113 H 08/13/24 15:50 Blood Pressure Position Sitting 08/13/24 15:50 Pulse Oximetry 98 08/13/24 15:50 Oxygen Delivery Method Room Air 08/13/24 15:50 Vital Signs Temperature 98.5 F 08/13/24 15:50 Pulse Rate 82 08/13/24 15:50 Respiratory Rate 20 08/13/24 15:50 Blood Pressure 140/100 H 08/13/24 15:50 Pulse Oximetry 98 08/13/24 15:50 Oxygen Delivery Method Room Air 08/13/24 15:50 Temperature 98.5 F 08/13/24 15:50 Pulse Rate 59 L 08/13/24 21:02 Respiratory Rate 16 08/13/24 21:02 Blood Pressure 130/89 08/13/24 21:02 Pulse Oximetry 96 08/13/24 21:02 Oxygen Delivery Method Room Air 08/13/24 21:02 Medications Administered Medications: Discontinued Medications Generic Name Dose Route Start Last Admin Trade Name Freq PRN Reason Stop Dose Admin Ketorolac Tromethamine 15 mg 08/13/24 16:10 08/13/24 16:30 Ketorolac 15 Mg/Ml Inj IVP 08/13/24 16:11 15 mg ONCE ONE Administration Morphine Sulfate 4 mg 08/13/24 17:27 08/13/24 17:30 Morphine 4 Mg/Ml Inj IVP 08/13/24 17:28 4 mg ONCE ONE Administration Morphine Sulfate 4 mg 08/13/24 19:05 08/13/24 19:13 Morphine 4 Mg/Ml Inj IVP 08/13/24 19:06 4 mg ONCE ONE Administration MDM - Abdominal Pain MDM Narrative Medical decision making narrative: Patient is a 34-year-old female presenting to emergency department for abdominal pain. This time differential includes diverticulitis, cystitis, internal hernia, stump appendicitis. Considering the location pancreatitis and gallbladder/liver disease seems unlikely. She has had multiple foot surgeries but did have a normal bowel movement this morning so small bowel obstruction seems less likely at this time. With the relatively normal ultrasound per her report 1 week ago I also find less likely she has ovarian torsion. Will start with a CT scan of the abdomen pelvis. Will also do a CBC, CMP, lipase, urinalysis, urine , COVID/flu test. Will give her Toradol for pain. Lab work returned showing no concerning abnormalities. Toradol did not help with her pain so we the morphine was added. Morphine initially helped some but then her pain came back another dose of morphine was given. CT scan reviewed by myself the radiologist showed no acute abnormalities but did notice she has a very thick uterus. Ultrasound was ordered a lack returned showing had abnormally thickened heterogeneous endometrium with possible slight hypervascularity. I spoke to her about this since she states that is normal for her recently with her IVF treatment and had trying to get it corrected. He due that this seems unlikely to be from malignancy. She states she feels comfortable without can OB Gyne consult in the emergency department because she will be speaking to her OB Gyne and infertility doctors tomorrow morning. She does note the lining has like it from 19 year mm to 25 mm. This is most likely the cause of her pain as I cannot find any other causes. The she is feeling comfortable at this time would like to discharge. I will give her some oxycodone via instymeds. She is agreeable to this plan. Patient was provided with copy of the report of the ultrasound. Lab Data Labs: Lab Results 08/13/24 08/13/24 08/13/24 Range/Units 16:00 16:10 16:25 WBC 8.21 (4.50-11.00) K/uL RBC 4.26 (4.00-5.20) m/uL Hgb 12.5 (12.0-16.0) gm/dL Hct 36.9 (33.0-51.0) % MCV 87 (80-100) fL MCH 29 (26-34) pg MCHC 34 (32-36) gm/dL RDW Coeff of Emile 12.5 (11.5-15.5) % Plt Count 321 (140-440) K/uL Neut % (Auto) 58.0 (42.0-72.0) % Lymph % (Auto) 31.7 (20-44) % [place] % (Auto) 9.0 (0.0-11.0) % Eos % (Auto) 1.0 (0.0-7.0) % Baso % (Auto) 0.2 (0.0-3.0) % Neut # (Auto) 4.76 (1.7-7.0) K/uL Lymph # (Auto) 2.60 (0.90-2.90) K/uL [place] # (Auto) 0.70 (0.00-0.90) K/UL Eos # (Auto) 0.08 (0.00-0.50) K/uL Baso # (Auto) 0.02 (0.00-0.30) K/uL Abs Immat Gran (auto) 0.01 (0.00-0.30) K/uL Imm/Tot Granulo (auto) 0.1 % Sodium 138 (135-149) mmol/L Potassium 3.7 (3.6-5.1) mmol/L Chloride 107 (96-114) mmol/L Carbon Dioxide 23 (20-32) mmol/L Anion Gap 8 (7-15) mEq/L BUN 16 (5-24) mg/dL Creatinine 0.6 (0.5-1.5) mg/dL Estimated Creat Clear 108.26 Estimated GFR 120 ml/min Glucose 90 (60-115) mg/dL Calcium 9.2 (8.4-10.6) mg/dL Total Bilirubin 0.2 (0.1-1.5) mg/dL AST 20 (12-35) U/L ALT 17 (4-35) U/L Alkaline Phosphatase 61 (40-150) U/L Total Protein 7.2 (6.0-8.3) g/dL Albumin 4.3 (3.3-5.0) g/dL Lipase 64 (23-300) U/L Urine Color Yellow (Yellow) Urine Appearance Clear (Clear) Urine pH 5.5 (5.0-8.5) Ur Specific [place] >= 1.030 (1.000-1.030) Urine Protein Negative (Negative) Urine Glucose (UA) Negative (Negative) Urine Ketones Negative (Negative) Urine Blood 1+ A (Negative) Urine Nitrite Negative (Negative) Urine Bilirubin Negative (Negative) Urine Urobilinogen 0.2 (0.2-1.0) Ur Leukocyte Esterase Negative (Negative) Urine RBC 0-2 (0-2) Urine WBC 0-2 (0-5) Ur Squamous Epith Cells Moderate A (None-Few) Amorphous Sediment Moderate A (None) Urine Bacteria Few A (None) Urine HCG, Qual Negative (Negative) SARS-CoV-2 (PCR) Negative SARS-CoV-2 (Negative) Influenza Type A (PCR) Negative PCR FLU A (Negative) Influenza Type B (PCR) Negative PCR FLU B (Negative) Imaging Data CT scan abdomen pelvis: Attestation: I have reviewed the pertinent imaging results. Radiologist's impression: No acute intra-abdominal/pelvic abnormality. No significant interval change when compared to prior study. Please note that all CT scans at this facility use dose modulation, iterative reconstruction, and/or weight-based dosing when appropriate to reduce radiation dose to as low as reasonably achievable. Dictated by Edilberto Brown MD @ 08/13/2024 6:14:52 PM Transvaginal ultrasound: Radiologist's impression: 1. Abnormally thickened heterogeneous endometrium with possible slight hypervascularity. Findings could be related to hormone stimulation, however underlying malignancy or hyperplasia cannot be excluded. Gynecologic consult is recommended. 2. Probable collapsing dominant follicle in the left ovary. No evidence of torsion. Dictated by Makenna Hay MD @ 08/13/2024 9:16:42 PM Discharge Plan Discharge Clinical Impression: Pelvic pain Patient Disposition: Home, Self-Care Condition: Improved Instructions: Pelvic Pain (ED) Additional Instructions: Use your oxycodone provided via instymeds. Return for new or worsening symptoms. Make sure to speak to your OB Gyne and your IVF provider tomorrow morning. Return for new or worsening symptoms Prescriptions: No Action hydroxyzine HCl 25 mg tablet 25 mg PO DAILY hyoscyamine sulfate 0.125 mg tablet 0.25 mg PO TID PRN (Reason: adominal cramping) Qty: 24 0RF desogestrel-ethinyl estradiol [Isibloom] 0.15-0.03 mg tablet 1 tab PO DAILY Follow Up/Referrals: Provider,Not a Local [Primary Care Provider] - Stand Alone Forms: [employer] Info Instructions
[2024-08-13 16:25] LABS: Amorphous Sediment Urine Moderate; Bacteria Urine Few; RBC Urine 0-2 (0-2); Squamous Epithelial Cell Urine Moderate (None-Few); WBC Urine 0-2 (0-5)
[2024-08-13] MEDS: KETOROLAC 15 MG/ML inj IVP (16:30)
[2024-08-13 16:31] LABS: Basophils Absolute Auto 0.02 K/uL (0.00-0.30); Basophils Percent Auto 0.2 % (0.0-3.0); Eosinophils Absolute Auto 0.08 K/uL (0.00-0.50); Hematocrit 36.9 % (33.0-51.0); Hemoglobin* 12.5 gm/dL (12.0-16.0); Immature Granulocytes Abs Auto 0.01 K/uL (0.00-0.30); Immature Granulocytes Pct Auto 0.1 %; Lymphocytes Percent Auto 31.7 % (20-44); Mean Corpuscular HGB Conc 34 gm/dL (32-36); Mean Corpuscular Hemoglobin 29 pg (26-34); Mean Corpuscular Volume 87 fL (80-100); Neutrophils Absolute Auto 4.76 K/uL (1.7-7.0); Platelet Count* 321 K/uL (140-440); RDW Coefficient of Variation % 12.5 % (11.5-15.5); Red Blood Count 4.26 m/uL (4.00-5.20); White Blood Count* 8.21 K/uL (4.50-11.00)
[2024-08-13 16:32] LABS: Slide Review Reflex No
[2024-08-13 16:39] LABS: Ur HCG Qualitative* Negative (Negative)
[2024-08-13 16:43] LABS: Albumin* 4.3 g/dL (3.3-5.0)
[2024-08-13 16:44] LABS: Chloride* 107 mmol/L (96-114); Potassium* 3.7 mmol/L (3.6-5.1); Sodium* 138 mmol/L (135-149)
[2024-08-13 16:46] LABS: Alkaline Phosphatase* 61 U/L (40-150); Anion Gap 8 mEq/L (7-15); Aspartate Amino Transferase* 20 U/L (12-35); Bilirubin Total* 0.2 mg/dL (0.1-1.5); Carbon Dioxide* 23 mmol/L (20-32); Creatinine* 0.6 mg/dL (0.5-1.5); Est. Creatinine Clearance* 108.26; Estimated Glomerular Filt Rate 120 ml/min; Total Protein* 7.2 g/dL (6.0-8.3)
[2024-08-13 16:47] LABS: Alanine Aminotransferase* 17 U/L (4-35); Blood Urea Nitrogen* 16 mg/dL (5-24); Calcium* 9.2 mg/dL (8.4-10.6); Glucose* 90 mg/dL (60-115); Lipase* 64 U/L (23-300)
--- OUTSIDE RECORDS SUMMARY | 2024-08-13 16:55 | XMS_ITS | Referral Summary ---
Author Organization [place] Address [address] [place] [address] Care Team Providers Care Delineator Name Role Phone Veronica Gonzalez MD Unavailable [phone] Clinic, [facility] Primary Care Provide r Allergies Active Allergy Reactions Criticality Noted Date Comments Adhesive Tape Rash Low 02/15/2016 And Dermabond Compazine Other (See Comments) Medium 10/26/2012 Lock jaw Medications levothyroxine (SYNTHROID/LEVOTH ROID) 75 MCG tablet Take 75 mcg by mouth daily Active Vit-Fe Fumarate-FA ( 19) 29-1 MG CHEW Take 2 chew tab by mouth daily Active hydrOXYzine (VISTARIL) 25 MG capsule Take 25 mg by mouth At Bedtime 2 9 Active omeprazole (PRILOSEC) [address] capsule Take 20 mg by mouth daily Active senna-docusate (SENOKOT-S/DIANA LACE) 8.6-50 MG tabletIndications :Left tubal , unspecified whether intrauterine present Take 1-2 tablets by mouth 2 times daily 30 tablet 2 Active Active Problems Problem Noted Date Diagnosed [...] School Help Needed Not on file 06/24 Comments Unknown Sex and Gender Information Value Date Recorded Sex Assigned at Not on file Legal Sex Female 4:34 AM FIELD RECRUITER Gender Identity Not on file Sexual Orientation Not on file Last Filed Vital Signs Vital Sign Reading Time Taken Comments Blood Pressure 158/117 05/21/2023 11:51 AM CDT Pulse 86 05/21/2023 11:51 AM CDT Temperature 36.8 C (98.3 F) 05/21/2023 11:51 AM CDT Respiratory Rate 20 05/21/2023 11:51 AM CDT Oxygen Saturation 98% 05/21/2023 11:51 AM CDT Inhaled Oxygen Concentration - - Weight 88 kg (194 lb) 05/21/2023 11:51 AM CDT Height 160 cm (5' 3) 07/31/2022 9:17 AM FIELD RECRUITER Body Mass Index 34.37 07/31/2022 9:17 AM FIELD RECRUITER Plan of Treatment Not on file Procedures Procedure Name Priority Date/Time Associated Diagnosis Comments SURGICAL PATHOLOGY EXAM Routine 05/20/2024 3:59 PM CDT HIV ANTIGEN ANTIBODY COMBO Routine 12/30/2018 COMPREHENSIVE METABOLIC PANEL STAT 09/29/2016 9:55 AM FIELD RECRUITER from Last 3 Months or Most Recently Relevant to Health Maintenance Results * Surgical Pathology Exam (05/20/2024 3:59 PM CDT) Case Report Surgical Pathology Report Case: [id number] Authorizing Provider: Veronica Gonzalez MD Collected: 05/20/2024 03:59 PM Ordering Location: [facility] Received: 05/21/2024 08:36 AM [facility] Pathologist: Mary Ellen Treviño MD Specimen: Endometrium 05/22/2024 11:57 AM T LABORATORY Final Diagnosis A. Endometrium, curettage: -Fragments of benign endometrial polyp. -Late secretory pattern endometrium. 05/22/2024 11:[address] [facility] Clinical Information Abnormal uterine bleeding. 05/22/2024 11:57 AM CDT LABORATORY Gross Description A(). Endometrium, : The specimen is received in formalin, labeled with the patient's name, medical record number and other identifying information designated endometrial curettings. It consists of a mesh bag collection device containing a 5.6 cm aggregate of hawkins-pink soft tissue fragments. Wrapped and submitted entirely in four cassettes. (PROMISE Acosta)05/21/2024 8:44 AM 05/22/2024 11:57 AM CDT LABORATORY Microscopic Description Microscopic examination was performed. 05/22/2024 11:57 AM T LABORATORY Performing Labs The technical component of this testing was completed at [facility]. Stain controls for all stains resulted within this report have been reviewed and show appropriate reactivity. 05/22/2024 11:57 AM CDT LABORATORY Case Images 05/22/2024 11:57 AM CDT LABORATORY Tissue ENDOMETRIAL STRUCTURE / Unknown 05/20/2024 3:59 PM CDT 05/21/2024 8:36 AM CDT us Veronica Gonzalez MD LAB - BEAKER AP Final Res ult LABORATORY [facility] [address] Lab (1st floor, no room number) [place] [address], [facility] [address] 1[address] floor, [address] [place] [address], [facility] [phone] * HIV Antigen Antibody Combo (12/30/2018) Pathologist [facility] HIV Antigen Antibody Combo negative Blood specimen (specimen) us Patient Reported LAB - BLOOD ORDERABLES Final Re sult * (ABNORMAL) Comprehensive metabolic panel (09/29/2016 9:55 AM FIELD RECRUITER) Pathologist [facility] Sodium 138 133 - 144 mmol/L [facility] Potassium 4.0 3.4 - 5.3 mmol/L [facility] Chloride 104 94 - 109 mmol/L [facility] Carbon Dioxide 23 20 - 32 mmol/L [facility] Anion Gap 11 3 - 14 mmol/L [facility] Glucose 92 70 - 99 mg/dL [facility] Urea Nitrogen 7 7 - 30 mg/dL [facility] Creatinine 0.51(L) 0.52 - 1.04 mg/dL [facility] GFR Estimate >90 Non GFR Calc >60 mL/min/1. 7m2 [facility] GFR Estimate If Black >90 GFR Calc >60 mL/min/1. 7m2 [facility] Calcium 8.9 8.5 - 10.1 mg/dL [facility] Bilirubin Total 0.3 0.2 - 1.3 mg/dL [facility] Albumin 2.9(L) 3.4 - 5.0 g/dL [facility] Protein Total 7.2 6.8 - 8.8 g/dL [facility] Alkaline Phosphatase 81 40 - 150 U/L [facility] ALT 27 0 - 50 U/L [facility] AST 19 0 - 45 U/L [facility] Blood specimen (specimen) 09/29/2016 9:55 AM FIELD RECRUITER 09/29/2016 10:09 AM FIELD RECRUITER Ruddy Canada MD LAB - BLOOD ORDERABLES No crespo Result [facility] [address] [place] [address], [facility] [phone] from Last 3 Months or Most Recently Relevant to Health Maintenance Insurance FORMERLY [facility] Advance Directives For more information, please contact: [phone] * Full Code (Latest Code Status on File) Date Activated Date Inactivated Comments 02/16/2016 7:05 PM 02/17/2016 3:54 PM Care Teams Delineator Relationship Specialty Start Date End Date Clinic, [facility] [address] [place] [address] PCP - General 02/07/23 Veronica Gonzalez MD [address] [place] [address] 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
--- OUTSIDE RECORDS SUMMARY | 2024-08-13 16:55 | XMS_ITS | Encounter Summary ---
Author Organization [facility] Address [address], [place] [address] Care Team Providers Care Freezer Worker Name Role Phone Stella Paulino MD Primary Care Provider [phone] Encounter Details Date Type Department Care Team (Latest Contact Info) Description 07/29/2024 9:10 AM BLIND HOOKER Lab Visit [facility] [address] [id number] Need for hepatitis C screening test; Screening for HIV (human immunodeficiency virus); Hypertriglyceridemia (HRC); Screening for diabetes mellitus; Hypothyroidism, unspecified type (HRC) Social History Tobacco [...] as of this encounter Plan of Treatment Upcoming Encounters Date Type Department Care Team (Late st Contact Info) Description 07/31/2025 9:30 AM BLIND HOOKER Appointment [facility] [address] [phone] Stella Paulino MD [facility] [address] [phone] documented as of this encounter Procedures Procedure Name Priority Date/Time Associated Diagnosis Comments HIV 1/2 AG/AB 4TH GEN Routine 07/29/2024 8:35 AM BLIND HOOKER Screening for HIV (human immunodeficiency virus) LIPID PANEL & DIRECT LDL (IF NEEDED) Routine 07/29/2024 8:35 AM BLIND HOOKER Hypertriglyceridemia (HRC) TSH, SENSITIVE Routine 07/29/2024 8:35 AM BLIND HOOKER Hypothyroidism, unspecified type (HRC) HEPATITIS C ANTIBODY, WITH REFLEX Routine 07/29/2024 8:35 AM BLIND HOOKER Need for hepatitis C screening test HGB A1C Routine 07/29/2024 8:35 AM BLIND HOOKER Screening for diabetes mellitus GLUCOSE Routine 07/29/2024 8:35 AM BLIND HOOKER Screening for diabetes mellitus documented in this encounter Results * TSH (07/29/2024 8:35 AM BLIND HOOKER) TSH, Sensitive 2.57 0.30 - 4.50 uIU/mL 07/29/2024 3:44 PM BLIND HOOKER [facility] Blood Venipuncture / Unknown 07/29/2024 8:35 AM BLIND HOOKER 07/29/2024 8:35 AM BLIND HOOKER Stella Paulino MD LAB_1 [facility] [address] * Glucose (07/29/2024 8:35 AM BLIND HOOKER) Glucose 88 70 - 100 mg/dL 07/29/2024 3:52 PM BLIND HOOKER [facility] Comment:The given reference range is for the fasting state. Non-fasting reference range for glucose is 70 - 180 mg/dL. Hours Fasting 12.0 8 - 12 Hours 07/29/2024 3:52 PM BLIND HOOKER [facility] (PN) Blood Venipuncture / Unknown 07/29/2024 8:35 AM BLIND HOOKER 07/29/2024 8:35 AM BLIND HOOKER Stella Paulino MD LAB_1 [facility] [address] [place], [place] [address] (PN) [facility] [place] [address] * HGB A1C (07/29/2024 8:35 AM BLIND HOOKER) Hemoglobin A1C 5.2 <=5.6 % 07/29/2024 8:27 PM BLIND HOOKER [facility] Estimated Average Glucose (Calc) 103 < 117 mg/dL 07/29/2024 8:27 PM BLIND HOOKER [facility] Comment:Estimated average gl ucose (eAG) converts A1c into glucose units (mg/dL) and estimates average glucose over the past approximately 3 months. The eAG reference interval (<117 mg/dL) corresponds to an A1c of <5.7%. Blood Venipuncture / Unknown 07/29/2024 8:35 AM BLIND HOOKER 07/29/2024 4:17 PM BLIND HOOKER Stella Paulino MD LAB_1 Performing Organization Address [facility]/ZIP Co de Phone Number [facility] [address] * (ABNORMAL) Lipid Panel and Direct LDL(If Needed) (07/29/2024 8:35 AM BLIND HOOKER) Cholesterol 198 0 - 199 mg/dL 07/29/2024 3:52 PM BLIND HOOKER [facility] Triglyceride 255(H) <=149 mg/dL 07/29/2024 3:52 PM BLIND HOOKER [facility] HDL Cholesterol 45 >=40 mg/dL 4 3:52 PM BLIND HOOKER [facility] LDL, Calculated 102 <130 mg/dL 4 3:52 PM BLIND HOOKER [facility] Non HDL Chol, Calculated 153 <=159 mg/dL 07/29/2024 3:52 PM BLIND HOOKER [facility] Cholesterol/HDL Ratio 4.4 <=5.0 07/29/2024 3:52 PM BLIND HOOKER [facility] Hours Fasting 12.0 8 - 12 Hours 07/29/2024 3:52 PM BLIND HOOKER [facility] (PN) Blood Venipuncture / Unknown 07/29/2024 8:35 AM BLIND HOOKER 07/29/2024 8:35 AM BLIND HOOKER Stella Paulino MD LAB_1 Performing Organization Address [facility]/ZIP Co de Phone Number [facility] [address] [facility] ([facility]) [address] [place] [phone] * HIV 1/2 Ag/Ab 4th Generation (07/29/2024 8:35 AM BLIND HOOKER) HIV 1/2 Antigen/Antib stalin (4th generation) Negative (Non Reactive) Negative (Non Reactive) 07/29/2024 3:42 PM BLIND HOOKER [facility] Comment:HIV-1 p24 Antigen an d HIV-1/HIV-2 Antibody not detected Blood Venipuncture / Unknown 07/29/2024 8:35 AM BLIND HOOKER 07/29/2024 8:35 AM BLIND HOOKER Stella Paulino MD LAB_1 Performing Organization Address [facility] Co de Phone Number [facility] [address] * Hepatitis C Antibody, with Reflex (07/29/2024 8:35 AM BLIND HOOKER) Hepatitis C Antibody Negative (Non Reactive) Negative (Non Reactive) 07/29/2024 3:42 PM BLIND HOOKER [facility] Comment:Antibodies to HCV no t detected. Does not exclude the possiblity of exposure to HCV. Blood Venipuncture / Unknown 07/29/2024 8:35 AM BLIND HOOKER 07/29/2024 8:35 AM BLIND HOOKER Stella Paulino MD LAB_1 Performing Organization Address [facility] Co de Phone Number [facility] [address] documented in this encounter Visit Diagnoses Diagnosis Need for hepatitis C screening test Special screening examination for other specified viral diseases Screening for HIV (human immunodeficiency virus) Special screening examination for other specified viral diseases Hypertriglyceridemia (HRC) Pure hyperglyceridemia Screening for diabetes mellitus Hypothyroidism, unspecified type (HRC) documented in this encounter Care Teams Freezer Worker Relationship Specialty Start Date End Date Stella Paulino MD [address] [place] [address] PCP - General Family Practice 01/10/19 documented as of this encounter
--- OUTSIDE RECORDS SUMMARY | 2024-08-13 16:55 | XMS_ITS | Clinical Summary ---
Author Organization [facility] Address [address] [place] [address] Care Team Providers Care Fruit Worker Name Role Phone Unavailable Primary Care Provider [...] Employment Answer Date Recorded Employment 0 11/09/2020 Comments Unknown Sex and Gender Information Value Date Recorded Sex Assigned at Not on file Legal Sex Female 11:10 AM PST Gender Identity Not on file Sexual Orientation Not on file Plan of Treatment Health Maintenance Due Date Last Done Comments Diabetes Screening 1989 HPV Screening 1989 Hepatitis C Screening 1989 Pap + HPV 1989 Tobacco Screening 1989 HIV Screening 01/02/2004 Relationship Safety Screening/Counseling 01/02/2004 Annual Preventive Care Visit 2007 Hypertension Screening (#1) 2007 Imm-DTaP/Tdap/Td (1 - Tdap) 01/02/2008 Imm-Hepatitis B (1 of 3 - 19 + 3-dose series) 01/02/2008 Cervical Cancer Screening 2010 Pap Smear 2010 Alcohol and Drug Screen 09/10/2023 Depression Annual Screen 09/10/2023 [id number] ( season) 05/11/202412/07/ 021, 11/09/2020 Imm-Influenza (#1) 2024 Cervical Ablation/Cold-Knife Conization Discontinued Cervical Cryotherapy Discontinued Colposcopy Discontinued Endometrial Biopsy Discontinued Excision/Leep Discontinued HPV Genotyping Discontinued Vaginal Pap Discontinued Vulvoscopy Discontinued Insurance [employer]
--- OUTSIDE RECORDS SUMMARY | 2024-08-13 16:55 | XMS_ITS | Encounter Summary ---
[facility] [address], [place] [address] Care Team Providers Care Apprentice Jockey Name Role Phone Stella Paulino MD Primary Care Provider [phone] Reason for Visit * Reason Comments Annual Exam Encounter Details Date Type Department Care Team (Late st Contact Info) Description 07/31/2024 3:30 PM RELATIONS MANAGER Office Visit [facility] [address] [place] [address] [place] [phone] Stella Paulino MD [address] [place] [address] [place] [phone] Routine physical examination (Primary Dx); Epigastric pain; CRISTAL (generalized anxiety disorder) (HRC); Mild episode of recurrent major depressive disorder (HRC); Menorrhagia with irregular cycle; Female infertility, unspecified; Obesity (BMI 30-39.9) (HRC); Hypothyroidism, unspecified type (HRC); Insomnia, unspecified type; OMAR (obstructive sleep apnea) Social History Tobacco Use Types Packs/Day Years [...] Sign Reading Time Taken Comments Blood Pressure 110/80 07/31/2024 3:53 PM RELATIONS MANAGER Pulse 82 07/31/2024 3:21 PM RELATIONS MANAGER Temperature - - Respiratory Rate - - Oxygen Saturation - - Inhaled Oxygen Concentration - - Weight 89.4 kg (197 lb) 07/31/2024 3:11 PM RELATIONS MANAGER Height 159.4 cm (5' 2.75) 07/31/2024 3:11 PM CS T Body Mass Index 35.18 07/31/2024 3:11 PM RELATIONS MANAGER documented in this encounter Patient Instructions * Patient Instructions* Stella Paulino MD - 07/31/2024 3:30 PM RELATIONS MANAGER Images from the original note were not included. Healthy lifestyle: Nutrition (make small changes: example- add another vegetables every day for 2 weeks OR change to brown rice) Aim for 3 balanced meals per day. Each meal should include a protein, carbohydrate (whole grain, fruit, veggie) and healthy fat Eat 5-10 DIFFERENT vegetables and fruits daily. 1 serving is typically 1 cup or 1 piece (like an apple or banana). Fresh or Frozen are good! Eat 4-6 servings of whole grains like oats, brown rice, whole wheat, quinoa, barley, etc. Avoid processed grains (white rice, white bread) Eat 3 servings of healthy proteins like fish, chicken, beans, legumes. Reduce/avoid red meats like beef, pork, processed meats (sausage, lunch meat, márquez) Eat 1-2 servings of healthy fats like nuts, extra virgin olive oil or avocado oil, avocado and salmon fish. Canola oil is good too Either consume 2-3 servings of lowfat dairy (milk or milk alternative, hard cheese, yogurt) or takecalcium supplements Avoid processed foods that are premade, frozen, [...] moderate exercise. If you participate in intense exercise like running, you can exercise 15-30 minutes 5 days [...] exposed surfaces Bone health Take vitamin D 2747-2732 units daily. Children should take 400-600 units daily Either consume 2-3 servings of lowfat dairy (milk or milk alternative, hard cheese, yogurt) or takecalcium supplements Make sure you are getting adequate calcium [...] alcohol or drug use. This includes prescription medicines, marijuana, and other drugs. Avoid tobacco and nicotine: Don't smoke, [...] can you learn more? 1. Go to https://www.Therapydia.com/healthlibrary. 2. Enter P072 in the search box. Current as of: April 15, 2023 Content Version: 14.2 ?? 2023 [employer]. Care instructions adapted under license by your healthcare professional. If you have questions about a medical condition or this instruction, always ask your healthcare professional. [employer] disclaims any warranty or liability for your use of this information. TIONS MANAGER documented in this encounter Progress Notes * Stella Paulino MD - 07/31/2024 3:30 PM CST Preventive Exam Chief Complaint Patient presents with Annual Exam HISTORY OF PRESENT ILLNESS: Juana Cooley is a 34 y.o. female who presents for a routine preventive physical exam. The patient voices the following concerns: 1. Routine physical examination 2. Epigastric pain 3. CRISTAL (generalized anxiety disorder) (HRC) 4. Mild episode of recurrent major depressive disorder (HRC) 5. Menorrhagia with irregular cycle 6. Female infertility, unspecified 7. Obesity (BMI 30-39.9) (HRC) 8. Hypothyroidism, unspecified type (HRC) 9. Insomnia, unspecified type 10. OMAR (obstructive sleep apnea) Mental health: sometimes struggles with sleep. Uses hydroxyzine to help with sleep at night but 25 mg can make her feel really tired the next year. Complicated year. Wanting to continue to try for 3rd child. 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 Had ectopic 2 years ago and the tube had to be removed. Had another ectopic ( of unk location and not in uterus) and treated with methotrexate. Had heavy period starting in April with heavy bleeding. Did D&C in May 20, 2024. LMP 3 days ago. Will be on OCP through Aug, then stimulants in Sep with egg retrieval. BP: BP's are typically running 110/80. She feels she might have medical trauma due to medical problems. She does not feel anxious but her BP is always elevated. Hypothyroidism. Used to take medication. Will be starting IVF in Sep. Weight: she was on ozempic. She lost weight and was down to 178 lbs. She has gained weight. She went off of it for fertility purposes. H/o OMAR: she feels better. The CPAP helped for along time. She stopped using it (no reason). Sleep studies make her really anxious. Since her last sleep test, she has lost 30 lbs. Sleep test 08/2021 weight 224 lbs and now 197 lbs. Not snoring as much. PHQ9 Scores 07/31/2024 3:30 PM 10/24/2023 3:00 PM 06/15/2023 10:30 AM PHQ-9 PHQ-9 Score Total 2 1 2 Q1: Loss of Int/Pleas 0 0 0 Q2: Depressed mood 0 0 0 Q3: Sleep problems 1 0 1 Q4: Tired/Low Energy 1 1 1 Q5: Appetite change 0 0 0 Q6: Feelings of failure 0 0 0 Q7: Concentration Prob 0 0 0 Q8: Slow or Restless 0 0 0 Q9: Thought Self Harm 0 0 0 Date PHQ9 was completed 07/31/2024 Index Date: No date on file. CRISTAL 7 Scores 07/31/2024 3:30 PM 10/24/2023 3:00 PM 03/06/2023 1:30 PM CRISTAL-7 Feeling nervous 1 - Several days 1 - Several days 1 - Several days Can't stop worrying 1 - Several days 0 - Not at all 0 - Not at all Worrying too much 0 - Not at all 0 - Not at all 0 - Not at all Trouble relaxing 0 - Not at all 0 - Not at all 0 - Not at all Restlessness 0 - Not at all 0 - Not at all 0 - Not at all Easily annoyed 1 - Several days 1 - Several days 2 - More than half the days Feeling afraid 0 - Not at all 1 - Several days 1 - Several days How difficult? Not difficult Somewhat difficult Somewhat difficult Total score 3 3 4 Date Performed 07/31/2024 03/05/2023 Time Performed 4:33 PM LMP: Patient's last menstrual period was 07/29/2024. Menstrual cycles: see above Current contraception: attempting ROS: complete review of systems other than what is mentioned above is negative Past Medical/Surgical History/Family History: Today, Juana Cooley's problem list, PMH, PSH, FH, SH, medications, and allergies are reviewed with the patient and updated in [facility]. Welt Rougher History: : OB History Para Term AB Living 2 2 2 0 0 2 SAB IAB Ectopic Multiple Live Births 0 0 0 0 2 # Outcome Date GA Lbr Sunny/2nd Weight Sex Type Anes PTL Lv 2 Term 09/01/19 40w6d F CS-LTranv SANTIAGO 1 Term 03/20/17 42w3d M CS-LTranv PCEA N SANTIAGO Complications: Intolerance Obstetric Comments Readmitted to [facility] on 09/07/19 with preeclampsia w SF by BP criteria Immunizations/Vaccines/HMA According to Health Maintenance in your medical record, you are due for: Health Maintenance Due Topic Date Due HPV Vaccine (2 - 3-dose series) 05/09/2011 The information above has been given to the patient. Immunization History Administered Date(s) Administered 4vHPV (Gardasil) 04/11/2011 Flu Vac (3+ yrs) 08/14/2008, 06/03/2009 Flu Vac Preserv Free (3+yrs) 06/24/2013, 06/24/2024 Fluzone Qiv Multidose Vial 0.25 (6-35 Mos) 06/08/2021 HepA Adult (19+ yrs) 12/10/2014 HepA, Unspecified Formulation 04/29/2012 HepB, Unspecified Formulation 04/13/1998, 05/31/1998, 12/19/2000 Influenza ([place] Only) (Flulaval Quad 0.5, 3+ yrs) 05/19/2019 Influenza IIV4 (Quadrivalent) 0.5mL ([id number]) 06/29/2014, 07/02/2015, 06/10/2016, 07/17/2017, 09/25/2018, 05/19/2019, 06/07/2020, 07/04/2022, 06/05/2023 MMR 04/02/1990, 12/19/2000 Moderna COVID-19 12+ 06/24/2024 Moderna Monovalent 12+ 11/09/2020, 12/07/2020, 12/06/2021 Td 12/26/2003, 10/11/2013 Td, Preservative Free 12/01/1993, 12/26/2003 Tdap 06/24/2013, 12/11/2016, 06/18/2019 Typhoid (Typhim Vi, IM) 04/29/2012, 12/10/2014 Physical exam: Filed Vitals: 07/31/24 1511 07/31/24 1521 07/31/24 1553 BP: (!) 157/119 (!) 134/96 110/80 Pulse: 71 82 Weight: 197 lb (89.4 kg) Height: 5' 2.75 (1.594 m) General Appearance: Alert, cooperative, no distress, appears stated age Head: Normocephalic, without obvious abnormality, atraumatic Eyes: PERRL, conjunctiva/corneas clear, EOM's intact both eyes Ears: Normal TM's and external ear canals, both ears Nose: Nares normal, mucosa normal Throat: Lips, mucosa, and tongue normal Neck: Supple, symmetrical, no adenopathy; thyroid: no enlargement/tenderness/nodules; Back: Symmetric Lungs: Clear to auscultation bilaterally, respirations unlabored Heart: Regular rate and rhythm, S1 and S2 normal, no murmur, rub or gallop Breast Exam: No tenderness, masses, or nipple abnormality Abdomen: Soft, non-tender, bowel sounds active all four quadrants, no masses, no organomegaly Extremities: Extremities normal,no edema Pulses: 2+ and symmetric all extremities Skin: Skin color, texture, turgor normal, no rashes Lymph nodes: Cervical, supraclavicular nodes normal Neurologic: Mental health: CNII-XII intact, grossly normal strength. Psych: dressed and groomed appropriately for today's visit. Mood normal and congruent with affect. Speech normal. Insight and judgement intact. Assessment/Plan: Juana was seen today for annual exam. Diagnoses and all orders for this visit: Routine physical examination Epigastric pain--controlled/stable. No change in current medication or treatment plan - hyoscyamine (LEVSIN) 0.125 MG tablet; Take 2 Tablets (0.25 mg) by mouth three times a day as needed. CRISTAL (generalized anxiety disorder) (HRC) causing insomnia--controlled/stable. No change in current medication or treatment plan - hydrOXYzine HCl (ATARAX) 10 MG tablet; Take 1-3 Tablets (10-30 mg) by mouth at bedtime as needed for Itching (or sedation). 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 Female infertility, unspecified -planning on attempting IVF in September. Obesity (BMI 30-39.9) (HRC) -off ozempic To attempt IVF. We will continue to work on healthy lifestyle with nutrition and physical activity Hypothyroidism, unspecified type (HRC) - TSH; Future OMAR (obstructive sleep apnea) -not having any symptoms of obstructive sleep apnea at this time. She has lost about 30 lb since her last sleep test showing mild sleep apnea. Does have CPAP at home. Discussed that during she will gain weight and make develop worsening of symptoms again. It would be reasonable to restartCPAP if she is developing tiredness in the daytime and or increased snoring or episodes of apnea (witnessed by ) during . Component Latest Ref Rng 07/29/2024 Cholesterol 0 - 199 mg/dL 198 Triglyceride <=149 mg/dL 255 (H) HDL >=40 mg/dL 45 LDL, Calc. <130 mg/dL 102 Non HDL Chol, Calc <=159 mg/dL 153 Chol/HDL Ratio <=5.0 4.4 Hours Fasting 8 - 12 Hours 12.0 Hours Fasting 8 - 12 Hours 12.0 HGB A1C <=5.6 % 5.2 Estimated Average Glucose (Calc) < 117 mg/dL 103 Glucose 70 - 100 mg/dL 88 Anti-HCV Negative (Non Reactive) Negative (Non Reactive) HIV AG/AB, 4TH GEN Negative (Non Reactive) Negative (Non Reactive) TSH, Sensitive 0.30 - 4.50 uIU/mL 2.57 Legend: (H) High Follow up: Quick Schedule Follow Up Visits Return With: Lab Return On or After: 08/12/24 Reason: Non-Fasting Additional Notes: TSH Return With: Me (Clinician) Return On or After: 07/31/25 Reason: Preventive TIONS MANAGER documented in this encounter Plan of Treatment Upcoming Encounters Date Type Department Care Team (Late st Contact Info) Description 07/31/2025 9:30 AM RELATIONS MANAGER Appointment [facility] [address] [place] [address] Stella Paulino MD [address] [place] [address] Scheduled Orders Name Type Priority Associated Diagnoses Orde r Schedule TSH Lab Routine Hypothyroidism, unspecified type (HRC) Expected: 07/31/2024, Expires: 10/29/2024 documented as of this encounter Visit Diagnoses Diagnosis Routine physical examination- Primary Routine general medical examination at a health care facility Epigastric pain Abdominal pain, epigastric CRISTAL (generalized anxiety disorder) (HRC) Generalized anxiety disorder Mild episode of recurrent major depressive disorder (HRC) Menorrhagia with irregular cycle Excessive or frequent menstruation Female infertility, unspecified Obesity (BMI 30-39.9) (HRC) Obesity, unspecified Hypothyroidism, unspecified type (HRC) Insomnia, unspecified type OMAR (obstructive sleep apnea) Obstructive sleep apnea (adult) (pediatric) documented in this encounter Care Teams Apprentice Jockey Relationship Specialty Start Date End Date Stella Paulino MD [address] [place] [address] PCP - General Family Practice 01/10/19 documented as of this encounter
--- OUTSIDE RECORDS SUMMARY | 2024-08-13 16:55 | XMS_ITS | Encounter Summary ---
Author Organization [facility] Address [address] [place] [address]. [place] [address] Care Team Providers Care Design Drafter Name Role Phone [facility] Primary Care Provider Veronica Nguyen MD Unavailable [phone] Clinic, N[facility] Terry Primary Care Provide r Reason for Referral * Diagnostic Imaging XR (Routine) - Closed Specialty Diagnoses / Procedures Referred By Contac t Referred To Contact Diagnoses Fertility testing Procedures XR Hysterosalpingogram DATABASE ADMINISTRATION MANAGER Performs Cath Veronica Gonzalez MD [address] [facility] [address] [place] [address] Phone: tel: fax: Referral ID Status Reason Start Date Expiration Date Visits Re quested Visits Authorized [id number] Closed 09/18/2022 09/18/2023 1 1 NEL EXECUTIVE Encounter Details Date Type Department Care Team (Late st Contact Info) Description 09/18/2022 Orders Only [facility] Link [address] [place] [phone] Veronica Gonzalez MD [address] [place], [place] [phone] Fertility testing (Primary Dx) Social History Tobacco [...] on file Legal Sex Female 4:34 AM CHANNEL EXECUTIVE Gender Identity Not on file Sexual Orientation Not on file documented as of this encounter Plan of Treatment Not on file documented as of this encounter Results * XR Hysterosalpingogram DATABASE ADMINISTRATION MANAGER Performs Cath (09/22/2022 12:38 PM CHANNEL EXECUTIVE) Anatomical Region Laterality Modality Abdomen/Pelvis Computed Radiogr aphy 09/22/2022 12:3 8 PM CHANNEL EXECUTIVE Impressions 09/22/2022 3:56 PM CHANNEL EXECUTIVE IMPRESSION: Patent right fallopian tube, patency of the left fallopian tube is not demonstrated. Narrative 09/22/2022 3:56 PM CHANNEL EXECUTIVE EXAM: XR HYSTEROSALPINGOGRAM DATABASE ADMINISTRATION MANAGER PERFORMS CATH LOCATION: [facility] DATE/TIME: 09/22/2022 12:38 PM INDICATION: Fertility testing [...] Lieberman MD - 09/22/2022 EXAM: XR HYSTEROSALPINGOGRAM DATABASE ADMINISTRATION MANAGER PERFORMS CATH LOCATION: [facility] DATE/TIME: 09/22/2022 12:38 PM INDICATION: Fertility testing [...] of the left fallopiantube is not demonstrated. us Veronica Gonzalez MD IMG DIAGNOSTIC IMAGING OR DERABLES Final Result documented in this encounter Visit Diagnoses Diagnosis Fertility testing- Primary Fertility testing documented in this encounter Care Teams Design Drafter Relationship Specialty Start Date End Date [facility] Torres PCP - General Family Practice 08/20/18 02/06/23 Nayeli Virgen [address] [place] [address] PCP - General 02/07/23 Veronica Gonzalez MD [address] [id number] smoking tobacco packer hand 04/18/21 documented as of this encounter
--- OUTSIDE RECORDS SUMMARY | 2024-08-13 16:55 | XMS_ITS | Clinical Summary ---
Author Organization [facility] Address [address] [address] Care Team Providers Care Manager Of Software Development Name Role Phone Stella Paulino MD Primary Care Provider [phone] Source Comments You are receiving this document as you are listed as the primary care provider,follow-up provider, or the patient has been referred to you for consultation.This is in compliance with the Medicare and[facility] EHR Incentive Program,which states Providers who transition their patient to another setting of careor provider of care or refers their patient to another provider of care shouldprovide summary care record for each transition of care or referral. [facility] Allergies Active Allergy Reactions Criticality Noted Date Comments Adhesive Rash 12/14/2015 Phenothiazines High 04/22/2015 Locked jaw--could not close mouth Prochlorperazine 03/22/2009 PN: LW Reaction: lock jaw Medications Medication Sig Dispensed Refills Start Date End Date Status ondansetron (ZOFRAN-ODT) 4 MG disintegrating tablet Take 0.5 Tablets (2 mg) by mouth three times a day. 3 Active sucralfate (CARAFATE) 1 GM/10ML suspensionIndicati ons:Esophageal spasm Take 10 mL (1 g) by mouth two times a day. 414 mL 4 Active Additional Information Patient not taking.Reported on 07/31/2024 ISIBLOOM 0.15-30 MG-MCG tablet Take 1 Tablet by mouth daily. 4 Active hyoscyamine (LEVSIN) 0.125 MG tabletIndications: Epigastric pain Take 2 Tablets (0.25 mg) by mouth three times a day as needed. 60 Tablet 4 Active hydrOXYzine HCl (ATARAX) 10 MG tabletIndications: CRISTAL (generalized anxiety disorder) (HRC),Insomnia, unspecified type Take 1-3 Tablets (10-30 mg) by mouth at bedtime as needed for Itching (or sedation). 60 Tablet 3 4 Active hydrOXYzine HCl (ATARAX) 25 MG tablet Take 1 Tablet (25 mg) by mouth two times a day. 3 07/31/20 24 Discontinued LORazepam (ATIVAN) 1 MG tablet Take 0.5-1 Tablets (0.5-1 mg) by mouth two times daily as needed for Other. 4 07/31/20 24 Discontinued hyoscyamine (LEVSIN) 0.125 MG tabletIndications: Epigastric pain Take 2 Tablets (0.25 mg) by mouth three times a day as needed. 60 Tablet 4 07/31/20 24 Discontinued(*M ed change OR same med OR reorder, new dose/directions ) Active Problems Problem Noted Date Diagnosed Date Bladder diverticulum 06/15/2023 Overview (06/15/2023): Vs urachal remnant seen on CT c/a/p 03/2023. 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 Hypermobility syndrome 03/09/2023 Recurrent tonsillitis 11/18/2020 Overview (11/18/2020): Added automatically from request for surgery [id number] OMAR (obstructive sleep apnea) 11/18/2020 Overview (07/31/2024): Status-post tonsillectomy on 12/15/20 HST 02/06/21 RDI 6.1 DULCE 7.4 O2 emely: 88% 08/2022 PSG: PS08/22/2021 AHI: 12, supine AHI 79, RDI 14, Oxygen emely :88%. Weight 224 lbs. Hypothyroidism 10/04/2020 Overview (06/15/2023): Has not needed medication since 2018. hypertension 09/07/2019 Overview (07/31/2024): Developed after BOTH pregnancies Pre-eclampsia, delivered, with compli cation 09/07/2019 Overview (09/08/2019): Transfer of care from [facility] on 09/07/19 per pt request (insurance issue) [...] disor regulo 03/24/2010 Endometriosis Obesity (BMI 30-39.9) Female infertility, unspecified Menorrhagia with irregular cycle Overview (07/31/2024): Started getting irregular, heavy periods since ectopic 07/2023 Resolved Problems Problem Noted Date Diagnosed Date Resolved Date Sleep apnea 11/18/2020 03/06/2023 Overview (12/07/2020): Added automatically from request for surgery [id number] IUD (intrauterine device) in place 10/04/2020 03/06/2023 Overview (10/04/2020): Mirena IUD January 2020 placed Preeclampsia in period 03/28/2017 12/06/2018 S/P section 03/20/2017 019 Bipolar II disorder 03/12/2017 10/04/19 21 Overview (12/06/2018): STRUGGLED with anx and dep since age 16. SSRI's were not helpful. She was seen at [place] and had testing with psychiastrist. Never did any inpatient treatment. Did well on lamotrigine and weaned off before attempting . She did well off lamotrigine. Encounters Date Type Department Care Team Description 08/01/2024 1:00 PM DUCT INSTALLER E-Visit [facility] Medicine [address] [place] [address] [place] [address] Stella Paulino MD Chief Comp: REFERRAL REQUEST 07/31/2024 3:30 PM DUCT INSTALLER Office Visit [address] [place] [address] Stella Paulino MD Routine physical examination (Primary Dx); Epigastric pain; CRISTAL (generalized anxiety disorder) (HRC); Mild episode of recurrent major depressive disorder (HRC); Menorrhagia with irregular cycle; Female infertility, unspecified; Obesity (BMI 30-39.9) (HRC); Hypothyroidism, unspecified type (HRC); Insomnia, unspecified type; OMAR (obstructive sleep apnea) 07/29/2024 9:10 AM DUCT INSTALLER Lab Visit [facility] [address] [place] [address] [place] [address] Need for hepatitis C screening test; Screening for HIV (human immunodeficiency virus); Hypertriglyceridemia (HRC); Screening for diabetes mellitus; Hypothyroidism, unspecified type (HRC) 05/15/2024 10:45 AM CDT Ancillary Procedure [facility] [place] [address] [address] [address] [place] [phone] Stella Paluino MD Thyroid lump ([facility]) from Last 3 Months Immunizations Name Administration Dates Next Due 4vHPV (Gardasil) 04/11/2011 Flu Vac (3+ yrs) 06/03/2009,08/14/2008 Flu Vac Preserv Free (3+yrs) 06/24/2024,06/24/20 13 Fluzone Qiv Multidose Vial 0 .25 (6-35 Mos) 06/08/2021 HepA Adult (19+ yrs) 12/10/2014 HepA, Unspecified Formulation 04/29/2012 HepB, Unspecified Formulation 12/19/2000, 998,04/13/1998 Influenza ([place] Only) (Flul aval Quad 0.5, 3+ yrs) 05/19/2019 Influenza IIV4 (Quadrivalent ) 0.5mL (29679) 06/05/2023,07/04/2022,06/07/2020,2018,09/25/2018,07/17/2017,06/10/2016,1 ,06/29/2014 MMR 12/19/2000,04/02/1990 Moderna COVID-19 12+ 06/24/2024 Moderna Monovalent 12+ 12/06/2021,12/07/2020,10/2020 Td 10/11/2013,12/26/2003 Td, [...] Comments Blood Pressure 110/80 07/31/2024 3:53 PM DUCT INSTALLER Pulse 82 07/31/2024 3:21 PM DUCT INSTALLER Temperature 36.6 C (97.9 F) 10/24/2023 3:15 PM DUCT INSTALLER Respiratory Rate 11 12/15/2020 1:45 PM CDT Oxygen Saturation 94% 12/15/2020 3:15 PM CDT Inhaled Oxygen Concentration - - Weight 89.4 kg (197 lb) 07/31/2024 3:11 PM DUCT INSTALLER Height 159.4 cm (5' 2.75) 07/31/2024 3:11 PM CS T Body Mass Index 35.18 07/31/2024 3:11 PM DUCT INSTALLER Plan of Treatment Upcoming Encounters Date Type Department Care Team (Late st Contact Info) Description 07/31/2025 9:30 AM DUCT INSTALLER Appointment [facility] [address] [place], [place] [address] [id number] Stella Paulino MD [address] [place] [address] [place] [address] Health Maintenance Due Date Last Done Comments HPV Vaccine (2 - 3-dose series) 05/09/2011 04/11/2011 Adult Preventive Visit 07/31/2026 07/31/2024, 2022 Diabetes Screening- (based on age and BMI) 07/29/2027 07/29/2024, 06/04/2023, 12/06/2018 Cervical Cancer Screening 06/15/20282022, 01/29/2019 (Completed), 08/17/2016, Additional history exists DTaP/Tdap/Td (6 - Tdap) 06/18/2029 06/18/20, 12/11/2016, 10/11/2013, Additional history exists Zoster/Shingles (1 of 2) 2039 HepB Completed 12/19/2000, 05/12, 04/13/1998 HepA Completed 12/10/2014, 04/29/2012 COVID-19 Vaccine Completed 06/24/2024, , 12/07/2020, Additional history exists Influenza Completed 06/24/2024, 05/12, 07/04/2022, Additional history exists HIV Screening (Preventive Services) Completed 07/29/2024 Hep C Screening (Preventive Services) Completed 07/29/2024 Hib Aged Out No longer eligi ble based on patient's age to complete this topic IPV (Polio) Aged Out No longer eligi ble based on patient's age to complete this topic Infant RSV Aged Out No longer eligi ble based on patient's age to complete this topic MCV4 Aged Out No longer eligi ble based on patient's age to complete this topic Pneumococcal Aged Out No longer eligi ble based on patient's age to complete this topic Procedures Procedure Name Priority Date/Time Associated Diagnosis Comments HIV 1/2 AG/AB 4TH GEN Routine 07/29/2024 8:35 AM DUCT INSTALLER Screening for HIV (human immunodeficiency virus) HEPATITIS C ANTIBODY, WITH REFLEX Routine 07/29/2024 8:35 AM DUCT INSTALLER Need for hepatitis C screening test TSH, SENSITIVE Routine 07/29/2024 8:35 AM DUCT INSTALLER Hypothyroidism, unspecified type (HRC) GLUCOSE Routine 07/29/2024 8:35 AM DUCT INSTALLER Screening for diabetes mellitus HGB A1C Routine 07/29/2024 8:35 AM DUCT INSTALLER Screening for diabetes mellitus LIPID PANEL & DIRECT LDL (IF NEEDED) Routine 07/29/2024 8:35 AM DUCT INSTALLER Hypertriglyceridemia (HRC) US THYROID Routine 05/15/2024 11:02 AM CDT Thyroid lump (HRC) PAP TEST Routine 06/15/2023 11:32 AM CDT Screening for malignant neoplasm of cervix from Last 3 Months or Most Recently Relevant to Health Maintenance Results * HIV 1/2 Ag/Ab 4th Generation (07/29/2024 8:35 AM DUCT INSTALLER) Pathologist [facility] HIV 1/2 Antigen/Antib stalin (4th generation) Negative (Non Reactive) Negative (Non Reactive) 07/29/2024 3:42 PM DUCT INSTALLER [facility] Comment:HIV-1 p24 Antigen an d HIV-1/HIV-2 Antibody not detected Blood Venipuncture / Unknown 07/29/2024 8:35 AM DUCT INSTALLER 07/29/2024 8:35 AM DUCT INSTALLER Stella Paulino MD LAB_1 Performing Organization Address City/[facility]/ZIP Co de Phone Number [facility] [address] [place], [place] [id number] [place] [address] * (ABNORMAL) Lipid Panel and Direct LDL(If Needed) (07/29/2024 8:35 AM DUCT INSTALLER) [facility] Cholesterol 198 0 - 199 mg/dL 07/29/2024 3:52 PM DUCT INSTALLER [facility] Triglyceride 255(H) <=149 mg/dL 07/29/2024 3:52 PM DUCT INSTALLER [facility] HDL Cholesterol 45 >=40 mg/dL 4 3:52 PM DUCT INSTALLER [facility] LDL, Calculated 102 <130 mg/dL 4 3:52 PM DUCT INSTALLER [facility] Non HDL Chol, Calculated 153 <=159 mg/dL 07/29/2024 3:52 PM DUCT INSTALLER [facility] Cholesterol/HDL Ratio 4.4 <=5.0 07/29/2024 3:52 PM DUCT INSTALLER [facility] Hours Fasting 12.0 8 - 12 Hours 07/29/2024 3:52 PM DUCT INSTALLER [facility] (PN) Blood Venipuncture / Unknown 07/29/2024 8:35 AM DUCT INSTALLER 07/29/2024 8:35 AM DUCT INSTALLER Stella Paulino MD LAB_1 Performing Organization Address [facility]/ZIP Co de Phone Number [facility] [address] [place] [address], [facility] [place] [facility] (PN) [facility] [place] [address], [facility] * TSH (07/29/2024 8:35 AM DUCT INSTALLER) Pathologist [facility] TSH, Sensitive 2.57 0.30 - 4.50 uIU/mL 07/29/2024 3:44 PM DUCT INSTALLER [facility] Blood Venipuncture / Unknown 07/29/2024 8:35 AM DUCT INSTALLER 07/29/2024 8:35 AM DUCT INSTALLER Stella Paulino MD LAB_1 Performing Organization Address [facility] de Phone Number [facility] [address] [place] [address] * Hepatitis C Antibody, with Reflex (07/29/2024 8:35 AM DUCT INSTALLER) [facility] Hepatitis C Antibody Negative (Non Reactive) Negative (Non Reactive) 07/29/2024 3:42 PM DUCT INSTALLER [facility] Comment:Antibodies to HCV no t detected. Does not exclude the possiblity of exposure to HCV. Blood Venipuncture / Unknown 07/29/2024 8:35 AM DUCT INSTALLER 07/29/2024 8:35 AM DUCT INSTALLER Stella Paulino MD LAB_1 Performing Organization Address [facility] Phone Number [facility] [address] [place] [address] * HGB A1C (07/29/2024 8:35 AM DUCT INSTALLER) [facility] Hemoglobin A1C 5.2 <=5.6 % 07/29/2024 8:27 PM DUCT INSTALLER [facility] Estimated Average Glucose (Calc) 103 < 117 mg/dL 07/29/2024 8:27 PM DUCT INSTALLER [facility] Comment:Estimated average gl ucose (eAG) converts A1c into glucose units (mg/dL) and estimates average glucose over the past approximately 3 months. The eAG reference interval (<117 mg/dL) corresponds to an A1c of <5.7%. Blood Venipuncture / Unknown 07/29/2024 8:35 AM DUCT INSTALLER 07/29/2024 4:17 PM DUCT INSTALLER tSella Paulino MD LAB_1 [facility] [address] * Glucose (07/29/2024 8:35 AM DUCT INSTALLER) Glucose 88 70 - 100 mg/dL 07/29/2024 3:52 PM DUCT INSTALLER [facility] Comment:The given reference range is for the fasting state. Non-fasting reference range for glucose is 70 - 180 mg/dL. Hours Fasting 12.0 8 - 12 Hours 07/29/2024 3:52 PM DUCT INSTALLER [facility] (PN) Blood Venipuncture / Unknown 07/29/2024 8:35 AM DUCT INSTALLER 07/29/2024 8:35 AM DUCT INSTALLER Stella Paulino MD LAB_1 Performing Organization Address [facility] Co de Phone Number [facility] [address] [place] [phone] (PN) [facility] [place] [address], [place] * US Thyroid (05/15/2024 11:02 AM CDT) Anatomical Region Laterality Modality Neck, Head Ultrasound 05/15/2024 10:3 7 AM CDT Impressions 05/15/2024 1:21 PM CDT COMPARISON: Thyroid ultrasound 04/25/2021 TECHNIQUE: Ultrasound examination of the thyroid and adjacent soft tissues was performed. FINDINGS: RIGHT LOBE (cc, trans, ap): 6.0 x 1.9 x 1.3 cm. Small subcentimeter colloid cysts. No suspicious nodules. LEFT LOBE (cc, trans, ap): 5.3 x 1.9 x 1.5 cm. Scattered small subcentimeter colloid cysts with no suspicious nodules. Central cervical lymph nodes: Normal size nodes. No lymphadenopathy, cysts, or other abnormal soft tissue findings. IMPRESSION: 1. Scattered subcentimeter colloid cysts, left greater than right, similar to previous. No suspicious thyroid nodules. 2. No sonographic correlate to the palpable finding on exam. Narrative Procedure Note Malick Solorzano MD - 05/15/2024 IMPRESSION COMPARISON: Thyroid ultrasound 04/25/2021 TECHNIQUE: Ultrasound examination of the thyroid and adjacent soft tissueswas performed. FINDINGS: RIGHT LOBE (cc, trans, ap): 6.0 x 1.9 x 1.3 cm. Small subcentimetercolloid cysts. No suspicious nodules. LEFT LOBE (cc, trans, ap): 5.3 x 1.9 x 1.5 cm. Scattered smallsubcentimeter colloid cysts with no suspicious nodules. Central cervical lymph nodes: Normal size nodes. No lymphadenopathy,cysts, or other abnormal soft tissue findings. IMPRESSION: 1. Scattered subcentimeter colloid cysts, left greater than right, similarto previous. No suspicious thyroid nodules. 2. No sonographic correlate to the palpable finding on exam. Stella Paulino MD RAD US * PAP Test (06/15/2023 11:32 AM CDT) Case Report Pap Case: [id number] Authorizing Provider: Stella Paulino MD Collected: 06/15/2023 1132 Ordering Location: [facility] Received: 06/15/2023 1258 First Screen: [place] CT (ASCP) Specimen: Pap Test, Routine, Cervix/Endocervix 07/05/2023 3:20 PM CDT [facility] Pap Specimen Adequacy Satisfactory for evaluation, endocervical/rodriguez sformation zone component present. 07/05/2023 3:20 PM CDT [facility] Pap Interpretation (NILM) Negative for intraepithelial lesion or malignancy. 07/05/2023 3:20 PM CDT [facility] Pap Disclaimer The Pap test is a screening test to aid in the detection of cervical and vaginal cancers and their precursor lesions. It is not a diagnostic procedure and should not be used as the sole means of detecting malignancy. Both false-positive and false-negative results may occur. 07/05/2023 3:20 PM CDT [facility] Gross Description The specimen is received in SurePath fixative and properly labeled. 1 Pap-stained SurePath slide is prepared. 07/05/2023 3:20 PM CDT [facility] Embedded Images 3:20 PM CDT [facility] Other Specimen Type ENTIRE ENDOCERVIX / Unknown 06/15/2023 11:32 AM CDT 06/15/2023 12:58 PM CDT Comment:LMP: No LMP recorded . (Menstrual status: ). Stella Paulino MD LAB PATHOLOGY [facility] [address] [place], [place] [address] from Last 3 Months or Most Recently Relevant to Health Maintenance Advance Directives * Full Code (Latest Code Status on File) Date Activated Date Inactivated Comments 12/15/2020 11:28 AM 12/15/2020 6:25 PM Care Teams Manager Of Software Development Relationship Specialty Start Date End Date Stella Paulino MD [address] [place] [address] PCP - General Family Practice 01/10/19
--- OUTSIDE RECORDS SUMMARY | 2024-08-13 16:55 | XMS_ITS | Encounter Summary ---
Author Organization [facility] Address [address], [place] [address] Care Team Providers Care Junior Legal Secretary Name Role Phone Stella [place]ino MD Primary Care Provider [phone] Reason for Visit * Procedure/Equipment (Routine) - Incomplete Specialty Diagnoses / Procedures Referred By Contac t Referred To Contact Diagnoses Thyroid lump (HRC) Procedures US Thyroid Stella Paulino MD [address] [place] [address] Referral ID Status Reason Start Date Expiration Date V isits Requested Visits Authorized [id number] Incomplete 06/15/2023 09/13/2024 1 1 Encounter Details Date Type Department Care Team (Late st Contact Info) Description 05/15/2024 10:45 AM CDT Ancillary Procedure [facility] [address] [address] [address] [place] [phone] Stella Paulino MD [address] [place] [address] Thyroid lump (HRC) Social History Tobacco Use [...] st Contact Info) Description 07/31/2025 9:30 AM PICKING TABLE WORKER Appointment [facility] [address] [place] [address] Stella Paulino MD [address] [place] [address] documented as of this encounter Procedures Procedure Name Priority Date/Time Associated Diagnosis Comments US THYROID Routine 05/15/2024 11:02 AM CDT Thyroid lump (HRC) documented in this encounter Results * US Thyroid (05/15/2024 11:02 AM CDT) [...] on exam. Stella Paulino MD RAD US documented in this encounter Visit Diagnoses Diagnosis Thyroid lump (HRC) Unspecified disorder of thyroid documented in this encounter Care Teams Junior Legal Secretary Relationship Specialty Start Date End Date Stella Paulino MD [address] [place], [place] [address] PCP - General Family Practice 01/10/19 documented as of this encounter
--- OUTSIDE RECORDS SUMMARY | 2024-08-13 16:55 | XMS_ITS | Clinical Summary ---
Author Organization [facility] Address [place], [place] [address] Care Team Providers Care Facilities Mechanical Design Engineer Name Role Phone Stella Paulino MD Primary Care Provider [phone] Allergies Active Allergy Reactions Criticality Noted Date Comments Prochlorperazine Mouth/Jaw Spasm 07/14/2009 Lock jaw Adhesive Rash 12/14/2015 Medications Medication Sig Dispensed Refills Start Date End Date Status Ozempic 0.25 mg or 0.5 mg (2 mg/3 mL) pen WEEK 1 THROUGH WEEK 4, INJECT 0.25MG SUBCUTANEOUSLY ONCE WEEKLY. WEEK 5 THROUGH WEEK 8, INJECT 0.5MG SUBCUTANEOUSLY ONCE WEEKLY 06/13/2023 Active cefadroxil (DURICEF) 500 mg capsuleIndication s:Acute cystitis with hematuria,Flank pain Take 2 Capsules (1,000 mg) by mouth two times daily. 40 Capsule 08/17/2023 Active Active Problems Problem Noted Date Diagnosed Date Preeclampsia in period 03/28/2017 LTCS 03/20/2017 Macrosomia 03/20/2017 Post-term , 40-42 weeks of gestation Bipolar II disorder 03/12/2017 Group B Streptococcus carrier state affecting pr egnancy 03/12/2017 Low back pain 03/12/2017 Encounter for supervision of normal first , unspecified trimester 11/09/2016 Overview (11/09/2016): 26 y.o. Medical concerns - obesity Genetic screening: normal first trimester screen BMI:# 37.38 Recommended wt gain - 15 pounds Ultrasound findings: Dating on 08-01-16 (9.1 weeks), Normal FAS 10-12-16 Flu vaccine: June 2016 Pertussis Vaccine: 2-1-2014 Peds: FOB: involved, [place] Concussion with loss of cons ciousness of unspecified duration 09/12/2010 GERD (gastroesophageal reflux disease) 0 Major depressive disorder, recurrent episode, un specified 03/24/2010 Anxiety state, unspecified 03/24/2010 Encounters Date Type Department Care Team Description 08/04/2024 7:59 AM SALES LEDGER ADMINISTRATOR - 08/04/2024 11:59 PM SALES LEDGER ADMINISTRATOR Hospital Encounter [facility] [address] [place] [address] Chato Salgado MD Fertility testing 08/04/2024 Travel 07/28/2024 Transcribe Orders [facility] [place] [phone] Chato Salgdao MD from Last 3 Months Immunizations Name Administration Dates Next Due Human Papilloma Virus Vaccine 04/11/2011 Influenza, IIV3 (Age >=3 years) 06/03/2009,08/14 Influenza, IIV4 07/17/2017,06/10/2016 Td (Age >=7 Years) 10/11/2013,12/26/2003 Tdap 12/11/2016 Family History Medical History Relation Name Comments Hyperlipidemia Father Other Father Febrile Sz Heart Disease Maternal Grandfather age 62 OR Heart Disease Maternal Grandmother Skin cancer Maternal Grandmother Heart Disease Mother Hypertension Mother Other Mother obesity, s/p la p band Psychiatric illness Mother depressi on Cancer Paternal Grandfather Bladder Other Paternal Grandfather Febrile Sz Cancer-pancreatic Paternal Grandmother Depression Paternal Grandmother Good Health Sister Anesthesia Problem No Family History Blood Disease No Family History Relation Name Status Comments Father Alive Maternal Grandfather Maternal Grandmother Mother Alive Paternal Grandfather Paternal Grandmother Sister Alive Social History Tobacco Use Types Packs/Day Years Used Date Smoking Tobacco: Never Smokeless Tobacco: Never Tobacco Cessation:Counseling Given: No Alcohol Use Standard Drinks/Week Comments No 0 (1 standard drink = 0.6 oz pur e alcohol) Sex and Gender Information Value Date Recorded Sex Assigned at Not on file Gender Identity Not on file Sexual Orientation Not on file Obstetrics History Para Term AB IAB SAB Ectopic Multiple Livin g Live Births 1 1 1 0 0 0 0 0 0 1 1 Date Outcome GA Total Labor Labor/2nd/3rd Weight Sex Type Anes PTL Velma A1 A5 Name Clin 017 Term 42w 1d 4.55 kg (10 lb 0.5 oz) M C-Sec cristal Johnston g 9 9 TANYA COOLEY Delivery Location[facility] Last Filed Vital Signs Vital Sign Reading Time Taken Comments Blood Pressure 133/91 08/17/2023 10:29 AM SALES LEDGER ADMINISTRATOR Pulse 95 08/17/2023 10:29 AM SALES LEDGER ADMINISTRATOR Temperature 36.5 C (97.7 F) 08/17/2023 10:29 AM SALES LEDGER ADMINISTRATOR Respiratory Rate 16 08/17/2023 10:29 AM SALES LEDGER ADMINISTRATOR Oxygen Saturation 97% 08/17/2023 10:29 AM SALES LEDGER ADMINISTRATOR Inhaled Oxygen Concentration - - Weight 83.5 kg (184 lb) 08/17/2023 10:29 AM SALES LEDGER ADMINISTRATOR Height 160 cm (5' 3) 08/17/2023 10:29 AM SALES LEDGER ADMINISTRATOR Body Mass Index 32.59 08/17/2023 10:29 AM SALES LEDGER ADMINISTRATOR Plan of Treatment Health Maintenance Due Date Last Done Comments HIV for age 15-65 01/02/2004 Hepatitis C screening for age 18-79 2007 Depression screening for age 12+ 12/11/2017 12/11/2016, 12/24/2015 Pap test for age 21-65 12/21/2017 12/21/2014, 2010 BMI (ht and wt on same day) for age 18+ 03/28/2018 03/28/2017, 03/13/2017, 01/11/2017, Additional history exists Influenza for age 9-49 05/11/2024 7, 06/10/2016, 06/03/2009, Additional history exists Tetanus booster 12/11/2026 12/11/2016, 0209/2013, 12/26/2003 Tdap Completed 12/11/2016 COVID-19 vaccine series Completed 06/24/20 24, 12/06/2021, 12/07/2020, Additional history exists Pneumococcal series for age 6-64 Aged Out No longer eligible based on patient's age to complete this topic Procedures Procedure Name Priority Date/Time Associated Diagnosis Comments XR HYSTEROSALPINGOGRAM Routine 4 8:44 AM SALES LEDGER ADMINISTRATOR Fertility testing BICYCLE RENTAL CLERK THIN PREP PAP SCREEN IMAGED Routine 12/21/2014 9:08 PM CDT from Last 3 Months or Most Recently Relevant to Health Maintenance Results * XR HYSTEROSALPINGOGRAM (08/04/2024 8:44 AM SALES LEDGER ADMINISTRATOR) Anatomical Region Laterality Modality UTERUS Computed Radiogr aphy 08/04/2024 8:44 AM SALES LEDGER ADMINISTRATOR Impressions 08/04/2024 8:53 AM SALES LEDGER ADMINISTRATOR 1. Patent right fallopian tube. 2. Left salpingectomy. Narrative 08/04/2024 8:53 AM SALES LEDGER ADMINISTRATOR For Patients: As a result of the Cures Act, medical imaging exams and procedure reports are released immediately into your electronic medical record. You may view this report before your referring provider. If you have questions, please contact your health care provider. EXAM: XR HYSTEROSALPINGOGRAM LOCATION: [facility] DATE: 08/04/2024 INDICATION: Fertility Testing COMPARISON: None. RADIATION DOSE: DAP 513.8 uGym2 PROCEDURE: Procedure and risks explained and consent received. A time out was performed where the proper patient, procedure, and site were confirmed. Using sterile technique, a hysterosalpingogram catheter was placed into the cervix by myself and 8 mL Omni 300 contrast material was injected into the uterus and fallopian tubes under direct fluoroscopic supervision. Routine images obtained. COMPLICATIONS: None. RADIOLOGIC SUPERVISION AND INTERPRETATION: UTERUS: Normal configuration with no filling defects or strictures. FALLOPIAN TUBES: Expected postsurgical changes of left salpingectomy. Normal free spillage of contrast from the patent right fallopian tube. Procedure Note Tanner Louis MD - 08/04/2024 For Patients: As a result of the Cures Act, medical imagingexams and procedure reports are released immediately into your electronicmedical record. You may view this report before your referring provider.If you have questions, please contact your health care provider. EXAM: XR HYSTEROSALPINGOGRAM LOCATION: [facility] DATE: 08/04/2024 INDICATION: Fertility Testing COMPARISON: None. RADIATION DOSE: DAP 513.8 uGym2 PROCEDURE: Procedure and risks explained and consent received. A time outwas performed where the proper patient, procedure, and site wereconfirmed. Using sterile technique, a hysterosalpingogram catheter wasplaced into the cervix by myself and 8 mL Omni 300 contrast material wasinjected into the uterus and fallopian tubes under direct fluoroscopicsupervision. Routine images obtained. COMPLICATIONS: None. RADIOLOGIC SUPERVISION AND INTERPRETATION: UTERUS: Normal configuration with no filling defects or strictures. FALLOPIAN TUBES: Expected postsurgical changes of left salpingectomy.Normal free spillage of contrast from the patent right fallopian tube. IMPRESSION: 1. Patent right fallopian tube. 2. Left salpingectomy. Chato Salgado MD FLUOROSCOPY * BICYCLE RENTAL CLERK THIN PREP PAP SCREEN IMAGED (12/21/2014 9:08 PM CDT) BICYCLE RENTAL CLERK CYTOLOGY See Anatomic Pathology case 12/26/2014 10:00 PM CDT [facility] [employer] [facility] Specimen (specimen) (Cervical/Vagina l) Client Collect / Unknown 12/21/2014 9:08 PM CDT 12/21/2014 9:08 PM CDT Gretel Portillo MD PATHOLOGY/CYTOLOGY [facility] 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 Expl anation Treatment Guidelines 03/29/2017 5:40 PM 03/18/17 * Full Code (Latest Code Status on File) Date Activated Date Inactivated Comments 03/28/2017 4:40 PM 03/30/2017 3:17 PM Question Answer Comments Code Status Discussion: Per Existing Order * Full Code Date Activated Date Inactivated Comments 03/20/2017 3:24 PM 03/23/2017 6:25 PM * Full Code Date Activated Date Inactivated Comments 03/20/2017 12:44 PM 03/20/2017 3:24 PM * Full Code Date Activated Date Inactivated Comments 03/18/2017 12:52 PM 03/20/2017 12:44 PM * Full Code Date Activated Date Inactivated Comments 03/18/2017 12:32 PM 03/18/2017 12:52 PM Care Teams Facilities Mechanical Design Engineer Relationship Specialty Start Date End Date Stella Paulino MD [address], [place] [address] PCP - General Family Practice 07/30/22
--- OUTSIDE RECORDS SUMMARY | 2024-08-13 16:55 | XMS_ITS | Clinical Summary ---
Author Organization [facility] Address [address] [place] [address] Care Team Providers Care Silverlight Developer Name Role Phone Veronica Gonzalez MD Unavailable [phone] Clinic, [facility] Primary Care Provide r [...] on file Legal Sex Female 4:34 AM CPR AMBULANCE DRIVER Gender Identity Not on file Sexual Orientation [...] 160 cm (5' 3) 07/31/2022 9:17 AM CPR AMBULANCE DRIVER Body Mass Index 34.37 07/31/2022 9:17 AM CPR AMBULANCE DRIVER Plan of Treatment Health Maintenance Due Date Last Done Comments ADVANCE CARE PLANNING 1989 ANNUAL REVIEW OF HM ORDERS 1989 TSH W/FREE T4 REFLEX 1989 YEARLY PREVENTIVE VISIT 1989 HEPATITIS C SCREENING 2007 PAP 2010 HPV IMMUNIZATION (2 - 3-dose series) 05/09/2011 04/11/2011 GLUCOSE 09/29/2019 09/29/2016, 03/10, 02/17/2016, Additional history exists PHQ-2 (once per calendar year) 2023 COVID-19 Vaccine ( season) 2024 12/06/2021, 12/07/2020, 11/09/2020 INFLUENZA VACCINE (#1) 2024 , 06/08/2021, 06/08/2021, Additional history exists DTAP/TDAP/TD IMMUNIZATION (5 - Td or Tdap) 06/18/2029 06/18/2019, 12/11/2016, 10/11/2013, Additional history exists RSV VACCINE (1 - 1-dose 75+ series) 01/02/2064 HEPATITIS B IMMUNIZATION Completed 001, 05/31/1998, 04/13/1998 HIV SCREENING Completed 12/30/2018 MENINGITIS IMMUNIZATION Aged Out No l onger [...] COMPREHENSIVE METABOLIC PANEL STAT 09/29/2016 9:55 AM CPR AMBULANCE DRIVER from Last 3 Months or Most Recently Relevant to Health Maintenance Results * Surgical Pathology Exam (05/20/2024 3:59 PM CDT) Case Report Surgical Pathology Report Case: [id number] Authorizing Provider: Veronica Gonzalez MD Collected: 05/20/2024 03:59 PM Ordering Location: [facility] Received: 05/21/2024 08:36 AM [facility] Pathologist: Mary Ellen Treviño MD Specimen: Endometrium 05/22/2024 11:57 AM CDT LABORATORY Final Diagnosis A. Endometrium, curettage: -Fragments of benign endometrial polyp. -Late secretory pattern endometrium. 05/22/2024 11:57 AM CDT LABORATORY Clinical Information Abnormal uterine bleeding. 05/22/2024 [...] Microscopic examination was performed. 05/22/2024 11:57 AM CDT LABORATORY Performing Labs The technical component of this testing was completed at [facility]. Stain controls for all stains resulted within this report have been reviewed and show appropriate reactivity. 05/22/2024 11:57 AM CDT LABORATORY Case Images 05/22/2024 11:57 AM CDT LABORATORY Tissue ENDOMETRIAL STRUCTURE / Unknown 05/20/2024 3:59 PM CDT 05/21/2024 8:36 AM CDT us Veronica Gonzalez MD LAB - BEAKER AP Final Res ult LABORATORY [facility] [address] (1st floor, no room number) [place] [address], [facility] [address], [address] [place] [address], [facility] [phone] * HIV Antigen Antibody Combo (12/30/2018) HIV Antigen Antibody Combo negative Blood specimen (specimen) us Patient Reported LAB - BLOOD ORDERABLES Final Re sult * (ABNORMAL) Comprehensive metabolic panel (09/29/2016 9:55 AM CPR AMBULANCE DRIVER) Sodium 138 133 - 144 mmol/L [facility] Potassium 4.0 3.4 - 5.3 mmol/L [facility] Chloride 104 94 - 109 mmol/L [facility] Carbon Dioxide 23 20 - 32 mmol/L [facility] Anion Gap 11 3 - 14 mmol/L [facility] Glucose 92 70 - 99 mg/dL [facility] Urea Nitrogen 7 7 - 30 mg/dL [facility] Creatinine 0.51(L) 0.52 - 1.04 mg/dL [facility] GFR Estimate >90 Non GFR Calc >60 mL/min/1. 7m2 [facility] GFR Estimate If Black >90 GFR Calc >60 mL/min/1. 7m2 [facility] Calcium 8.9 8.5 - 10.1 mg/dL [facility] Bilirubin Total 0.3 0.2 - 1.3 mg/dL [facility] Albumin 2.9(L) 3.4 - 5.0 g/dL [facility] Protein Total 7.2 6.8 - 8.8 g/dL [facility] Alkaline Phosphatase 81 40 - 150 U/L [facility] ALT 27 0 - 50 U/L [facility] AST 19 0 - 45 U/L [facility] Blood specimen (specimen) 09/29/2016 9:55 AM CPR AMBULANCE DRIVER 09/29/2016 10:09 AM CPR AMBULANCE DRIVER us Ruddy Canada MD LAB - BLOOD ORDERABLES No l Result [facility] [address] [address], [facility] [phone] from Last 3 Months or Most Recently Relevant to Health Maintenance Insurance * Guarantor: Juana Cooley Account Type Relation to Patient Date of Phone Billing Address Personal/Family Self 1990 none (Work) [address] [place] [address] [place] Advance Directives For more information, please contact: [phone] * Full Code (Latest Code Status on File) Date Activated Date Inactivated Comments 02/16/2016 7:05 PM 02/17/2016 3:54 PM Care Teams Silverlight Developer Relationship Specialty Start Date End Date Clinic, [facility] [address] [place] [id number] PCP - General 02/07/23 Veronica Gonzalez MD [address] [place] [address] sheet music salesperson 04/18/21
--- OUTSIDE RECORDS SUMMARY | 2024-08-13 16:55 | XMS_ITS | Encounter Summary ---
Author Organization [email or web address] Address [address] [address] Care Team Providers Care Adaptive Physical Educator Name Role Phone Stella Paulino MD Primary Care Provider [phone] Reason for Visit * Reason Comments REFERRAL REQUEST Entered automaticall y based on patient selection in uConnect. Encounter Details Date Type Department Care Team (Late st Contact Info) Description 08/01/2024 1:00 PM TRAVEL NURSE [address]-Visit [address], [place] [id number] Stella Paulino MD [address] [place] [phone] Chief Comp: REFERRAL REQUEST Social History Tobacco Use Types [...] as of this encounter Nursing Notes * Debby Alonso RN - 08/01/2024 2:32 PM CST Clinician Action: Input needed regarding [employer]hart message Clinician Next Step: Reply in [employer] Specific Request(s): 1. Please advise regarding referral request. EL NURSE documented in this encounter Plan of Treatment Upcoming Encounters Date Type Department Care Team (Late st Contact Info) Description 07/31/2025 9:30 AM TRAVEL NURSE Appointment [facility] [address] [place] [phone] Stella Paulino MD [address] [id number] documented as of this encounter Visit Diagnoses Not on filedocumented in this encounter Care Teams Adaptive Physical Educator Relationship Specialty Start Date End Date Stella Paulino MD [address] [phone] PCP - General Family Practice 01/10/19 documented as of this encounter
[2024-08-13 17:08] LABS: PCR FLU A Negative PCR FLU A (Negative); PCR FLU B Negative PCR FLU B (Negative); SARS PCR* Negative SARS-CoV-2 (Negative)
[2024-08-13] MEDS: MORPHINE 4 MG/ML INJ IVP ×2 (17:30→19:13)
--- NOTE | 2024-08-13 19:23 | CRLHL7_ITS ---
For Patients: As a result of the Century Cures Act, medical imaging exams and procedure reports are released immediately into your electronic medical record. You may view this report before your referring provider. If you have questions, please contact your health care provider. INDICATION: Lower abdominal and pelvic pain, on IVF. COMPARISON: Same day CT of the abdomen and pelvis. Pelvic ultrasound 08/13/2023. TECHNIQUE: 2D foy scale and color Doppler images were acquired of the pelvis using a transvaginal approach. FINDINGS: Sonographic images demonstrate a normal size and smooth outer contour of the uterus. The uterus is anteverted in position. The uterus measures 10.7 cm in length by 5.7 cm in AP diameter by 5.5 cm in transverse dimension. The myometrium has uniform echotexture. The endometrial lining is thickened and heterogeneous with possible increased vascularity, measuring 25 mm in composite thickness. Nabothian cysts in the cervix. The right ovary measures 3.1 x 1.4 x 2.1 cm. Normal arterial and venous blood flow on color Doppler analysis. The left ovary measures 3.4 x 1.5 x 2.1 cm. Normal arterial and venous blood flow on color Doppler analysis. There is a 2.2 x 0.9 x 1.7 cm anechoic cyst with irregular margins, likely a collapsing dominant follicle. No free fluid in the pelvic cul-de-sac. IMPRESSION: 1. Abnormally thickened heterogeneous endometrium with possible slight hypervascularity. Findings could be related to hormone stimulation, however underlying malignancy or hyperplasia cannot be excluded. Gynecologic consult is recommended. 2. Probable collapsing dominant follicle in the left ovary. No evidence of torsion. Dictated by Makenna Hay MD @ 08/13/2024 9:16:42 PM (Electronically Signed)
== END 2024-08-13 21:41 | disposition home or self-care (01) ==
PROVIDERS: Emergency Provider Student in an Organized Health Care Education/Training Program
DX: R10.2 Pelvic and perineal pain (principal)
CPT/HCPCS: 36415; 74177; 76830; 80053; 81001; 81025; 83690; 85025; 87086; 87631; 93976; 96374; 96375; 96376; 99284; J1885; J2270; Q9967

== ENCOUNTER 2025-01-07 03:52 | Emergency (ER) | payer OTHER, SELFPAY ==
--- OUTSIDE RECORDS SUMMARY | 2025-01-07 03:54 | XMS_ITS | Clinical Summary ---
Author Organization [facility] Address [address] [place] [address] Care Team Providers Care Rn Geriatric Name Role Phone Unavailable Primary Care Provider Unavailabl e Source Comments PLEASE NOTE, if this patient is a minor, it may be UNLAWFUL to discuss sensitive information that is contained in these records (such as FAMILY PLANNING, MENTAL HEALTH or SUBSTANCE ABUSE) with the minor patient's parent or other person without the patient's specific authorization.[facility] Immunizations Immunization Administration Dates Next Due Moderna COVID-19 Vaccine, [...] Health Maintenance Due Date Last Done Comments Anxiety Screening 1989 HPV Screening 1989 Hepatitis C Screening 1989 Pap + HPV 1989 Tobacco Screening 1989 HIV Screening 01/02/2004 Relationship Safety Screening/Counseling 01/02/2004 Hypertension Screening (#1) 2007 Imm-DTaP/Tdap/Td (1 - Tdap) 01/02/2008 Imm-Hepatitis B (1 of 3 - 19 + 3-dose series) 01/02/2008 Cervical Cancer Screening 2010 Pap Smear 2010 Diabetes Screening 09/07/2022 09/07/2019 [id number] ( season) 2024 021, 11/09/2020 Imm-Influenza (#1) 2024 Alcohol and Drug Screen 09/10/2024 Depression Annual Screen 09/10/2024 Cervical Ablation/Cold-Knife Conization Discontinued Cervical Cryotherapy Discontinued Colposcopy Discontinued Endometrial Biopsy Discontinued Excision/Leep Discontinued HPV Genotyping Discontinued Vaginal Pap Discontinued Vulvoscopy Discontinued Insurance [employer]
--- OUTSIDE RECORDS SUMMARY | 2025-01-07 03:55 | XMS_ITS | Clinical Summary ---
[facility] Organization [facility] Address [address], [place] [address] Care Team Providers Care Photography And Prints Curator Name Role Phone Stella Paulino MD Primary Care Provider [phone] Source Comments You are receiving this document as you are listed as the primary care provider,follow-up provider, or the patient has been referred to you for consultation.This is in compliance with the Medicare and[facility] EHR Incentive Program,which states Providers who transition their patient to another setting of careor provider of care or refers their patient to another provider of care shouldprovide summary care record for each transition of care or referral. [employer] Allergies Active Allergy Reactions Criticality Noted Date Comments Adhesive Rash 12/14/2015 Phenothiazines High 04/22/2015 Locked jaw--could not close mouth Prochlorperazine 03/22/2009 PN: LW Reaction: lock jaw Medications * This document contains information received from the source organization and may not represent a complete record from that organization. ondansetron (ZOFRAN-ODT) 4 MG disintegrating tablet Take 0.5 Tablets (2 mg) by mouth three times a day. 05/11/20 23 Active sucralfate (CARAFATE) 1 GM/10ML suspensionIndicati ons:Esophageal spasm Take 10 mL (1 g) by mouth two times a day. 414 mL 10/25/19 24 Active Additional Information Patient not taking.Reported on 07/31/2024 ISIBLOOM 0.15-30 MG-MCG tablet Take 1 Tablet by mouth daily. 07/28/20 24 Active hyoscyamine (LEVSIN) 0.125 MG tabletIndications: Epigastric pain Take 2 Tablets (0.25 mg) by mouth three times a day as needed. 60 Tablet 07/31/20 24 Active hydrOXYzine HCl (ATARAX) 10 MG tabletIndications: CRISTAL (generalized anxiety disorder) (HRC),Insomnia, unspecified type Take 1-3 Tablets (10-30 mg) by mouth at bedtime as needed for Itching (or sedation). 60 Tablet 3 07/31/20 24 Active Active Problems Problem Noted Date Diagnosed [...] (11/18/2020): Added automatically from request for surgery [id number] OMAR (obstructive sleep apnea) 11/18/2020 Overview (07/31/2024): [...] 09/07/2019 Overview (09/08/2019): Transfer of care from [facility] on 09/07/19 per pt request (insurance issue) [...] (12/07/2020): Added automatically from request for surgery [id number] IUD (intrauterine device) in place 10/04/2020 03/06/2023 Overview (10/04/2020): Mirena IUD January 2020 placed Preeclampsia in period 03/28/2017 12/06/2018 S/P section 03/20/2017 019 Bipolar II disorder 03/12/2017 10/04/19 21 Overview (12/06/2018): STRUGGLED with anx and dep since age 16. SSRI's were not helpful. She was seen at [facility] and had testing with psychiastrist. Never did any inpatient treatment. Did well on lamotrigine and weaned off before attempting . She did well off lamotrigine. Immunizations Immunization Administration Dates Next Due 4vHPV (Gardasil) 04/11/2011 Flu Vac (3+ yrs) 06/03/2009,08/14/2008 Flu Vac Preserv Free (3+yrs) 06/24/2024,06/24/20 13 Fluzone Qiv Multidose Vial 0 .25 (6-35 Mos) 06/08/2021 HepA Adult (19+ yrs) 12/10/2014 HepA, Unspecified Formulation 04/29/2012 HepB, Unspecified Formulation 12/19/2000, 998,04/13/1998 Influenza ([facility] Only) (Flul aval Quad 0.5, 3+ yrs) 05/19/2019 Influenza IIV4 (Quadrivalent ) 0.5mL (67213) 06/05/2023,07/04/2022,06/07/2020,2018,09/25/2018,07/17/2017,06/10/2016,1 ,06/29/2014 MMR 12/19/2000,04/02/1990 Moderna COVID-19 12+ [...] Answer Date Recorded PHQ-2 Score 0 03/06/2023 Comments No Sex and Gender Information Value Date Recorded Sex Assigned at Not on file Legal Sex Female 5:47 AM CDT Gender Identity Not on file Sexual Orientation Not on file 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 Not on file Last Filed Vital Signs Vital Sign Reading Time Taken Comments Blood Pressure 110/80 07/31/2024 3:53 PM DICTAPHONE TECHNICIAN Pulse 82 07/31/2024 3:21 PM DICTAPHONE TECHNICIAN Temperature 36.6 C (97.9 F) 10/24/2023 3:15 PM DICTAPHONE TECHNICIAN Respiratory Rate 11 12/15/2020 1:45 PM CDT Oxygen Saturation 94% 12/15/2020 3:15 PM CDT Inhaled Oxygen Concentration - - Weight 89.4 kg (197 lb) 07/31/2024 3:11 PM DICTAPHONE TECHNICIAN Height 159.4 cm (5' 2.75) 07/31/2024 3:11 PM CS T Body Mass Index 35.18 07/31/2024 3:11 PM DICTAPHONE TECHNICIAN Plan of Treatment Upcoming Encounters Date Type Department Care Team (Late st Contact Info) Description 07/31/2025 9:30 AM DICTAPHONE TECHNICIAN Appointment [facility] [address] [place] [address] Stella Paulino MD [address] [place] [address] [address] [place] [address] Health Maintenance Due Date Last Done Comments HPV Vaccine (2 - 3-dose series) 05/09/2011 04/11/2011 Adult Preventive Visit 07/31/2026 07/31/2024, 2022 Diabetes Screening- (based on age and BMI) 07/29/2027 07/29/2024, 06/04/2023, 12/06/2018 Cervical Cancer Screening 06/15/20282022, 06/15/2023, 01/29/2019 (Completed), Additional history exists DTaP/Tdap/Td Vaccine (6 - Tdap) 06/18/2029 06/18/2019, 12/11/2016, 10/11/2013, Additional history exists Zoster/Shingles Vaccine (1 of 2) 2039 HepB Vaccine Completed 12/19/2000, 05/12, 04/13/1998 HepA Vaccine Completed 12/10/2014, 04/29/2012 COVID-19 Vaccine Completed 06/24/2024, , 12/07/2020, Additional history exists Influenza Vaccine Completed 06/24/2024, , 07/04/2022, Additional history exists HIV Screening (Preventive Services) Completed 07/29/2024 Hep C Screening (Preventive Services) Completed 07/29/2024 Hib Vaccine Aged Out No longer eligi ble based on patient's age to complete this topic IPV (Polio) Vaccine Aged Out No longe r eligible based on patient's age to complete this topic MCV4 Vaccine Aged Out No longer eligi ble based on patient's age to complete this topic Meningococcal B Vaccine Aged Out No l onger eligible based on patient's age to complete this topic Pneumococcal Vaccine Aged Out No long er eligible based on patient's age to complete this topic Procedures Procedure Name Priority Date/Time Associated Diagnosis Comments HGB A1C Routine 07/29/2024 8:35 AM DICTAPHONE TECHNICIAN Screening for diabetes mellitus HIV 1/2 AG/AB 4TH GEN Routine 07/29/2024 8:35 AM DICTAPHONE TECHNICIAN Screening for HIV (human immunodeficiency virus) HEPATITIS C ANTIBODY, WITH REFLEX Routine 07/29/2024 8:35 AM DICTAPHONE TECHNICIAN Need for hepatitis C screening test CYTOLOGY (PAP) Routine 06/15/2023 11:32 AM CDT Screening for malignant neoplasm of cervix from Last 3 Months or Most Recently Relevant to Health Maintenance Results * HIV 1/2 Ag/Ab 4th Generation (07/29/2024 8:35 AM DICTAPHONE TECHNICIAN) HIV 1/2 Antigen/Antib stalin (4th generation) Negative (Non Reactive) Negative (Non Reactive) 07/29/2024 3:42 PM DICTAPHONE TECHNICIAN [facility] Comment:HIV-1 p24 Antigen an d HIV-1/HIV-2 Antibody not detected Blood Venipuncture / Unknown 07/29/2024 8:35 AM DICTAPHONE TECHNICIAN 07/29/2024 8:35 AM DICTAPHONE TECHNICIAN Stella Paulino MD LAB_1 Final Resul t Performing Organization Address [facility] de Phone Number [facility] [address] [place] [address] * Hepatitis C Antibody, with Reflex (07/29/2024 8:35 AM DICTAPHONE TECHNICIAN) Hepatitis C Antibody Negative (Non Reactive) Negative (Non Reactive) 07/29/2024 3:42 PM DICTAPHONE TECHNICIAN [facility] Comment:Antibodies to HCV no t detected. Does not exclude the possiblity of exposure to HCV. Blood Venipuncture / Unknown 07/29/2024 8:35 AM DICTAPHONE TECHNICIAN 07/29/2024 8:35 AM DICTAPHONE TECHNICIAN Stella Paulino MD LAB_1 Final Resul t Performing Organization Address [facility] Phone Number [facility] [address] [place] [address] * HGB A1C (07/29/2024 8:35 AM DICTAPHONE TECHNICIAN) Hemoglobin A1C 5.2 <=5.6 % 07/29/2024 8:27 PM DICTAPHONE TECHNICIAN [facility] Estimated Average Glucose (Calc) 103 < 117 mg/dL 07/29/2024 8:27 PM DICTAPHONE TECHNICIAN [facility] Comment:Estimated average gl ucose (eAG) converts A1c into glucose units (mg/dL) and estimates average glucose over the past approximately 3 months. The eAG reference interval (<117 mg/dL) corresponds to an A1c of <5.7%. Blood Venipuncture / Unknown 07/29/2024 8:35 AM DICTAPHONE TECHNICIAN 07/29/2024 4:17 PM DICTAPHONE TECHNICIAN Stella Paulino MD LAB_1 Final Resul t [facility] [address] * PAP Test (06/15/2023 11:32 AM CDT) Case Report Pap Case: [id number] Authorizing Provider: Stella Paulino MD Collected: 06/15/2023 1132 Ordering Location: [facility] Received: 06/15/2023 1258 First Screen: [place] (ASCP) Specimen: Pap Test, Routine, Cervix/Endocervix 07/05/2023 3:20 PM CDT [facility] Pap Specimen Adequacy Satisfactory for evaluation, endocervical/rodriguez sformation zone component present. 07/05/2023 3:20 PM CDT [facility] Pap Interpretation (NILM) Negative for intraepithelial lesion or malignancy. 07/05/2023 3:20 PM CDT [facility] at 1520 CDT Pap Disclaimer The Pap test is a screening test to aid in the detection of cervical and vaginal cancers and their precursor lesions. It is not a diagnostic procedure and should not be used as the sole means of detecting malignancy. Both false-positive and false-negative results may occur. 07/05/2023 3:20 PM CDT [facility] Gross Description The specimen is received in SurePath fixative and properly labeled. 1 Pap-stained SurePath slide is prepared. 07/05/2023 3:20 PM CDT [facility] Embedded Images 3:20 PM CDT [facility] Other Specimen Type ENTIRE ENDOCERVIX / Unknown 06/15/2023 11:32 AM CDT 06/15/2023 12:58 PM CDT Comment:LMP: No LMP recorded . (Menstrual status: ). us Stella Paulino MD LAB PATHOLOGY Final Resul t [facility] [address] [employer] [place], [place] [address] [[email or web address]] from Last 3 Months or Most Recently Relevant to Health Maintenance Insurance SELF [employer]NAGED C[employer] SEL[employer] SEL[employer] Advance Directives * Full Code (Latest Code Status on File) Date Activated Date Inactivated Comments 12/15/2020 11:28 AM 12/15/2020 6:25 PM Care Teams Photography And Prints Curator Relationship Specialty Start Date End Date Stella Paulino MD [address] [place] [address] PCP - General Family Practice 01/10/19
--- OUTSIDE RECORDS SUMMARY | 2025-01-07 03:55 | XMS_ITS | Clinical Summary ---
Author Organization [facility] Address [address] [place] [address] Care Team Providers Care Superintendent Factory Name Role Phone Veronica Gonzalez MD Primary Care Provider [phone] Pa, Chief Controller Tower And Infertility Unavailable [phone] Allergies Active Allergy Reactions Criticality Noted Date Comments Adhesive Tape-Silicones Rash 06/11/2019 Prochlorperazine 06/11/2019 Lock jaw Medications PNV no.95/ferrous fum/folic ac ( ORAL) Take by mouth. Active HYDROXYZINE HCL ORAL Take by mouth. Active levothyroxine (SYNTHROID) 50 mcg oral tablet Take 1 tablet (50 mcg) by mouth once daily. 90 tablet 09/04/2019 1:22 PM MINE EXPLORATION ENGINEER 09/04/2019 Active senna-docusate (SENNA-S) 8.6-50 mg oral tablet Take 1-2 tablets by mouth once daily. 30 tablet 09/04/2019 1:22 PM MINE EXPLORATION ENGINEER 09/04/2019 Active acetaminophen (TYLENOL EXTRA STRENGTH) 500 mg oral tablet Take 2 tablets (1,000 mg) by mouth every 6 (six) hours as needed. 60 tablet 09/04/2019 Active ibuprofen 600 mg oral tablet Take 1 tablet (600 mg) by mouth every 6 (six) hours as needed. 40 tablet 09/04/2019 Active oxyCODONE, immediate release, (ROXICODONE) 5 mg oral tablet Take 1-2 tablets (5-10 mg) by mouth every 4 (four) hours as needed. 20 tablet 09/04/2019 1:22 PM MINE EXPLORATION ENGINEER 09/04/2019 Active triamcinolone acetonide (KENALOG) 0.1% cream Apply to skin twice a day. 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 05/15/2019 Immunizations Name Administration Dates Next Due Influenza split virus quadrivalent 05/19/2019 Social History Tobacco Use Types Packs/Day Years Used Date Smoking Tobacco: Never Smokeless Tobacco: Never Alcohol Use Standard Drinks/Week Comments Never 0 (1 standard drink = 0.6 oz pur e alcohol) AUDIT-C Answer Date Recorded Frequency of Alcohol Consumption Never 09/07/2019 Average Number of Drinks Not on file 019 Frequency of Binge Drinking Not on file 08/11 Comments No Sex and Gender Information Value Date Recorded Sex Assigned at Not on file Legal Sex Female 12:01 PM CDT Gender Identity Not on file Sexual Orientation Not on file Last Filed Vital Signs Vital Sign Reading Time Taken Comments Blood Pressure 154/96 09/07/2019 7:29 PM MINE EXPLORATION ENGINEER Pulse 107 09/07/2019 7:29 PM MINE EXPLORATION ENGINEER Temperature 36.6 C (97.8 F) 09/07/2019 7:29 PM MINE EXPLORATION ENGINEER Respiratory Rate 17 09/07/2019 7:29 PM MINE EXPLORATION ENGINEER Oxygen Saturation 97% 09/07/2019 7:29 PM MINE EXPLORATION ENGINEER Inhaled Oxygen Concentration - - Weight 108 kg (238 lb) 09/01/2019 6:07 AM MINE EXPLORATION ENGINEER Height 160 cm (5' 3) 09/01/2019 6:07 AM MINE EXPLORATION ENGINEER Body Mass Index 42.16 09/01/2019 6:07 AM MINE EXPLORATION ENGINEER Plan of Treatment Health Maintenance Due Date Last Done Comments Hepatitis C Screening 1989 Anxiety Screening (CRISTAL-2) 1990 Depression Assessment (PHQ-2) 1990 Pap Smear 08/17/2019 08/17/2016 COVID-19 Vaccine ( season) 2024 Influenza Vaccine (Season Ended) 2025 05/19/2019 Adult Tetanus Booster 06/18/2029 06/18/2019 , 12/11/2016, 10/11/2013, Additional history exists RSV Vaccines (1 - 1-dose 75+ series) 01/02/2064 Pneumococcal Vaccine Aged Out No long er eligible based on patient's age to complete this topic Procedures Procedure Name Priority Date/Time Associated Diagnosis Comments PAP (BUDGET SPECIALIST CYTOLOGY) Routine 08/17/2016 4: 04 PM MINE EXPLORATION ENGINEER Encounter for supervision of normal first in first trimester from Last 3 Months or Most Recently Relevant to Health Maintenance Results * PAP (BUDGET SPECIALIST CYTOLOGY) (08/17/2016 4:04 PM MINE EXPLORATION ENGINEER) PAP TEST (BUDGET SPECIALIST CYTOLOGY) Normal 08/22/2016 1:24 PM MINE EXPLORATION ENGINEER [facility] Comment: [facility] [address] [place] [id number] CYTOLOGY REPORT Patient Name: GUILLERMO COOLEY Specimen No: [id number] Location: [facility] Age: 26 Sex: F Earnestine. Date: 08/17/2016 Med. Rec. #: [id number] : 1990 Received: 08/18/2016 Physician(s): Cj Neville MD Encounter No. [id number] Reported: 08/22/2016 SOURCE OF SPECIMEN A: CERVICAL-THIN PREP WITH HPV TEST Business Support Administrator Screening CLINICAL HISTORY Date of Last Menstrual Period: 05/17/16 SPECIMEN ADEQUACY Satisfactory for evaluation. Endocervical/transformation zone component present. INTERPRETATION Negative for intraepithelial lesion or malignant cells. Electronically Signed Out NASH Castro (ASCP) CPT Code(s): A: 28141. This specimen was screened by the ThinPrep Imaging System prior to manual review by a dye house helper and/or pathologist. The Pap Test is a screening test and has an irreducible false-negative rate. Routine periodic testing and follow-up of unexplained clinical signs and symptoms are important to minimize the consequences of false-negative Pap tests. Massad et al. 2012 Updated Consensus Guidelines for the Management of Abnormal Cervical Cancer Screening Tests and Cancer Precursors. J Low Genit Tract Dis 2013; 17 (5): S2-S27 Site-Microbiolog y (Cervical - Thin Prep) 08/17/2016 4:04 PM MINE EXPLORATION ENGINEER 08/17/2016 9:49 PM MINE EXPLORATION ENGINEER us Cj Neville MD PATHOLOGY/CYTOLOGY ORDERABLE Final Result [facility] PATHOLOGY [facility] [address] [address] from Last 3 Months or Most Recently Relevant to Health Maintenance Insurance [employer] [facility] Advance Directives For more information, please contact: [phone] * Full Code (Latest Code Status on File) Date Activated Date Inactivated Comments 09/01/2019 6:03 AM 09/04/2019 9:24 PM Question Answer Comments How was code status determined? Patient Care Teams Superintendent Factory Relationship Specialty Start Date End Date Veronica Gonzalez MD PCP - General Obstetrics/Gynecology 05/05/19 Pa, Chief Controller Tower And Infertility [address] [place] [address] PCP - Primary Care Clinic 05/05/19
--- OUTSIDE RECORDS SUMMARY | 2025-01-07 03:55 | XMS_ITS | Clinical Summary ---
Author Organization [email or web address] [facility] Address [address] [place] [address] Care Team Providers Care Street Department Dispatcher Name Role Phone Stella Paulino MD Primary Care Provider [phone] Allergies Active Allergy Reactions Criticality Noted Date Comments Prochlorperazine Mouth/Jaw Spasm 07/14/2009 Lock jaw Adhesive Rash 12/14/2015 Medications Ozempic 0.25 mg or 0.5 mg (2 mg/3 mL) pen WEEK 1 THROUGH WEEK 4, INJECT 0.25MG SUBCUTANEOUSLY ONCE WEEKLY. WEEK 5 THROUGH WEEK 8, INJECT 0.5MG SUBCUTANEOUSLY ONCE WEEKLY 3 Active cefadroxil (DURICEF) 500 mg capsuleIndicat ions:Acute cystitis with hematuria,Flan k pain Take 2 Capsules (1,000 mg) by mouth two times daily. 40 Capsule 3 Active Active Problems Problem Noted Date Diagnosed [...] Dating on 08-01-16 (9.1 weeks), Normal FAS 22-17 Flu vaccine: June 2016 Pertussis Vaccine: 10-11-2013 Peds: FOB: involved, [place] Concussion with loss of cons ciousness of unspecified duration 09/12/2010 GERD (gastroesophageal reflux disease) 0 Major depressive disorder, recurrent episode, un specified 03/24/2010 Anxiety state, unspecified 03/24/2010 Encounters Date Type Department Care Team Description 10/31/2024 11:57 AM FILTER CLEANER - 10/31/2024 12:52 PM FILTER CLEANER Emergency [facility] [address] [place] [address] Kaye Orta PA-C Upper respiratory tract infection, unspecified type (Primary Dx) Discharge Disposition: Home Self Care from Last 3 Months Immunizations Immunization Administration Dates Next Due Human Papilloma Virus Vaccine 04/11/2011 Influenza, IIV3 (Age >=3 years) 06/03/2009,08/14 Influenza, IIV4 07/17/2017,06/10/2016 Td (Age >=7 Years) 10/11/2013,12/26/2003 Tdap 12/11/2016 Family History Medical History Relation Name Comments Hyperlipidemia Father Other Father Febrile Sz Heart Disease Maternal Grandfather age 62 [place] Heart Disease Maternal Grandmother Skin cancer Maternal [...] drink = 0.6 oz pur e alcohol) Comments No Sex and Gender Information Value Date Recorded Sex Assigned at Not on file Legal Sex Female 7:41 AM FILTER CLEANER Gender Identity Not on file Sexual Orientation Not on file 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 Not on file 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 Not on file Not on file Not on file Obstetrics History Para Term AB IAB SAB Ectopic Multiple Livin g Live Births 1 1 1 0 0 0 0 0 0 1 1 Date Outcome GA Total Labor Labor/2nd/3rd Weight Sex Type Anes PTL Velma A1 A5 Name Clin 017 Term 42w 1d 4.55 kg (10 lb 0.5 oz) M C-Sec tion Livin g 9 9 MATT ,BB CAITLI N Delivery Location:[facility] Last Filed Vital Signs Vital Sign Reading Time Taken Comments Blood Pressure 133/91 08/17/2023 10:29 AM FILTER CLEANER Pulse 95 08/17/2023 10:29 AM FILTER CLEANER Temperature 36.5 C (97.7 F) 08/17/2023 10:29 AM FILTER CLEANER Respiratory Rate 16 08/17/2023 10:29 AM FILTER CLEANER Oxygen Saturation 97% 08/17/2023 10:29 AM FILTER CLEANER Inhaled Oxygen Concentration - - Weight 83.5 kg (184 lb) 08/17/2023 10:29 AM FILTER CLEANER Height 160 cm (5' 3) 08/17/2023 10:29 AM FILTER CLEANER Body Mass Index 32.59 08/17/2023 10:29 AM FILTER CLEANER Plan of Treatment Health Maintenance Due Date Last Done Comments HIV for age 15-65 01/02/2004 Hepatitis C screening for age 18-79 2007 Depression screening for age 12+ 12/11/2017 12/11/2016, 12/24/2015 Pap test for age 21-65 12/21/2017 12/21/2014, 2010 BMI (ht and wt on same day) for age 18+ 03/28/2018 03/28/2017, 03/13/2017, 01/11/2017, Additional history exists Influenza Vaccine (Season Ended) 2025 07/17/2017, 06/10/2016, 06/03/2009, Additional history exists Tetanus booster 12/11/2026 12/11/2016, 09/2013, 12/26/2003 Tdap Completed 12/11/2016 COVID-19 vaccine series Completed 06/24/20 24, 12/06/2021, 12/07/2020, Additional history exists Pneumococcal series for age 6-49 Aged Out No longer eligible based on patient's age to complete this topic Procedures Procedure Name Priority Date/Time Associated Diagnosis Comments STREP A MOLECULAR AFF ONLY STAT 10/31/2024 12:00 PM FILTER CLEANER INFLUENZA A AND B MOLECULAR AFF ONLY STAT 10/31/2024 12:00 PM FILTER CLEANER COVID 19 MOLECULAR EPPA STAT 10/31/2024 12:00 PM FILTER CLEANER FUR LINER THIN PREP PAP SCREEN IMAGED Routine 12/21/2014 9:08 PM CDT from Last 3 Months or Most Recently Relevant to Health Maintenance Results * COVID 19 MOLECULAR (10/31/2024 12:00 PM FILTER CLEANER) COVID 19 MOLECULAR Negative Negative 10/31/2024 12:30 PM FILTER CLEANER [facility] Comment: SARS-CoV-2 viral RNA not detected. A negative result should not be used as the sole basis for patient management and does not rule out co-infections with other pathogens. Negative results should be treated as presumptive and considered in the context of the patients' clinical status. False negatives may occur if inadequate levels of viruses are present in the sample. Swab SPECIMEN FROM NASAL FOSSAE / Unknown Non-Blood / Unknown 10/31/2024 12:00 PM FILTER CLEANER 10/31/2024 12:13 PM FILTER CLEANER Narrative [facility] - 10/31/2024 12:30 PM FILTER CLEANER This test was developed and its performance characteristics determined by [employer]. This test has not been FDA cleared or approved. This test has been authorized by FDA under an Emergency Use Authorization (EUA). This test has been validated in accordance with the FDA's Guidance Document (Policy for Diagnostics Testing in Laboratories Certified to Perform High Complexity Testing under CLIA prior to Emergency Use Authorization for Coronavirus Disease-2019 during the Public Health Emergency) issued on November 08, 2019(updated 11/24/2019, 01/12/2020, and 01/19/2020). This test is only authorized for the duration of time the declaration that circumstances exist justifying the authorization of the emergency use of in vitro diagnostic tests for detection of SARS-CoV-2 virus and/or diagnosis of COVID-19 infection under section 564(b)(1) of the Act, 21 U.S.C. 360bbb-3(b)(1), unless the authorization is terminated or revoked sooner. The ID NOW COVID-19 Letter of Authorization, along with the authorized Fact Sheet for Healthcare Providers, the authorized Fact Sheet for Patients, and authorized labeling are available on the FDA website: https://www.fda.gov/MedicalDevices/Safety/ EmergencySituations/dzv782883.htm. Kaye Orta PA-C MICROBIOLOGY Final Result Performing Organization Address [facility] Co de Phone Number [facility] [address] [place] [address], [place] * STREP A MOLECULAR AFF ONLY (10/31/2024 12:00 PM FILTER CLEANER) [facility] Strep A Molecular Negative for Strep A nucleic acid Negative for Strep A nucleic acid 10/31/2024 12:25 PM FILTER CLEANER [facility] Throat SPECIMEN FROM THROAT / Unknown Non-Blood / Unknown 10/31/2024 12:00 PM FILTER CLEANER 10/31/2024 12:13 PM FILTER CLEANER Kaye Orta PA-C MICROBIOLOGY Final Result Performing Organization Address [facility] de Phone Number [facility] [address] [place] [address], [place] * INFLUENZA A AND B MOLECULAR AFF ONLY (10/31/2024 12:00 PM FILTER CLEANER) [facility] Influenza A Molecular Negative Influenza A - Viral RNA Not Detected Negative Influenza A - Viral RNA Not Detected 10/31/2024 12:46 PM FILTER CLEANER [facility] Influenza B Molecular Negative Influenza B - Viral RNA Not Detected Negative Influenza B - Viral RNA Not Detected 10/31/2024 12:46 PM FILTER CLEANER [facility] Other SPECIMEN FROM NASAL FOSSAE / Unknown Non-Blood / Unknown 10/31/2024 12:00 PM FILTER CLEANER 10/31/2024 12:13 PM FILTER CLEANER Kaye R [place] PA-C MICROBIOLOGY Final Result [facility] [address] [place] [address], [place] * FUR LINER THIN PREP PAP SCREEN IMAGED (12/21/2014 9:08 PM CDT) FUR LINER CYTOLOGY See Anatomic Pathology case 12/26/2014 10:00 PM CDT [facility] Specimen (specimen) (Cervical/Vagina l) Client Collect / Unknown 12/21/2014 9:08 PM CDT 12/21/2014 9:08 PM CDT us Gretel Portillo MD PATHOLOGY/CYTOLOGY Final Res ult Performing Organization Address City/[facility]/ZIP Co de Phone Number [facility] [address] [place] [address], from Last 3 Months or Most Recently Relevant to Health Maintenance Insurance [facility] [employer]AGE PLAN [place] [id number] Advance Directives Documents on File Type Date Recorded Patient Wirer Expl anation Treatment Guidelines 03/29/2017 5:40 PM [...] 12:32 PM 03/18/2017 12:[address] Department Dispatcher Relationship Specialty Start Date End Date Stella Paulino MD [address] [place] [address] PCP - General Family Practice 07/30/22
--- OUTSIDE RECORDS SUMMARY | 2025-01-07 03:55 | XMS_ITS | Clinical Summary ---
Author Organization [place] Address [address] [facility] [place] [address] Care Team Providers Care Galley Cook Name Role Phone Veronica Gonzalez MD Unavailable [phone] Clinic, Nayeli Terry Primary Care Provide r [...] on file Legal Sex Female 4:34 AM MOLD BUILDER Gender Identity Not on file Sexual Orientation [...] 160 cm (5' 3) 07/31/2022 9:17 AM MOLD BUILDER Body Mass Index 34.37 07/31/2022 9:17 AM MOLD BUILDER Plan of Treatment Health Maintenance Due Date Last Done Comments ADVANCE CARE PLANNING 1989 ANNUAL REVIEW OF HM ORDERS 1989 TSH W/FREE T4 REFLEX 1989 YEARLY PREVENTIVE VISIT 01/02/1992 HEPATITIS C SCREENING 2007 PAP 2010 HPV IMMUNIZATION (2 - 3-dose series) 05/09/2011 04/11/2011 DIABETES SCREENING 09/29/2019 09/29/2016, 0 03/19/2016, 02/17/2016, Additional history exists COVID-19 Vaccine ( season) 2024 12/06/2021, 12/07/2020, 11/09/2020 INFLUENZA VACCINE (#1) 2024 , 06/08/2021, 06/08/2021, Additional history exists PHQ-2 (once per calendar year) 2024 DTAP/TDAP/TD IMMUNIZATION (5 - Td or Tdap) 06/18/2029 06/18/2019, 12/11/2016, 10/11/2013, Additional history exists ZOSTER IMMUNIZATION (1 of 2) 2039 HEPATITIS B IMMUNIZATION Completed 001, 05/31/1998, 04/13/1998 HIV SCREENING Completed 12/30/2018 MENINGITIS IMMUNIZATION Aged Out No l onger eligible based on patient's age to complete this topic Pneumococcal Vaccine: Pediatrics (0 to 5 Years) and At-Risk Patients (6 to 49 Years) Aged Out No longer eligible based on patient's age to complete this topic Procedures Procedure Name Priority Date/Time Associated Diagnosis Comments HIV ANTIGEN ANTIBODY COMBO Routine 12/30/2018 COMPREHENSIVE METABOLIC PANEL STAT 09/29/2016 9:55 AM MOLD BUILDER from Last 3 Months or Most Recently Relevant to Health Maintenance Results * HIV Antigen Antibody Combo (12/30/2018) HIV Antigen Antibody Combo negative Blood specimen (specimen) us Patient Reported LAB - BLOOD ORDERABLES Final Re sult * (ABNORMAL) Comprehensive metabolic panel (09/29/2016 9:55 AM MOLD BUILDER) Sodium 138 133 - 144 mmol/L [facility] Potassium 4.0 3.4 - 5.3 mmol/L [facility] Chloride 104 94 - 109 mmol/L [facility] Carbon Dioxide 23 20 - 32 mmol/L [facility] Anion Gap 11 3 - 14 mmol/L [facility] Glucose 92 70 - 99 mg/dL [facility] Urea Nitrogen 7 7 - 30 mg/dL [facility] Creatinine 0.51(L) 0.52 - 1.04 mg/dL [facility] GFR Estimate >90 Non GFR Calc >60 mL/min/1. 7m2 [facility] GFR Estimate If Black >90 GFR Calc >60 mL/min/1. 7m2 [facility] Calcium 8.9 8.5 - 10.1 mg/dL [facility] Bilirubin Total 0.3 0.2 - 1.3 mg/dL [facility] Albumin 2.9(L) 3.4 - 5.0 g/dL [facility] Protein Total 7.2 6.8 - 8.8 g/dL [facility] Alkaline Phosphatase 81 40 - 150 U/L [facility] ALT 27 0 - 50 U/L [facility] AST 19 0 - 45 U/L [facility] Blood specimen (specimen) 09/29/2016 9:55 AM MOLD BUILDER 09/29/2016 10:09 AM MOLD BUILDER us Ruddy Canada MD LAB - BLOOD ORDERABLES No crespo Result [facility] [address], [place] [address], [place] [phone] from Last 3 Months or Most Recently Relevant to Health Maintenance Insurance [facility] Advance Directives For more information, please contact: [phone] * Full Code (Latest Code Status on File) Date Activated Date Inactivated Comments 02/16/2016 7:05 PM 02/17/2016 3:54 PM Care Teams Galley Cook Relationship Specialty Start Date End Date Clinic, Nayeli Terry [address] [place] [address] PCP - General 02/07/23 Veronica Gonzalez MD [address] [place] [address] patch sander 04/18/21
--- OUTSIDE RECORDS SUMMARY | 2025-01-07 03:55 | XMS_ITS | Referral Summary ---
Author Organization [facility] Address [address] [place] [address] Care Team Providers Care Manager Bar Name Role Phone Veronica Gonzalez MD Primary Care Provider [phone] Pa, Blanchard Grinder Operator And Infertility Unavailable [phone] Allergies Active Allergy Reactions Criticality Noted Date Comments Adhesive Tape-Silicones Rash 06/11/2019 Prochlorperazine 06/11/2019 Lock jaw Medications PNV no.95/ferrous fum/folic ac ( ORAL) Take by mouth. Active HYDROXYZINE HCL ORAL Take by mouth. Active levothyroxine (SYNTHROID) 50 mcg oral tablet Take 1 tablet (50 mcg) by mouth once daily. 90 tablet 09/04/2019 1:22 PM LIFE MANAGER 09/04/2019 Active senna-docusate (SENNA-S) 8.6-50 mg oral tablet Take 1-2 tablets by mouth once daily. 30 tablet 09/04/2019 1:22 PM LIFE MANAGER 09/04/2019 Active acetaminophen (TYLENOL EXTRA STRENGTH) 500 [...] as needed. 20 tablet 09/04/2019 1:22 PM LIFE MANAGER 09/04/2019 Active triamcinolone acetonide (KENALOG) 0.1% cream Apply to skin twice a day. 80 g 09/04/2019 1:22 PM LIFE MANAGER 09/04/2019 Active Active Problems Problem Noted Date [...] Comments Blood Pressure 154/96 09/07/2019 7:29 PM LIFE MANAGER Pulse 107 09/07/2019 7:29 PM LIFE MANAGER Temperature 36.6 C (97.8 F) 09/07/2019 7:29 PM LIFE MANAGER Respiratory Rate 17 09/07/2019 7:29 PM LIFE MANAGER Oxygen Saturation 97% 09/07/2019 7:29 PM LIFE MANAGER Inhaled Oxygen Concentration - - Weight 108 kg (238 lb) 09/01/2019 6:07 AM LIFE MANAGER Height 160 cm (5' 3) 09/01/2019 6:07 AM LIFE MANAGER Body Mass Index 42.16 09/01/2019 6:07 AM LIFE MANAGER Plan of Treatment Not on file Procedures Procedure Name Priority Date/Time Associated Diagnosis Comments PAP (BLADDER TRIMMER CYTOLOGY) Routine 08/17/2016 4: 04 PM LIFE MANAGER Encounter for supervision of normal first in first trimester from Last 3 Months or Most Recently Relevant to Health Maintenance Results * PAP (BLADDER TRIMMER CYTOLOGY) (08/17/2016 4:04 PM LIFE MANAGER) PAP TEST (BLADDER TRIMMER CYTOLOGY) Normal 08/22/2016 1:24 PM LIFE MANAGER [facility] Comment: [facility] [address] [place] [id number] CYTOLOGY REPORT Patient Name: GUILLERMO COOLEY Specimen No: [id number] Location: [facility] Age: 26 Sex: F Earnestine. Date: 08/17/2016 Med. Rec. #: [id number] : 1990 Received: 08/18/2016 Physician(s): Cj Neville MD Encounter No. [id number] Reported: 08/22/2016 SOURCE OF SPECIMEN A: CERVICAL-THIN PREP WITH HPV TEST Electrophysiology Tech Screening CLINICAL HISTORY Date of Last Menstrual Period: 05/17/16 SPECIMEN ADEQUACY Satisfactory for evaluation. Endocervical/transformation zone component present. INTERPRETATION Negative for intraepithelial lesion or malignant cells. Electronically Signed Out NASH Castro (ASCP) CPT Code(s): A: 53945. This specimen was screened by the ThinPrep Imaging System prior to manual review by a head of business development and/or pathologist. The Pap Test is a [...] (Cervical - Thin Prep) 08/17/2016 4:04 PM LIFE MANAGER 08/17/2016 9:49 PM LIFE MANAGER Cj Neville MD PATHOLOGY/CYTOLOGY ORDERABLE Final Result Performing Organization Address City/State/RUST de Phone Number [facility] PATHOLOGY [facility] [address] [place] [address] from Last 3 Months or Most Recently Relevant to Health Maintenance Insurance [facility] [employer] [place] [id number] Advance Directives For more information, please contact: [phone] * Full Code (Latest Code Status on File) Date Activated Date Inactivated Comments 09/01/2019 6:03 AM 09/04/2019 9:24 PM Question Answer Comments How was code status determined? Patient Care Teams Manager Bar Relationship Specialty Start Date End Date Veronica Gonzalez MD PCP - General Obstetrics/Gynecology 05/05/19 Pa, [facility] [address] [place] [address] PCP - Primary Care Clinic 05/05/19
--- OUTSIDE RECORDS SUMMARY | 2025-01-07 03:55 | XMS_ITS | Encounter Summary ---
Author Organization [place] Address [address] [place] [address]. [place] [address] Care Team Providers Care Rotary Engraver Name Role Phone [place] Torres Primary Care Provider Veronica Nguyen MD Unavailable [phone] Clinic, N[facility] Terry Primary Care Provide r Reason for Referral * Diagnostic Imaging XR (Routine) - Closed Specialty Diagnoses / Procedures Referred By Contac t Referred To Contact Diagnoses Fertility testing Procedures XR Hysterosalpingogram SIGN POSTER Performs Cath Veronica Gonzalez MD [address] [facility] [address] [place] [address] Phone: tel: fax: Referral ID Status Reason Start Date Expiration Date Visits Re quested Visits Authorized [id number] Closed 09/18/2022 09/18/2023 1 1 ENT ASSISTANCE COUNSELOR Encounter Details Date Type Department Care Team (Late st Contact Info) Description 09/18/2022 Orders Only [facility] [address] [place] [phone] Veronica Gonzalez MD [address] [facility] [address] [place], [place] [phone] Fertility testing (Primary Dx) Social History Tobacco [...] on file Legal Sex Female 4:34 AM STUDENT ASSISTANCE COUNSELOR Gender Identity Not on file Sexual Orientation Not on file documented as of this encounter Plan of Treatment Not on file documented as of this encounter Results * XR Hysterosalpingogram SIGN POSTER Performs Cath (09/22/2022 12:38 PM STUDENT ASSISTANCE COUNSELOR) Anatomical Region Laterality Modality Abdomen/Pelvis Computed Radiogr aphy 09/22/2022 12:3 8 PM STUDENT ASSISTANCE COUNSELOR Impressions 09/22/2022 3:56 PM STUDENT ASSISTANCE COUNSELOR IMPRESSION: Patent right fallopian tube, patency of the left fallopian tube is not demonstrated. Narrative 09/22/2022 3:56 PM STUDENT ASSISTANCE COUNSELOR EXAM: XR HYSTEROSALPINGOGRAM SIGN POSTER PERFORMS CATH LOCATION: [facility] DATE/TIME: 09/22/2022 12:38 PM INDICATION: Fertility testing [...] Lieberman MD - 09/22/2022 EXAM: XR HYSTEROSALPINGOGRAM SIGN POSTER PERFORMS CATH LOCATION: [facility] DATE/TIME: 09/22/2022 12:38 PM INDICATION: Fertility testing [...] testing documented in this encounter Care Teams Rotary Engraver Relationship Specialty Start Date End Date [place] Torres PCP - General Family Practice 08/20/18 02/06/23 Nayeli Virgen [address] [place] [address] PCP - General 02/07/23 Veronica Gonzalez MD [address] [place] [id number] clerical adjuster 04/18/21 documented as of this encounter
[2025-01-07 03:58] VITALS: BP 168/96; PULSE 79; RESP 18; TEMP 36.8; O2SAT 99; BMI 35.4
--- NOTE | 2025-01-07 04:13 | ED.GENADULT ---
HPI - General Adult General Date Seen: 01/07/25 Chief complaint: Unspecified Complaint, Adult Stated complaint: Hands numb following surgery today Time Seen by Provider: 01/07/25 03:55 Source: patient Mode of arrival: ambulatory Limitations: no limitations History of Present Illness HPI narrative: Patient is a 35-year-old female presenting to the emergency department for bilateral forearm weakness and tingling sensation. She states her arms are weak but they feel numb. They she had a hysteroscopy about 14:30. She states she has had several procedures for has never had any side effects from them. States she woke up around 02:00 when she does her left arm felt heavy. Symptoms adjust from the elbow down. She thought it was from laying on it so she rolled onto her other signs and that her pain the bed. She then started noticing it was now in both arms and is not getting better. She spoke to her over the is states this felt likely to be related to her surgery recommended to come to ED for evaluation. Patient has no history of symptoms like this before. Denies any numbness in the arms but states it was difficult to hold her phone for more than 10 seconds. No other concerns noted. Related Data Home Medications ?Medication ?Instructions ?Recorded ?Confirmed hydroxyzine HCl 25 mg tablet 25 mg PO DAILY 05/21/23 01/07/25 desogestrel 0.15 mg-ethinyl 1 tab PO DAILY 08/13/24 01/07/25 estradiol 0.03 mg tablet (Isibloom) estradiol 2 mg tablet 2 mg PO DAILY 01/07/25 01/07/25 levothyroxine 50 mcg tablet 50 mcg PO DAILY 01/07/25 01/07/25 Allergies Allergy/AdvReac Type Severity Reaction Status Date / Time prochlorperazine (From Allergy Mild Lock Jaw Verified 01/07/25 04:03 Compazine) adhesive Allergy Verified 01/07/25 04:03 Review of Systems Status of ROS: Reports: 10 or more systems reviewed and unremarkable except as noted in History and below [facility] Medical History Viral meningitis ?A87.9 - Viral meningitis, unspecified (ICD-10) Ovarian cyst ?N83.209 - Unspecified ovarian cyst, unspecified side (ICD-10) Endometriosis ?N80.9 - Endometriosis, unspecified (ICD-10) Clostridium difficile infection ?A49.8 - Other bacterial infections of unspecified site (ICD-10) Anxiety ?F41.9 - Anxiety disorder, unspecified (ICD-10) Major depressive disorder ?F32.9 - Major depressive disorder, single episode, unspecified (ICD-10) GERD (gastroesophageal reflux disease) ?K21.9 - Gastro-esophageal reflux disease without esophagitis (ICD-10) Bipolar II disorder ?F31.81 - Bipolar II disorder (ICD-10) Macrosomia ?P08.0 - Exceptionally large baby (ICD-10) 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 ?G40.409 - Other generalized epilepsy and epileptic syndromes, not intractable, without status epilepticus (ICD-10) Preeclampsia in period ?O14.95 - Unspecified pre-eclampsia, complicating the puerperium (ICD-10) Pharyngitis ?J02.9 - Acute pharyngitis, unspecified (ICD-10) Viral meningitis ?A87.9 - Viral meningitis, unspecified (ICD-10) Ovarian cyst ?N83.209 - Unspecified ovarian cyst, unspecified side (ICD-10) Endometriosis ?N80.9 - Endometriosis, unspecified (ICD-10) Clostridium difficile infection ?A49.8 - Other bacterial infections of unspecified site (ICD-10) Anxiety ?F41.9 - Anxiety disorder, unspecified (ICD-10) Major depressive disorder ?F32.9 - Major depressive disorder, single episode, unspecified (ICD-10) GERD (gastroesophageal reflux disease) ?K21.9 - Gastro-esophageal reflux disease without esophagitis (ICD-10) Bipolar II disorder ?F31.81 - Bipolar II disorder (ICD-10) Macrosomia ?P08.0 - Exceptionally large baby (ICD-10) Preeclampsia in period ?O14.95 - Unspecified pre-eclampsia, complicating the puerperium (ICD-10) Viral meningitis ?A87.9 - Viral meningitis, unspecified (ICD-10) Ovarian cyst ?N83.209 - Unspecified ovarian cyst, unspecified side (ICD-10) Endometriosis ?N80.9 - Endometriosis, unspecified (ICD-10) Clostridium difficile infection ?A49.8 - Other bacterial infections of unspecified site (ICD-10) Major depressive disorder ?F32.9 - Major depressive disorder, single episode, unspecified (ICD-10) Macrosomia ?P08.0 - Exceptionally large baby (ICD-10) 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 ?G40.409 - Other generalized epilepsy and epileptic syndromes, not intractable, without status epilepticus (ICD-10) Preeclampsia in period ?O14.95 - Unspecified pre-eclampsia, complicating the puerperium (ICD-10) Viral meningitis ?A87.9 - Viral meningitis, unspecified (ICD-10) Ovarian cyst ?N83.209 - Unspecified ovarian cyst, unspecified side (ICD-10) Endometriosis ?N80.9 - Endometriosis, unspecified (ICD-10) Clostridium difficile infection ?A49.8 - Other bacterial infections of unspecified site (ICD-10) Major depressive disorder ?F32.9 - Major depressive disorder, single episode, unspecified (ICD-10) Macrosomia ?P08.0 - Exceptionally large baby (ICD-10) Preeclampsia in period ?O14.95 - Unspecified pre-eclampsia, complicating the puerperium (ICD-10) Surgical History [place] teeth extracted ?K08.409 - Partial loss of teeth, unspecified cause, unspecified class (ICD-10) S/P laparoscopic procedure ?Z98.890 - Other specified postprocedural states (ICD-10) History of appendectomy ?Z90.49 - Acquired absence of other specified parts of digestive tract (ICD-10) History of ankle surgery ?Z98.890 - Other specified postprocedural states (ICD-10) S/P laparoscopic procedure ?Z98.890 - Other specified postprocedural states (ICD-10) [place] teeth extracted ?K08.409 - Partial loss of teeth, unspecified cause, unspecified class (ICD-10) S/P laparoscopic procedure ?Z98.890 - Other specified postprocedural states (ICD-10) History of appendectomy ?Z90.49 - Acquired absence of other specified parts of digestive tract (ICD-10) History of ankle surgery ?Z98.890 - Other specified postprocedural states (ICD-10) [place] teeth extracted ?K08.409 - Partial loss of teeth, unspecified cause, unspecified class (ICD-10) S/P laparoscopic procedure ?Z98.890 - Other specified postprocedural states (ICD-10) History of appendectomy ?Z90.49 - Acquired absence of other specified parts of digestive tract (ICD-10) History of ankle surgery ?Z98.890 - Other specified postprocedural states (ICD-10) [place] teeth extracted ?K08.409 - Partial loss of teeth, unspecified cause, unspecified class (ICD-10) S/P laparoscopic procedure ?Z98.890 - Other specified postprocedural states (ICD-10) History of appendectomy ?Z90.49 - Acquired absence of other specified parts of digestive tract (ICD-10) History of ankle surgery ?Z98.890 - Other specified postprocedural states (ICD-10) Social History Narrative: 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 Smoking Status: Never smoker Do you use any of these nicotine containing products: None Second hand tobacco smoke exposure: No How often do you have a drink containing alcohol: never How often do you have six or more drinks on one occasion: Never AUDIT-C Alcohol total score: 0 Non-prescribed substance use: denies use service: No Exam Narrative: Exam Narrative: Const: Well-nourished, Well-developed, in mild distress Eyes: PERRL, no conjunctival injection, and symmetrical lids HENT: Atraumatic external nose and ears. Moist mucous membranes. Neck: Symmetric, trachea midline, No thyromegaly. CVS: RRR, No murmurs or gallops. Peripheral pulses 2+ and equal in all extremities RESP: Unlabored respiratory effort. Clear to auscultation bilaterally. GI: Nontender/Nondistended, No rebound or guarding. MSK:Extremities w/o deformity, Normal Active ROM Skin: Warm, Dry. No rashes or lesions. Neuro: Normal Muscle tone, Cranial nerves 2-12 grossly intact, normal panl-[id number], normal [id number], normal gait, normal strength 5/5 upper lower extremities bilaterally other than decreased yard general car supervisor strength bilaterally, normal sensation upper and lower extremities bilaterally, normal rapid alternating movements. Psych: Awake, Alert, & Oriented x3. Appropriate mood and affect. Const: Vital Signs, click to edit/add: Vital Signs - 24 hr 01/07/25 03:58 Temperature 98.2 F Pulse Rate [Right Pulse Oximeter] 79 Respiratory Rate 18 Blood Pressure [Ri ght Upper Arm] 168/96 H Pulse Oximetry 99 Oxygen Delivery Me thod Room Air Course Vital Signs Vital signs: Initial Vital Signs Temperature 98.2 F 01/07/25 03:58 Temperature Source Temporal Artery Scan 01/07/25 03:58 Pulse Rate 79 01/07/25 03:58 Respiratory Rate 18 01/07/25 03:58 Blood Pressure 168/96 H 01/07/25 03:58 Blood Pressure Mean 120 H 01/07/25 03:58 Blood Pressure Position Sitting 01/07/25 03:58 Pulse Oximetry 99 01/07/25 03:58 Oxygen Delivery Method Room Air 01/07/25 03:58 Vital Signs Temperature 98.2 F 01/07/25 03:58 Pulse Rate 79 01/07/25 03:58 Respiratory Rate 18 01/07/25 03:58 Blood Pressure 168/96 H 01/07/25 03:58 Pulse Oximetry 99 01/07/25 03:58 Oxygen Delivery Method Room Air 01/07/25 03:58 Temperature 98.2 F 01/07/25 03:58 Pulse Rate 79 01/07/25 03:58 Respiratory Rate 18 01/07/25 03:58 Blood Pressure 168/96 H 01/07/25 03:58 Pulse Oximetry 99 01/07/25 03:58 Oxygen Delivery Method Room Air 01/07/25 03:58 Medical Decision Making [facility] Narrative Medical decision making narrative: Patient is a 35-year-old female presenting for weakness and tingling sensation to her bilateral forearms and hands. There is no numbness she states they feel heavy. She does appear to have a decreased yard general car supervisor strength. Rest of her neuro exam was completely normal. With the bilateral nature of the symptoms and the fact that is the entire forearm it is extremely unlikely this is a stroke. Would expect it to follow more of a definitive nerve pattern. This could be some kind of nerve compression from sleeping which typically does take several hours to improve. Could also be related to electrolyte abnormalities. I will check a CBC, magnesium, BMP. I do not believe head imaging is necessary. Is not an ascending paralysis so Guill[place] seems unlikely. Does not appear to be descending either so does not appear to be botulism. Could be a possible ray and presentation for MS but she has no history of it and emergent MRI is not necessary. Lab work shows no concerning abnormalities. She has slightly elevated white blood cell count but concern is she just had surgery to that is likely a stress response. No obvious signs of infection at this time. Electrolytes within normal limits. Do not know exactly was causing his symptoms but hernia believe it is any emergent issue. This persists she can follow up outpatient. Lab Data Labs: Lab Results 01/07/25 Range/Units 04:15 WBC 12.73 H (4.50-11.00) K/uL RBC 4.30 (4.00-5.20) m/uL Hgb 12.8 (12.0-16.0) gm/dL Hct 38.0 (33.0-51.0) % MCV 88 (80-100) fL MCH 30 (26-34) pg MCHC 34 (32-36) gm/dL RDW Coeff of Emile 12.2 (11.5-15.5) % Plt Count 362 (140-440) K/uL Neut % (Auto) 80.5 H (42.0-72.0) % Lymph % (Auto) 14.1 L (20-44) % [place] % (Auto) 5.1 (0.0-11.0) % Eos % (Auto) 0.0 (0.0-7.0) % Baso % (Auto) 0.1 (0.0-3.0) % Neut # (Auto) 10.20 H (1.7-7.0) K/uL Lymph # (Auto) 1.80 (0.90-2.90) K/uL [place] # (Auto) 0.60 (0.00-0.90) K/UL Eos # (Auto) 0.00 (0.00-0.50) K/uL Baso # (Auto) 0.00 (0.00-0.30) K/uL Abs Immat Gran (auto) 0.00 (0.00-0.30) K/uL Imm/Tot Granulo (auto) 0.2 % Sodium 140 (135-149) mmol/L Potassium 4.2 (3.6-5.1) mmol/L Chloride 107 (96-114) mmol/L Carbon Dioxide 24 (20-32) mmol/L Anion Gap 9 (7-15) mEq/L BUN 19 (5-24) mg/dL Creatinine 0.8 (0.5-1.5) mg/dL Estimated Creat Clear 80.42 Estimated GFR 98 ml/min Glucose 123 H (60-115) mg/dL Calcium 9.3 (8.4-10.6) mg/dL Magnesium 2.1 (1.5-2.6) mg/dL Discharge Plan Discharge Clinical Impression: Bilateral arm weakness Patient Disposition: Home, Self-Care Condition: Stable Instructions: Paresthesia (ED) Additional Instructions: At this time I do not know exactly what is causing his symptoms but I do not see any emergent issues. Bilateral forearm and hand weakness is extremely unlikely to be a stroke. You also do not have any risk factors for it. This is most likely a peripheral nerve issue and should resolve on its own in a few days. If it does continue to persist I recommend following up with the primary care provider for possible referral to Neurology. Prescriptions: No Action hydroxyzine HCl 25 mg tablet 25 mg PO DAILY estradiol 2 mg tablet 2 mg PO DAILY levothyroxine 50 mcg tablet 50 mcg PO DAILY desogestrel-ethinyl estradiol [Isibloom] 0.15-0.03 mg tablet 1 tab PO DAILY Follow Up/Referrals: Provider,Not a Local [Primary Care Provider] - Stand Alone Forms: [employer] Info Instructions
--- OUTSIDE RECORDS SUMMARY | 2025-01-07 04:16 | XMS_ITS | Clinical Summary ---
Author Organization [employer] [facility] Address [address] [place] [address] Care Team Providers Care Director Economic Name Role Phone Stella Paulino MD Primary Care Provider [phone] Allergies Active Allergy Reactions Criticality Noted Date [...] Department Care Team Description 10/31/2024 11:57 AM PEST CONTROL WORKER - 10/31/2024 12:52 PM PEST CONTROL WORKER Emergency [facility] [address] [place] [address] Kaye Orta PA-C Upper respiratory [...] Sz Heart Disease Maternal Grandfather age 62 [place] Heart Disease Maternal Grandmother Skin cancer Maternal [...] on file Legal Sex Female 7:41 AM PEST CONTROL WORKER Gender Identity Not on file Sexual Orientation Not on file 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 Not on file Not on file Not [...] 9 9 MATT ,BB CAITLI N Delivery Location:[facility] Last Filed Vital Signs Vital Sign Reading Time Taken Comments Blood Pressure 133/91 08/17/2023 10:29 AM PEST CONTROL WORKER Pulse 95 08/17/2023 10:29 AM PEST CONTROL WORKER Temperature 36.5 C (97.7 F) 08/17/2023 10:29 AM PEST CONTROL WORKER Respiratory Rate 16 08/17/2023 10:29 AM PEST CONTROL WORKER Oxygen Saturation 97% 08/17/2023 10:29 AM PEST CONTROL WORKER Inhaled Oxygen Concentration - - Weight 83.5 kg (184 lb) 08/17/2023 10:29 AM PEST CONTROL WORKER Height 160 cm (5' 3) 08/17/2023 10:29 AM PEST CONTROL WORKER Body Mass Index 32.59 08/17/2023 10:29 AM PEST CONTROL WORKER Plan of Treatment Health Maintenance Due Date [...] MOLECULAR AFF ONLY STAT 10/31/2024 12:00 PM PEST CONTROL WORKER INFLUENZA A AND B MOLECULAR AFF ONLY STAT 10/31/2024 12:00 PM PEST CONTROL WORKER COVID 19 MOLECULAR EPPA STAT 10/31/2024 12:00 PM PEST CONTROL WORKER EXTRACORPOREAL TECHNICIAN THIN PREP PAP SCREEN IMAGED Routine 12/21/2014 9:08 PM CDT from Last 3 Months or Most Recently Relevant to Health Maintenance Results * COVID 19 MOLECULAR (10/31/2024 12:00 PM PEST CONTROL WORKER) COVID 19 MOLECULAR Negative Negative 10/31/2024 12:30 PM PEST CONTROL WORKER [facility]Y [facility] Comment: SARS-CoV-2 viral RNA not detected. [...] Unknown Non-Blood / Unknown 10/31/2024 12:00 PM PEST CONTROL WORKER 10/31/2024 12:13 PM PEST CONTROL WORKER Narrative URGENCY [facility] - 10/31/2024 12:30 PM PEST CONTROL WORKER This test was developed and its performance characteristics determined by [employer]. This test has not been FDA cleared [...] are available on the FDA website: https://www.fda.gov/MedicalDevices/Safety/ EmergencySituations/kgg632528.htm. Kaye Orta PA-C MICROBIOLOGY Final Result Performing Organization Address [facility] Co de Phone Number [facility] [address] [place] [address], [place] * STREP A MOLECULAR AFF ONLY (10/31/2024 12:00 PM PEST CONTROL WORKER) [facility] Strep A Molecular Negative for Strep A nucleic acid Negative for Strep A nucleic acid 10/31/2024 12:25 PM PEST CONTROL WORKER [facility] Throat SPECIMEN FROM THROAT / Unknown Non-Blood / Unknown 10/31/2024 12:00 PM PEST CONTROL WORKER 10/31/2024 12:13 PM PEST CONTROL WORKER Kaye Orta PA-C MICROBIOLOGY Final Result Performing Organization Address [facility] de Phone Number [facility] [address] [place] [address], [place] * INFLUENZA A AND B MOLECULAR AFF ONLY (10/31/2024 12:00 PM PEST CONTROL WORKER) [facility] Influenza A Molecular Negative Influenza A - Viral RNA Not Detected Negative Influenza A - Viral RNA Not Detected 10/31/2024 12:46 PM PEST CONTROL WORKER [facility] Influenza B Molecular Negative Influenza B - Viral RNA Not Detected Negative Influenza B - Viral RNA Not Detected 10/31/2024 12:46 PM PEST CONTROL WORKER [facility] Other SPECIMEN FROM NASAL FOSSAE / Unknown Non-Blood / Unknown 10/31/2024 12:00 PM PEST CONTROL WORKER 10/31/2024 12:13 PM PEST CONTROL WORKER Kaye R Colfax PA-C MICROBIOLOGY Final Result [facility]RG[facility]Y [facility] [address] [place] [address], [place] * EXTRACORPOREAL TECHNICIAN THIN PREP PAP SCREEN IMAGED (12/21/2014 9:08 PM CDT) EXTRACORPOREAL TECHNICIAN CYTOLOGY See Anatomic Pathology case 12/26/2014 10:00 PM CDT [facility] Specimen (specimen) (Cervical/Vagina l) Client Collect / Unknown 12/21/2014 9:08 PM CDT 12/21/2014 9:08 PM CDT us Gretel Portillo MD PATHOLOGY/CYTOLOGY Final Res ult Performing Organization Address City/[facility]/ZIP Co de Phone Number [facility] [address] [place] [address], from Last 3 Months or Most Recently Relevant to Health Maintenance Insurance [facility] AD[employer]AN [place] [place] [id number] Advance Directives Documents on File Type Date Recorded Patient Survey Project Manager Expl anation Treatment Guidelines 03/29/2017 5:40 PM [...] 12:32 PM 03/18/2017 12:52 PM Care Teams Director Economic Relationship Specialty Start Date End Date Stella Paulino MD [address] [place] [id number] PCP - General Family Practice 07/30/22
--- OUTSIDE RECORDS SUMMARY | 2025-01-07 04:16 | XMS_ITS | Clinical Summary ---
Author Organization [facility] Address [address] [place] [address] Care Team Providers Care Back Wedger Name Role Phone Veronica Gonzalez MD Primary Care Provider [phone] [facility] Unavailable [phone] Allergies Active Allergy Reactions Criticality Noted Date Comments Adhesive Tape-Silicones Rash 06/11/2019 Prochlorperazine 06/11/2019 Lock jaw Medications PNV no.95/ferrous fum/folic ac ( ORAL) Take by mouth. Active HYDROXYZINE HCL ORAL Take by mouth. Active levothyroxine (SYNTHROID) 50 mcg oral tablet Take 1 tablet (50 mcg) by mouth once daily. 90 tablet 09/04/2019 1:22 PM LEGAL INTERN 09/04/2019 Active senna-docusate (SENNA-S) 8.6-50 mg oral tablet Take 1-2 tablets by mouth once daily. 30 tablet 09/04/2019 1:22 PM LEGAL INTERN 09/04/2019 Active acetaminophen (TYLENOL EXTRA STRENGTH) 500 [...] as needed. 20 tablet 09/04/2019 1:22 PM LEGAL INTERN 09/04/2019 Active triamcinolone acetonide (KENALOG) 0.1% cream Apply to skin twice a day. 80 g 09/04/2019 1:22 PM LEGAL INTERN 09/04/2019 Active Active Problems Problem Noted Date [...] Comments Blood Pressure 154/96 09/07/2019 7:29 PM LEGAL INTERN Pulse 107 09/07/2019 7:29 PM LEGAL INTERN Temperature 36.6 C (97.8 F) 09/07/2019 7:29 PM LEGAL INTERN Respiratory Rate 17 09/07/2019 7:29 PM LEGAL INTERN Oxygen Saturation 97% 09/07/2019 7:29 PM LEGAL INTERN Inhaled Oxygen Concentration - - Weight 108 kg (238 lb) 09/01/2019 6:07 AM LEGAL INTERN Height 160 cm (5' 3) 09/01/2019 6:07 AM LEGAL INTERN Body Mass Index 42.16 09/01/2019 6:07 AM LEGAL INTERN Plan of Treatment Health Maintenance Due Date [...] Name Priority Date/Time Associated Diagnosis Comments PAP (END FRAZER CYTOLOGY) Routine 08/17/2016 4: 04 PM LEGAL INTERN Encounter for supervision of normal first in first trimester from Last 3 Months or Most Recently Relevant to Health Maintenance Results * PAP (END FRAZER CYTOLOGY) (08/17/2016 4:04 PM LEGAL INTERN) PAP TEST (END FRAZER CYTOLOGY) Normal 08/22/2016 1:24 PM LEGAL INTERN [facility] Comment: [facility] [address] [place] [id number] CYTOLOGY REPORT Patient Name: GUILLERMO COOLEY Specimen No: [id number] Location: [facility] Age: 26 Sex: F Earnestine. Date: 08/17/2016 Med. Rec. #: [id number] : 1990 Received: 08/18/2016 Physician(s): Cj Neville MD Encounter No. [id number] Reported: 08/22/2016 SOURCE OF SPECIMEN A: CERVICAL-THIN PREP WITH HPV TEST Special Needs Librarian Screening CLINICAL HISTORY Date of Last Menstrual Period: 05/17/16 SPECIMEN ADEQUACY Satisfactory for evaluation. Endocervical/transformation zone component present. INTERPRETATION Negative for intraepithelial lesion or malignant cells. Electronically Signed Out NASH Castro (ASCP) CPT Code(s): A: 69017. This specimen was screened by the ThinPrep Imaging System prior to manual review by a mop handle assembler and/or pathologist. The Pap Test is a [...] (Cervical - Thin Prep) 08/17/2016 4:04 PM LEGAL INTERN 08/17/2016 9:49 PM LEGAL INTERN us Cj Neville MD PATHOLOGY/CYTOLOGY ORDERABLE Final Result [facility] PATHOLOGY [facility] [address] [address] from Last 3 Months or Most Recently Relevant to Health Maintenance Insurance [facility] [facility] Advance Directives For more information, please contact: [phone] * Full Code (Latest Code Status on File) Date Activated Date Inactivated Comments 09/01/2019 6:03 AM 09/04/2019 9:24 PM Question Answer Comments How was code status determined? Patient Care Teams Back Wedger Relationship Specialty Start Date End Date Veronica Gonzalez MD PCP - General Obstetrics/Gynecology 05/05/19 [facility] [address] [place] [address] PCP - Primary Care Clinic 05/05/19
--- OUTSIDE RECORDS SUMMARY | 2025-01-07 04:16 | XMS_ITS | Encounter Summary ---
Author Organization [facility] Address [address] [place] [address]. [place] [address] Care Team Providers Care Consumer Loan Processor Name Role Phone Mara Torres Primary Care Provider Veronica Nguyen MD Unavailable [phone] Clinic, Nayeli Terry Primary Care Provide r Reason for Referral * Diagnostic Imaging XR (Routine) - Closed Specialty Diagnoses / Procedures Referred By Contac t Referred To Contact Diagnoses Fertility testing Procedures XR Hysterosalpingogram ASSISTANT COOK Performs Cath Veronica Gonzalez MD [address] [facility] [address] [place] [address] Phone: tel: fax: Referral ID Status Reason Start Date Expiration Date Visits Re quested Visits Authorized [id number] Closed 09/18/2022 09/18/2023 1 1 CE WORKER Encounter Details Date Type Department Care Team (Late st Contact Info) Description 09/18/2022 Orders Only [facility] Link [address] [place] [phone] Veronica Gonzalez MD [address] [facility] [place], [place] [address] Fertility testing (Primary Dx) Social History Tobacco [...] on file Legal Sex Female 4:34 AM POLICE WORKER Gender Identity Not on file Sexual Orientation Not on file documented as of this encounter Plan of Treatment Not on file documented as of this encounter Results * XR Hysterosalpingogram ASSISTANT COOK Performs Cath (09/22/2022 12:38 PM POLICE WORKER) Anatomical Region Laterality Modality Abdomen/Pelvis Computed Radiogr aphy 09/22/2022 12:3 8 PM POLICE WORKER Impressions 09/22/2022 3:56 PM POLICE WORKER IMPRESSION: Patent right fallopian tube, patency of the left fallopian tube is not demonstrated. Narrative 09/22/2022 3:56 PM POLICE WORKER EXAM: XR HYSTEROSALPINGOGRAM ASSISTANT COOK PERFORMS CATH LOCATION: [facility] DATE/TIME: 09/22/2022 12:38 PM INDICATION: [...] Lieberman MD - 09/22/2022 EXAM: XR HYSTEROSALPINGOGRAM ASSISTANT COOK PERFORMS CATH LOCATION: [facility] DATE/TIME: 09/22/2022 12:38 PM INDICATION: [...] testing documented in this encounter Care Teams Consumer Loan Processor Relationship Specialty Start Date End Date Mara Torres PCP - General Family Practice 08/20/18 02/06/23 Nayeli Virgen [address] [place] [address] PCP - General 02/07/23 Veronica Gonzalez MD [address] [id number] workforce development specialist 04/18/21 documented as of this encounter
--- OUTSIDE RECORDS SUMMARY | 2025-01-07 04:16 | XMS_ITS | Clinical Summary ---
Author Organization [facility] Address [address] [place] [address] Care Team Providers Care Biodiesel Plant Manager Name Role Phone Unavailable Primary Care Provider [...] Pap Smear 2010 Diabetes Screening 09/07/2022 09/07/2019 [id number] ( season) 2024 021, 11/09/2020 Imm-Influenza (#1) 2024 Alcohol and Drug Screen 09/10/2024 Depression Annual Screen 09/10/2024 Cervical Ablation/Cold-Knife Conization Discontinued Cervical Cryotherapy Discontinued Colposcopy Discontinued Endometrial Biopsy Discontinued Excision/Leep Discontinued HPV Genotyping Discontinued Vaginal Pap Discontinued Vulvoscopy Discontinued Insurance [employer]
--- OUTSIDE RECORDS SUMMARY | 2025-01-07 04:16 | XMS_ITS | Clinical Summary ---
Author Organization [facility] Address [address] [facility] [place] [address] Care Team Providers Care Extraction Machine Operator Name Role Phone Veronica Gonzalez MD Unavailable [phone] Clinic, Nayeli Terry Primary Care Provide r [...] on file Legal Sex Female 4:34 AM COUNTER WEIGHER Gender Identity Not on file Sexual Orientation [...] 160 cm (5' 3) 07/31/2022 9:17 AM COUNTER WEIGHER Body Mass Index 34.37 07/31/2022 9:17 AM COUNTER WEIGHER Plan of Treatment Health Maintenance Due Date [...] COMPREHENSIVE METABOLIC PANEL STAT 09/29/2016 9:55 AM COUNTER WEIGHER from Last 3 Months or Most Recently Relevant to Health Maintenance Results * HIV Antigen Antibody Combo (12/30/2018) HIV Antigen Antibody Combo negative Blood specimen (specimen) us Patient Reported LAB - BLOOD ORDERABLES Final Re sult * (ABNORMAL) Comprehensive metabolic panel (09/29/2016 9:55 AM COUNTER WEIGHER) Sodium 138 133 - 144 mmol/L [facility] Potassium 4.0 3.4 - 5.3 mmol/L [facility] Chloride 104 94 - 109 mmol/L [facility] Carbon Dioxide 23 20 - 32 mmol/L [facility] Anion Gap 11 3 - 14 mmol/L [facility] Glucose 92 70 - 99 mg/dL [facility] Urea Nitrogen 7 7 - 30 mg/dL [facility] Creatinine 0.51(L) 0.52 - 1.04 mg/dL [facility] GFR Estimate >90 Non GFR Calc >60 mL/min/1. 7m2 [facility] GFR Estimate If Black >90 GFR Calc >60 mL/min/1. 7m2 [facility] Calcium 8.9 8.5 - 10.1 mg/dL [facility] Bilirubin Total 0.3 0.2 - 1.3 mg/dL [facility] Albumin 2.9(L) 3.4 - 5.0 g/dL [facility] Protein Total 7.2 6.8 - 8.8 g/dL [facility] Alkaline Phosphatase 81 40 - 150 U/L [facility] ALT 27 0 - 50 U/L [facility] AST 19 0 - 45 U/L [facility] Blood specimen (specimen) 09/29/2016 9:55 AM COUNTER WEIGHER 09/29/2016 10:09 AM COUNTER WEIGHER us Ruddy Canada MD LAB - BLOOD ORDERABLES No crespo Result [facility] [address], [place] [address], [place] [phone] from Last 3 Months or Most Recently Relevant to Health Maintenance Insurance [facility] Advance Directives For more information, please contact: [phone] * Full Code (Latest Code Status on File) Date Activated Date Inactivated Comments 02/16/2016 7:05 PM 02/17/2016 3:54 PM Care Teams Extraction Machine Operator Relationship Specialty Start Date End Date Clinic, Nayeli Terry [address] [place] [address] PCP - General 02/07/23 Veronica Gonzalez MD [address] [place] [address] nurse unit manager 04/18/21
--- OUTSIDE RECORDS SUMMARY | 2025-01-07 04:16 | XMS_ITS | Clinical Summary ---
Author Organization [facility] Address [address], [place] [address] Care Team Providers Care Optometric Aide Name Role Phone Stella Paulino MD Primary Care Provider [phone] Source Comments You are receiving this document as you are listed as the primary care provider,follow-up provider, or the patient has been referred to you for consultation.This is in compliance with the Medicare and[facility] EHR Incentive Program,which states Providers who transition their patient to another setting of careor provider of care or refers their patient to another provider of care shouldprovide summary care record for each transition of care or referral. [employer] Allergies Active Allergy Reactions Criticality Noted Date [...] (11/18/2020): Added automatically from request for surgery [id number] OMAR (obstructive sleep apnea) 11/18/2020 Overview (07/31/2024): [...] 09/07/2019 Overview (09/08/2019): Transfer of care from [facility] on 09/07/19 per pt request (insurance issue) [...] (12/07/2020): Added automatically from request for surgery [id number] IUD (intrauterine device) in place 10/04/2020 03/06/2023 Overview (10/04/2020): Mirena IUD January 2020 placed Preeclampsia in period 03/28/2017 12/06/2018 S/P section 03/20/2017 019 Bipolar II disorder 03/12/2017 10/04/19 21 Overview (12/06/2018): STRUGGLED with anx and dep since age 16. SSRI's were not helpful. She was seen at [facility] and had testing with psychiastrist. Never did [...] 04/29/2012 HepB, Unspecified Formulation 12/19/2000, 998,04/13/1998 Influenza ([place] Only) (Flul aval Quad 0.5, 3+ yrs) 05/19/2019 Influenza IIV4 (Quadrivalent ) 0.5mL (75521) 06/05/2023,07/04/2022,06/07/2020,2018,09/25/2018,07/17/2017,06/10/2016,1 ,06/29/2014 MMR 12/19/2000,04/02/1990 Moderna COVID-19 12+ [...] Comments Blood Pressure 110/80 07/31/2024 3:53 PM COGNOS ADMINISTRATOR Pulse 82 07/31/2024 3:21 PM COGNOS ADMINISTRATOR Temperature 36.6 C (97.9 F) 10/24/2023 3:15 PM COGNOS ADMINISTRATOR Respiratory Rate 11 12/15/2020 1:45 PM CDT Oxygen Saturation 94% 12/15/2020 3:15 PM CDT Inhaled Oxygen Concentration - - Weight 89.4 kg (197 lb) 07/31/2024 3:11 PM COGNOS ADMINISTRATOR Height 159.4 cm (5' 2.75) 07/31/2024 3:11 PM CS T Body Mass Index 35.18 07/31/2024 3:11 PM COGNOS ADMINISTRATOR Plan of Treatment Upcoming Encounters Date Type Department Care Team (Late st Contact Info) Description 07/31/2025 9:30 AM COGNOS ADMINISTRATOR Appointment [facility] [address] [place] [address] Stella Paulino MD [address] [place] [address] [place] [address] Health Maintenance Due Date Last Done Comments [...] Comments HGB A1C Routine 07/29/2024 8:35 AM COGNOS ADMINISTRATOR Screening for diabetes mellitus HIV 1/2 AG/AB 4TH GEN Routine 07/29/2024 8:35 AM COGNOS ADMINISTRATOR Screening for HIV (human immunodeficiency virus) HEPATITIS C ANTIBODY, WITH REFLEX Routine 07/29/2024 8:35 AM COGNOS ADMINISTRATOR Need for hepatitis C screening test CYTOLOGY (PAP) Routine 06/15/2023 11:32 AM CDT Screening for malignant neoplasm of cervix from Last 3 Months or Most Recently Relevant to Health Maintenance Results * HIV 1/2 Ag/Ab 4th Generation (07/29/2024 8:35 AM COGNOS ADMINISTRATOR) HIV 1/2 Antigen/Antib stalin (4th generation) Negative (Non Reactive) Negative (Non Reactive) 07/29/2024 3:42 PM COGNOS ADMINISTRATOR [facility] Comment:HIV-1 p24 Antigen an d HIV-1/HIV-2 Antibody not detected Blood Venipuncture / Unknown 07/29/2024 8:35 AM COGNOS ADMINISTRATOR 07/29/2024 8:35 AM COGNOS ADMINISTRATOR Stella Paulino MD LAB_1 Final Resul t Performing Organization Address [facility] de Phone Number [facility] [address] [place] [address] * Hepatitis C Antibody, with Reflex (07/29/2024 8:35 AM COGNOS ADMINISTRATOR) Hepatitis C Antibody Negative (Non Reactive) Negative (Non Reactive) 07/29/2024 3:42 PM COGNOS ADMINISTRATOR [facility] Comment:Antibodies to HCV no t detected. Does not exclude the possiblity of exposure to HCV. Blood Venipuncture / Unknown 07/29/2024 8:35 AM COGNOS ADMINISTRATOR 07/29/2024 8:35 AM COGNOS ADMINISTRATOR Stella Paulino MD LAB_1 Final Resul t Performing Organization Address [facility] Phone Number [facility] [address] [place] [address] * HGB A1C (07/29/2024 8:35 AM COGNOS ADMINISTRATOR) Hemoglobin A1C 5.2 <=5.6 % 07/29/2024 8:27 PM COGNOS ADMINISTRATOR [facility] Estimated Average Glucose (Calc) 103 < 117 mg/dL 07/29/2024 8:27 PM COGNOS ADMINISTRATOR [facility] Comment:Estimated average gl ucose (eAG) converts A1c into glucose units (mg/dL) and estimates average glucose over the past approximately 3 months. The eAG reference interval (<117 mg/dL) corresponds to an A1c of <5.7%. Blood Venipuncture / Unknown 07/29/2024 8:35 AM COGNOS ADMINISTRATOR 07/29/2024 4:17 PM COGNOS ADMINISTRATOR Stella Paulino MD LAB_1 Final Resul t [facility] [address] * PAP Test (06/15/2023 11:32 AM CDT) Case Report Pap Case: [id number] Authorizing Provider: Stella Paulino MD Collected: 06/15/2023 1132 Ordering Location: [facility] Received: 06/15/2023 1258 First Screen: [place] CT (ASCP) Specimen: Pap Test, Routine, Cervix/Endocervix 07/05/2023 3:20 PM CDT [facility] Pap Specimen Adequacy Satisfactory for evaluation, endocervical/rodriguez sformation zone component present. 07/05/2023 3:20 PM CDT [facility] Pap Interpretation (NILM) Negative for intraepithelial lesion or malignancy. 07/05/2023 3:20 PM CDT [facility] at 1520 CDT Pap Disclaimer The Pap test is a screening test to aid in the detection of cervical and vaginal cancers and their precursor lesions. It is not a diagnostic procedure and should not be used as the sole means of detecting malignancy. Both false-positive and false-negative results may occur. 07/05/2023 3:20 PM CDT [facility] Gross Description The specimen is received in SurePath fixative and properly labeled. 1 Pap-stained SurePath slide is prepared. 07/05/2023 3:20 PM CDT [facility] Embedded Images 3:20 PM CDT [facility] Other Specimen Type ENTIRE ENDOCERVIX / Unknown 06/15/2023 11:32 AM CDT 06/15/2023 12:58 PM CDT Comment:LMP: No LMP recorded . (Menstrual status: ). us Stella Paulino MD LAB PATHOLOGY Final Resul t [facility] [address] [place], [place] [address] from Last 3 Months or Most Recently Relevant to Health Maintenance Insurance [employer] SELF [employer]NAGED [employer] SELF [employer]NA[employer] Advance Directives * Full Code (Latest Code Status on File) Date Activated Date Inactivated Comments 12/15/2020 11:28 AM 12/15/2020 6:25 PM Care Teams Optometric Aide Relationship Specialty Start Date End Date Stella Paulino MD [address] [place] [address] PCP - General Family Practice 01/10/19
--- OUTSIDE RECORDS SUMMARY | 2025-01-07 04:16 | XMS_ITS | Referral Summary ---
Author Organization [facility] Address [address] [place] [address] Care Team Providers Care Associate Media Planner Name Role Phone Veronica Gonzalez MD Primary Care Provider [phone] Pa, Toggler And Infertility Unavailable [phone] Allergies Active Allergy Reactions Criticality Noted Date Comments Adhesive Tape-Silicones Rash 06/11/2019 Prochlorperazine 06/11/2019 Lock jaw Medications PNV no.95/ferrous fum/folic ac ( ORAL) Take by mouth. Active HYDROXYZINE HCL ORAL Take by mouth. Active levothyroxine (SYNTHROID) 50 mcg oral tablet Take 1 tablet (50 mcg) by mouth once daily. 90 tablet 09/04/2019 1:22 PM MANAGER BANQUET 09/04/2019 Active senna-docusate (SENNA-S) 8.6-50 mg oral tablet Take 1-2 tablets by mouth once daily. 30 tablet 09/04/2019 1:22 PM MANAGER BANQUET 09/04/2019 Active acetaminophen (TYLENOL EXTRA STRENGTH) 500 [...] as needed. 20 tablet 09/04/2019 1:22 PM MANAGER BANQUET 09/04/2019 Active triamcinolone acetonide (KENALOG) 0.1% cream Apply to skin twice a day. 80 g 09/04/2019 1:22 PM MANAGER BANQUET 09/04/2019 Active Active Problems Problem Noted Date [...] Comments Blood Pressure 154/96 09/07/2019 7:29 PM MANAGER BANQUET Pulse 107 09/07/2019 7:29 PM MANAGER BANQUET Temperature 36.6 C (97.8 F) 09/07/2019 7:29 PM MANAGER BANQUET Respiratory Rate 17 09/07/2019 7:29 PM MANAGER BANQUET Oxygen Saturation 97% 09/07/2019 7:29 PM MANAGER BANQUET Inhaled Oxygen Concentration - - Weight 108 kg (238 lb) 09/01/2019 6:07 AM MANAGER BANQUET Height 160 cm (5' 3) 09/01/2019 6:07 AM MANAGER BANQUET Body Mass Index 42.16 09/01/2019 6:07 AM MANAGER BANQUET Plan of Treatment Not on file Procedures Procedure Name Priority Date/Time Associated Diagnosis Comments PAP (CORRECTIONAL LIEUTENANT CYTOLOGY) Routine 08/17/2016 4: 04 PM MANAGER BANQUET Encounter for supervision of normal first in first trimester from Last 3 Months or Most Recently Relevant to Health Maintenance Results * PAP (CORRECTIONAL LIEUTENANT CYTOLOGY) (08/17/2016 4:04 PM MANAGER BANQUET) PAP TEST (CORRECTIONAL LIEUTENANT CYTOLOGY) Normal 08/22/2016 1:24 PM MANAGER BANQUET [facility] Comment: [facility] [address] [place] [phone] CYTOLOGY REPORT Patient Name: GUILLERMO COOLEY Specimen No: [id number] Location: [facility] Age: 26 Sex: F Earnestine. Date: 08/17/2016 Med. Rec. #: [id number] : 1990 Received: 08/18/2016 Physician(s): Cj Neville MD Encounter No. [id number] Reported: 08/22/2016 SOURCE OF SPECIMEN A: CERVICAL-THIN PREP WITH HPV TEST Computer Processing Scheduler Screening CLINICAL HISTORY Date of Last Menstrual Period: 05/17/16 SPECIMEN ADEQUACY Satisfactory for evaluation. Endocervical/transformation zone component present. INTERPRETATION Negative for intraepithelial lesion or malignant cells. Electronically Signed Out NASH Castro (ASCP) CPT Code(s): A: 61055. This specimen was screened by the ThinPrep Imaging System prior to manual review by a dump worker and/or pathologist. The Pap Test is a [...] (Cervical - Thin Prep) 08/17/2016 4:04 PM MANAGER BANQUET 08/17/2016 9:49 PM MANAGER BANQUET Cj Neville MD PATHOLOGY/CYTOLOGY ORDERABLE Final Result Performing Organization Address City/State/[facility] de Phone Number [facility]OLOGY [facility] [address] [place] [address] from Last 3 Months or Most Recently Relevant to Health Maintenance Insurance [employer] [place] [id number] Advance Directives For more information, please contact: [phone] * Full Code (Latest Code Status on File) Date Activated Date Inactivated Comments 09/01/2019 6:03 AM 09/04/2019 9:24 PM Question Answer Comments How was code status determined? Patient Care Teams Associate Media Planner Relationship Specialty Start Date End Date Veronica Gonzalez MD PCP - General Obstetrics/Gynecology 05/05/19 Pa, Toggler And Infertility [address] [place] [address] PCP - Primary Care Clinic 05/05/19
[2025-01-07 04:24] LABS: Basophils Percent Auto 0.1 % (0.0-3.0); Hemoglobin* 12.8 gm/dL (12.0-16.0); Immature Granulocytes Pct Auto 0.2 %; Lymphocytes Percent Auto 14.1 % (20-44); Mean Corpuscular HGB Conc 34 gm/dL (32-36); Mean Corpuscular Hemoglobin 30 pg (26-34); Mean Corpuscular Volume 88 fL (80-100); Monocytes Percent Auto 5.1 % (0.0-11.0); Neutrophils Percent Auto 80.5 % (42.0-72.0); Platelet Count* 362 K/uL (140-440); RDW Coefficient of Variation % 12.2 % (11.5-15.5); White Blood Count* 12.73 K/uL (4.50-11.00)
[2025-01-07 04:25] LABS: Slide Review Reflex No
[2025-01-07 04:35] LABS: Chloride* 107 mmol/L (96-114); Potassium* 4.2 mmol/L (3.6-5.1); Sodium* 140 mmol/L (135-149)
[2025-01-07 04:38] LABS: Anion Gap 9 mEq/L (7-15); Blood Urea Nitrogen* 19 mg/dL (5-24); Calcium* 9.3 mg/dL (8.4-10.6); Carbon Dioxide* 24 mmol/L (20-32); Creatinine* 0.8 mg/dL (0.5-1.5); Est. Creatinine Clearance* 80.42; Estimated Glomerular Filt Rate 98 ml/min; Glucose* 123 mg/dL (60-115); Magnesium* 2.1 mg/dL (1.5-2.6)
[2025-01-07 05:04] VITALS: BP 168/96; PULSE 79; RESP 18; TEMP 36.8; O2SAT 99
== END 2025-01-07 05:04 | disposition home or self-care (01) ==
PROVIDERS: Emergency Provider Student in an Organized Health Care Education/Training Program
DX: R53.1 Weakness (principal)
CPT/HCPCS: 36415; 80048; 83735; 85025; 99283; 99284

== ENCOUNTER 2025-07-20 16:55 | Outpatient (CLI) | payer OTHER, SELFPAY | END 2025-07-20 16:56 | disposition home or self-care (01) | LOC: NFLDREF 07-24 04:01 | DX: N30.00 Acute cystitis without hematuria (principal) | CPT/HCPCS: 87086 ==

== ENCOUNTER 2025-07-21 15:12 | Emergency (ER) | payer OTHER, SELFPAY ==
--- OUTSIDE RECORDS SUMMARY | 2025-07-21 15:15 | XMS_ITS | Clinical Summary ---
Author Organization [facility] Address [address] [place] [address] Care Team Providers Care Hostel Parent Name Role Phone Veronica Gonzalez MD Primary Care Provider [phone] Pa, Manager Ambulatory And Infertility Unavailable [phone] Allergies Active Allergy Reactions Criticality Noted Date Comments Adhesive Tape-Silicones Rash 06/11/2019 Prochlorperazine 06/11/2019 Lock jaw Medications PNV no.95/ferrous fum/folic ac ( ORAL) Take by mouth. Active HYDROXYZINE HCL ORAL Take by mouth. Active levothyroxine (SYNTHROID) 50 mcg oral tablet Take 1 tablet (50 mcg) by mouth once daily. 90 tablet 09/04/2019 1:22 PM STAGE PRODUCER 09/04/2019 Active senna-docusate (SENNA-S) 8.6-50 mg oral tablet Take 1-2 tablets by mouth once daily. 30 tablet 09/04/2019 1:22 PM STAGE PRODUCER 09/04/2019 Active acetaminophen (TYLENOL EXTRA STRENGTH) 500 [...] as needed. 20 tablet 09/04/2019 1:22 PM STAGE PRODUCER 09/04/2019 Active triamcinolone acetonide (KENALOG) 0.1% cream Apply to skin twice a day. 80 g 09/04/2019 1:22 PM STAGE PRODUCER 09/04/2019 Active Active Problems Problem Noted Date Diagnosed Date 09/01/2019 CMV exposure complicating 05/15/2019 Immunizations Immunization Administration Dates Next Due Influenza split virus [...] Comments Blood Pressure 154/96 09/07/2019 7:29 PM STAGE PRODUCER Pulse 107 09/07/2019 7:29 PM STAGE PRODUCER Temperature 36.6 C (97.8 F) 09/07/2019 7:29 PM STAGE PRODUCER Respiratory Rate 17 09/07/2019 7:29 PM STAGE PRODUCER Oxygen Saturation 97% 09/07/2019 7:29 PM STAGE PRODUCER Inhaled Oxygen Concentration - - Weight 108 kg (238 lb) 09/01/2019 6:07 AM STAGE PRODUCER Height 160 cm (5' 3) 09/01/2019 6:07 AM STAGE PRODUCER Body Mass Index 42.16 09/01/2019 6:07 AM STAGE PRODUCER Plan of Treatment Health Maintenance Due Date Last Done Comments Hepatitis C Screening 1990 Anxiety Screening (CRISTAL-2) 1990 Depression Assessment (PHQ-2) 1990 HPV Vaccine (2 - 3-dose series) 05/09/2011 04/11/2011 Pap Smear 08/17/2019 08/17/2016 COVID-19 Vaccine (2023- season) 2025 Influenza Vaccine (#1) 2025 05/19/2019 Adult Tetanus Booster 06/18/2029 06/18/2019 , 12/11/2016, 10/11/2013, Additional history exists RSV Vaccines (1 - 1-dose 75+ series) 01/02/2064 Meningococcal B Vaccine Aged Out No l onger eligible based on patient's age to complete this topic Pneumococcal Vaccine Aged Out No long er eligible based on patient's age to complete this topic Procedures Procedure Name Priority Date/Time Associated Diagnosis Comments PAP (GARMENT TURNER CYTOLOGY) Routine 08/17/2016 4: 04 PM STAGE PRODUCER Encounter for supervision of normal first in first trimester from Last 3 Months or Most Recently Relevant to Health Maintenance Results * PAP (GARMENT TURNER CYTOLOGY) (08/17/2016 4:04 PM STAGE PRODUCER) PAP TEST (GARMENT TURNER CYTOLOGY) Normal 08/22/2016 1:24 PM STAGE PRODUCER [facility] Comment: [facility] Surgical Pathology Laboratory [address] [place] [phone] CYTOLOGY REPORT Patient Name: GUILLERMO COOLEY Specimen No: [id number] Location: [facility] Age: 26 Sex: F Earnestine. Date: 08/17/2016 Med. Rec. #: [id number] : 1990 Received: 08/18/2016 Physician(s): Cj Neville MD Encounter No. [id number] Reported: 08/22/2016 SOURCE OF SPECIMEN A: CERVICAL-THIN PREP WITH HPV TEST Diesel Engine Engineer Screening CLINICAL HISTORY Date of Last Menstrual Period: 05/17/16 SPECIMEN ADEQUACY Satisfactory for evaluation. Endocervical/transformation zone component present. INTERPRETATION Negative for intraepithelial lesion or malignant cells. Electronically Signed Out NASH Castro (ASCP) CPT Code(s): A: 39099. This specimen was screened by the ThinPrep Imaging System prior to manual review by a patriot missile air defense artillery and/or pathologist. The Pap Test is a screening test and has an irreducible false-negative rate. Routine periodic testing and follow-up of unexplained clinical signs and symptoms are important to minimize the consequences of false-negative Pap tests. Wendi et al. 2012 Updated Consensus Guidelines for the Management of Abnormal Cervical Cancer Screening Tests and Cancer Precursors. J Low Genit Tract Dis 2013; 17 (5): S2-S27 Site-Microbiolog y (Cervical - Thin Prep) 08/17/2016 4:04 PM STAGE PRODUCER 08/17/2016 9:49 PM STAGE PRODUCER Cj Neville MD PATHOLOGY/CYTOLOGY ORDERABLE Final Result [facility] PATH[facility] [address] [address] from Last 3 Months or Most Recently Relevant to Health Maintenance Insurance [employer] [facility] [address] [id number] Advance Directives For more information, please contact: [phone] * Full Code (Latest Code Status on File) Date Activated Date Inactivated Comments 09/01/2019 6:03 AM 09/04/2019 9:24 PM Question Answer Comments How was code status determined? Patient Care Teams Hostel Parent Relationship Specialty Start Date End Date Veronica Gonzalez MD PCP - General Obstetrics & Gynecology 05/05/19 Pa, Manager Ambulatory And Infertility [address] [place] [address] PCP - Primary Care Clinic 05/05/19
--- OUTSIDE RECORDS SUMMARY | 2025-07-21 15:15 | XMS_ITS | Clinical Summary ---
Author Organization [facility] Address [address] [place] [address] Care Team Providers Care Perinatal Technician Name Role Phone Veronica Gonzalez MD Unavailable [phone] Clinic, [facility] Primary Care Provide r [...] on file Legal Sex Female 4:34 AM MIXING TUMBLER OPERATOR Gender Identity Not on file Sexual Orientation [...] 160 cm (5' 3) 07/31/2022 9:17 AM MIXING TUMBLER OPERATOR Body Mass Index 34.37 07/31/2022 9:17 AM MIXING TUMBLER OPERATOR Plan of Treatment Health Maintenance Due Date Last Done Comments ADVANCE CARE PLANNING 1989 ANNUAL REVIEW OF HM ORDERS 1989 TSH W/FREE T4 REFLEX 1989 YEARLY PREVENTIVE VISIT 01/02/1992 HEPATITIS C SCREENING 2007 PAP 2010 HPV VACCINE (2 - 3-dose series) 05/09/2011 04/11/2011 DIABETES SCREENING 09/29/2019 09/29/2016, 0 03/19/2016, 02/17/2016, Additional history exists PHQ-2 (once per calendar year) 2024 COVID-19 VACCINE ( season) 2025 12/06/2021, 12/07/2020, 11/09/2020 INFLUENZA VACCINE (#1) 2025 , 06/08/2021, 06/08/2021, Additional history exists DTAP/TDAP/TD VACCINE (5 - Td or Tdap) 06/18/2029 06/18/2019, 12/11/2016, 10/11/2013, Additional history exists ZOSTER VACCINE (1 of 2) 2039 HEPATITIS B VACCINE Completed 12/19/2000, 05/31/1998, 04/13/1998 HIV SCREENING Completed 12/30/2018 MENINGITIS VACCINE Aged Out No longer eligible based on patient's age to complete this topic PNEUMOCOCCAL VACCINE: PEDIATRICS (0 to 5 YEARS) AND AT-RISK PATIENTS (6 to 49 YEARS) Aged Out No longer eligible based on patient's age to complete this topic Procedures Procedure Name Priority Date/Time Associated Diagnosis Comments HIV ANTIGEN ANTIBODY COMBO Routine 12/30/2018 COMPREHENSIVE METABOLIC PANEL STAT 09/29/2016 9:55 AM MIXING TUMBLER OPERATOR from Last 3 Months or Most Recently Relevant to Health Maintenance Results * HIV Antigen Antibody Combo (12/30/2018) HIV Antigen Antibody Combo negative Blood specimen (specimen) us Patient Reported LAB - BLOOD ORDERABLES Final Re sult * (ABNORMAL) Comprehensive metabolic panel (09/29/2016 9:55 AM MIXING TUMBLER OPERATOR) Sodium 138 133 - 144 mmol/L [facility] Potassium 4.0 3.4 - 5.3 mmol/L [facility] Chloride 104 94 - 109 mmol/L [facility] Carbon Dioxide 23 20 - 32 mmol/L [facility] Anion Gap 11 3 - 14 mmol/L [facility] Glucose 92 70 - 99 mg/dL [facility] Urea Nitrogen 7 7 - 30 mg/dL [facility] Creatinine 0.51(L) 0.52 - 1.04 mg/dL [facility] GFR Estimate >90 Non GFR Calc >60 mL/min/1. 7m2 [facility] GFR Estimate If Black >90 GFR Calc >60 mL/min/1. 7m2 [facility] Calcium 8.9 8.5 - 10.1 mg/dL [facility] Bilirubin Total 0.3 0.2 - 1.3 mg/dL [facility] Albumin 2.9(L) 3.4 - 5.0 g/dL [facility] Protein Total 7.2 6.8 - 8.8 g/dL [facility] Alkaline Phosphatase 81 40 - 150 U/L [facility] ALT 27 0 - 50 U/L [facility] AST 19 0 - 45 U/L [facility] Blood specimen (specimen) 09/29/2016 9:55 AM MIXING TUMBLER OPERATOR 09/29/2016 10:09 AM MIXING TUMBLER OPERATOR us Ruddy Canada MD LAB - BLOOD ORDERABLES No crespo Result [facility] [address], [place] [address], [place] [phone] from Last 3 Months or Most Recently Relevant to Health Maintenance Insurance [employer] Advance Directives For more information, please contact: [phone] * Full Code (Latest Code Status on File) Date Activated Date Inactivated Comments 02/16/2016 7:05 PM 02/17/2016 3:54 PM Care Teams Perinatal Technician Relationship Specialty Start Date End Date Clinic, [facility] [address] [facility] [place] [address] PCP - General 02/07/23 Veronica Gonzalez MD [address] [place] [address] pipe straightener 04/18/21
--- OUTSIDE RECORDS SUMMARY | 2025-07-21 15:15 | XMS_ITS | Encounter Summary ---
Author Organization [facility] Address [address] [place] [address]. [place] [address] Care Team Providers Care Power Generation Technician Name Role Phone Mara Torres Primary Care Provider Veronica Gonzalez MD Unavailable [phone] Clinic, [facility] Primary Care Provide r Reason for Referral * Diagnostic Imaging XR (Routine) - Closed Specialty Diagnoses / Procedures Referred By Conthiram t Referred To Contact Diagnoses Fertility testing Procedures XR Hysterosalpingogram NARCOTICS AND VICE DETECTIVE Performs Cath Veronica Gonzalez MD [address] 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 Narrative 09/22/2022 3:56 PM FARM MECHANIC EXAM: XR HYSTEROSALPINGOGRAM NARCOTICS AND VICE DETECTIVE PERFORMS CATH LOCATION: [facility] DATE/TIME: 09/22/2022 12:38 PM INDICATION: Fertility [...] Lieberman MD - 09/22/2022 EXAM: XR HYSTEROSALPINGOGRAM NARCOTICS AND VICE DETECTIVE PERFORMS CATH LOCATION: [facility] DATE/TIME: 09/22/2022 12:38 PM INDICATION: Fertility [...] testing documented in this encounter Care Teams Power Generation Technician Relationship Specialty Start Date End Date Mara Torres PCP - General Family Practice 08/20/18 02/06/23 [facility], Nayeli Terry [address] [place] [address] PCP - General 02/07/23 Veronica Gonzalez MD [address] [place] [id number] international recruiter 04/18/21 documented as of this encounter
--- OUTSIDE RECORDS SUMMARY | 2025-07-21 15:15 | XMS_ITS | Clinical Summary ---
Author Organization [employer] [facility] Address [address] [place] [address] Care Team Providers Care Director Digital Strategy Name Role Phone Stella Paulino MD Primary Care Provider [phone] Allergies Active Allergy Reactions Criticality Noted Date [...] un specified 03/24/2010 Anxiety state, unspecified 03/24/2010 Immunizations Immunization Administration Dates Next Due Human Papilloma Virus Vaccine 04/11/2011 Influenza, IIV3 (Age >=3 years) 06/03/2009,08/14 Influenza, IIV4 07/17/2017,06/10/2016 Td (Age >=7 Years) 10/11/2013,12/26/2003 Tdap 12/11/2016 Family History Medical History Relation Name Comments Hyperlipidemia Father Other Father Febrile Sz Heart Disease Maternal Grandfather age 62 [place] Heart Disease Maternal Grandmother Skin cancer Maternal [...] on file Legal Sex Female 7:41 AM MANAGER UTILIZATION REVIEW Gender Identity Not on file Sexual Orientation Not on file 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 Not on file 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 Not on file Not on file Not [...] M C-Sec tion Livin g 9 9 YASIR ,BB CAITLI N Delivery Location:[facility] Last Filed Vital Signs Vital Sign Reading Time Taken Comments Blood Pressure 133/91 08/17/2023 10:29 AM MANAGER UTILIZATION REVIEW Pulse 95 08/17/2023 10:29 AM MANAGER UTILIZATION REVIEW Temperature 36.5 C (97.7 F) 08/17/2023 10:29 AM MANAGER UTILIZATION REVIEW Respiratory Rate 16 08/17/2023 10:29 AM MANAGER UTILIZATION REVIEW Oxygen Saturation 97% 08/17/2023 10:29 AM MANAGER UTILIZATION REVIEW Inhaled Oxygen Concentration - - Weight 83.5 kg (184 lb) 08/17/2023 10:29 AM MANAGER UTILIZATION REVIEW Height 160 cm (5' 3) 08/17/2023 10:29 AM MANAGER UTILIZATION REVIEW Body Mass Index 32.59 08/17/2023 10:29 AM MANAGER UTILIZATION REVIEW Plan of Treatment Health Maintenance Due Date Last Done Comments Depression screening for age 12+ 2001 HIV for age 15-65 01/02/2004 Hepatitis C screening for age 18-79 2007 Hepatitis B series for 19+ (1 of 3 - 19+ 3-dose series) 01/02/2008 HPV series for age 9-45 (2 - 3-dose series) 05/09/2011 04/11/2011 Pap test for age 21-65 12/21/2017 12/21/2014, 2010 BMI (ht and wt on same day) for age 18+ 03/28/2018 03/28/2017, 03/13/2017, 01/11/2017, Additional history exists Influenza Vaccine (#1) 2025 7, 06/10/2016, 06/03/2009, Additional history exists Tetanus booster 12/11/2026 12/11/2016, 02/0 09/2013, 12/26/2003 RSV vaccine for adults or (1 - 1-dose 75+ series) 01/02/2064 Pneumococcal series for age 6-49 Aged Out No longer eligible based on patient's age to complete this topic Procedures Procedure Name Priority Date/Time Associated Diagnosis Comments ARRESTING GEAR OPERATOR THIN PREP PAP SCREEN IMAGED Routine 12/21/2014 9:08 PM CDT from Last 3 Months or Most Recently Relevant to Health Maintenance Results * ARRESTING GEAR OPERATOR THIN PREP PAP SCREEN IMAGED (12/21/2014 9:08 PM CDT) ARRESTING GEAR OPERATOR CYTOLOGY See Anatomic Pathology case 12/26/2014 10:00 PM CDT [facility] Specimen (specimen) (Cervical/Vagina l) Client Collect / Unknown 12/21/2014 9:08 PM CDT 12/21/2014 9:08 PM CDT us Gretel Portillo MD PATHOLOGY/CYTOLOGY Final Res ult [facility] [address] [place] [address], from Last 3 Months or Most Recently Relevant to Health Maintenance Insurance [facility] [employer] Advance Directives Documents on File Type Date Recorded Patient Sales Development Associate Expl anation Treatment Guidelines 03/29/2017 5:40 PM [...] PM 03/18/2017 12:52 PM Care Teams Director Digital Strategy Relationship Specialty Start Date End Date Stella Paulino MD [address] [place] [address] PCP - General Family Practice 07/30/22
--- OUTSIDE RECORDS SUMMARY | 2025-07-21 15:15 | XMS_ITS | Clinical Summary ---
Author Organization [facility] Address [address], [place] [address] Care Team Providers Care Environmental Health And Safety Leader Name Role Phone Stella Paulino MD Primary Care Provider [phone] Source Comments You are receiving this document as you are listed as the primary care provider,follow-up provider, or the patient has been referred to you for consultation.This is in compliance with the Medicare and[facility] Hospital[facility] EHR Incentive Program,which states Providers who transition their patient to another setting of careor provider of care or refers their patient to another provider of care shouldprovide summary care record for each transition of care or referral. EQ [facility] Allergies Active Allergy Reactions Criticality Noted Date Comments Adhesive Rash 12/14/2015 Prochlorperazine High 04/22/2015 Locked jaw--could not close mouth Prochlorperazine 03/22/2009 PN: LW Reaction: lock jaw Medications ondansetron (ZOFRAN-ODT) 4 MG disintegrating tablet Take [...] sedation). 60 Tablet 3 07/31/20 24 Active methylPREDNISolone (MEDROL 21 TABLET DOSEPACK) 4 MG tablet Take as directed. 21 Tablet 04/28/20 25 Active Active Problems Problem Noted Date Diagnosed [...] (11/18/2020): Added automatically from request for surgery [id number] OMAR (obstructive sleep apnea) 11/18/2020 Overview (07/31/2024): [...] 09/07/2019 Overview (09/08/2019): Transfer of care from [facility] on 09/07/19 per pt request (insurance issue) [...] (12/07/2020): Added automatically from request for surgery [id number] IUD (intrauterine device) in place 10/04/2020 03/06/2023 Overview (10/04/2020): Mirena IUD January 2020 placed Preeclampsia in period 03/28/2017 12/06/2018 S/P section 03/20/2017 019 Bipolar II disorder 03/12/2017 10/04/19 21 Overview (12/06/2018): STRUGGLED with anx and dep since age 16. SSRI's were not helpful. She was seen at [facility] and had testing with psychiastrist. Never did any inpatient treatment. Did well on lamotrigine and weaned off before attempting . She did well off lamotrigine. Encounters Date Type Department Care Team Description 04/28/2025 8:30 AM CDT Therapy [facility] at [facility] [address] [address] [place] [address] Peter Pierre, PT Thoracic outlet syndrome (Primary Dx); Right arm pain 04/28/2025 7:50 AM CDT Ancillary Procedure [facility] [address] [address] [address] [place] [address] Aurora Carr PA-C Right shoulder pain, unspecified chronicity 04/28/2025 7:45 AM CDT Office Visit [facility] [address] [place] [address] Aurora Carr PA-C Cervical radiculitis (Primary Dx); Right shoulder pain, unspecified chronicity from Last 3 Months Immunizations Immunization Administration Dates Next Due 4vHPV (Gardasil) 04/11/2011 Flu Vac (3+ yrs) 06/03/2009,08/14/2008 Flu Vac Preserv Free (3+yrs) 06/24/2024,06/24/20 13 Fluzone Qiv Multidose Vial 0 .25 (6-35 Mos) 06/08/2021 HepA Adult (19+ yrs) 12/10/2014 HepA, Unspecified Formulation 04/29/2012 HepB, Unspecified Formulation 12/19/2000, 998,04/13/1998 Influenza ([place] Only) (Flul aval Quad 0.5, 3+ yrs) 05/19/2019 Influenza IIV4 (Quadrivalent ) 0.5mL (02986) 06/05/2023,07/04/2022,06/07/2020,2018,09/25/2018,07/17/2017,06/10/2016,1 ,06/29/2014 MMR 12/19/2000,04/02/1990 Moderna COVID-19 12+ (Spikevax) 06/24/2024 Moderna Monovalent 12+ 12/06/2021,12/07/2020,10/2020 Td 10/11/2013,12/26/2003 [...] Comments Blood Pressure 110/80 07/31/2024 3:53 PM COATING LINE WORKER Pulse 82 07/31/2024 3:21 PM COATING LINE WORKER Temperature 36.6 C (97.9 F) 10/24/2023 3:15 PM COATING LINE WORKER Respiratory Rate 11 12/15/2020 1:45 PM CDT Oxygen Saturation 94% 12/15/2020 3:15 PM CDT Inhaled Oxygen Concentration - - Weight 89.4 kg (197 lb) 07/31/2024 3:11 PM COATING LINE WORKER Height 159.4 cm (5' 2.75) 07/31/2024 3:11 PM CS T Body Mass Index 35.18 07/31/2024 3:11 PM COATING LINE WORKER Plan of Treatment Upcoming Encounters Date Type Department Care Team (Late st Contact Info) Description 07/31/2025 10:30 AM COATING LINE WORKER Appointment [facility] [address] [place] [address] Stella Paulino MD [address] [place] [id number] Health Maintenance Due Date Last Done Comments HPV Vaccine (2 - 3-dose series) 05/09/2011 04/11/2011 Influenza Vaccine (#1) 2025 , 06/05/2023, 07/04/2022, Additional history exists Adult Preventive Visit 07/31/2026 07/31/2024, 2022 Diabetes [...] Completed 06/24/2024, , 12/07/2020, Additional history exists HIV Screening (Preventive Services) [...] Name Priority Date/Time Associated Diagnosis Comments XR SHOULDER RT 2+ VIEWS Routine 04/28/2025 7:53 AM CDT Right shoulder pain, unspecified chronicity HGB A1C Routine 07/29/2024 8:35 AM COATING LINE WORKER Screening for diabetes mellitus HIV 1/2 AG/AB 4TH GEN Routine 07/29/2024 8:35 AM COATING LINE WORKER Screening for HIV (human immunodeficiency virus) HEPATITIS C ANTIBODY, WITH REFLEX (ANTI-HCV) Routine 07/29/2024 8:35 AM COATING LINE WORKER Need for hepatitis C screening test CYTOLOGY (PAP) Routine 06/15/2023 11:32 AM CDT Screening for malignant neoplasm of cervix from Last 3 Months or Most Recently Relevant to Health Maintenance Results * XR Shoulder Rt 2+ Views (04/28/2025 7:53 AM CDT) Anatomical Region Laterality Modality Upper Extremity, Shoulder Digita l Radiography Narrative 04/28/2025 8:24 AM CDT EXAM: XR SHOULDER RT 2+ VIEWS INDICATION: shoulder pain COMPARISON: None. FINDINGS: Bony structures appear unremarkable. Joint spaces are within normal limits. There is no dislocation or significant degenerative change. Signed by: Cesar Nance 04/28/2025 8:24 AM Procedure Note Cesar Nance MD - 04/28/2025 EXAM: XR SHOULDER RT 2+ VIEWS INDICATION: shoulder pain COMPARISON: None. FINDINGS: Bony structures appear unremarkable. Joint spaces are within normallimits. There is no dislocation or significant degenerative change. Signed by: Cesar Nance 04/28/2025 8:24 AM us Aurora Carr PAElliott RAD GD Final Result * HIV 1/2 Ag/Ab 4th Generation (07/29/2024 8:35 AM COATING LINE WORKER) HIV 1/2 Antigen/Antib stalin (4th generation) Negative (Non Reactive) Negative (Non Reactive) 07/29/2024 3:42 PM COATING LINE WORKER [facility] Comment:HIV-1 p24 Antigen an d HIV-1/HIV-2 Antibody not detected Blood Venipuncture / Unknown 07/29/2024 8:35 AM COATING LINE WORKER 07/29/2024 8:35 AM COATING LINE WORKER Stella Paulino MD LAB_1 Final Resul t Performing Organization Address [facility] de Phone Number [facility] [address] [place] [address] * Hepatitis C Antibody, with Reflex (07/29/2024 8:35 AM COATING LINE WORKER) [facility] Hepatitis C Antibody Negative (Non Reactive) Negative (Non Reactive) 07/29/2024 3:42 PM COATING LINE WORKER [facility] Comment:Antibodies to HCV no t detected. Does not exclude the possiblity of exposure to HCV. Blood Venipuncture / Unknown 07/29/2024 8:35 AM COATING LINE WORKER 07/29/2024 8:35 AM COATING LINE WORKER Stella Paulino MD LAB_1 Final Resul t Performing Organization Address [facility] Phone Number [facility] [address] [place] [address] * HGB A1C (07/29/2024 8:35 AM COATING LINE WORKER) [facility] Hemoglobin A1C 5.2 <=5.6 % 07/29/2024 8:27 PM COATING LINE WORKER [facility] Estimated Average Glucose (Calc) 103 < 117 mg/dL 07/29/2024 8:27 PM COATING LINE WORKER [facility] Comment:Estimated average gl ucose (eAG) converts A1c into glucose units (mg/dL) and estimates average glucose over the past approximately 3 months. The eAG reference interval (<117 mg/dL) corresponds to an A1c of <5.7%. Blood Venipuncture / Unknown 07/29/2024 8:35 AM COATING LINE WORKER 07/29/2024 4:17 PM COATING LINE WORKER us Stella Paulino MD LAB_[address] [facility] [address] * PAP Test (06/15/2023 11:32 AM CDT) Case Report Pap Case: [id number] Authorizing Provider: Stella Paulino MD Collected: 06/15/2023 1132 Ordering Location: [facility] Received: 06/15/2023 1258 First Screen: [place] CT (ASCP) Specimen: Pap Test, Routine, Cervix/Endocervix 07/05/2023 3:20 PM CDT [facility] Pap Specimen Adequacy Satisfactory for evaluation, endocervical/rodriguez sformation zone component present. 07/05/2023 3:20 PM CDT [facility] Pap Interpretation (NILM) Negative for intraepithelial lesion or malignancy. 07/05/2023 3:20 PM CDT [facility] at 1520 CDT Pap Disclaimer The Pap test is a screening test to aid in the detection of cervical and vaginal cancers and their precursor lesions. It is not a diagnostic procedure and should not be used as the sole means of detecting malignancy. Both false-positive and false-negative results may occur. 07/05/2023 3:20 PM CDT [facility] Gross Description The specimen is received in SurePath fixative and properly labeled. 1 Pap-stained SurePath slide is prepared. 07/05/2023 3:20 PM CDT [facility] Embedded Images 3:20 PM CDT [facility] Other Specimen Type ENTIRE ENDOCERVIX / Unknown 06/15/2023 11:32 AM CDT 06/15/2023 12:58 PM CDT Comment:LMP: No LMP recorded . (Menstrual status: ). us Stella Paulino MD LAB PATHOLOGY Final Resul t [facility] [address] [place] [address], [facility] from Last 3 Months or Most Recently Relevant to Health Maintenance Insurance SELF [employer] SELF MANAGED CARE SELF MANAGED CARE Advance Directives * Full Code (Latest Code Status on File) Date Activated Date Inactivated Comments 12/15/2020 11:28 AM 12/15/2020 6:25 PM Care Teams Environmental Health And Safety Leader Relationship Specialty Start Date End Date Stella Paulino MD [address] [place] [address] PCP - General Family Practice 01/10/19
[2025-07-21 15:16] VITALS: BP 137/95; PULSE 112; RESP 18; TEMP 36.9; O2SAT 99
--- NOTE | 2025-07-21 15:32 | ED_ITS ---
HPI - General Adult General Chief complaint: Urogenital Problems, Female Stated complaint: bladder pain, blood in urine Time Seen by Provider: 07/21/25 15:29 History of Present Illness HPI narrative: Patient presents to the emergency department complaining of hematuria and urinary urgency . Patient noticed the symptoms initially 3 days ago. Patient was seen in urgent care yesterday and placed on macrobid. Patient has been having dark bloody urine as well as clots in her urine. Recently started on progesterone and feels it may be related. Denies abdominal pain. Pain noted in the pelvic region. Patient doesn't feel like she is emptying her bladder fully. 35-year-old woman presenting to the emergency department with concern of urinary urgency and increasing hematuria. Did not reporting lightheadedness. Maybe feels a little flushed but no fever. Third day of symptoms now. Was seen urgent care yesterday and initiated on Macrobid. She has had 2 doses. Urinalysis was mildly positive. Culture is not yet available. ?long time since she has had a urinary tract infection. There was though the thought that when was younger that perhaps she was regularly passing trace or tiny stones as always had trace hematuria. Never documented/demonstrated a stone. Is rather distressed now is she has been having to spend a good portion of the day on the toilet. Also wondering if there might be some withdrawal bleeding. Is taking a course of progesterone hoping to trigger withdrawal bleed after a period of treatment for infertility. Apparently had an anovulatory cycle? She thinks that the blood is indeed urinary. Good deal of discomfort in the low abdomen. Did have a sore throat last week. with similar symptoms. No strep diagnosis. Related Data Home Medications ?Medication ?Instructions ?Recorded ?Confirmed hydroxyzine HCl 25 mg tablet 25 mg PO DAILY 05/21/23 1 09/20/24 levothyroxine 50 mcg tablet 50 mcg PO DAILY 01/07/25 1 09/20/24 progesterone micronized 200 mg 400 mg PO QHS 07/20/25 07/21/25 capsule Previous Rx's ?Medication ?Instructions ?Recorded nitrofurantoin 100 mg PO Q12H 5 days #10 ca ps 07/20/25 monohydrate/macrocrystals 100 mg capsule (Macrobid) Allergies Allergy/AdvReac Type Severity Reaction Status Date / Time prochlorperazine (From Allergy Mild Lock Jaw Verified 07/21/25 15:23 Compazine) adhesive Allergy Verified 07/21/25 15:23 Review of Systems Status of ROS: Reports: 6 or more systems reviewed and unremarkable except as noted in History and below [facility] Medical History Viral meningitis ?A87.9 - Viral meningitis, unspecified (ICD-10) Ovarian cyst ?N83.209 - Unspecified ovarian cyst, unspecified side (ICD-10) Endometriosis ?N80.9 - Endometriosis, unspecified (ICD-10) Clostridium difficile infection ?A49.8 - Other bacterial infections of unspecified site (ICD-10) Anxiety ?F41.9 - Anxiety disorder, unspecified (ICD-10) Major depressive disorder ?F32.9 - Major depressive disorder, single episode, unspecified (ICD-10) GERD (gastroesophageal reflux disease) ?K21.9 - Gastro-esophageal reflux disease without esophagitis (ICD-10) Bipolar II disorder ?F31.81 - Bipolar II disorder (ICD-10) Macrosomia ?P08.0 - Exceptionally large baby (ICD-10) 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 ?G40.409 - Other generalized epilepsy and epileptic syndromes, not intractable, without status epilepticus (ICD-10) Preeclampsia in period ?O14.95 - Unspecified pre-eclampsia, complicating the puerperium (ICD-10) Pharyngitis ?J02.9 - Acute pharyngitis, unspecified (ICD-10) Viral meningitis ?A87.9 - Viral meningitis, unspecified (ICD-10) Ovarian cyst ?N83.209 - Unspecified ovarian cyst, unspecified side (ICD-10) Endometriosis ?N80.9 - Endometriosis, unspecified (ICD-10) Clostridium difficile infection ?A49.8 - Other bacterial infections of unspecified site (ICD-10) Anxiety ?F41.9 - Anxiety disorder, unspecified (ICD-10) Major depressive disorder ?F32.9 - Major depressive disorder, single episode, unspecified (ICD-10) GERD (gastroesophageal reflux disease) ?K21.9 - Gastro-esophageal reflux disease without esophagitis (ICD-10) Bipolar II disorder ?F31.81 - Bipolar II disorder (ICD-10) Macrosomia ?P08.0 - Exceptionally large baby (ICD-10) Preeclampsia in period ?O14.95 - Unspecified pre-eclampsia, complicating the puerperium (ICD-10) Viral meningitis ?A87.9 - Viral meningitis, unspecified (ICD-10) Ovarian cyst ?N83.209 - Unspecified ovarian cyst, unspecified side (ICD-10) Endometriosis ?N80.9 - Endometriosis, unspecified (ICD-10) Clostridium difficile infection ?A49.8 - Other bacterial infections of unspecified site (ICD-10) Major depressive disorder ?F32.9 - Major depressive disorder, single episode, unspecified (ICD-10) Macrosomia ?P08.0 - Exceptionally large baby (ICD-10) 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 ?G40.409 - Other generalized epilepsy and epileptic syndromes, not intractable, without status epilepticus (ICD-10) Preeclampsia in period ?O14.95 - Unspecified pre-eclampsia, complicating the puerperium (ICD-10) Viral meningitis ?A87.9 - Viral meningitis, unspecified (ICD-10) Ovarian cyst ?N83.209 - Unspecified ovarian cyst, unspecified side (ICD-10) Endometriosis ?N80.9 - Endometriosis, unspecified (ICD-10) Clostridium difficile infection ?A49.8 - Other bacterial infections of unspecified site (ICD-10) Major depressive disorder ?F32.9 - Major depressive disorder, single episode, unspecified (ICD-10) Macrosomia ?P08.0 - Exceptionally large baby (ICD-10) Preeclampsia in period ?O14.95 - Unspecified pre-eclampsia, complicating the puerperium (ICD-10) Surgical History [place] teeth extracted ?K08.409 - Partial loss of teeth, unspecified cause, unspecified class (ICD- 10) S/P laparoscopic procedure ?Z98.890 - Other specified postprocedural states (ICD-10) History of appendectomy ?Z90.49 - Acquired absence of other specified parts of digestive tract (ICD- 10) History of ankle surgery ?Z98.890 - Other specified postprocedural states (ICD-10) S/P laparoscopic procedure ?Z98.890 - Other specified postprocedural states (ICD-10) [place] teeth extracted ?K08.409 - Partial loss of teeth, unspecified cause, unspecified class (ICD- 10) S/P laparoscopic procedure ?Z98.890 - Other specified postprocedural states (ICD-10) History of appendectomy ?Z90.49 - Acquired absence of other specified parts of digestive tract (ICD- 10) History of ankle surgery ?Z98.890 - Other specified postprocedural states (ICD-10) [place] teeth extracted ?K08.409 - Partial loss of teeth, unspecified cause, unspecified class (ICD- 10) S/P laparoscopic procedure ?Z98.890 - Other specified postprocedural states (ICD-10) History of appendectomy ?Z90.49 - Acquired absence of other specified parts of digestive tract (ICD- 10) History of ankle surgery ?Z98.890 - Other specified postprocedural states (ICD-10) [place] teeth extracted ?K08.409 - Partial loss of teeth, unspecified cause, unspecified class (ICD- 10) S/P laparoscopic procedure ?Z98.890 - Other specified postprocedural states (ICD-10) History of appendectomy ?Z90.49 - Acquired absence of other specified parts of digestive tract (ICD- 10) History of ankle surgery ?Z98.890 - Other specified postprocedural states (ICD-10) Social History Narrative: 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 Smoking Status: Never smoker Do you use any of these nicotine containing products: None Second hand tobacco smoke exposure: No How often do you have a drink containing alcohol: never How often do you have six or more drinks on one occasion: Never AUDIT-C Alcohol total score: 0 Non-prescribed substance use: denies use service: No Exam Narrative: Exam Narrative: Pleasant. Seems little uncomfortable. Otherwise NAD. Breathing easily. Heart is in elevated rate regular rhythm. Abdomen is soft and quite uncomfortable to palpation across the suprapubic space. No flank tenderness. Extremities well perfused without edema. No rash. Genitourinary exam was not done Const: Vital Signs, click to edit/add: Vital Signs - 24 hr 11/11/25 15:16 Temperature 98.5 F Pulse Rate [Right Pulse Oximeter] 112 H Respiratory Rate 18 Blood Pressure [Ri ght Upper Arm] 137/95 H Pulse Oximetry 99 Oxygen Delivery Me thod Room Air Documenting provider has reviewed patient's vital signs: yes Course Vital Signs Vital signs: Initial Vital Signs Temperature 98.5 F 07/21/25 15:16 Temperature Source Temporal Artery Scan 07/21/25 15:16 Pulse Rate 112 H 07/21/25 15:16 Pulse Rhythm Regular 07/21/25 15:16 Pulse Strength 3+ Normal 07/21/25 15:16 Respiratory Rate 18 07/21/25 15:16 Blood Pressure 137/95 H 07/21/25 15:16 Blood Pressure Mean 109 H 07/21/25 15:16 Blood Pressure Position Sitting 07/21/25 15:16 Pulse Oximetry 99 07/21/25 15:16 Oxygen Delivery Method Room Air 07/21/25 15:16 Vital Signs Temperature 98.5 F 07/21/25 15:16 Pulse Rate 112 H 07/21/25 15:16 Respiratory Rate 18 07/21/25 15:16 Blood Pressure 137/95 H 07/21/25 15:16 Pulse Oximetry 99 07/21/25 15:16 Oxygen Delivery Method Room Air 07/21/25 15:16 Temperature 98.5 F 07/21/25 15:16 Pulse Rate 112 H 07/21/25 15:16 Respiratory Rate 18 07/21/25 15:16 Blood Pressure 137/95 H 07/21/25 15:16 Pulse Oximetry 99 07/21/25 15:16 Oxygen Delivery Method Room Air 07/21/25 15:16 Medications Administered Medications: Discontinued Medications Generic Name Dose Route Start Last Admin Trade Name Freq PRN Reason Stop Dose Admin Ceftriaxone Sodium 1 gm 07/21/25 16:49 07/21/25 16:59 Ceftriaxone 1 Gm Vial IM 07/21/25 16:50 1 gm ONCE ONE Administration Phenazopyridine HCl 200 mg 07/21/25 15:55 07/21/25 16:32 Phenazopyridine Hcl 200 Mg Tablet PO 07/21/25 15:56 200 mg ONCE ONE Administration Medical Decision Making MDM Narrative Medical decision making narrative: Would repeat urinalysis to see if it might be more convincing for urinary tract infection. Not sure that has failed Macrobid but would consider other medication at that point. She did try hyoscyamine at home. Will try phenazopyridine here in the emergency department. Pending urinalysis might do further workup with labs including strep swab/antibodies if this might represent more of a nephritis. The urinalysis definitely looks further infected. I would treat this as urinary tract infection at this point. Will try to get her ahead a little bit with a parenteral injection of ceftriaxone. See patient discharge plan for further discussion Stay well hydrated with water. Can take up to 800 mg of ibuprofen up to 1000 mg of acetaminophen per dose. Urine culture will be pending here we will contact you if it appears changes need to be made to your medication. Can continue to use your hyoscyamine. Also prescribing phenazopyridine for urinary discomfort and cephalexin from [facility]. You received a g of Rocephin here in the emergency department. Stop Macrobid. Be seen for fever, marked increase in pain, no improvement in 2 days. Medical Records Medical records reviewed: Yes I reviewed the patient's medical records Lab Data Lab results reviewed: Yes I reviewed the patient's lab results Labs: Lab Results 07/21/25 Range/Units 15:30 Urine Color Red A (Yellow) Urine Appearance Cloudy A (Clear) Urine pH 5.0 (5.0-8.5) Ur Specific [place] 1.030 (1.000-1.030) Urine Protein 1+ A (Negative) Urine Glucose (UA) Negative (Negative) Urine Ketones Trace A (Negative) Urine Blood 3+ A (Negative) Urine Nitrite Positive A (Negative) Urine Bilirubin 3+ A (Negative) Urine Urobilinogen 1.0 (0.2-1.0) Ur Leukocyte Esterase Trace A (Negative) Urine RBC 50-100 A (0-2) Urine WBC >100 A (0-5) Ur Squamous Epith Cells Moderate A (None-Few) Urine Bacteria Few A (None) Discharge Plan Discharge Clinical Impression: Cystitis Patient Disposition: Home, Self-Care Condition: Stable Additional Instructions: Stay well hydrated with water. Can take up to 800 mg of ibuprofen up to 1000 mg of acetaminophen per dose. Urine culture will be pending here we will contact you if it appears changes need to be made to your medication. Can continue to use your hyoscyamine. Also prescribing phenazopyridine for urinary discomfort and cephalexin from [facility]. You received a g of Rocephin here in the emergency department. Stop Macrobid. Be seen for fever, marked increase in pain, no improvement in 2 days. Prescriptions: No Action progesterone micronized 200 mg capsule 400 mg PO QHS nitrofurantoin monohyd/m-cryst [Macrobid] 100 mg capsule 100 mg PO Q12H 5 Days Qty: 10 0RF Rx Instructions: must administer with a meal/food hydroxyzine HCl 25 mg tablet 25 mg PO DAILY levothyroxine 50 mcg tablet 50 mcg PO DAILY Follow Up/Referrals: Provider,Not a Local [Primary Care Provider, Family Practice] Stand Alone Forms: [facility] Info Instructions
[2025-07-21 16:01] LABS: Appearance Urine Cloudy (Clear)
[2025-07-21] MEDS: PHENAZOPYRIDINE HCL 200 MG TABLET PO (16:32)
[2025-07-21] MEDS: cefTRIAXone 1 GM VIAL IM (16:59)
== END 2025-07-21 17:05 | disposition home or self-care (01) ==
PROVIDERS: Emergency Provider Family Medicine
DX: N30.91 Cystitis, unspecified with hematuria (principal)
CPT/HCPCS: 51798; 81001; 99283; 99284; A9270; J0696